=== PATIENT | male | born 1940 | race Caucasian/White ===

== ENCOUNTER 2017-01-06 13:27 | Emergency (ER) | payer MEDICARE ==
--- NOTE | 2017-01-06 14:35 | XR ---
EXAMINATION TYPE: XR Hip RT and AP Pelvis DATE OF EXAM: 01/06/2017 2:17 PM COMPARISON: NONE HISTORY: Right hip pain and sacrum pain TECHNIQUE: A single AP view of the pelvis is obtained. Two views of the right hip are obtained. FINDINGS: There is no acute fracture/dislocation evident in the pelvis. The hip and sacroiliac join ts appear symmetric and unremarkable. The overlying soft tissue appears unremarkable. Two views of right hip show no acute fracture or dislocation. No focal lytic or sclerotic lesion see n in the proximal right femur. The overlying soft tissue is unremarkable. Bone mineralization is re duced. There are vascular calcifications. There may be a lumbar scoliosis. IMPRESSION: There is no acute fracture or dislocation in the pelvis or right hip. Low bone mineraliz ation could limit sensitivity. Follow-up as indicated. Possible spinal curvature.
[2017-01-06] MEDS ORDERED: HYDROcodone/APAP 5-325MG 1 EACH TAB PO STA (14:38)
--- NOTE | 2017-01-06 14:39 | ED ---
General Adult HPI - General Chief complaint: Fall Stated complaint: RT HIP INJURY Time Seen by Provider: 01/06/17 13:49 Source: patient, EMS, RN notes reviewed, old records reviewed Mode of arrival: EMS Limitations: no limitations - History of Present Illness Initial comments: This is a 76-year-old male the ER status post slip and fall. Patient fell backwards landing has both getting off the toilet. Patient did not hit his head as well as conscious blood thinners. Patient did not attempt to get up after falling. Was not on the ground for longer than a minute. EMS was called and EMS brought patient in transport. Patient is able to move leg with mild pain, patient states pain is lower mid back. - Related Data Home Medications Medication Instructions Recorded Confirmed Simvastatin [Zocor] 40 mg PO HS 02/22/14 01/06/17 Abatacept/Maltose [Orencia] 750 mg IVPB Q28D 08/17/15 01/06/17 Leflunomide [Arava] 10 mg PO DAILY 12/11/15 01/06/17 Icon Eye Vitamin 1 tab PO DAILY 06/05/16 01/06/17 Lisinopril [Prinivil] 2.5 mg PO BID 06/20/16 01/06/17 Acetaminophen Tab [Tylenol] 650 mg PO TID PRN 01/06/17 01/06/17 Previous Rx's Medication Instructions Recorded Nitroglycerin Sl Tabs [Nitrostat] 0.4 mg SUBLINGUAL Q5M PRN #30 tab 08/26/14 Aspirin 81 mg PO DAILY chew 06/11/16 Metoprolol Tartrate [Lopressor] 12.5 mg PO BID #60 tab 06/11/16 HYDROcodone/APAP 5-325MG [Pavillion 1 tab PO Q6HR PRN #30 tab 01/06/17 5-325] Allergies Allergy/AdvReac Type Severity Reaction Status Date / Time etodolac [From Lodine] Allergy Rash/Hives Verified 01/06/17 14:05 grape Allergy Rash/Hives Verified 01/06/17 14:05 Penicillins Allergy Rash/Hives Verified 01/06/17 14:05 grape flavor Allergy Rash/Hives Uncoded 01/06/17 13:30 Review of Systems ROS Statement: Those systems with pertinent positive or pertinent negative responses have been documented in the HPI. ROS Other: All systems not noted in ROS Statement are negative. Past Medical History Past Medical History: COPD, CVA/TIA, Hypertension, Myocardial Infarction (MO), Renal Disease, Rheumatoid Arthritis (RA) Additional Past Medical History / Comment(s): Other Hx: rheumatoid lung disease, restrictive ventilatory impairment per last PFT, lung nodules, 2012 ECHO with normal EF and moderate pulmonary HTN, bilateral nephrolithiasis, renal insufficiency, hiatal hernia, duodenal ulcers, macular degeneration bilaterally, tinnitis bilaterally, was told after [facility] that he had a MO at some time-undetermined date, balance affected after CVA Last Myocardial Infarction Date:: unkn History of Any Multi-Drug Resistant Organisms: None Reported Past Surgical History: Heart Catheterization With Stent, Joint Replacement Additional Past Surgical History / Comment(s): 07/2014 Cardiac cath with stents x 3, R caratid endartectomy, total R knee, lithotripsy 2011, cataract removal with lens implants bilaterally, colonoscopy/EGD. Past Anesthesia/Blood Transfusion Reactions: No Reported Reaction Date of Last Stent Placement:: jul 2014 Past Psychological History: No Psychological Hx Reported Additional Psychological History / Comment(s): Pt resides with his spouse. He is independent. He uses no assistive device. He drives. 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 No experience. No international travel. Years since been exposures. Lives with his no other partners. Remote history of tobacco use no history of significant recreational drug use or alcohol use Smoking Status: Never smoker Past Alcohol Use History: None Reported Additional Past Alcohol Use History / Comment(s): Pt started smoking in 1952 and quit in 1988. Past Drug Use History: None Reported - Past Family History Father Family Medical History: Pulmonary Embolus Additional Family Medical History / Comment(s): Father of a PE at age 51 yrs. Mother Family Medical History: Cancer Additional Family Medical History / Comment(s): Hx. mother of esophagus cancer at age 86yrs. Son(s) Family Medical History: Cancer General Exam Limitations: no limitations General appearance: alert, in no apparent distress Head exam: Present: atraumatic, normocephalic, normal inspection Eye exam: Present: normal appearance, PERRL, EOMI. Absent: scleral icterus, conjunctival injection, periorbital swelling ENT exam: Present: normal exam, mucous membranes moist Neck exam: Present: normal inspection. Absent: tenderness, meningismus, lymphadenopathy Respiratory exam: Present: normal lung sounds bilaterally. Absent: respiratory distress, wheezes, rales, rhonchi, stridor Cardiovascular Exam: Present: regular rate, normal rhythm, normal heart sounds. Absent: systolic murmur, diastolic murmur, rubs, gallop, clicks GI/Abdominal exam: Present: soft, normal bowel sounds. Absent: distended, tenderness, guarding, rebound, rigid Extremities exam: Present: normal inspection, full ROM, normal capillary refill. Absent: tenderness, pedal edema, joint swelling, calf tenderness Back exam: Present: normal inspection Neurological exam: Present: alert, oriented X3, CN II-XII intact Psychiatric exam: Present: normal affect, normal mood Skin exam: Present: warm, dry, intact, normal color. Absent: rash Course Vital Signs 01/06/17 01/06/17 13:30 14:48 Temperature 97.5 F L 97.3 F L Pulse Rate 70 68 Respiratory 16 18 Rate Blood Pressure 147/86 157/87 O2 Sat by Pulse 90 L 94 L Oximetry - Reevaluation(s) Reevaluation #1: 01/06/17 15:04 Patient's pain is improved, able to ambulate Medical Decision Making - Medical Decision Making 76 also been followed back contusion, x-ray negative for fracture patient can be discharged home - Radiology Data Radiology results: report reviewed (X-ray right hip and AP pelvis is negative for fracture), image reviewed Disposition Clinical Impression: Fall, Back contusion Disposition: HOME SELF-CARE Condition: Good Instructions: Fall Prevention for Older Adults (ED) Prescriptions: HYDROcodone/APAP 5-325MG [Pavillion 5-325] 1 tab PO Q6HR PRN #30 tab PRN Reason: Pain Referrals: Jose David Cox MD [Primary Care Provider] - 1-2 days
[2017-01-06 14:48] VITALS: TEMP 97.3
[2017-01-06 15:16] VITALS: BP 146/76; PULSE 79; RESP 15
== END 2017-01-06 15:17 | disposition home or self-care (01) ==
LOC: EC 13:27
DX: S30.0XXA Contusion of lower back and pelvis, initial encounter (principal); I10 Essential (primary) hypertension; M06.9 Rheumatoid arthritis, unspecified; I25.2 Old myocardial infarction; Z95.818 Presence of other cardiac implants and grafts; Z79.899 Other long term (current) drug therapy; Z88.6 Allergy status to analgesic agent; Z91.018 Allergy to other foods; Z88.0 Allergy status to penicillin; W01.0XXA Fall on same level from slipping, tripping and stumbling without subsequent striking against object, initial encounter; Y93.01 Activity, walking, marching and hiking; Y92.002 Bathroom of unspecified non-institutional (private) residence as the place of occurrence of the external cause
CPT/HCPCS: 73502; 99284

== ENCOUNTER 2017-02-02 11:44 | Emergency (ER) | payer MEDICARE ==
[2017-02-02 11:53] VITALS: TEMP 97.5
[2017-02-02] MEDS ORDERED: SODIUM CHLORIDE 0.9% 1,000 ML IV STA (13:30)
--- NOTE | 2017-02-02 13:51 | ED ---
General Adult HPI - General Chief complaint: Back Pain/Injury Stated complaint: sick,back pain Time Seen by Provider: 02/02/17 13:11 Source: patient, family, RN notes reviewed Mode of arrival: wheelchair Limitations: physical limitation - History of Present Illness Initial comments: 76-year-old male presents to the emergency department with a chief complaint of not feeling well. The patient has not been eating for the past few months. He states just doesn't have an appetite. He states that his stomach is upset. He did undergo an endoscopy from Dr. Wilson and they stated there is nothing wrong with the abdomen. The patient states he had 2 pieces of toast this morning wheeze on pain medication for his back pain after a fall that had some compression fractures in his spine. Patient was fitted with a back brace on and he is worried twice. Patient states he was up about an hour and a half. Patient states that he just does not get out of bed more than 12 to the bathroom and back. He does not feel like eating. Patient states he's had a few episodes of vertigo with this. Patient states it's a history of vertigo. Patient states that he just feels off and it comes and goes at random. The pain medication that these her vertigo seems to make him feel better at that slowly goes away after taking that. Family states they're concerned due to the patient's continued behaviors and not acting right. They should be evaluated. Patient denies any recent fever, chills, shortness of breath, chest pain, abdominal pain, nausea vomiting, numbness or tingling, dysuria or hematuria, constipation or diarrhea, headaches or visual changes, or any other current symptoms. - Related Data Home Medications Medication Instructions Recorded Confirmed Simvastatin [Zocor] 40 mg PO HS 02/22/14 02/02/17 Abatacept/Maltose [Orencia] 750 mg IVPB Q28D 08/17/15 02/02/17 Leflunomide [Arava] 10 mg PO DAILY 12/11/15 02/02/17 Icon Eye Vitamin 2 tab PO DAILY 06/05/16 02/02/17 Lisinopril [Prinivil] 2.5 mg PO BID 06/20/16 02/02/17 HYDROmorphone HCL [Dilaudid] 2 mg PO Q4H 02/02/17 02/02/17 Meclizine [Antivert] 25 mg PO DAILY 02/02/17 02/02/17 Previous Rx's Medication Instructions Recorded Nitroglycerin Sl Tabs [Nitrostat] 0.4 mg SUBLINGUAL Q5M PRN #30 tab 08/26/14 Aspirin 81 mg PO DAILY chew 06/11/16 Metoprolol Tartrate [Lopressor] 12.5 mg PO BID #60 tab 06/11/16 Allergies Allergy/AdvReac Type Severity Reaction Status Date / Time etodolac [From Lodine] Allergy Rash/Hives Verified 02/02/17 14:27 grape Allergy Rash/Hives Verified 02/02/17 14:27 Penicillins Allergy Rash/Hives Verified 02/02/17 14:27 grape flavor Allergy Rash/Hives Uncoded 02/02/17 11:53 Review of Systems ROS Statement: Those systems with pertinent positive or pertinent negative responses have been documented in the HPI. ROS Other: All systems not noted in ROS Statement are negative. Past Medical History Past Medical History: COPD, CVA/TIA, Hypertension, Myocardial Infarction (MD), Renal Disease, Rheumatoid Arthritis (RA) Additional Past Medical History / Comment(s): Other Hx: rheumatoid lung disease, restrictive ventilatory impairment per last PFT, lung nodules, 2012 ECHO with normal EF and moderate pulmonary HTN, bilateral nephrolithiasis, renal insufficiency, hiatal hernia, duodenal ulcers, macular degeneration bilaterally, tinnitis bilaterally, [facility] had [facility] MD at some time-undetermined date, balance affected after CVA Last Myocardial Infarction Date:: unkn History of Any Multi-Drug Resistant Organisms: None Reported Past Surgical History: Heart Catheterization With Stent, Joint Replacement Additional Past Surgical History / Comment(s): 07/2014 Cardiac cath with stents x 3, R caratid endartectomy, total R knee, lithotripsy 2011, cataract removal with lens implants bilaterally, colonoscopy/EGD. Past Anesthesia/Blood Transfusion Reactions: No Reported Reaction Date of Last Stent Placement:: jul 2014 Past Psychological History: No Psychological Hx Reported Additional Psychological History / Comment(s): Pt resides with his spouse. He is independent. He uses no assistive device. He drives. 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 No experience. No international travel. Years since been exposures. Lives with his no other partners. Remote history of tobacco use no history of significant recreational drug use or alcohol use Smoking Status: Former smoker Past Alcohol Use History: None Reported Additional Past Alcohol Use History / Comment(s): Pt started smoking in 1952 and quit in 1988. Past Drug Use History: None Reported - Past Family History Father Family Medical History: Pulmonary Embolus Additional Family Medical History / Comment(s): Father of a PE at age 51 yrs. Mother Family Medical History: Cancer Additional Family Medical History / Comment(s): Hx. mother of esophagus cancer at age 86yrs. Son(s) Family Medical History: Cancer General Exam Limitations: physical limitation General appearance: alert, in no apparent distress Head exam: Present: atraumatic, normocephalic, normal inspection Eye exam: Present: normal appearance ENT exam: Present: normal exam, mucous membranes moist Neck exam: Present: normal inspection. Absent: tenderness, meningismus, lymphadenopathy Respiratory exam: Present: normal lung sounds bilaterally. Absent: respiratory distress, wheezes, rales, rhonchi, stridor Cardiovascular Exam: Present: regular rate, normal rhythm, normal heart sounds. Absent: systolic murmur, diastolic murmur, rubs, gallop, clicks GI/Abdominal exam: Present: soft, normal bowel sounds. Absent: distended, tenderness, guarding, rebound, rigid Neurological exam: Present: alert, oriented X3, CN II-XII intact, motor sensory deficit Psychiatric exam: Present: normal affect, normal mood Skin exam: Present: warm, dry, intact, normal color. Absent: rash Course Vital Signs 02/02/17 11:49 Temperature 97.5 F L Pulse Rate 92 Respiratory 20 Rate Blood Pressure 108/62 O2 Sat by Pulse 98 Oximetry Medical Decision Making - Medical Decision Making 76-year-old male presents to the emergency department with a chief complaint of not feeling well. At this time patient's lab work and EKG imaging was reviewed. Patient was found to have any abdominal aortic aneurysm which she was informed of. We did discuss the results. We did discuss close follow-up with his doctor. We did discuss possibly starting ensure we discussed. First. We discussed all of their questions. This time we discussed continued outpatient follow-up to find out why the patient is not wanting to eat. We discussed using the brace as prescribed. Patient's family are in agreement with this plan we do feel comfortable being discharged. All her questions have been answered. They will be discharged. - Lab Data Result diagrams: 02/02/17 13:36 02/02/17 13:36 Lab Results 02/02/17 02/02/17 02/02/17 Range/Units 13:36 13:36 13:36 WBC 10.3 (3.8-10.6) k/uL RBC 4.79 (4.30-5.90) m/uL Hgb 15.0 (13.0-17.5) gm/dL Hct 47.8 (39.0-53.0) % MCV 99.9 (80.0-100.0) fL MCH 31.2 (25.0-35.0) pg MCHC 31.3 (31.0-37.0) g/dL RDW 13.2 (11.5-15.5) % Plt Count 184 (150-450) k/uL Neutrophils % 74 % Lymphocytes % 10 % Monocytes % 10 % Eosinophils % 4 % Basophils % 1 % Neutrophils # 7.6 (1.3-7.7) k/uL Lymphocytes # 1.1 (1.0-4.8) k/uL Monocytes # 1.0 (0-1.0) k/uL Eosinophils # 0.4 (0-0.7) k/uL Basophils # 0.1 (0-0.2) k/uL PT (9.0-12.0) sec INR (<1.1) APTT (22.0-30.0) sec D-Dimer (<0.60) mg/L FEU Sodium 137 (137-145) mmol/L Potassium 4.9 (3.5-5.1) mmol/L Chloride 103 (98-107) mmol/L Carbon Dioxide 24 (22-30) mmol/L Anion Gap 10 mmol/L BUN 29 H (9-20) mg/dL Creatinine 1.05 (0.66-1.25) mg/dL Est GFR (MDRD) Af Amer >60 (>60 ml/min/1.73 sqM) Est GFR (MDRD) Non-Af >60 (>60 ml/min/1.73 sqM) Glucose 88 (74-99) mg/dL Calcium 9.0 (8.4-10.2) mg/dL Magnesium 2.0 (1.6-2.3) mg/dL Total Bilirubin 0.9 (0.2-1.3) mg/dL AST 32 (17-59) U/L ALT 51 (21-72) U/L Alkaline Phosphatase 169 H (38-126) U/L Total Creatine Kinase 22 L (55-170) U/L CK-MB (CK-2) 0.9 (0.0-2.4) ng/mL CK-MB (CK-2) Rel Index 4.1 Troponin I <0.012 (0.000-0.034) ng/mL Total Protein 5.9 L (6.3-8.2) g/dL Albumin 2.9 L (3.5-5.0) g/dL 02/02/17 Range/Units 13:36 WBC (3.8-10.6) k/uL RBC (4.30-5.90) m/uL Hgb (13.0-17.5) gm/dL Hct (39.0-53.0) % MCV (80.0-100.0) fL MCH (25.0-35.0) pg MCHC (31.0-37.0) g/dL RDW (11.5-15.5) % Plt Count (150-450) k/uL Neutrophils % % Lymphocytes % % Monocytes % % Eosinophils % % Basophils % % Neutrophils # (1.3-7.7) k/uL Lymphocytes # (1.0-4.8) k/uL Monocytes # (0-1.0) k/uL Eosinophils # (0-0.7) k/uL Basophils # (0-0.2) k/uL PT 11.2 (9.0-12.0) sec INR 1.1 (<1.1) APTT 24.5 (22.0-30.0) sec D-Dimer 0.55 (<0.60) mg/L FEU Sodium (137-145) mmol/L Potassium (3.5-5.1) mmol/L Chloride (98-107) mmol/L Carbon Dioxide (22-30) mmol/L Anion Gap mmol/L BUN (9-20) mg/dL Creatinine (0.66-1.25) mg/dL Est GFR (MDRD) Af Amer (>60 ml/min/1.73 sqM) Est GFR (MDRD) Non-Af (>60 ml/min/1.73 sqM) Glucose (74-99) mg/dL Calcium (8.4-10.2) mg/dL Magnesium (1.6-2.3) mg/dL Total Bilirubin (0.2-1.3) mg/dL AST (17-59) U/L ALT (21-72) U/L Alkaline Phosphatase (38-126) U/L Total Creatine Kinase (55-170) U/L CK-MB (CK-2) (0.0-2.4) ng/mL CK-MB (CK-2) Rel Index Troponin I (0.000-0.034) ng/mL Total Protein (6.3-8.2) g/dL Albumin (3.5-5.0) g/dL - EKG Data -: EKG Interpreted by Me 02/02/17 14:07 normal sinus rhythm 78 bpm, normal axis, no atopy, no S-T depressions or elevations, Disposition Clinical Impression: Loss of appetite, Dehydration, Back pain Disposition: HOME SELF-CARE Condition: Stable Instructions: Acute Low Back Pain (ED) Additional Instructions: Please use medication as discussed. Please follow up with family doctor if symptoms have not improved over the next two days. Please return to the emergency room if your symptoms increase or worsen or for any other concerns. Referrals: Jose David Cox MD [Primary Care Provider] - 1-2 days Time of Disposition: 15:53
[2017-02-02 14:04] LABS: Basophils # (A) 0.1 k/uL (0-0.2); Basophils % (A) 1 %; CH 31.2; CHCM 31.3; Eosinophils # (A) 0.4 k/uL (0-0.7); Eosinophils % (A) 4 %; HCT 47.8 % (39.0-53.0); HDW 2.12; Luc # (Auto) 0.16; Luc % (Auto) 2; Lymphocytes # (A) 1.1 k/uL (1.0-4.8); Lymphocytes % (A) 10 %; MCH 31.2 pg (25.0-35.0); MCHC 31.3 g/dL (31.0-37.0); MCV 99.9 fL (80.0-100.0); Mean Platelet Volume 10.8; Monocytes % (A) 10 %; Neutrophils # (A) 7.6 k/uL (1.3-7.7); Neutrophils % (A) 74 %; RBC 4.79 m/uL (4.30-5.90); RDW 13.2 % (11.5-15.5); WBC 10.3 k/uL (3.8-10.6); WBC (Perox) 9.97
--- NOTE | 2017-02-02 14:14 | XR ---
EXAMINATION TYPE: XR chest 2V DATE OF EXAM: 02/02/2017 2:00 PM COMPARISON: 06/05/2016 INDICATION: Chest pain TECHNIQUE: Single frontal view of the chest is obtained. FINDINGS: The heart size is normal. The pulmonary vasculature is normal. The lungs are clear. There appears to be a pneumoperitoneum present. Correlate with the patient's surgical history. Report was immediately called to the emergency room PA by Dr. Alexander by telephone at 1400 hours 02/02/2017 IMPRESSION: 1. Suspected pneumoperitoneum. Recommend confirmation.
[2017-02-02 14:22] LABS: ALT 51 U/L (21-72); AST 32 U/L (17-59); Alkaline Phosphatase 169 U/L (38-126); Anion Gap 10 mmol/L; Blood Urea Nitrogen 29 mg/dL (9-20); Carbon Dioxide 24 mmol/L (22-30); Chloride 103 mmol/L (98-107); Glucose 88 mg/dL (74-99); Non-African American GFR(MDRD) >60 (>60 ml/min/1.73 sqM); Sodium 137 mmol/L (137-145); Total Bilirubin 0.9 mg/dL (0.2-1.3); Total Protein 5.9 g/dL (6.3-8.2)
[2017-02-02 14:23] LABS: Creatine Kinase 22 U/L (55-170)
[2017-02-02 14:27] LABS: Potassium 4.9 mmol/L (3.5-5.1)
[2017-02-02 14:36] LABS: Creatine Kinase MB 0.9 ng/mL (0.0-2.4); INR 1.1 (<1.1); Partial Thromboplastin Time 24.5 sec (22.0-30.0); Prothrombin Time 11.2 sec (9.0-12.0); Troponin I <0.012 ng/mL (0.000-0.034)
--- NOTE | 2017-02-02 15:17 | CT ---
EXAMINATION TYPE: CT brain wo con DATE OF EXAM: 02/02/2017 3:10 PM COMPARISON: 03/09/2016 INDICATION: Back pain. Sick. DLP: 1047.10 mGycm, Automated exposure control for dose reduction was used. CONTRAST: None CT of the brain is performed utilizing 3 mm thick sections through the posterior fossa and 3 mm thick sections through the remaining calvarium. Study is performed within 24 hours of arrival to the hosp ital. No abnormal hyperdensity is present to suggest an acute intracranial hemorrhage. No mass lesion is evident. No acute infarcts are evident. Mild periventricular white matter hypodensity is present, likely on th e basis of chronic white matter ischemic changes. Ventricles and sulci are prominent for the patient age. Paranasal sinuses and mastoid air cells within the [id number] are clear. IMPRESSIONS: 1. Atrophy with mild periventricular white matter ischemic changes
--- NOTE | 2017-02-02 15:25 | CT ---
EXAMINATION TYPE: CT ChestAbdPelvis wo con DATE OF EXAM: 02/02/2017 3:11 PM INDICATION: Sick and back pain COMPARISON: NONE CT DLP: 453.30 mGycm CONTRAST: Performed without Oral Contrast TECHNIQUE: Axial images at 5 mm thick sections. Reconstructed images in the coronal plane. Delayed images through the kidneys. FINDINGS: CT CHEST: Portion of the thyroid visualized is normal. No suspicious lung nodules or focal infiltrates are present. Emphysematous changes are present to a m ild degree. 0.3 punctate nodular densities in the lingula series 4 image 27. Peribronchial thickening is extending into the lateral right middle lobe. Pneumonitis changes or distal. There is a 0.6 cm no dule within the inferior lingular base. No enlarged mediastinal or hilar adenopathy is evident. Shotty lymphadenopathy is present. The ascending aorta diameter at the level of the main pulmonary artery is 4.0 cm. The main pulmonary artery diameter at the bifurcation is 3.3 cm. Coronary artery calcification is present. CT ABDOMEN: Liver: Normal Spleen: Normal Pancreas: Normal Adrenal glands: The adrenal glands are normal. Gallbladder: Surgically absent Kidneys: Extensive renal stones are present bilaterally. No hydronephrosis is evident. No hydroureter is evident. There is a 2.8 cm cyst on the mid posterior lateral left kidney measuring 10 Hounsfield units. Aorta: Vascular calcification is within the aorta. There is fusiform prominence of the descending ab dominal aorta. There is an AP diameter aneurysm measuring 4.1 cm in the infrarenal abdominal aorta ab ove the bifurcation. The bifurcation is prominent measuring 2.4 cm on the right and 2.2 cm on the lef t. Inferior vena cava: Normal. CT PELVIS: Large fecal bolus at the level the rectum. The bowel without contrast otherwise appear unremarkable. Appendix: Limited visualization of what appears to be the appendix is normal Urinary bladder: Normal. Genitourinary structures: Prostate is unremarkable Osseous structures: No suspicious lytic or sclerotic lesions. IMPRESSIONS: 1. Infrarenal abdominal aortic aneurysm measuring 4.1 cm AP extending into the proximal common iliac arteries. 2. Extensive bilateral nonobstructing renal stones.
[2017-02-02 15:56] VITALS: BP 135/87; PULSE 74; RESP 18
== END 2017-02-02 16:13 | disposition home or self-care (01) ==
LOC: EC 11:44
DX: E86.0 Dehydration (principal); M54.9 Dorsalgia, unspecified; R63.0 Anorexia; R42 Dizziness and giddiness; I25.2 Old myocardial infarction; I10 Essential (primary) hypertension; M06.9 Rheumatoid arthritis, unspecified; Z79.891 Long term (current) use of opiate analgesic; Z79.899 Other long term (current) drug therapy; Z88.0 Allergy status to penicillin; Z88.8 Allergy status to other drugs, medicaments and biological substances; Z91.02 Food additives allergy status; Z95.5 Presence of coronary angioplasty implant and graft
CPT/HCPCS: 36415; 70450; 71020; 71250; 74176; 80053; 82550; 82553; 83735; 84484; 85025; 85379; 85610; 85730; 93005; 96360; 96361; 99284

== ENCOUNTER → 2017-05-02 | Outpatient (CLI) | payer MEDICARE ==
--- NOTE | 2017-05-02 16:40 | CT ---
EXAMINATION TYPE: CT chest wo con DATE OF EXAM: 05/02/2017 COMPARISON: 02/02/2017 HISTORY: Follow up for lung nodules. CT DLP: 765 mGycm. Automated Exposure Control for Dose Reduction was Utilized. TECHNIQUE: CT scan of the thorax is performed without IV contrast. FINDINGS: There are moderate bilateral pleural effusions. There is patchy consolidation and atelectasis at the posterior lung bases. Heart is enlarged. There is small pericardial effusion. Thoracic aorta is ather omatous. There is mild aneurysm of the ascending aorta that measures 4 cm. There are bilateral renal calculi. There is a 6 mm nodular density in the lingula left upper lobe. I see no pulmonary mass. The re is 75% anterior wedging of L1 vertebral body. There is interposition of the hepatic flexure of the colon. IMPRESSION: Compared to last exam there is significant increased pleural fluid and atelectasis and in filtrate at the lung bases. Cardiomegaly. Small pericardial effusion. This probably relates to chroni c congestive heart failure. No evidence of a pulmonary mass. Old L1 compression fracture. Stable mild aneurysm of the ascending aorta. Stable pretracheal lymph nodes measure up to 1 cm. Bilateral renal calculi.
== END | disposition home or self-care (01) ==
LOC: RADCTMAIN 16:15
PROVIDERS: ATTEND Internal Medicine Pulmonary Disease
DX: I31.3 Pericardial effusion (noninflammatory) (principal); J94.8 Other specified pleural conditions; J98.11 Atelectasis; R91.8 Other nonspecific abnormal finding of lung field; I71.4 Abdominal aortic aneurysm, without rupture
CPT/HCPCS: 71250

== ENCOUNTER 2017-05-03 19:53 | Inpatient (IN) | payer MEDICARE ==
[2017-05-03] MEDS ORDERED: FUROSEMIDE 10 MG/ML 4 ML VIAL IV STA (20:22)
[2017-05-03] MEDS ORDERED: NITROGLYCERIN OINT 1 INCH/GM PACKET TOPICAL STA (20:22)
[2017-05-03] MEDS ORDERED: IPRATROPIUM-ALBUTEROL 3 ML NEB INHALATION STA (20:24)
--- NOTE | 2017-05-03 20:25 | ED ---
SOB HPI - General Chief Complaint: Shortness of Breath Stated Complaint: ABEL Time Seen by Provider: 05/03/17 20:01 Source: patient, family, RN notes reviewed Mode of arrival: wheelchair Limitations: no limitations - History of Present Illness Initial Comments: This is a 77-year-old male with history of COPD who states he's had a cough with history of exertional dyspnea. He states he had coughed up some bright red blood yesterday. Released states he coughs up brown phlegm he denies any overt fevers chills or sweats. He denies any chest pain. Complaint: shortness of breath, cough - Related Data Home Medications Medication Instructions Recorded Confirmed Simvastatin [Zocor] 40 mg PO HS 02/22/14 05/03/17 Abatacept/Maltose [Orencia] 750 mg IVPB Q28D 08/17/15 05/03/17 Leflunomide [Arava] 10 mg PO DAILY 12/11/15 05/03/17 Icon Eye Vitamin 2 tab PO DAILY 06/05/16 05/03/17 HYDROmorphone HCL [Dilaudid] 2 mg PO Q4H 02/02/17 05/03/17 Fludrocortisone [Florinef] 0.1 mg PO BID 04/10/17 05/03/17 Midodrine HCl [ProAmatine] 2.5 mg PO BID 04/10/17 05/03/17 Previous Rx's Medication Instructions Recorded Nitroglycerin Sl Tabs [Nitrostat] 0.4 mg SUBLINGUAL Q5M PRN #30 tab 08/26/14 Aspirin 81 mg PO DAILY chew 06/11/16 Allergies Allergy/AdvReac Type Severity Reaction Status Date / Time etodolac [From Lodine] Allergy Rash/Hives Verified 05/03/17 20:10 grape Allergy Rash/Hives Verified 05/03/17 20:10 Penicillins Allergy Rash/Hives Verified 05/03/17 20:10 grape flavor Allergy Rash/Hives Uncoded 05/03/17 19:57 Review of Systems ROS Statement: Those systems with pertinent positive or pertinent negative responses have been documented in the HPI. ROS Other: All systems not noted in ROS Statement are negative. Past Medical History Past Medical History: COPD, CVA/TIA, Hypertension, Myocardial Infarction ([place]), Renal Disease, Rheumatoid Arthritis (RA) Additional Past Medical History / Comment(s): Other Hx: rheumatoid lung disease, restrictive ventilatory impairment per last PFT, lung nodules, 2012 ECHO with normal EF and moderate pulmonary HTN, bilateral nephrolithiasis, renal insufficiency, hiatal hernia, duodenal ulcers, macular degeneration bilaterally, tinnitis bilaterally, was told after [facility] that he had a [place] at some time-undetermined date, balance affected after CVA Last Myocardial Infarction Date:: unkn History of Any Multi-Drug Resistant Organisms: None Reported Past Surgical History: Heart Catheterization With Stent, Joint Replacement Additional Past Surgical History / Comment(s): 07/2014 Cardiac cath with stents x 3, R caratid endartectomy, total R knee, lithotripsy 2011, cataract removal with lens implants bilaterally, colonoscopy/EGD. Past Anesthesia/Blood Transfusion Reactions: No Reported Reaction Date of Last Stent Placement:: jul 2014 Past Psychological History: No Psychological Hx Reported Smoking Status: Former smoker - Past Family History Father Family Medical History: Pulmonary Embolus Additional Family Medical History / Comment(s): Father of a PE at age 51 yrs. Mother Family Medical History: Cancer Additional Family Medical History / Comment(s): Hx. mother of esophagus cancer at age 86yrs. Son(s) Family Medical History: Cancer General Exam - General Exam Comments Initial Comments: This is a well-developed well-nourished awake alert oriented 3 male Limitations: no limitations General appearance: alert, anxious, in distress Head exam: Present: atraumatic, normocephalic, normal inspection Eye exam: Present: normal appearance, PERRL, EOMI. Absent: scleral icterus, conjunctival injection, periorbital swelling ENT exam: Present: normal exam, mucous membranes moist Neck exam: Present: normal inspection. Absent: tenderness, meningismus, lymphadenopathy Respiratory exam: Present: rales, decreased breath sounds. Absent: respiratory distress, wheezes, rhonchi, stridor Cardiovascular Exam: Present: regular rate, normal rhythm, normal heart sounds. Absent: systolic murmur, diastolic murmur, rubs, gallop, clicks GI/Abdominal exam: Present: soft, normal bowel sounds. Absent: distended, tenderness, guarding, rebound, rigid Extremities exam: Present: normal inspection, full ROM, normal capillary refill. Absent: tenderness, pedal edema, joint swelling, calf tenderness Back exam: Present: normal inspection Neurological exam: Present: alert, oriented X3, CN II-XII intact Psychiatric exam: Present: normal affect, normal mood Skin exam: Present: warm, dry, intact, normal color. Absent: rash Course Vital Signs 05/03/17 05/03/17 05/03/17 19:55 20:25 20:40 Temperature 97.8 F Pulse Rate 83 84 78 Respiratory 18 18 Rate Blood Pressure 157/79 146/108 O2 Sat by Pulse 94 L 96 Oximetry 05/03/17 21:49 Temperature 97.5 F L Pulse Rate 82 Respiratory 18 Rate Blood Pressure 124/73 O2 Sat by Pulse 95 Oximetry - Reevaluation(s) Reevaluation #1: 05/03/17 21:55 Reevaluation patient reveals he is breathing better after the updraft and the IV Lasix. He is diuresing. Medical Decision Making - Medical Decision Making I did discuss findings with patient family and with the hospitalist, Dr. Jacobs. Patient will be admitted for diuresis and continued treatment. - Lab Data Result diagrams: 05/03/17 20:15 05/03/17 20:15 Lab Results 05/03/17 05/03/17 05/03/17 Range/Units 20:15 20:15 20:15 WBC 9.1 (3.8-10.6) k/uL RBC 4.25 L (4.30-5.90) m/uL Hgb 14.1 (13.0-17.5) gm/dL Hct 41.9 (39.0-53.0) % MCV 98.6 (80.0-100.0) fL MCH 33.2 (25.0-35.0) pg MCHC 33.7 (31.0-37.0) g/dL RDW 13.8 (11.5-15.5) % Plt Count 209 (150-450) k/uL Neutrophils % 67 % Lymphocytes % 15 % Monocytes % 9 % Eosinophils % 6 % Basophils % 1 % Neutrophils # 6.1 (1.3-7.7) k/uL Lymphocytes # 1.4 (1.0-4.8) k/uL Monocytes # 0.8 (0-1.0) k/uL Eosinophils # 0.5 (0-0.7) k/uL Basophils # 0.1 (0-0.2) k/uL PT (9.0-12.0) sec INR (<1.1) APTT (22.0-30.0) sec D-Dimer (<0.60) mg/L FEU Sodium 141 (137-145) mmol/L Potassium 4.2 (3.5-5.1) mmol/L Chloride 104 (98-107) mmol/L Carbon Dioxide 27 (22-30) mmol/L Anion Gap 10 mmol/L BUN 25 H (9-20) mg/dL Creatinine 1.00 (0.66-1.25) mg/dL Est GFR (MDRD) Af Amer >60 (>60 ml/min/1.73 sqM) Est GFR (MDRD) Non-Af >60 (>60 ml/min/1.73 sqM) Glucose 87 (74-99) mg/dL Calcium 9.5 (8.4-10.2) mg/dL Magnesium 2.1 (1.6-2.3) mg/dL Total Bilirubin 0.3 (0.2-1.3) mg/dL AST 32 (17-59) U/L ALT 39 (21-72) U/L Alkaline Phosphatase 113 (38-126) U/L Total Creatine Kinase 74 (55-170) U/L CK-MB (CK-2) 1.9 (0.0-2.4) ng/mL CK-MB (CK-2) Rel Index 2.6 Troponin I 0.022 (0.000-0.034) ng/mL NT-Pro-B Natriuret Pep pg/mL Total Protein 6.4 (6.3-8.2) g/dL Albumin 3.6 (3.5-5.0) g/dL 05/03/17 05/03/17 Range/Units 20:15 20:15 WBC (3.8-10.6) k/uL RBC (4.30-5.90) m/uL Hgb (13.0-17.5) gm/dL Hct (39.0-53.0) % MCV (80.0-100.0) fL MCH (25.0-35.0) pg MCHC (31.0-37.0) g/dL RDW (11.5-15.5) % Plt Count (150-450) k/uL Neutrophils % % Lymphocytes % % Monocytes % % Eosinophils % % Basophils % % Neutrophils # (1.3-7.7) k/uL Lymphocytes # (1.0-4.8) k/uL Monocytes # (0-1.0) k/uL Eosinophils # (0-0.7) k/uL Basophils # (0-0.2) k/uL PT 10.5 (9.0-12.0) sec INR 1.0 (<1.1) APTT 20.5 L (22.0-30.0) sec D-Dimer 0.77 H (<0.60) mg/L FEU Sodium (137-145) mmol/L Potassium (3.5-5.1) mmol/L Chloride (98-107) mmol/L Carbon Dioxide (22-30) mmol/L Anion Gap mmol/L BUN (9-20) mg/dL Creatinine (0.66-1.25) mg/dL Est GFR (MDRD) Af Amer (>60 ml/min/1.73 sqM) Est GFR (MDRD) Non-Af (>60 ml/min/1.73 sqM) Glucose (74-99) mg/dL Calcium (8.4-10.2) mg/dL Magnesium (1.6-2.3) mg/dL Total Bilirubin (0.2-1.3) mg/dL AST (17-59) U/L ALT (21-72) U/L Alkaline Phosphatase (38-126) U/L Total Creatine Kinase (55-170) U/L CK-MB (CK-2) (0.0-2.4) ng/mL CK-MB (CK-2) Rel Index Troponin I (0.000-0.034) ng/mL NT-Pro-B Natriuret Pep 43782 pg/mL Total Protein (6.3-8.2) g/dL Albumin (3.5-5.0) g/dL - EKG Data -: EKG Interpreted by Me EKG shows normal: sinus rhythm (Sinus rhythm with first-degree AV block rate was 83 appear to 42 QRS 102 QT since QTC of 380/446 nonspecific T-wave configuration.) - Radiology Data Radiology results: report reviewed (I did review the imaging and report or is evidence of pulmonary vascular congestion small left increased right pleural effusion.), image reviewed Critical Care Time Critical Care Time: Yes Critical Care Time: 31 minutes of critical care time which includes initial history physical labs x- rays. Reevaluation patient response to therapy. Scheduled the patient family regarding findings review of old charting. Discussion with the hospitalist. Visual documentation of the above. Disposition Clinical Impression: Congestive heart failure, Acute exacerbation of chronic obstructive airways disease, Adult respiratory distress syndrome Disposition: ADMITTED IP TO THIS HOSP Condition: Stable Referrals: Jose David Cox MD [Primary Care Provider] - 1-2 days
[2017-05-03 20:36] LABS: Basophils # (A) 0.1 k/uL (0-0.2); Basophils % (A) 1 %; CH 31.9; CHCM 32.5; Eosinophils # (A) 0.5 k/uL (0-0.7); Eosinophils % (A) 6 %; HCT 41.9 % (39.0-53.0); HGB 14.1 gm/dL (13.0-17.5); Luc # (Auto) 0.24; Luc % (Auto) 3; Lymphocytes # (A) 1.4 k/uL (1.0-4.8); Lymphocytes % (A) 15 %; MCH 33.2 pg (25.0-35.0); MCHC 33.7 g/dL (31.0-37.0); MCV 98.6 fL (80.0-100.0); Mean Platelet Volume 10.1; Monocytes # (A) 0.8 k/uL (0-1.0); Monocytes % (A) 9 %; Neutrophils # (A) 6.1 k/uL (1.3-7.7); Neutrophils % (A) 67 %; RBC 4.25 m/uL (4.30-5.90); RDW 13.8 % (11.5-15.5); WBC 9.1 k/uL (3.8-10.6); WBC (Perox) 8.57
[2017-05-03 20:48] LABS: ALT 39 U/L (21-72); AST 32 U/L (17-59); Alkaline Phosphatase 113 U/L (38-126); Anion Gap 10 mmol/L; Blood Urea Nitrogen 25 mg/dL (9-20); Calcium 9.5 mg/dL (8.4-10.2); Carbon Dioxide 27 mmol/L (22-30); Chloride 104 mmol/L (98-107); Glucose 87 mg/dL (74-99); Magnesium 2.1 mg/dL (1.6-2.3); Non-African American GFR(MDRD) >60 (>60 ml/min/1.73 sqM); Potassium 4.2 mmol/L (3.5-5.1); Sodium 141 mmol/L (137-145); Total Bilirubin 0.3 mg/dL (0.2-1.3); Total Protein 6.4 g/dL (6.3-8.2)
[2017-05-03 20:50] LABS: Prothrombin Time 10.5 sec (9.0-12.0)
[2017-05-03 21:01] LABS: Partial Thromboplastin Time 20.5 sec (22.0-30.0)
[2017-05-03 21:08] LABS: Creatine Kinase MB 1.9 ng/mL (0.0-2.4); Troponin I 0.022 ng/mL (0.000-0.034)
--- NOTE | 2017-05-03 21:17 | XR ---
EXAMINATION TYPE: XR chest 2V DATE OF EXAM: 05/03/2017 COMPARISON: 02/02/2017 HISTORY: 77-year-old male difficulty breathing TECHNIQUE: AP and lateral views FINDINGS: Heart upper limits of normal in size. Elongation/ectasia of thoracic aorta. Diffuse interstitial prom inence, increased from prior. There is also new small left and trace right pleural effusion with patc hy bibasilar opacities. IMPRESSION: 1. Correlate for CHF with pulmonary vascular congestion. 2. Small left and trace right pleural effusions with adjacent atelectasis and/or consolidation.
[2017-05-03] MEDS ORDERED: NITROGLYCERIN SL TABS 0.4 MG TAB SUBLINGUAL PRN (22:00)
[2017-05-03] MEDS ORDERED: HYDROmorphone 2 MG TAB PO PRN (22:00)
[2017-05-03] MEDS ORDERED: MALTOSE IVPB SCH (22:00)
[2017-05-03] MEDS ORDERED: FUROSEMIDE 10 MG/ML 4 ML VIAL IV SCH (22:00)
[2017-05-03] MEDS ORDERED: ABATACEPT IVPB SCH (22:00)
[2017-05-03] MEDS ORDERED: IPRATROPIUM-ALBUTEROL 3 ML NEB INHALATION PRN (22:21)
[2017-05-03] MEDS: NITROGLYCERIN OINT 1 INCH/GM PACKET TOPICAL SCH (23:09)
[2017-05-04] MEDS ORDERED: IPRATROPIUM-ALBUTEROL 3 ML NEB INHALATION SCH
[2017-05-04] MEDS: IPRATROPIUM-ALBUTEROL 3 ML NEB INHALATION SCH ×4 (08:18→20:39)
[2017-05-04] MEDS ORDERED: FUROSEMIDE 10 MG/ML 4 ML VIAL IV SCH (08:30)
[2017-05-04] MEDS: VIT A,C & E-LUTEIN-MINERALS 1 EACH TAB PO SCH (08:46)
[2017-05-04] MEDS: MIDODRINE 5 MG TAB PO SCH ×2 (08:46→16:27)
[2017-05-04] MEDS: LEFLUNOMIDE 20 MG TAB PO SCH (08:47)
[2017-05-04] MEDS: ASPIRIN 81 MG CHEW PO SCH (08:47)
[2017-05-04] MEDS: FLUDROCORTISONE 0.1 MG TAB PO SCH ×2 (08:47→20:15)
[2017-05-04] MEDS: NITROGLYCERIN OINT 1 INCH/GM PACKET TOPICAL SCH ×4 (08:48→21:19)
--- NOTE | 2017-05-04 13:46 | P.HPIM ---
History of Present Illness H&P Date: 05/04/17 His is a 77-year-old gentleman with history of hypertension CAD and congestive heart failure with the previous EF of 40-45% comes in to the hospital with complains of recent weight gain of close to 10 pounds and difficulty breathing. Patient was noted to have crackles on initial examination her chest x-ray showed pulmonary vessel congestion and increased right-sided effusion EKG did not reveal ST-T wave changes Patient was given a dose of Lasix and was admitted to the hospital for acute congestive heart failure Today patient states that his breathing is significantly better Denies having any headaches blurry vision chest pain nausea vomiting diarrhea Does state to have orthopnea and PND over the last 2 days Review of Systems All systems: negative (In HPI) Past Medical History Past Medical History: COPD, CVA/TIA, Hypertension, Myocardial Infarction ([place]), Renal Disease, Rheumatoid Arthritis (RA) Additional Past Medical History / Comment(s): Other Hx: rheumatoid lung disease, restrictive ventilatory impairment per last PFT, lung nodules, 2012 ECHO with normal EF and moderate pulmonary HTN, bilateral nephrolithiasis, renal insufficiency, hiatal hernia, duodenal ulcers, macular degeneration bilaterally, tinnitis bilaterally, was told after [facility] that he had a [place] at some time-undetermined date, balance affected after CVA , 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 Last Myocardial Infarction Date:: unkn History of Any Multi-Drug Resistant Organisms: None Reported Past Surgical History: Heart Catheterization With Stent, Joint Replacement Additional Past Surgical History / Comment(s): 07/2014 Cardiac cath with stents x 3, R caratid endartectomy, total R knee, lithotripsy 2011, cataract removal with lens implants bilaterally, colonoscopy/EGD, carotid surgery to clear blockage, Past Anesthesia/Blood Transfusion Reactions: No Reported Reaction Date of Last Stent Placement:: jul 2014 Past Psychological History: No Psychological Hx Reported Additional Psychological History / Comment(s): Pt resides with his spouse. He is independent. He uses a walker at home. He drives. 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 No experience. No international travel. Years since been exposures. Lives with his no other partners. Remote history of tobacco use no history of significant recreational drug use or alcohol use Smoking Status: Former smoker Past Alcohol Use History: None Reported - Past Family History Father Family Medical History: Pulmonary Embolus Additional Family Medical History / Comment(s): Father of a PE at age 51 yrs. Mother Family Medical History: Cancer Additional Family Medical History / Comment(s): Hx. mother of esophagus cancer at age 86yrs. Son(s) Family Medical History: Cancer Medications and Allergies Home Medications Medication Instructions Recorded Confirmed Type Simvastatin [Zocor] 40 mg PO HS 02/22/14 05/03/17 History Abatacept/Maltose [Orencia] 750 mg IVPB Q28D 08/17/15 05/03/17 History Leflunomide [Arava] 10 mg PO DAILY 12/11/15 05/03/17 History Icon Eye Vitamin 2 tab PO DAILY 06/05/16 05/03/17 History HYDROmorphone HCL [Dilaudid] 2 mg PO Q4H 02/02/17 05/03/17 History Fludrocortisone [Florinef] 0.1 mg PO BID 04/10/17 05/03/17 History Midodrine HCl [ProAmatine] 2.5 mg PO BID 04/10/17 05/03/17 History Allergies Allergy/AdvReac Type Severity Reaction Status Date / Time etodolac [From Lodine] Allergy Rash/Hives Verified 05/03/17 20:10 grape Allergy Rash/Hives Verified 05/03/17 20:10 Penicillins Allergy Rash/Hives Verified 05/03/17 20:10 grape flavor Allergy Rash/Hives Uncoded 05/03/17 19:57 Physical Exam Vitals: Vital Signs Temp Pulse Pulse Resp BP BP Pulse Ox 05/04/17 12:13 76 05/04/17 12:05 72 05/04/17 08:30 76 05/04/17 08:21 72 94 L 05/04/17 08:00 97 F L 85 18 148/92 96 05/04/17 04:00 97.4 F L 72 18 140/85 95 05/03/17 23:38 97 F L 79 18 132/83 96 05/03/17 22:20 97.0 F L 79 16 132/83 96 05/03/17 21:49 97.5 F L 82 18 124/73 95 05/03/17 20:40 78 05/03/17 20:25 84 18 146/108 96 05/03/17 19:55 97.8 F 83 18 157/79 94 L Intake and Output 05/03/17 05/04/17 05/04/17 22:59 06:59 14:59 Intake Total 10 Output Total 650 350 Balance -650 -350 10 Intake: IV 10 .9 10 Output: Urine 650 350 Other: # Voids 2 # Bowel Movements 0 Weight 74.389 kg 72.5 kg Physical exam Gen. appearance oriented 3 in no distress Neck is supple no JVD Lungs his crackles at the bases no lower extremity edema noted Heart S1-S2 heard regular rate and rhythm no murmurs appreciated Abdomen is soft nontender no organomegaly bowel sounds are intact Neurologically cranial nerves II-12 grossly intact no focal motor or sensory deficits noted Skin no abnormalities appreciated Results CBC & Chem 7: 05/03/17 20:15 05/03/17 20:15 Labs: Abnormal Lab Results - Last 24 Hours (Table) 05/03/17 05/03/17 05/03/17 Range/Units 20:15 20:15 20:15 RBC 4.25 L (4.30-5.90) m/uL APTT 20.5 L (22.0-30.0) sec D-Dimer 0.77 H (<0.60) mg/L FEU BUN 25 H (9-20) mg/dL Thrombosis Risk Factor Assmnt - Choose All That Apply Each Factor Represents 1 point: Abnormal pulmonary function (COPD), Heart failure (<1month) Each Risk Factor Represents 2 Points: Arthroscopic surgery Each Risk Factor Represents 3 Points: Age 75 years or older Other congenital or acquired thrombophilia - If yes, enter type in comment: No Thrombosis Risk Factor Assessment Total Risk Factor Score: 7 Thrombosis Risk Factor Assessment Level: High Risk Assessment and Plan Plan: 1 acute exacerbation of systolic heart failure #2 rheumatoid arthritis. #3 history of CVA #4 hypertension #5 mild to moderate pulmonary hypertension #6 previous history of tobacco use #7 dyslipidemia #8. 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
[2017-05-04] MEDS: FUROSEMIDE 40 MG TAB PO SCH (16:27)
[2017-05-04] MEDS: ATORVASTATIN 20 MG TAB PO SCH (20:15)
[2017-05-05 06:44] LABS: Anion Gap 9 mmol/L; Blood Urea Nitrogen 26 mg/dL (9-20); Calcium 9.1 mg/dL (8.4-10.2); Carbon Dioxide 32 mmol/L (22-30); Chloride 100 mmol/L (98-107); Glucose 83 mg/dL (74-99); Non-African American GFR(MDRD) 59 (>60 ml/min/1.73 sqM); Potassium 3.8 mmol/L (3.5-5.1); Sodium 141 mmol/L (137-145)
[2017-05-05] MEDS: IPRATROPIUM-ALBUTEROL 3 ML NEB INHALATION SCH ×4 (08:08→20:30)
[2017-05-05] MEDS: VIT A,C & E-LUTEIN-MINERALS 1 EACH TAB PO SCH (08:38)
[2017-05-05] MEDS: MIDODRINE 5 MG TAB PO SCH (08:38)
[2017-05-05] MEDS: ASPIRIN 81 MG CHEW PO SCH (08:38)
[2017-05-05] MEDS: FLUDROCORTISONE 0.1 MG TAB PO SCH ×2 (08:38→21:26)
[2017-05-05] MEDS: LEFLUNOMIDE 20 MG TAB PO SCH (08:38)
[2017-05-05] MEDS: FUROSEMIDE 40 MG TAB PO SCH ×2 (08:39→15:07)
[2017-05-05] MEDS: NITROGLYCERIN OINT 1 INCH/GM PACKET TOPICAL SCH ×4 (11:14→21:25)
--- NOTE | 2017-05-05 12:18 | P.CRDCN ---
History of Present Illness Consult date: 05/05/17 Requesting physician: Bakari Jacobs Consult reason: congestive heart failure Chief complaint: Shortness of breath History of present illness: This is a pleasant 77-year-old gentleman who follows with Dr. Wilson in the office. He has a known history of orthostatic hypotension, on midodrine and Florinef. History also of hypertension, hyperlipidemia, coronary artery disease with multivessel PCI. History also of renal dysfunction, rheumatoid arthritis, and emphysema for which he follows with Dr. Chase Velazquez. Presents to the hospital with symptoms of progressively worsening shortness of breath. He states that since Friday he had a positive PND and orthopnea associated with significant worsening in his breathing. Blood pressure on arrival 157/78, heart rate in the 80s, 95% on room air. WBC 9.1, hemoglobin 14, platelet count 209. D-dimer 0.7, potassium 3.8, BUN 26, creatinine 1.2. Troponin 0.0-4, 0.021. BNP level 23,000. TSH 0.94. Chest x-ray shows heart failure with pulmonary vascular congestion, small left and trace right pleural effusion. Patient was initiated on IV Lasix and has diuresed very well overall. States that his breathing is significantly improved, still complaining of mild shortness of breath. Dr. Carlyn Velazquez did see the patient in consultation and felt as though the midodrine and Florinef are contributing to his symptoms. Currently the will be placed on hold, on discharge patient will be discharged home on the midodrine and a decreased dose of Florinef at 0.5 mg daily. We will start the patient on Cozaar 25 mg daily along with Coreg 3.125 mg twice a day. Patient's IV Lasix was discontinued and he was switched over to oral Lasix. Per Dr. JUVENTINO Velazquez, We will give him 3 more doses of IV 60 mg and from tomorrow change him over to oral Past Medical History Past Medical History: COPD, CVA/TIA, Hypertension, Myocardial Infarction (AK), Renal Disease, Rheumatoid Arthritis (RA) Additional Past Medical History / Comment(s): Other Hx: rheumatoid lung disease, restrictive ventilatory impairment per last PFT, lung nodules, 2013 ECHO with normal EF and moderate pulmonary HTN, bilateral nephrolithiasis, renal insufficiency, hiatal hernia, duodenal ulcers, macular degeneration bilaterally, tinnitis bilaterally, was told after that he had a AK at some time-undetermined date, balance affected after CVA , 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 Last Myocardial Infarction Date:: unkn History of Any Multi-Drug Resistant Organisms: None Reported Past Surgical History: Heart Catheterization With Stent, Joint Replacement Additional Past Surgical History / Comment(s): 07/2014 Cardiac cath with stents x 3, R caratid endartectomy, total R knee, lithotripsy 2011, cataract removal with lens implants bilaterally, colonoscopy/EGD, carotid surgery to clear blockage, Past Anesthesia/Blood Transfusion Reactions: No Reported Reaction Date of Last Stent Placement:: jul 2014 Past Psychological History: No Psychological Hx Reported Additional Psychological History / Comment(s): Pt resides with his spouse. He is independent. He uses a walker at home. He drives. 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 No experience. No international travel. Years since been exposures. Lives with his no other partners. Remote history of tobacco use no history of significant recreational drug use or alcohol use Smoking Status: Former smoker Past Alcohol Use History: None Reported - Past Family History Father Family Medical History: Pulmonary Embolus Additional Family Medical History / Comment(s): Father of a PE at age 51 yrs. Mother Family Medical History: Cancer Additional Family Medical History / Comment(s): Hx. mother of esophagus cancer at age 86yrs. Son(s) Family Medical History: Cancer Medications and Allergies Home Medications Medication Instructions Recorded Confirmed Type Simvastatin [Zocor] 40 mg PO HS 02/22/14 05/03/17 History Abatacept/Maltose [Orencia] 750 mg IVPB Q28D 08/17/15 05/03/17 History Leflunomide [Arava] 10 mg PO DAILY 12/11/15 05/03/17 History Icon Eye Vitamin 2 tab PO DAILY 06/05/16 05/03/17 History HYDROmorphone HCL [Dilaudid] 2 mg PO Q4H 02/02/17 05/03/17 History Fludrocortisone [Florinef] 0.1 mg PO BID 04/10/17 05/03/17 History Midodrine HCl [ProAmatine] 2.5 mg PO BID 04/10/17 05/03/17 History Allergies Allergy/AdvReac Type Severity Reaction Status Date / Time etodolac [From [facility]] Allergy Rash/Hives Verified 05/03/17 20:10 grape Allergy Rash/Hives Verified 05/03/17 20:10 Penicillins Allergy Rash/Hives Verified 05/03/17 20:10 grape flavor Allergy Rash/Hives Uncoded 05/03/17 19:57 Physical Exam Vitals: Vital Signs Temp Pulse Pulse Resp BP Pulse Ox 05/05/17 08:44 97.6 F 810 H 16 118/68 93 L 05/05/17 03:28 97.2 F L 75 16 127/74 91 L 05/04/17 23:01 97.9 F 91 18 115/68 91 L 05/04/17 20:56 76 05/04/17 20:41 76 05/04/17 19:33 97.6 F 79 18 118/71 95 05/04/17 16:00 97.7 F 81 18 112/69 94 L 05/04/17 12:13 76 05/04/17 12:05 72 Intake and Output 05/04/17 05/05/17 05/05/17 22:59 06:59 14:59 Intake Total 10 10 118 Output Total 850 Balance -840 10 118 Intake: IV 10 10 .9 10 10 Oral 118 Output: Urine 850 Other: Voiding Method Urinal Urinal # Voids 2 1 Weight 70.8 kg PHYSICAL EXAMINATION: HEENT: Head is atraumatic, normocephalic. Pupils equal, round. Neck is supple. There is no elevated jugular venous pressure. HEART EXAMINATION: Heart S1, S2 normal. No murmur or gallop heard. CHEST EXAMINATION: Lungs reveal rales to bilateral bases. ABDOMEN: Soft, nontender. Bowel sounds are heard. No organomegaly noted]. EXTREMITIES:[ 2+ peripheral pulses with no evidence of peripheral edema and no calf tenderness noted]. NEUROLOGIC [patient is awake, alert and oriented -3.] . Results 05/03/17 20:15 05/05/17 06:00 Comprehensive Metabolic Panel 05/05/17 Range/Units 06:00 Sodium 141 (137-145) mmol/L Potassium 3.8 (3.5-5.1) mmol/L Chloride 100 (98-107) mmol/L Carbon Dioxide 32 H (22-30) mmol/L BUN 26 H (9-20) mg/dL Creatinine 1.20 (0.66-1.25) mg/dL Glucose 83 (74-99) mg/dL Calcium 9.1 (8.4-10.2) mg/dL Current Medications Generic Name Dose Route Start Last Admin Trade Name Freq PRN Reason Stop Dose Admin Albuterol/Ipratropium 3 ml 05/04/17 08:00 05/05/17 11:13 Duoneb 0.5 Mg-3 Mg/3 Ml Soln INHALATION Not Given RT-QID ESTEBAN Albuterol/Ipratropium 3 ml 05/03/17 22:21 Duoneb 0.5 Mg-3 Mg/3 Ml Soln INHALATION RT-Q2H PRN Shortness Of Breath Or Wheezing Aspirin 81 mg 05/04/17 09:00 05/05/17 08:38 Aspirin PO 81 mg DAILY ESTEBAN Administration Atorvastatin Calcium 20 mg 05/04/17 21:00 05/04/17 20:15 Lipitor PO 20 mg HS ESTEBAN Administration Fludrocortisone Acetate 0.1 mg 05/04/17 09:00 05/05/17 08:38 Florinef PO 0.1 mg BID ESTEBAN Administration Furosemide 40 mg 05/04/17 16:00 05/05/17 08:39 Lasix PO 40 mg BID@0900,1600 ESTEBAN Administration Hydromorphone HCl 2 mg 05/03/17 22:00 Dilaudid PO Q4H PRN Severe Pain Leflunomide 10 mg 05/04/17 09:00 05/05/17 08:38 Arava PO 10 mg DAILY ESTEBAN Administration Midodrine 2.5 mg 05/04/17 09:00 05/05/17 08:38 Proamatine PO 2.5 mg BID@0900,1600 [facility] Administration Multivitamins/Minerals 2 each 05/04/17 09:00 05/05/17 08:38 Ivite PO 2 each DAILY ESTEBAN Administration Nitroglycerin 1 inch 05/03/17 22:00 05/05/17 11:14 Nitro-Bid Oint TOPICAL Not Given QID [facility] Nitroglycerin 0.4 mg 05/03/17 22:00 Nitrostat SUBLINGUAL Q5M PRN Chest Pain Intake and Output 05/04/17 05/05/17 05/05/17 22:59 06:59 14:59 Intake Total 10 10 118 Output Total 850 Balance -840 10 118 Intake: IV 10 10 .9 10 10 Oral 118 Output: Urine 850 Other: Voiding Method Urinal Urinal # Voids 2 1 Weight 70.8 kg 05/03/17 20:15 05/05/17 06:00 EKG Interpretations (text) EKG shows normal sinus rhythm with lateral T-wave inversion. Assessment and Plan Plan: Assessment and plan #1 systolic congestive heart failure acute on chronic, most recent echocardiogram with Doppler study was performed in May 2016 which revealed an ejection fraction of 40-45%. BNP 23,000 chest x-ray revealed congestive heart failure #2 known history of coronary artery disease with multivessel stenting #3 orthostatic hypotension for which the patient was on midodrine and Florinef at home. Both of those have been currently placed on hold, Dr. Carlyn Velazquez feels that being on them may have contributed to his symptoms. #4 hypertension #5 hyperlipidemia #6 rheumatoid arthritis #[address] Per [address] JUVENTINO Velazquez's orders, We will give the patient 3 more doses of IV Lasix at 60 mg. 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 Placed a midodrine and Florinef on hold. Check lytes BUN and creatinine and chest x-ray in the morning. Start the patient on Coreg and Cozaar, monitoring blood pressure closely. Repeat echocardiogram with Doppler study. Further recommendations to follow. DNP note has been reviewed, I agree with a documented findings and plan of care. Patient was seen and examined.
--- NOTE | 2017-05-05 13:22 | XR ---
EXAMINATION TYPE: XR chest 1V DATE OF EXAM: 05/05/2017 COMPARISON: 05/03/2017 HISTORY: 77-year-old male follow-up CHF TECHNIQUE: Single frontal view of the chest is obtained. FINDINGS: Leftward patient rotation ultrasound and normal cardiac and mediastinal contours. The heart remains b orderline enlarged. Mild prominence to the pulmonary vasculature though improved from prior. There is continued small left pleural effusion with left basilar opacity. IMPRESSION: Improved appearance to the pulmonary vasculature. A small left pleural effusion with adjacent atelect asis and/or consolidation remains.
[2017-05-05 14:54] VITALS: BMI 21.2
[2017-05-05] MEDS ORDERED: FUROSEMIDE 10 MG/ML 10 ML VIAL IV SCH (16:00)
--- NOTE | 2017-05-05 17:53 | P.PN ---
Subjective His is a 77-year-old gentleman with history of hypertension CAD and congestive heart failure with the previous EF of 40-45% comes in to the hospital with complains of recent weight gain of close to 10 pounds and difficulty breathing. Patient was noted to have crackles on initial examination her chest x-ray showed pulmonary vessel congestion and increased right-sided effusion EKG did not reveal ST-T wave changes Patient was given a dose of Lasix and was admitted to the hospital for acute congestive heart failure Today patient states that his breathing is significantly better Denies having any headaches blurry vision chest pain nausea vomiting diarrhea Does state to have orthopnea and PND over the last 2 days 05/05/2017 Patient states to be feeling back to his baseline Is able time without much difficulties currently on room air Has lost over 5 pounds since admission No headaches blurry vision nausea vomiting diarrhea is reported Patient has attempted using RENE hoses states that no return of symptoms Objective - Vital Signs Vital signs: Vital Signs Temp 97.5 F L 05/05/17 16:00 Pulse 77 05/05/17 17:03 Resp 16 05/05/17 16:00 BP 123/84 05/05/17 16:00 Pulse Ox 92 L 05/05/17 16:00 Intake & Output 05/04/17 05/05/17 05/05/17 18:59 06:59 18:59 Intake Total 10 20 358 Output Total 200 650 Balance -190 -630 358 Weight 70.8 kg 70.8 kg Intake: IV 10 20 .9 10 20 Oral 358 Output: Urine 200 650 Other: Voiding Method Urinal Urinal # Voids 2 1 # Bowel Movements 0 - Exam Physical exam Gen. appearance oriented 3 in no distress Neck is supple no JVD Lungs good air entry clear to auscultation trace crackles at bases however improved from previous evaluations Heart S1-S2 heard regular rate and rhythm no murmurs appreciated Abdomen is soft nontender no organomegaly bowel sounds are intact Neurologically cranial nerves II-12 grossly intact no focal motor or sensory deficits noted Skin no abnormalities appreciated - Labs CBC & Chem 7: 05/03/17 20:15 05/05/17 06:00 Labs: Abnormal Lab Results - Last 24 Hours (Table) 05/05/17 Range/Units 06:00 Carbon Dioxide 32 H (22-30) mmol/L BUN 26 H (9-20) mg/dL Assessment and Plan Plan: 1 acute exacerbation of systolic heart failure #2 rheumatoid arthritis. #3 history of CVA #4 hypertension #5 mild to moderate pulmonary hypertension #6 previous history of tobacco use #7 dyslipidemia #8. 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 Cardiology is recommended discontinuation of fludrocortisone and Midrin which we have attributed to the exacerbation of heart failure However fludrocortisone should be titrated up slowly we'll hold off on Midrin Repeated an x-ray patient appears to have improved fluid status is on no oxygen hence will hold off on the IV Lasix recommended by cardiology We'll hold off on Midrin continue with fludrocortisone Into noted Lasix 40 mg by mouth twice a day Repeat labs in the a.m. Continue with compression socks
[2017-05-05] MEDS: CARVEDILOL 3.125 MG TAB PO SCH (17:54)
[2017-05-05] MEDS: ATORVASTATIN 20 MG TAB PO SCH (21:25)
[2017-05-05 22:14] VITALS: RESP 18
[2017-05-06 06:40] LABS: Basophils % (A) 1 %; CH 31.5; CHCM 31.8; Eosinophils # (A) 0.5 k/uL (0-0.7); Eosinophils % (A) 6 %; HCT 38.7 % (39.0-53.0); HDW 2.24; HGB 12.4 gm/dL (13.0-17.5); Luc % (Auto) 4; Lymphocytes % (A) 14 %; MCH 31.8 pg (25.0-35.0); MCHC 31.9 g/dL (31.0-37.0); MCV 99.6 fL (80.0-100.0); Mean Platelet Volume 9.3; Monocytes # (A) 0.6 k/uL (0-1.0); Monocytes % (A) 8 %; Neutrophils # (A) 5.1 k/uL (1.3-7.7); Neutrophils % (A) 68 %; RBC 3.89 m/uL (4.30-5.90); RDW 13.3 % (11.5-15.5); WBC 7.5 k/uL (3.8-10.6); WBC (Perox) 7.95
[2017-05-06] MEDS: CARVEDILOL 3.125 MG TAB PO SCH ×2 (06:44→17:01)
[2017-05-06 06:54] LABS: ALT 37 U/L (21-72); AST 29 U/L (17-59); Alkaline Phosphatase 112 U/L (38-126); Anion Gap 9 mmol/L; Blood Urea Nitrogen 24 mg/dL (9-20); Calcium 8.9 mg/dL (8.4-10.2); Carbon Dioxide 30 mmol/L (22-30); Chloride 99 mmol/L (98-107); Glucose 84 mg/dL (74-99); Non-African American GFR(MDRD) 59 (>60 ml/min/1.73 sqM); Potassium 3.7 mmol/L (3.5-5.1); Sodium 138 mmol/L (137-145); Total Bilirubin 0.5 mg/dL (0.2-1.3); Total Protein 5.6 g/dL (6.3-8.2)
[2017-05-06] MEDS: IPRATROPIUM-ALBUTEROL 3 ML NEB INHALATION SCH ×4 (07:43→21:03)
--- NOTE | 2017-05-06 08:07 | XR ---
EXAMINATION TYPE: XR chest 1V portable DATE OF EXAM: 05/06/2017 CLINICAL HISTORY: Difficulty breathing progress study. History of coronary stents, CHF, and COPD. TECHNIQUE: Single AP portable upright view of the chest is obtained. COMPARISON: Chest x-ray from one day earlier FINDINGS: Cardiac silhouette size is stable and mildly enlarged with atherosclerotic and ectatic tho racic aorta, mass effect on trachea is redemonstrated. There is chronic emphysematous change with bib asilar opacity felt to reflect infiltrate and/or atelectasis, right-sided findings are new from prior . Upper lungs are clear without pneumothorax bilaterally. Osseous structures are intact. Right neck s urgical clips are noted. IMPRESSION: Chronic emphysematous change and mild cardiomegaly with persistent left basilar atelectas is and/or infiltrate all felt stable, new right basilar atelectasis and/or infiltrate is noted.
[2017-05-06] MEDS: VIT A,C & E-LUTEIN-MINERALS 1 EACH TAB PO SCH (08:21)
[2017-05-06] MEDS: LEFLUNOMIDE 20 MG TAB PO SCH (08:21)
[2017-05-06] MEDS: FUROSEMIDE 40 MG TAB PO SCH (08:21)
[2017-05-06] MEDS: ASPIRIN 81 MG CHEW PO SCH (08:21)
[2017-05-06] MEDS: FLUDROCORTISONE 0.1 MG TAB PO SCH ×2 (08:21→22:37)
[2017-05-06] MEDS: NITROGLYCERIN OINT 1 INCH/GM PACKET TOPICAL SCH (08:22)
[2017-05-06] MEDS: LOSARTAN 25 MG TAB PO SCH (08:22)
--- NOTE | 2017-05-06 11:02 | ECHOF ---
Referral Reason: MEASUREMENTS -------- HEIGHT: 182.9 cm WEIGHT: 70.8 kg BP: 118/68 RVIDd: 2.9 cm (< 3.3) IVSd: 1.3 cm (0.6 - 1.1) LVIDd: 4.4 cm (3.9 - 5.3) LVPWd: 1.3 cm (0.6 - 1.1) IVSs: 1.6 cm LVIDs: 4.3 cm LVPWs: 1.5 cm LAESV Index (A-L): 34.95 ml/m Ao Diam: 3.7 cm (2.0 - 3.7) AV Cusp: 1.4 cm (1.5 - 2.6) LA Diam: 3.4 cm (2.7 - 3.8) MV EXCURSION: 8.200 mm (> 18.000) MV EF SLOPE: 45 mm/s (70 - 150) EPSS: 1.6 cm MV E Lenny: 0.59 m/s MV DecT: 389 ms MV A Lenny: 0.99 m/s MV E/A Ratio: 0.60 AR PHT: 1171 ms RAP: 5.00 mmHg RVSP: 20.86 mmHg FINDINGS -------- Sinus rhythm. This was a technically adequate study. There is mild concentric left ventricular hypertrophy. Overall left ventricular systolic function is severely impaired with, an EF between 20 - 25 %. Basal lateral LV wall motion is akinetic. Basal inferior LV wall motion is akinetic. Basal inferoseptal LV wall motion is akinetic. Mid lateral LV wall motion is akinetic. Mid inferior LV wall motion is akinetic. Mid inferoseptal LV wall motion is normal. Apical lateral LV wall motion is akinetic. Apical inferior LV wall motion is akinetic. The right ventricle is normal in size and function. LA is moderately dilated 34-39 ml/m2 The right atrium is normal in size. Aortic valve is trileaflet and is mildly thickened. There is mild aortic regurgitation. The aortic pressure half-time by doppler is 1171ms. There is no evidence of aortic stenosis. Mild mitral annular calcification present. Mild mitral regurgitation is present. Mild tricuspid regurgitation present. There is no evidence of pulmonary hypertension. The right ventricular systolic pressure, as measured by Doppler, is 20.86mmHg. The pulmonic valve was not well visualized. There is no pulmonic regurgitation present. The aortic root size is normal. IVC Not well visulized. There is no pericardial effusion. CONCLUSIONS -------- 1. Sinus rhythm. 2. Mid inferoseptal LV wall motion is normal. 3. Apical lateral LV wall motion is akinetic. 4. Apical inferior LV wall motion is akinetic. 5. LA is moderately dilated 34-39 ml/m2 6. Aortic valve is trileaflet and is mildly thickened. 7. There is mild aortic regurgitation. 8. The aortic pressure half-time by doppler is 1171ms. 9. Mild mitral annular calcification present. 10. There is no evidence of pulmonary hypertension. 11. The pulmonic valve was not well visualized. 12. This was a technically adequate study. 13. There is no pulmonic regurgitation present. 14. The aortic root size is normal. 15. IVC Not well visulized. 16. There is no pericardial effusion. 17. There is mild concentric left ventricular hypertrophy. 18. Overall left ventricular systolic function is severely impaired with, an EF between 20 - 25 %. 19. Basal lateral LV wall motion is akinetic. 20. Basal inferior LV wall motion is akinetic. 21. Basal inferoseptal LV wall motion is akinetic. 22. Mid lateral LV wall motion is akinetic. 23. Mid inferior LV wall motion is akinetic. BROADCAST JOURNALIST: Raad Sommer RDCS
--- NOTE | 2017-05-06 11:59 | P.PN ---
Subjective This is a pleasant 77-year-old gentleman who follows with Dr. Wilson in the office. He has a known history of orthostatic hypotension, on midodrine and Florinef. History also of hypertension, hyperlipidemia, coronary artery disease with multivessel PCI. History also of renal dysfunction, rheumatoid arthritis, and emphysema for which he follows with Dr. Chase Velazquez. Presents to the hospital with symptoms of progressively worsening shortness of breath. He states that since Friday he had a positive PND and orthopnea associated with significant worsening in his breathing. Blood pressure on arrival 157/78, heart rate in the 80s, 95% on room air. WBC 9.1, hemoglobin 14, platelet count 209. D-dimer 0.7, potassium 3.8, BUN 26, creatinine 1.2. Troponin 0.0-4, 0.021. BNP level 23,000. TSH 0.94. Chest x-ray shows heart failure with pulmonary vascular congestion, small left and trace right pleural effusion. Patient was initiated on IV Lasix and has diuresed very well overall. States that his breathing is significantly improved, still complaining of mild shortness of breath. Dr. Carlyn Velazquez did see the patient in consultation and felt as though the midodrine and Florinef are contributing to his symptoms. Currently the will be placed on hold, on discharge patient will be discharged home on the midodrine and a decreased dose of Florinef at 0.5 mg daily. We will start the patient on Cozaar 25 mg daily along with Coreg 3.125 mg twice a day. 05/06/2017. Patient seen and examined this morning, continues to have mild short of breath. Was changed over to oral diuretics today. Echocardiogram with Doppler study was performed which revealed an ejection fraction of 20%. We will change the patient back over to IV Lasix today for one more day check lytes BUN and creatinine in the morning. Objective - Vital Signs Vital signs: Vital Signs Temp 97.6 F 05/06/17 08:24 Pulse 76 05/06/17 11:51 Resp 18 05/06/17 08:24 BP 96/51 05/06/17 08:24 Pulse Ox 93 L 05/06/17 08:24 Intake & Output 05/05/17 05/06/17 05/06/17 18:59 06:59 18:59 Intake Total 483 250 Balance 483 250 Weight 70.8 kg 70.5 kg Intake: Oral 483 250 Other: Voiding Method Urinal Urinal Urinal # Voids 1 2 - Exam PHYSICAL EXAMINATION: HEENT: Head is atraumatic, normocephalic. Pupils equal, round. Neck is supple. There is no elevated jugular venous pressure. HEART EXAMINATION: Heart S1, S2 normal. No murmur or gallop heard. CHEST EXAMINATION: Lungs reveal rales to bilateral bases. ABDOMEN: Soft, nontender. Bowel sounds are heard. No organomegaly noted]. EXTREMITIES:[ 2+ peripheral pulses with no evidence of peripheral edema and no calf tenderness noted]. NEUROLOGIC [patient is awake, alert and oriented -3.] - Labs CBC & Chem 7: 05/06/17 06:16 05/06/17 06:16 Labs: Abnormal Lab Results - Last 24 Hours (Table) 05/06/17 05/06/17 Range/Units 06:16 06:16 RBC 3.89 L (4.30-5.90) m/uL Hgb 12.4 L (13.0-17.5) gm/dL Hct 38.7 L (39.0-53.0) % BUN 24 H (9-20) mg/dL Total Protein 5.6 L (6.3-8.2) g/dL Albumin 3.0 L (3.5-5.0) g/dL Assessment and Plan Plan: Assessment and plan #1 systolic congestive heart failure acute on chronic, echocardiogram with Doppler study revealed an ejection fraction of 20%.. BNP 23,000 chest x-ray revealed congestive heart failure #2 known history of coronary artery disease with multivessel stenting #3 orthostatic hypotension for which the patient was on midodrine and Florinef at home. Both of those have been currently placed on hold, Dr. Carlyn Velazquez feels that being on them may have contributed to his symptoms. #4 hypertension #5 hyperlipidemia #6 rheumatoid arthritis #7 emphyse[address] Plan Per Dr. JUVENTINO Velazquez's orders, give the patient Lasix 40 mg IV twice a day again today. Check lytes BUN and creatinine in the morning. DNP note has been reviewed, I agree with a documented findings and plan of care. Patient was seen and examined.
[2017-05-06] MEDS: FUROSEMIDE 10 MG/ML 4 ML VIAL IV SCH ×2 (14:27→22:37)
--- NOTE | 2017-05-06 16:10 | P.PN ---
Subjective His is a 77-year-old gentleman with history of hypertension CAD and congestive heart failure with the previous EF of 40-45% comes in to the hospital with complains of recent weight gain of close to 10 pounds and difficulty breathing. Patient was noted to have crackles on initial examination her chest x-ray showed pulmonary vessel congestion and increased right-sided effusion EKG did not reveal ST-T wave changes Patient was given a dose of Lasix and was admitted to the hospital for acute congestive heart failure Today patient states that his breathing is significantly better Denies having any headaches blurry vision chest pain nausea vomiting diarrhea Does state to have orthopnea and PND over the last 2 days 05/05/2017 Patient states to be feeling back to his baseline Is able time without much difficulties currently on room air Has lost over 5 pounds since admission No headaches blurry vision nausea vomiting diarrhea is reported Patient has attempted using RENE hoses states that no return of symptoms 05/06/2017 States to be doing well Denies having headaches blurry vision nausea vomiting diarrhea states to have intermittent episodes of difficulty breathing However is improved with a breathing treatment Objective - Vital Signs Vital signs: Vital Signs Temp 97.7 F 05/06/17 16:00 Pulse 76 05/06/17 16:00 Resp 18 05/06/17 16:00 BP 105/67 05/06/17 16:00 Pulse Ox 92 L 05/06/17 16:00 Intake & Output 05/05/17 05/06/17 05/06/17 18:59 06:59 18:59 Intake Total 483 250 180 Output Total 450 Balance 483 250 -270 Weight 70.8 kg 70.5 kg Intake: Oral 483 250 180 Output: Urine 450 Other: Voiding Method Urinal Urinal Urinal # Voids 1 2 - Exam Physical exam Gen. appearance oriented 3 in no distress Neck is supple no JVD Lungs good air entry clear to auscultation trace crackles at bases however improved from previous evaluations Heart S1-S2 heard regular rate and rhythm no murmurs appreciated Abdomen is soft nontender no organomegaly bowel sounds are intact Neurologically cranial nerves II-12 grossly intact no focal motor or sensory deficits noted Skin no abnormalities appreciated - Labs CBC & Chem 7: 05/06/17 06:16 05/06/17 06:16 Labs: Abnormal Lab Results - Last 24 Hours (Table) 07/11/17 07/11/17 Range/Units 06:16 06:16 RBC 3.89 L (4.30-5.90) m/uL Hgb 12.4 L (13.0-17.5) gm/dL Hct 38.7 L (39.0-53.0) % BUN 24 H (9-20) mg/dL Total Protein 5.6 L (6.3-8.2) g/dL Albumin 3.0 L (3.5-5.0) g/dL Assessment and Plan Plan: 1 acute exacerbation of systolic heart failure #2 rheumatoid arthritis. #3 history of CVA #4 hypertension #5 mild to moderate pulmonary hypertension #6 previous history of tobacco use #7 dyslipidemia #8. 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
[2017-05-06] MEDS: ATORVASTATIN 20 MG TAB PO SCH (22:37)
[2017-05-07] MEDS: CARVEDILOL 3.125 MG TAB PO SCH (06:28)
[2017-05-07 06:33] LABS: Basophils % (A) 0 %; CH 31.4; CHCM 32.2; Eosinophils # (A) 0.5 k/uL (0-0.7); Eosinophils % (A) 6 %; HCT 39.9 % (39.0-53.0); HDW 2.27; HGB 13.2 gm/dL (13.0-17.5); Luc # (Auto) 0.33; Luc % (Auto) 4; Lymphocytes # (A) 1.2 k/uL (1.0-4.8); Lymphocytes % (A) 12 %; MCH 32.3 pg (25.0-35.0); MCV 98.1 fL (80.0-100.0); Mean Platelet Volume 9.6; Monocytes # (A) 0.7 k/uL (0-1.0); Monocytes % (A) 8 %; Neutrophils # (A) 6.7 k/uL (1.3-7.7); Neutrophils % (A) 71 %; RBC 4.07 m/uL (4.30-5.90); RDW 13.3 % (11.5-15.5); WBC 9.5 k/uL (3.8-10.6); WBC (Perox) 9.88
[2017-05-07 06:39] LABS: ALT 37 U/L (21-72); AST 31 U/L (17-59); Alkaline Phosphatase 128 U/L (38-126); Anion Gap 10 mmol/L; Blood Urea Nitrogen 31 mg/dL (9-20); Carbon Dioxide 32 mmol/L (22-30); Chloride 94 mmol/L (98-107); Glucose 91 mg/dL (74-99); Non-African American GFR(MDRD) 59 (>60 ml/min/1.73 sqM); Potassium 3.4 mmol/L (3.5-5.1); Sodium 136 mmol/L (137-145); Total Bilirubin 0.4 mg/dL (0.2-1.3)
[2017-05-07] MEDS ORDERED: PANTOPRAZOLE 40 MG TABLET PO SCH (07:30)
[2017-05-07] MEDS: VIT A,C & E-LUTEIN-MINERALS 1 EACH TAB PO SCH (08:56)
[2017-05-07] MEDS: FLUDROCORTISONE 0.1 MG TAB PO SCH (08:56)
[2017-05-07] MEDS: FUROSEMIDE 10 MG/ML 4 ML VIAL IV SCH (08:56)
[2017-05-07] MEDS: LEFLUNOMIDE 20 MG TAB PO SCH (08:56)
[2017-05-07] MEDS: ASPIRIN 81 MG CHEW PO SCH (08:56)
[2017-05-07] MEDS: LOSARTAN 25 MG TAB PO SCH (08:56)
[2017-05-07] MEDS: IPRATROPIUM-ALBUTEROL 3 ML NEB INHALATION SCH ×3 (09:02→16:30)
[2017-05-07 09:04] VITALS: TEMP 97.6
[2017-05-07] MEDS ORDERED: ABATACEPT/MALTOSE 750 MG in SODIUM CHLORIDE 0.9% 70 ML IVPB ONE ×2 (12:22→14:41)
[2017-05-07 12:27] VITALS: BP 127/75; PULSE 75
--- NOTE | 2017-05-07 14:16 | CONS ---
DATE OF SERVICE: 05/06/17. HISTORY OF PRESENT ILLNESS: The patient is a 77 year old male who follows with Dr. Velazquez in the Pulmonary [facility]. 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 The patient states that he came in a few days ago with acute shortness of breath and approximate 10 pound weight gain. Was coughing up some blood tinged mucus, however, that quickly resolved. The patient stated when he laid down his breathing worsened significantly. he has been drinking Ensure 3 times a day, according to recommendations by his primary care physician because he has not been eating well as of late. The patient also tells me that he does have this acute difficulty breathing where it feels like his throat tightens up. He states that after carotid surgery back in 2006, he gets these sensations possibly from nerve damage which makes him feel like he can't get any air in, and once it resolves, he can breathe again. He feels that with oxygen and/or respiratory treatments, those tight feelings in the back of the throat resolved. The patient denies any fever or chills, did have a headache prior to admission, however, that has resolved as well. PAST MEDICAL HISTORY: Positive for COPD, CVA, TIA, hypertension, myocardial infarction, renal disease, rheumatoid arthritis with rheumatoid lung disease, restrictive ventilatory impairment per last PFT. Moderate pulmonary hypertension, bilateral nephrolithiasis, renal insufficiency, hiatal hernia, duodenal ulcers, macular degeneration bilaterally, tinnitus bilaterally. PAST SURGICAL HISTORY: Is significant for heart catheterization of a stent and joint replacement. Right sided carotid endarterectomy, the joint was a total right knee. Lithotripsy in 2011, cataract removal with lens implants bilaterally, colonoscopy and an EGD. ALLERGIES: Include LODIENE, PENICILLINS AND GRAPE FLAVOR. MEDICATIONS: The patient takes at [facility] include Zocor 40 mg po q HS, Orencia 750 mg IV q 28 days, Yuliya 10 mg po daily, I vitamins 2 tabs po daily, Dilaudid 2 mg po q 4 hours, Florinef 0.1 mg po b.i.d., and ( ) 2.5 mg po b.i.d., FAMILY HISTORY: Father had a history of pulmonary embolis and of a PE at the age of 51. Mother with a history of cancer and of esophageal cancer at the age of 86. SOCIAL HISTORY: The patient is a former smoker, no documentation of alcohol intake or illicit drugs. REVIEW OF SYSTEMS: General; is negative for any fever or chills. HEENT: Is positive for a headache, which again has resolved, no acute visual changes. The patent does have difficulty hearing, no hearing aids, does have seasonal allergies. Denies any sore throat or difficulty swallowing. RESPIRATORY: Is positive for a cough with shortness of breath. CARDIOVASCULAR: Is negative for any chest pain or palpitations. GI: Negative for abdominal pain, vomiting , diarrhea, or constipation. : Negative for dysuria or hematuria, positive for frequency. ENDOCRINE : Negative for any diabetes mellitus, or thyroid disease. MUSCULOSKELETAL: The patient does have the rheumatoid arthritis. NEUROLOGICAL: Negative for any history of seizures. PSYCHIATRIC: Negative for anxiety or depression. PHYSICAL EXAM: Vital signs; temperature is 97.7, pulse 76, respiratory rate 16 , blood pressure is 105/67, O2 saturation is 92% on room air. HEENT; Head is normocapnic, atraumatic. Pupils equal, round, react to light. Ears, Nose, no discharge is noted. Mouth: Moist mucous membranes. Neck: Supple, trachea is midline. Lung sounds are decreased with a few scattered crackles, no wheezes are noted. Heart: S1, S2 are heard, not tachycardic. Abdomen: Soft, bowel sounds are heard. Extremities: With no edema. Neurologic: The patient is alert, oriented. LABS: White count 7.5, hemoglobin is 12.4, hematocrit is 38.7 with a 174,000 platelets. Sodium is 138, potassium is 3.7, chloride is 99, CO2 is 30, Anion gap is 9, BUN is 24, creatinine 1.20, glucose is 84, calcium 8.9, total bilirubin is 0.5, AST is 29, ALT is 37, alk. phos is 112, total protein 5.6, albumin is 3.0. On admission, he patients BNP was 23,000. IMAGING: Chest x-ray done this AM shows chronic emphysematous change and mild cardiomegaly with persistent left basilar atelectasis and/or infiltrate, all felt stable. New right basilar atelectasis and/or infiltrate is noted. IMPRESSION: 1. Acute exacerbation of systolic congestive heart failure. 2. History of rheumatoid arthritis and rheumatoid lung disease. 3. History of COPD. PLAN: Continue current medications which have been reviewed with bronchodilators and IV Lasix. Will add incentive spirometry, peak flows to be checked when the patient is having the acute shortness of breath with the tightness on the right side of his neck. Will also add GI prophylaxis, increase activity as tolerated. The patient should follow up in the pulmonary office on discharge and will follow the patient closely with you, making further changes as necessary. DARINEL
--- NOTE | 2017-05-07 15:01 | P.PN ---
Subjective Principal diagnosis: Pulmonary congestion and weight gain Patient seen today plan for him to be discharged home. He would benefit from nebulizer treatments. His peak flow meter and incentive spirometry were explained in detail for him. He needs to follow-up with Dr. Velazquez in 1 week. He states that he's feeling better. He denies any problems with nausea/vomiting or diarrhea at this time. He denies productive cough. He denies any chest pain. He was admitted with acute exacerbation of systolic heart failure. With a history of moderate pulmonary hypertension and rheumatoid arthritis. Objective - Vital Signs Vital signs: Vital Signs Temp 97.6 F 05/07/17 12:23 Pulse 75 05/07/17 12:23 Resp 18 05/07/17 12:23 BP 127/75 05/07/17 12:23 Pulse Ox 93 L 05/07/17 12:23 Intake & Output 05/06/17 05/07/17 05/07/17 18:59 06:59 18:59 Intake Total 410 240 Output Total 850 1530 Balance -440 -1530 240 Weight 69.5 kg Intake: Oral 410 240 Output: Urine 850 1530 Other: Voiding Method Urinal Urinal Urinal # Voids 0 1 # Bowel Movements 0 - Constitutional General appearance: Present: cooperative, no acute distress - EENT Eyes: Present: anicteric sclerae, PERRLA Ears: bilateral: normal - Neck Neck: Present: normal ROM - Respiratory Respiratory: bilateral: diminished, rales (Few rales posteriorly) - Cardiovascular Rhythm: regular Heart sounds: normal: S1, S2 - Gastrointestinal General gastrointestinal: Present: normal bowel sounds, soft - Neurologic Neurologic: Present: CNII-XII intact (1. First) - Psychiatric Psychiatric: Present: A&O x's 3, appropriate affect, intact judgment & insight - Labs CBC & Chem 7: 05/07/17 06:15 05/07/17 06:13 Labs: Abnormal Lab Results - Last 24 Hours (Table) 05/07/17 05/07/17 Range/Units 06:13 06:15 RBC 4.07 L (4.30-5.90) m/uL Sodium 136 L (137-145) mmol/L Potassium 3.4 L (3.5-5.1) mmol/L Chloride 94 L (98-107) mmol/L Carbon Dioxide 32 H (22-30) mmol/L BUN 31 H (9-20) mg/dL Alkaline Phosphatase 128 H (38-126) U/L Total Protein 6.0 L (6.3-8.2) g/dL Albumin 3.4 L (3.5-5.0) g/dL Assessment and Plan Plan: Assessment and plan: Acute exacerbation COPD where patient will continue with nebulizer treatments at home and was instructed on how to use his peak flow and incentive spirometer and will need to follow Dr. Velazquez in 1 week Acute exacerbation of systolic CHF where he'll continue with medications as ordered and Lasix Rheumatoid arthritis with rheumatoid lung disease where he'll continue with tapering steroids and orencia Orthostatic hypotension can continue with medications as ordered of Lorie Mild to moderate pulmonary hypertension where he needs to follow with pulmonary
--- NOTE | 2017-05-07 16:20 | P.DS ---
Providers Date of admission: 05/03/17 21:57 Attending physician: Bakari Jacobs MD Consults: 05/04/17 13:46 Consult Physician Urgent Consulting Provider: Yomaira Portillo Consult Reason/Comments: chf Do you want consulting provider notified?: Yes 05/06/17 11:17 Consult Physician Routine Consulting Provider: Dave Velazquez Consult Reason/Comments: sob Do you want consulting provider notified?: Yes Primary care physician: [facility] Course: His is a 77-year-old gentleman with history of hypertension CAD and congestive heart failure with the previous EF of 40-45% comes in to the hospital with complains of recent weight gain of close to 10 pounds and difficulty breathing. Patient was noted to have crackles on initial examination her chest x-ray showed pulmonary vessel congestion and increased right-sided effusion EKG did not reveal ST-T wave changes Patient was given a dose of Lasix and was admitted to the hospital for acute congestive heart failure Today patient states that his breathing is significantly better Denies having any headaches blurry vision chest pain nausea vomiting diarrhea Does state to have orthopnea and PND over the last 2 days 05/05/2017 Patient states to be feeling back to his baseline Is able time without much difficulties currently on room air Has lost over 5 pounds since admission No headaches blurry vision nausea vomiting diarrhea is reported Patient has attempted using RENE hoses states that no return of symptoms 05/06/2017 States to be doing well Denies having headaches blurry vision nausea vomiting diarrhea states to have intermittent episodes of difficulty breathing However is improved with a breathing treatment - Exam Physical exam Gen. appearance oriented 3 in no distress Neck is supple no JVD Lungs good air entry clear to auscultation trace crackles at bases however improved from previous evaluations Heart S1-S2 heard regular rate and rhythm no murmurs appreciated Abdomen is soft nontender no organomegaly bowel sounds are intact Neurologically cranial nerves II-12 grossly intact no focal motor or sensory deficits noted Skin no abnormalities appreciated Assessment and Plan Plan: 1 acute exacerbation of systolic heart failure #2 rheumatoid arthritis. #3 history of CVA #4 hypertension #5 mild to moderate pulmonary hypertension #6 previous history of tobacco use #7 dyslipidemia #8. 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 Wilson in one week Patient Condition at Discharge: Stable Plan - Discharge Summary New Discharge Prescriptions: New Carvedilol [Coreg] 3.125 mg PO BID-W/MEALS #60 tab Furosemide [Lasix] 40 mg PO BID #60 tablet Losartan [Cozaar] 12.5 mg PO DAILY #30 tab Albuterol Nebulized [Ventolin Nebulized] 2.5 mg INHALATION Q6H PRN #1 nebu PRN Reason: Bronchospasm Continue Simvastatin [Zocor] 40 mg PO HS Nitroglycerin Sl Tabs [Nitrostat] 0.4 mg SUBLINGUAL Q5M PRN #30 tab PRN Reason: Chest Pain Abatacept/Maltose [Orencia] 750 mg IVPB Q28D Leflunomide [Arava] 10 mg PO DAILY Icon Eye Vitamin 2 tab PO DAILY Aspirin 81 mg PO DAILY chew HYDROmorphone HCL [Dilaudid] 2 mg PO Q4H Fludrocortisone [Florinef] 0.1 mg PO BID Discontinued Midodrine HCl [ProAmatine] 2.5 mg PO BID Discharge Medication List Simvastatin [Zocor] 40 mg PO HS 02/22/14 [History] Nitroglycerin Sl Tabs [Nitrostat] 0.4 mg SUBLINGUAL Q5M PRN #30 tab 08/26/14 [Rx ] Abatacept/Maltose [Orencia] 750 mg IVPB Q28D 08/17/15 [History] Leflunomide [Arava] 10 mg PO DAILY 12/11/15 [History] Icon Eye Vitamin 2 tab PO DAILY 06/05/16 [History] Aspirin 81 mg PO DAILY chew 06/11/16 [Rx] HYDROmorphone HCL [Dilaudid] 2 mg PO Q4H 02/02/17 [History] Fludrocortisone [Florinef] 0.1 mg PO BID 04/10/17 [History] Albuterol Nebulized [Ventolin Nebulized] 2.5 mg INHALATION Q6H PRN #1 nebu 05/07 [Rx] Carvedilol [Coreg] 3.125 mg PO BID-W/MEALS #60 tab 05/07/17 [Rx] Furosemide [Lasix] 40 mg PO BID #60 tablet 05/07/17 [Rx] Losartan [Cozaar] 12.5 mg PO DAILY #30 tab 05/07/17 [Rx] Follow up Appointment(s)/Referral(s): Jose David Cox MD [Primary Care Provider] - (call office for appt) Dave Velazquez MD [STAFF PHYSICIAN] - 05/15/17 2:15 pm Noah Hobson MD [STAFF PHYSICIAN] - 05/14/17 12:45 pm Patient Instructions/Handouts: Heart Failure (DC) Activity/Diet/Wound Care/Special Instructions: Nebulizer ordered through [facility]: #[phone] Discharge Disposition: HOME SELF-CARE
== END 2017-05-07 16:31 | disposition home or self-care (01) | DRG 292 ==
LOC: EC 19:53 → 6SEL 21:57
PROVIDERS: ADMIT Internal Medicine; ATTEND Internal Medicine
DX: I11.0 Hypertensive heart disease with heart failure (principal); E27.49 Other adrenocortical insufficiency; I27.2 Other secondary pulmonary hypertension; J44.1 Chronic obstructive pulmonary disease with (acute) exacerbation; M05.10 Rheumatoid lung disease with rheumatoid arthritis of unspecified site; I34.0 Nonrheumatic mitral (valve) insufficiency; E78.5 Hyperlipidemia, unspecified; I25.10 Atherosclerotic heart disease of native coronary artery without angina pectoris; I50.23 Acute on chronic systolic (congestive) heart failure; I95.1 Orthostatic hypotension; H35.30 Unspecified macular degeneration; H93.13 Tinnitus, bilateral; K44.9 Diaphragmatic hernia without obstruction or gangrene; I25.2 Old myocardial infarction; Z85.820 Personal history of malignant melanoma of skin; Z95.5 Presence of coronary angioplasty implant and graft; Z98.42 Cataract extraction status, left eye; Z98.41 Cataract extraction status, right eye; Z96.1 Presence of intraocular lens; Z87.891 Personal history of nicotine dependence; Z87.442 Personal history of urinary calculi; Z87.311 Personal history of (healed) other pathological fracture; Z87.11 Personal history of peptic ulcer disease; Z86.73 Personal history of transient ischemic attack (TIA), and cerebral infarction without residual deficits; Z79.82 Long term (current) use of aspirin; Z79.899 Other long term (current) drug therapy
CPT/HCPCS: 36415; 71010; 71020; 80048; 80053; 82550; 82553; 83735; 83880; 84443; 84484; 85025; 85379; 85610; 85730; 93306; 94640; 94760; 96374; 99291

== ENCOUNTER 2017-05-22 02:27 | Observation (INO) | payer MEDICARE ==
[2017-05-22] MEDS ORDERED: NITROGLYCERIN OINT 1 INCH/GM PACKET TOPICAL STA (03:12)
[2017-05-22] MEDS ORDERED: ASPIRIN 81 MG CHEW PO STA (03:12)
--- NOTE | 2017-05-22 03:14 | ED ---
General Adult HPI - General Chief complaint: Chest Pain Stated complaint: Chest Pain Time Seen by Provider: 05/22/17 02:50 Source: patient, family, RN notes reviewed, old records reviewed Mode of arrival: wheelchair Limitations: no limitations - History of Present Illness Initial comments: Patient is a pleasant 77-year-old male presenting to the emergency department complaining of chest discomfort. Onset of symptoms was around 8:30 or 9 last night. Symptoms resolved just prior to arrival. Discomfort felt dull. Discomfort was certainly severe at some point. Discomfort was left lateral chest. No history of similar symptoms previously. Patient was just discharged yesterday with congestive heart failure admission. Patient denies any dyspnea or nausea. - Related Data Home Medications Medication Instructions Recorded Confirmed Simvastatin [Zocor] 40 mg PO HS 02/22/14 05/22/17 Abatacept/Maltose [Orencia] 750 mg IVPB Q28D 08/17/15 05/22/17 Leflunomide [Arava] 10 mg PO DAILY 12/11/15 05/22/17 Icon Eye Vitamin 2 tab PO DAILY 06/05/16 05/22/17 Fludrocortisone [Florinef] 0.1 mg PO BID 04/10/17 05/22/17 Previous Rx's Medication Instructions Recorded Nitroglycerin Sl Tabs [Nitrostat] 0.4 mg SUBLINGUAL Q5M PRN #30 tab 08/26/14 Aspirin 81 mg PO DAILY chew 06/11/16 Albuterol Nebulized [Ventolin 2.5 mg INHALATION Q6H PRN #1 nebu 05/07/17 Nebulized] Carvedilol [Coreg] 3.125 mg PO BID-W/MEALS #60 tab 05/07/17 Furosemide [Lasix] 40 mg PO BID #60 tablet 05/07/17 Losartan [Cozaar] 12.5 mg PO DAILY #30 tab 05/07/17 Allergies Allergy/AdvReac Type Severity Reaction Status Date / Time etodolac [From Lodine] Allergy Rash/Hives Verified 05/22/17 02:45 grape Allergy Rash/Hives Verified 05/22/17 02:45 Penicillins Allergy Rash/Hives Verified 05/22/17 02:45 grape flavor Allergy Rash/Hives Uncoded 05/22/17 02:45 Review of Systems ROS Statement: Those systems with pertinent positive or pertinent negative responses have been documented in the HPI. ROS Other: All systems not noted in ROS Statement are negative. Constitutional: Denies: fever Eyes: Denies: eye pain ENT: Denies: ear pain Respiratory: Denies: cough, dyspnea Cardiovascular: Reports: chest pain Endocrine: Denies: fatigue Gastrointestinal: Denies: abdominal pain Genitourinary: Denies: urgency Musculoskeletal: Denies: back pain Skin: Denies: rash Neurological: Denies: weakness Past Medical History Past Medical History: COPD, CVA/TIA, Hypertension, Myocardial Infarction ([place]), Renal Disease, Rheumatoid Arthritis (RA) Additional Past Medical History / Comment(s): Other Hx: rheumatoid lung disease, restrictive ventilatory impairment per last PFT, lung nodules, 2012 ECHO with normal EF and moderate pulmonary HTN, bilateral nephrolithiasis, renal insufficiency, hiatal hernia, duodenal ulcers, macular degeneration bilaterally, tinnitis bilaterally, was told after [facility] that he had a OH at some time-undetermined date, balance affected after CVA , 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 Last Myocardial Infarction Date:: unkn History of Any Multi-Drug Resistant Organisms: None Reported Past Surgical History: Heart Catheterization With Stent, Joint Replacement Additional Past Surgical History / Comment(s): 07/2014 Cardiac cath with stents x 3, R caratid endartectomy, total R knee, lithotripsy 2011, cataract removal with lens implants bilaterally, colonoscopy/EGD, carotid surgery to clear blockage, Past Anesthesia/Blood Transfusion Reactions: No Reported Reaction Date of Last Stent Placement:: jul 2014 Past Psychological History: No Psychological Hx Reported Smoking Status: Former smoker Past Alcohol Use History: None Reported Past Drug Use History: None Reported - Past Family History Father Family Medical History: Pulmonary Embolus Additional Family Medical History / Comment(s): Father of a PE at age 51 yrs. Mother Family Medical History: Cancer Additional Family Medical History / Comment(s): Hx. mother of esophagus cancer at age 86yrs. Son(s) Family Medical History: Cancer General Exam Limitations: no limitations General appearance: alert, in no apparent distress Head exam: Present: atraumatic Eye exam: Present: normal appearance, PERRL ENT exam: Present: normal oropharynx Neck exam: Present: normal inspection Respiratory exam: Present: normal lung sounds bilaterally. Absent: chest wall tenderness Cardiovascular Exam: Present: regular rate, normal rhythm Expanded Peripheral pulses: 2+: Radial (R), Radial (L), Posterior Tibialis (R), Posterior Tibialis (L) GI/Abdominal exam: Present: soft. Absent: tenderness Extremities exam: Present: normal inspection. Absent: pedal edema, calf tenderness Neurological exam: Present: alert Psychiatric exam: Present: normal affect, normal mood Skin exam: Present: normal color Course Vital Signs 05/22/17 05/22/17 02:30 03:16 Temperature 96.7 F L Pulse Rate 83 78 Respiratory 18 17 Rate Blood Pressure 151/84 149/91 O2 Sat by Pulse 94 L Oximetry EKG Findings - EKG Comments: EKG Findings:: Sinus rhythm at 80. First-degree AV block with NH of 212. QRS 104. QT 398. QTC 459. Left axis. Normal QRS. No acute ST change. Medical Decision Making - Medical Decision Making Patient reevaluated and resting comfortably in bed. Patient and family updated on results and plan. Case discussed with Dr. Boateng, who will admit for Dr. Cox - Lab Data Result diagrams: 05/22/17 02:50 05/22/17 02:50 Lab Results 05/22/17 05/22/17 05/22/17 Range/Units 02:50 02:50 02:50 WBC 11.8 H (3.8-10.6) k/uL RBC 4.22 L (4.30-5.90) m/uL Hgb 13.5 (13.0-17.5) gm/dL Hct 41.1 (39.0-53.0) % MCV 97.3 (80.0-100.0) fL MCH 31.9 (25.0-35.0) pg MCHC 32.8 (31.0-37.0) g/dL RDW 13.5 (11.5-15.5) % Plt Count 284 (150-450) k/uL Neutrophils % 75 % Lymphocytes % 10 % Monocytes % 7 % Eosinophils % 7 % Basophils % 1 % Neutrophils # 8.9 H (1.3-7.7) k/uL Lymphocytes # 1.2 (1.0-4.8) k/uL Monocytes # 0.8 (0-1.0) k/uL Eosinophils # 0.8 H (0-0.7) k/uL Basophils # 0.1 (0-0.2) k/uL PT (9.0-12.0) sec INR (<1.2) APTT (22.0-30.0) sec Sodium 141 (137-145) mmol/L Potassium 3.5 (3.5-5.1) mmol/L Chloride 101 (98-107) mmol/L Carbon Dioxide 30 (22-30) mmol/L Anion Gap 10 mmol/L BUN 30 H (9-20) mg/dL Creatinine 1.00 (0.66-1.25) mg/dL Est GFR (MDRD) Af Amer >60 (>60 ml/min/1.73 sqM) Est GFR (MDRD) Non-Af >60 (>60 ml/min/1.73 sqM) Glucose 100 H (74-99) mg/dL Calcium 9.2 (8.4-10.2) mg/dL Magnesium 1.9 (1.6-2.3) mg/dL Total Bilirubin 0.3 (0.2-1.3) mg/dL AST 55 (17-59) U/L ALT 63 (21-72) U/L Alkaline Phosphatase 142 H (38-126) U/L Total Creatine Kinase 59 (55-170) U/L CK-MB (CK-2) 1.2 (0.0-2.4) ng/mL CK-MB (CK-2) Rel Index 2.0 Troponin I 0.019 (0.000-0.034) ng/mL Total Protein 5.7 L (6.3-8.2) g/dL Albumin 3.1 L (3.5-5.0) g/dL 05/22/17 Range/Units 02:50 WBC (3.8-10.6) k/uL RBC (4.30-5.90) m/uL Hgb (13.0-17.5) gm/dL Hct (39.0-53.0) % MCV (80.0-100.0) fL MCH (25.0-35.0) pg MCHC (31.0-37.0) g/dL RDW (11.5-15.5) % Plt Count (150-450) k/uL Neutrophils % % Lymphocytes % % Monocytes % % Eosinophils % % Basophils % % Neutrophils # (1.3-7.7) k/uL Lymphocytes # (1.0-4.8) k/uL Monocytes # (0-1.0) k/uL Eosinophils # (0-0.7) k/uL Basophils # (0-0.2) k/uL PT 10.9 (9.0-12.0) sec INR 1.1 (<1.2) APTT 22.9 (22.0-30.0) sec Sodium (137-145) mmol/L Potassium (3.5-5.1) mmol/L Chloride (98-107) mmol/L Carbon Dioxide (22-30) mmol/L Anion Gap mmol/L BUN (9-20) mg/dL Creatinine (0.66-1.25) mg/dL Est GFR (MDRD) Af Amer (>60 ml/min/1.73 sqM) Est GFR (MDRD) Non-Af (>60 ml/min/1.73 sqM) Glucose (74-99) mg/dL Calcium (8.4-10.2) mg/dL Magnesium (1.6-2.3) mg/dL Total Bilirubin (0.2-1.3) mg/dL AST (17-59) U/L ALT (21-72) U/L Alkaline Phosphatase (38-126) U/L Total Creatine Kinase (55-170) U/L CK-MB (CK-2) (0.0-2.4) ng/mL CK-MB (CK-2) Rel Index Troponin I (0.000-0.034) ng/mL Total Protein (6.3-8.2) g/dL Albumin (3.5-5.0) g/dL - Radiology Data Radiology results: image reviewed (Chest x-ray shows slightly improved aeration lung base.No significant interval change.) Disposition Clinical Impression: Chest pain Disposition: ADMITTED IP TO THIS [facility] Referrals: Jose David Cox MD [Primary Care Provider] - 1-2 days Decision Time: 04:48
[2017-05-22 03:41] LABS: Basophils # (A) 0.1 k/uL (0-0.2); Basophils % (A) 1 %; CH 31.7; CHCM 32.7; Eosinophils # (A) 0.8 k/uL (0-0.7); Eosinophils % (A) 7 %; HCT 41.1 % (39.0-53.0); HDW 2.29; HGB 13.5 gm/dL (13.0-17.5); Luc # (Auto) 0.17; Luc % (Auto) 1; Lymphocytes # (A) 1.2 k/uL (1.0-4.8); Lymphocytes % (A) 10 %; MCH 31.9 pg (25.0-35.0); MCHC 32.8 g/dL (31.0-37.0); MCV 97.3 fL (80.0-100.0); Mean Platelet Volume 9.7; Monocytes # (A) 0.8 k/uL (0-1.0); Monocytes % (A) 7 %; Neutrophils # (A) 8.9 k/uL (1.3-7.7); Neutrophils % (A) 75 %; RBC 4.22 m/uL (4.30-5.90); RDW 13.5 % (11.5-15.5); WBC 11.8 k/uL (3.8-10.6); WBC (Perox) 11.48
[2017-05-22 03:45] LABS: INR 1.1 (<1.2); Partial Thromboplastin Time 22.9 sec (22.0-30.0); Prothrombin Time 10.9 sec (9.0-12.0)
[2017-05-22 03:48] LABS: ALT 63 U/L (21-72); AST 55 U/L (17-59); Alkaline Phosphatase 142 U/L (38-126); Anion Gap 10 mmol/L; Blood Urea Nitrogen 30 mg/dL (9-20); Calcium 9.2 mg/dL (8.4-10.2); Carbon Dioxide 30 mmol/L (22-30); Chloride 101 mmol/L (98-107); Glucose 100 mg/dL (74-99); Magnesium 1.9 mg/dL (1.6-2.3); Non-African American GFR(MDRD) >60 (>60 ml/min/1.73 sqM); Potassium 3.5 mmol/L (3.5-5.1); Sodium 141 mmol/L (137-145); Total Bilirubin 0.3 mg/dL (0.2-1.3); Total Protein 5.7 g/dL (6.3-8.2)
--- NOTE | 2017-05-22 04:17 | XR ---
EXAM: XR Chest, 2 Views CLINICAL HISTORY: Chest pain, COPD. TECHNIQUE: Frontal and lateral views of the chest. COMPARISON: Chest radiograph dated 05/06/17. FINDINGS: Lungs: There is slightly improved aeration at the left lung base. There are persistent right basilar opacities which may represent atelectasis or infiltrate. Pleural space: No significant pleural effusion. No pneumothorax. Heart: Normal cardiac silhouette. Mediastinum: Unremarkable. Bones/joints: Unremarkable as visualized. IMPRESSION: Slightly improved aeration at the left lung base. Otherwise, no significant interval change. There are persistent right basilar opacities which may represent atelectasis or infiltrate.
[2017-05-22 04:26] LABS: Creatine Kinase MB 1.2 ng/mL (0.0-2.4); Troponin I 0.019 ng/mL (0.000-0.034)
[2017-05-22] MEDS ORDERED: NITROGLYCERIN SL TABS 0.4 MG TAB SUBLINGUAL PRN ×2 (04:49→13:41)
[2017-05-22] MEDS ORDERED: ALBUTEROL NEBULIZED 2.5 MG/3 ML INHALATION PRN (04:50)
[2017-05-22 10:09] LABS: Troponin I 0.03 ng/mL (0.000-0.034)
[2017-05-22] MEDS: NITROGLYCERIN OINT 1 INCH/GM PACKET TOPICAL SCH ×2 (10:36→18:10)
[2017-05-22] MEDS: FLUDROCORTISONE 0.1 MG TAB PO SCH ×2 (10:38→21:24)
[2017-05-22] MEDS: CARVEDILOL 3.125 MG TAB PO SCH ×2 (10:38→18:13)
[2017-05-22] MEDS: FUROSEMIDE 40 MG TAB PO SCH ×2 (10:38→21:24)
[2017-05-22] MEDS: LEFLUNOMIDE 20 MG TAB PO SCH (10:39)
[2017-05-22] MEDS: VIT A,C & E-LUTEIN-MINERALS 1 EACH TAB PO SCH (10:39)
[2017-05-22] MEDS: LOSARTAN 25 MG TAB PO SCH (10:40)
--- NOTE | 2017-05-22 14:22 | P.HPIM ---
History of Present Illness Patient is a pleasant 77-year-old man came in with compensative chest discomfort pressure like sensation nonradiating on the left side of the chest started just before going to bed, moderate intensity came to Hospital around 2 AM, nonpleuritic in nature not associated with food, denied any diaphoresis, dull chest pain denied any nausea, denied any lightheadedness, denied any fever , chills, chest pain is nonpruritic in nature, not associated with cough, patient may have little bit of shortness of breath. Patient had history of congestive heart failure, does have history of ischemic cardiomyopathy cardiac catheterization and stents in the past. Patient does not have any chest wall tenderness on exam. Patient may and up needing stress test patient 2 sets of troponins are negative. Patient EKG did show some nonspecific T-wave abnormalities in the lateral leads. Review of Systems REVIEW OF SYSTEMS: CONSTITUTIONAL: No fever, no malaise, no fatigue. HEENT: No recent visual problems or hearing problems. Denied any sore throat. CARDIOVASCULAR: No orthopnea, PND, no palpitations, no syncope. PULMONARY: No shortness of breath, no cough, no hemoptysis. GASTROINTESTINAL: No diarrhea, no nausea, no vomiting, no abdominal pain. Normoactive bowel sounds. NEUROLOGICAL: No headaches, no weakness, no numbness. HEMATOLOGICAL: Denies any bleeding or petechiae. GENITOURINARY: Denies any burning micturition, frequency, or urgency. MUSCULOSKELETAL/RHEUMATOLOGICAL: Denies any joint pain, swelling, or any muscle pain. ENDOCRINE: Denies any polyuria or polydipsia. The rest of the 14-point review of systems is negative. Past Medical History Past Medical History: COPD, CVA/TIA, Hypertension, Myocardial Infarction (PA), Renal Disease, Rheumatoid Arthritis (RA) Additional Past Medical History / Comment(s): Other Hx: rheumatoid lung disease, restrictive ventilatory impairment per last PFT, lung nodules, 2012 ECHO with normal EF and moderate pulmonary HTN, bilateral nephrolithiasis, renal insufficiency, hiatal hernia, duodenal ulcers, macular degeneration bilaterally, tinnitis bilaterally, was told after [facility] that he had a PA at some time-undetermined date, balance affected after CVA , 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 Last Myocardial Infarction Date:: unkn History of Any Multi-Drug Resistant Organisms: None Reported Past Surgical History: Heart Catheterization With Stent, Joint Replacement Additional Past Surgical History / Comment(s): 07/2014 Cardiac cath with stents x 3, R caratid endartectomy, total R knee, lithotripsy 2011, cataract removal with lens implants bilaterally, colonoscopy/EGD, carotid surgery to clear blockage, Past Anesthesia/Blood Transfusion Reactions: No Reported Reaction Date of Last Stent Placement:: jul 2014 Past Psychological History: No Psychological Hx Reported Additional Psychological History / Comment(s): Pt resides with his spouse. He is independent. He uses a walker at home. He drives. 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 No experience. No international travel. Years since been exposures. Lives with his no other partners. Remote history of tobacco use no history of significant recreational drug use or alcohol use Smoking Status: Former smoker Past Alcohol Use History: None Reported Additional Past Alcohol Use History / Comment(s): Pt started smoking in 1952 and quit in 1988. Past Drug Use History: None Reported - Past Family History Father Family Medical History: Pulmonary Embolus Additional Family Medical History / Comment(s): Father of a PE at age 51 yrs. Mother Family Medical History: Cancer Additional Family Medical History / Comment(s): Hx. mother of esophagus cancer at age 86yrs. Son(s) Family Medical History: Cancer Medications and Allergies Home Medications Medication Instructions Recorded Confirmed Type Simvastatin [Zocor] 40 mg PO HS 02/22/14 05/22/17 History Abatacept/Maltose [Orencia] 750 mg IVPB Q28D 08/17/15 05/22/17 History Leflunomide [Arava] 10 mg PO DAILY 12/11/15 05/22/17 History Icon Eye Vitamin 1 tab PO BID 06/05/16 05/22/17 History Fludrocortisone [Florinef] 0.1 mg PO BID 04/10/17 05/22/17 History Allergies Allergy/AdvReac Type Severity Reaction Status Date / Time etodolac [From Lodine] Allergy Rash/Hives Verified 05/22/17 07:43 grape Allergy Rash/Hives Verified 05/22/17 07:43 Penicillins Allergy Rash/Hives Verified 05/22/17 07:43 grape flavor Allergy Rash/Hives Uncoded 05/22/17 02:45 Physical Exam Vitals: Vital Signs Temp Pulse Pulse Resp BP BP Pulse Ox 05/22/17 11:51 97.7 F 58 L 18 151/95 96 05/22/17 11:08 65 18 127/80 96 05/22/17 08:50 66 18 148/80 94 L 05/22/17 06:21 68 14 112/71 05/22/17 05:21 70 14 146/84 95 05/22/17 03:16 78 17 149/91 05/22/17 02:30 96.7 F L 83 18 151/84 94 L Intake and Output 05/21/17 05/22/17 05/22/17 22:59 06:59 14:59 Intake Total 440 Balance 440 Intake: Oral 440 Other: Weight 71.214 kg 73.1 kg Patient Weight 05/23/17 06:59 Weight 73.1 kg PHYSICAL EXAMINATION: GENERAL: The patient is alert and oriented x3, not in any acute distress. Well developed, well nourished. HEENT: Pupils are round and equally reacting to light. EOMI. No scleral icterus. No conjunctival pallor. Normocephalic, atraumatic. No pharyngeal erythema. No thyromegaly. CARDIOVASCULAR: S1 and S2 present. No murmurs, rubs, or gallops. PULMONARY: Chest is clear to auscultation, no wheezing or crackles. ABDOMEN: Soft, nontender, nondistended, normoactive bowel sounds. No palpable organomegaly. MUSCULOSKELETAL: No joint swelling or deformity. EXTREMITIES: No cyanosis, clubbing, or pedal edema. NEUROLOGICAL: Gross neurological examination did not reveal any focal deficits. SKIN: No rashes. Results CBC & Chem 7: 05/22/17 02:50 05/22/17 02:50 Labs: Abnormal Lab Results - Last 24 Hours (Table) 05/22/17 05/22/17 05/22/17 Range/Units 02:50 02:50 08:51 WBC 11.8 H (3.8-10.6) k/uL RBC 4.22 L (4.30-5.90) m/uL Neutrophils # 8.9 H (1.3-7.7) k/uL Eosinophils # 0.8 H (0-0.7) k/uL BUN 30 H (9-20) mg/dL Glucose 100 H (74-99) mg/dL Alkaline Phosphatase 142 H (38-126) U/L Total Creatine Kinase 49 L (55-170) U/L Total Protein 5.7 L (6.3-8.2) g/dL Albumin 3.1 L (3.5-5.0) g/dL Thrombosis Risk Factor Assmnt - Choose All That Apply Each Risk Factor Represents 3 Points: Age 75 years or older Thrombosis Risk Factor Assessment Total Risk Factor Score: 3 Thrombosis Risk Factor Assessment Level: Moderate Risk Assessment and Plan Plan: #1 chest pain, rule out acute coronary syndromes and unstable angina, patient may need stress test patient is definitely high risk for acute myocardial infarction or unstable angina. 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
[2017-05-22 16:26] LABS: Creatine Kinase MB 0.9 ng/mL (0.0-2.4); Troponin I 0.021 ng/mL (0.000-0.034)
[2017-05-22 20:01] VITALS: RESP 16
[2017-05-22] MEDS ORDERED: ATORVASTATIN 20 MG TAB PO SCH (21:00)
[2017-05-22 23:29] LABS: Cholesterol 95 mg/dL (<200); HDL Cholesterol 20 mg/dL (40-60)
[2017-05-23] MEDS: NITROGLYCERIN OINT 1 INCH/GM PACKET TOPICAL SCH ×3 (04:38→14:36)
--- NOTE | 2017-05-23 07:46 | P.CRDCN ---
History of Present Illness Consult date: 05/22/17 History of present illness: This is a 77-year-old gentleman with history of multivessel stent placement, severe rheumatoid arthritis and also pulmonary disease, came to the emergency room with complaints of left-sided chest pain. The pain started several hours prior to the arrival to the emergency room. The pain is felt in the left axillary area. It is constant in nature. Not respirophasic. No definite relieving or aggravating factors. By the time patient came to the emergency room, the pain is almost resolved. At the time of my examination patient is comfortable. His troponin values time 2 are within normal limits. His proBNP is elevated but is better than it was last admission. He was admitted early this month with increasing shortness of breath and CHF. At the time, Patient' s medications were adjusted and was sent home in a stable condition. A chest x- ray showed chronic stable findings without any acute CHF. We'll plan to follow further cardiac enzymes studies. If patient remains asymptomatic, patient could be discharged home and have follow-up as an outpatient with Dr. Hobson. However, if the enzymes are positive or if patient continues to have chest pain , patient may need further evaluation either with a stress test or cardiac catheterization. Patient had stent placement of the LAD and the circumflex. Patient does have a lesion in the diagonal branch which was not addressed. Echocardiogram done during last admission showed an ejection fraction about 20- 25% Review of Systems As per HPI, and chart Past Medical History Past Medical History: COPD, CVA/TIA, Hypertension, Myocardial Infarction (RI), Renal Disease, Rheumatoid Arthritis (RA) Additional Past Medical History / Comment(s): Other Hx: rheumatoid lung disease, restrictive ventilatory impairment per last PFT, lung nodules, 2012 ECHO with normal EF and moderate pulmonary HTN, bilateral nephrolithiasis, renal insufficiency, hiatal hernia, duodenal ulcers, macular degeneration bilaterally, tinnitis bilaterally, was told after [facility] that he had a RI at some time-undetermined date, balance affected after CVA , 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 Last Myocardial Infarction Date:: unkn History of Any Multi-Drug Resistant Organisms: None Reported Past Surgical History: Heart Catheterization With Stent, Joint Replacement Additional Past Surgical History / Comment(s): 07/2014 Cardiac cath with stents x 3, R caratid endartectomy, total R knee, lithotripsy 2011, cataract removal with lens implants bilaterally, colonoscopy/EGD, carotid surgery to clear blockage, Past Anesthesia/Blood Transfusion Reactions: No Reported Reaction Date of Last Stent Placement:: jul 2014 Past Psychological History: No Psychological Hx Reported Additional Psychological History / Comment(s): Pt resides with his spouse. He is independent. He uses a walker at home. He drives. 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 No experience. No international travel. Years since been exposures. Lives with his no other partners. Remote history of tobacco use no history of significant recreational drug use or alcohol use Smoking Status: Former smoker Past Alcohol Use History: None Reported Additional Past Alcohol Use History / Comment(s): Pt started smoking in 1952 and quit in 1988. Past Drug Use History: None Reported - Past Family History Father Family Medical History: Pulmonary Embolus Additional Family Medical History / Comment(s): Father of a PE at age 51 yrs. Mother Family Medical History: Cancer Additional Family Medical History / Comment(s): Hx. mother of esophagus cancer at age 86yrs. Son(s) Family Medical History: Cancer Medications and Allergies Home Medications Medication Instructions Recorded Confirmed Type Simvastatin [Zocor] 40 mg PO HS 02/22/14 05/22/17 History Abatacept/Maltose [Orencia] 750 mg IVPB Q28D 08/17/15 05/22/17 History Leflunomide [Arava] 10 mg PO DAILY 12/11/15 05/22/17 History Icon Eye Vitamin 1 tab PO BID 06/05/16 05/22/17 History Fludrocortisone [Florinef] 0.1 mg PO BID 04/10/17 05/22/17 History Allergies Allergy/AdvReac Type Severity Reaction Status Date / Time etodolac [From Lodine] Allergy Rash/Hives Verified 05/22/17 07:43 grape Allergy Rash/Hives Verified 05/22/17 07:43 Penicillins Allergy Rash/Hives Verified 05/22/17 07:43 grape flavor Allergy Rash/Hives Uncoded 05/22/17 02:45 Physical Exam Vitals: Vital Signs Temp Pulse Pulse Resp BP BP BP 05/23/17 04:00 16 05/23/17 03:27 97.9 F 69 16 140/87 05/23/17 00:00 16 05/22/17 23:49 97.7 F 77 16 139/79 05/22/17 20:00 98.0 F 69 16 138/83 05/22/17 16:00 97.5 F L 65 18 149/84 05/22/17 15:25 05/22/17 11:51 97.7 F 58 L 18 151/95 05/22/17 11:08 65 18 127/80 05/22/17 08:50 66 18 148/80 Pulse Ox 05/23/17 04:00 05/23/17 03:27 96 05/23/17 00:00 05/22/17 23:49 96 05/22/17 20:00 98 05/22/17 16:00 96 05/22/17 15:25 96 05/22/17 11:51 96 05/22/17 11:08 96 05/22/17 08:50 94 L Intake and Output 05/22/17 05/23/17 05/23/17 22:59 06:59 14:59 Other: # Voids 1 1 GENERAL EXAM: Patient is alert and oriented and doesn't appear to be in any acute distress HEENT: Normocephalic. Normal reaction of pupils, equal size, normal range of extraocular motion. No erythema or exudates in the throat. NECK: No masses, no nuchal rigidity. CHEST: No chest wall deformity. No local tenderness LUNGS: Equal air entry with no crackles or wheeze. HEART: S1 and S2 normal with no audible mumurs or gallops. Regular rhythm, femorals equal on both sides.. ABDOMEN: No hepatosplenomegaly, normal bowel sounds, no guarding or rigidity. SKIN: No rashes CENTRAL NERVOUS SYSTEM: No focal deficits. EXTREMITIES: No cyanosis, clubbing or edema. Results 05/22/17 02:50 05/22/17 02:50 Cardiac Enzymes 05/22/17 05/22/17 Range/Units 08:51 15:37 CK-MB (CK-2) 1.0 0.9 (0.0-2.4) ng/mL Troponin I 0.030 0.021 (0.000-0.034) ng/mL Lipids 05/22/17 Range/Units 02:50 Triglycerides 152 H (<150) mg/dL Cholesterol 95 (<200) mg/dL HDL Cholesterol 20 L (40-60) mg/dL Current Medications Generic Name Dose Route Start Last Admin Trade Name Freq PRN Reason Stop Dose Admin Albuterol Sulfate 2.5 mg 05/22/17 04:50 Ventolin Nebulized INHALATION RT-Q6H PRN Bronchospasm Aspirin 325 mg 05/23/17 09:00 05/22/17 10:45 Aspirin PO 325 mg DAILY ESTEBAN Administration Atorvastatin Calcium 20 mg 05/22/17 21:00 05/22/17 21:24 Lipitor PO 20 mg HS ESTEBAN Administration Carvedilol 3.125 mg 05/22/17 07:30 05/22/17 18:13 Coreg PO 3.125 mg BID-W/MEALS ESTEBAN Administration Fludrocortisone Acetate 0.1 mg 05/22/17 09:00 05/22/17 21:24 Florinef PO 0.1 mg BID ESTEBAN Administration Furosemide 40 mg 05/22/17 09:00 05/22/17 21:24 Lasix PO 40 mg BID ESTEBAN Administration Leflunomide 10 mg 05/22/17 09:00 05/22/17 10:39 Arava PO 10 mg DAILY ESTEBAN Administration Losartan Potassium 12.5 mg 05/22/17 09:00 05/22/17 10:40 Cozaar PO 12.5 mg DAILY ESTEBAN Administration Multivitamins/Minerals 2 each 05/22/17 09:00 05/22/17 10:39 Ivite PO 2 each DAILY ESTEBAN Administration Nitroglycerin 1 inch 05/22/17 07:00 05/23/17 04:39 Nitro-Bid Oint TOPICAL Not Given Q6HR [facility] Nitroglycerin 0.4 mg 05/22/17 13:41 Nitrostat SUBLINGUAL Q5M PRN Chest Pain Intake and Output 05/22/17 05/23/17 05/23/17 22:59 06:59 14:59 Other: # Voids 1 1 05/22/17 02:50 05/22/17 02:50 EKG Interpretations (text) Sinus rhythm with occasional PVCs mild nonspecific T-wave changes in the lateral leads and evidence of old inferior wall RI with Q waves in 2, 3 and aVF. Assessment and Plan (1) Chronic lung disease Status: Acute (2) Chest pain Status: Acute (3) CAD (coronary artery disease) Status: Acute (4) Congestive heart failure Status: Acute (5) HTN (hypertension) Status: Acute (6) Cardiomyopathy Status: Acute (7) CAD (coronary artery disease) Status: Acute Plan: Patient chest pains appear to be atypical. We'll follow cardiac enzymes studies. If the enzymes are negative and if patient remains stable, patient could be discharged home to have further evaluation as an outpatient. However, patient continues to have chest pain, patient may need further evaluation either with a stress test or cardiac catheterization.
--- NOTE | 2017-05-23 08:55 | P.PN ---
Subjective Principal diagnosis: Chest pain This 77-year-old gentleman with a history of ischemic cardiomyopathy, multi- vascular stent placement and also congestive heart failure, is now readmitted to the hospital with complaints of left-sided chest pain lasting for several hours. His pains appear to be atypical. His cardiac enzymes are so far negative. EKGs did not reveal any acute changes. His last echo [place] showed an ejection fraction of 20-25%. Since admission, the patient has been stable without any recurrence of chest pain. I discussed with the patient about the options of doing a stress test versus cardiac cath versus maximum medical therapy and observation. Patient preferred to go on medical therapy. He could be discharged home on her small dose of nitrates and nitroglycerin when necessary. If he has any further chest pains, a cardiac catheterization can be considered as an outpatient. Patient is eager to go home. Patient could be discharged home from cardiac standpoint Objective - Vital Signs Vital signs: Vital Signs Temp 98 F 05/23/17 07:57 Pulse 67 05/23/17 07:57 Resp 16 05/23/17 07:57 BP 170/72 05/23/17 07:57 Pulse Ox 95 05/23/17 07:57 Intake & Output 05/22/17 05/23/17 05/23/17 18:59 06:59 18:59 Intake Total 440 Balance 440 Weight 73.1 kg Intake: Oral 440 Other: # Voids 1 - Exam GENERAL EXAM: Patient is alert and oriented and doesn't appear to be in any acute distress HEENT: Normocephalic. Normal reaction of pupils, equal size, normal range of extraocular motion. No erythema or exudates in the throat. NECK: No masses, no nuchal rigidity. CHEST: No chest wall deformity. LUNGS: Equal air entry with no crackles or wheeze. HEART: S1 and S2 normal with no audible mumurs or gallops. Regular rhythm, femorals equal on both sides.. ABDOMEN: No hepatosplenomegaly, normal bowel sounds, no guarding or rigidity. SKIN: No rashes CENTRAL NERVOUS SYSTEM: No focal deficits. EXTREMITIES: No cyanosis, clubbing or edema. - Labs CBC & Chem 7: 05/22/17 02:50 05/22/17 02:50 Labs: Abnormal Lab Results - Last 24 Hours (Table) 07/27/17 07/27/17 Range/Units 02:50 08:51 Total Creatine Kinase 49 L (55-170) U/L Triglycerides 152 H (<150) mg/dL HDL Cholesterol 20 L (40-60) mg/dL Assessment and Plan (1) Chronic lung disease Status: Acute (2) Chest pain Status: Acute (3) CAD (coronary artery disease) Status: Acute (4) Congestive heart failure Status: Acute (5) HTN (hypertension) Status: Acute (6) Cardiomyopathy Status: Acute (7) CAD (coronary artery disease) Status: Acute Plan: A chest pains appear to be atypical with negative enzymes and EKGs. Patient has severe cardiomyopathy and chronic CHF. Patient also has rheumatoid arthritis and lung problems. Patient could be discharged home. Patient preferred maximum medical therapy at this time. Follow-up with Dr. Hobson as an outpatient
[2017-05-23] MEDS ORDERED: ASPIRIN 325 MG TAB PO SCH (09:00)
[2017-05-23] MEDS: FLUDROCORTISONE 0.1 MG TAB PO SCH (09:15)
[2017-05-23] MEDS: LOSARTAN 25 MG TAB PO SCH (09:15)
[2017-05-23] MEDS: VIT A,C & E-LUTEIN-MINERALS 1 EACH TAB PO SCH (09:15)
[2017-05-23] MEDS: FUROSEMIDE 40 MG TAB PO SCH (09:15)
[2017-05-23] MEDS: CARVEDILOL 3.125 MG TAB PO SCH (09:15)
[2017-05-23] MEDS: LEFLUNOMIDE 20 MG TAB PO SCH (09:16)
[2017-05-23 12:40] VITALS: BP 133/78; PULSE 66; TEMP 97.7
--- NOTE | 2017-05-26 12:19 | DS ---
FINAL DIAGNOSES: 1. Chest pain, possible musculoskeletal. 2. Severe cardiomyopathy. 3. Chronic congestive heart failure. 4. History of cerebrovascular accident, transient ischemic attack. 5. History of rheumatoid arthritis. 6. History of coronary artery disease, stent. DISCHARGE DISPOSITION: The patient is being discharged in stable condition with guarded prognosis. HISTORY OF PRESENT ILLNESS: This 77-year-old gentleman with past medical history of multiple medical problems being followed by Dr. Cox in the outpatient setting admitted with chest pain. Myocardial infarction ruled out and cardiology saw the patient. On exam, vital signs are stable. Cardiovascular: S1, S2. Abdomen soft. Nontender. Nervous system: No focal deficits. Hemoglobin found to be 13.5, white count is 11.8. The patient is being discharged in stable condition with guarded prognosis. DISCHARGE ADVICE AND MEDICATIONS: 1. Diet is cardiac. 2. Activity limited until follow up. 3. Follow-up with Dr. Cox in two to three days. 4. Follow-up with cardiology as advised. Medications are: 1. orencia 750 mg IV q28 d. 2. Ventolin 2.5 q.i.d. and prn. 3. Aspirin 81 mg po daily. 4. Coreg 3.125 mg po b.i.d. 5. Florinef 0.1 po b.i.d. 6. Lasix 40 mg b.i.d. 7. Vitamin one po b.i.d. 8. Arava 10 mg po daily. 9. Cozaar 12.5 mg daily. 10. Nitro 0.4 sublingual prn. 11. Zocor 40 mg q.h.s. Once again, the patient is being discharged in stable condition with guarded prognosis. MTDD
== END 2017-05-23 16:30 | disposition home or self-care (01) ==
LOC: EC 02:27 → 3OBS 04:49
PROVIDERS: ADMIT Internal Medicine; ATTEND Internal Medicine
DX: R07.89 Other chest pain (principal); I25.5 Ischemic cardiomyopathy; I11.0 Hypertensive heart disease with heart failure; I50.22 Chronic systolic (congestive) heart failure; Z86.73 Personal history of transient ischemic attack (TIA), and cerebral infarction without residual deficits; M06.9 Rheumatoid arthritis, unspecified; Z95.5 Presence of coronary angioplasty implant and graft; I25.10 Atherosclerotic heart disease of native coronary artery without angina pectoris; J44.9 Chronic obstructive pulmonary disease, unspecified; I25.2 Old myocardial infarction; N28.9 Disorder of kidney and ureter, unspecified; I27.2 Other secondary pulmonary hypertension; E78.5 Hyperlipidemia, unspecified; I95.1 Orthostatic hypotension; E27.49 Other adrenocortical insufficiency; M48.56XA Collapsed vertebra, not elsewhere classified, lumbar region, initial encounter for fracture; M51.36 Other intervertebral disc degeneration, lumbar region; I34.0 Nonrheumatic mitral (valve) insufficiency; Z79.899 Other long term (current) drug therapy; Z79.52 Long term (current) use of systemic steroids; Z88.0 Allergy status to penicillin; Z88.8 Allergy status to other drugs, medicaments and biological substances; Z91.018 Allergy to other foods; Z87.891 Personal history of nicotine dependence; Z80.0 Family history of malignant neoplasm of digestive organs; H35.30 Unspecified macular degeneration
CPT/HCPCS: 99285; 36415; 94760; 93005; 83880; 80061; 80053; 82550; 82553; 83735; 84484; 85025; 85610; 85730; 71020; G0378 ×2

== ENCOUNTER → 2018-04-02 | Outpatient (CLI) | payer MEDICARE ==
[~2018-04-02] MED LIST: ABATACEPT/MALTOSE 750 MG in SODIUM CHLORIDE 0.9% 70 ML IVPB ONE; SODIUM CHLORIDE 0.9% 500 ML in EMPTY BAG 1 BAG IV PRN
[2018-04-02 12:26] VITALS: BP 120/67; PULSE 76; RESP 18; TEMP 97.6
[2018-04-02 13:00] LABS: Basophils % (A) 1 %; Eosinophils # (A) 0.3 k/uL (0-0.7); Eosinophils % (A) 3 %; HCT 46.5 % (39.0-53.0); Lymphocytes # (A) 1.3 k/uL (1.0-4.8); Lymphocytes % (A) 15 %; MCH 31.9 pg (25.0-35.0); MCHC 32.4 g/dL (31.0-37.0); MCV 98.6 fL (80.0-100.0); Mean Platelet Volume 9.9; Monocytes # (A) 0.8 k/uL (0-1.0); Monocytes % (A) 8 %; Neutrophils # (A) 6.5 k/uL (1.3-7.7); Neutrophils % (A) 72 %; Platelet Count 238 k/uL (150-450); RBC 4.71 m/uL (4.30-5.90); RDW 13.1 % (11.5-15.5); WBC 9.1 k/uL (3.8-10.6)
[2018-04-02 13:21] LABS: Albumin 3.7 g/dL (3.5-5.0); Bilirubin, Delta 0.2 mg/dL (0.0-0.2); Bilirubin,Unconjugated 0.3 mg/dL (0.0-1.1); Calcium 9.6 mg/dL (8.4-10.2); Potassium 4.3 mmol/L (3.5-5.1); Total Bilirubin 0.5 mg/dL (0.2-1.3); Total Protein 6.2 g/dL (6.3-8.2)
[2018-04-02 14:10] LABS: Appearance,Urine Clear (Clear); Bilirubin,Urine Negative (Negative); Blood,Urine Negative (Negative); Color,Urine Yellow; Glucose,Urine (UA) Negative (Negative); Ketones,Urine Negative (Negative); Leukocyte Esterase,Urine Small (Negative); Mucus,Urine Rare /hpf; Nitrite,Urine Negative (Negative); Protein,Urine 1+ (Negative); RBC,Urine 1 /hpf (0-5); Squamous Epithelial Cell,Urine <1 /hpf (0-4); Urobilinogen,Urine <2.0 mg/dL (<2.0); WBC,Urine 4 /hpf (0-5)
[2018-04-02 14:20] LABS: Erythrocyte Sedimentation Rate 30 mm/hr (0-15)
== END | disposition home or self-care (01) ==
LOC: PROCWHC3 12:15 → EDSTATUS 12:30
PROVIDERS: ATTEND Internal Medicine Rheumatology
DX: M06.89 Other specified rheumatoid arthritis, multiple sites (principal); E78.2 Mixed hyperlipidemia
CPT/HCPCS: 80053; 80076; 85652; 85025; 81001; 96365; 36415; J0129

== ENCOUNTER → 2018-05-14 | Outpatient (CLI) | payer MEDICARE ==
[2018-05-14 13:12] VITALS: BP 117/75; PULSE 73; RESP 17; TEMP 97.7
== END | disposition home or self-care (01) ==
LOC: PROCWHC3 12:17
PROVIDERS: ATTEND Internal Medicine Rheumatology
DX: M06.89 Other specified rheumatoid arthritis, multiple sites (principal)
CPT/HCPCS: 96365; J0129

== ENCOUNTER → 2018-06-04 | Outpatient (CLI) | payer MEDICARE ==
--- NOTE | 2018-06-04 13:41 | CT ---
EXAMINATION TYPE: CT chest wo con DATE OF EXAM: 06/04/2018 COMPARISON: 05/02/2017 and 02/27/2016 HISTORY: Follow up for nodules. CT DLP: 635 mGycm. Automated Exposure Control for Dose Reduction was Utilized. TECHNIQUE: CT scan of the thorax is performed without IV contrast. FINDINGS: LUNGS: There are multiple stable bilateral pulmonary nodules in comparison to the exam of 05/02/2017. T hese are also stable in comparison to the exam of 02/27/2016. The largest measures 7 mm within the righ t lower lobe on series 4 image 35. These are marked on images 14, 16, 18, 29, 30, 35 and 40. There is also stable bibasilar bronchiectasis that is most commonly postinfectious. There is also bib asilar pleural parenchymal scarring and minimal dependent atelectasis. No new pulmonary nodules are s een or pulmonary masses. There is no pleural effusion or pneumothorax seen. The tracheobronchial tr ee is patent. MEDIASTINUM: Lack of IV contrast is noted to limit evaluation for mediastinal and especially hilar ad enopathy. There are no definitive greater than 1 cm hilar or mediastinal lymph nodes. No cardiomega ly. Extensive three-vessel coronary calcifications are noted. Trace pericardial fluid is present. OTHER: Probable left renal sinus cyst is noted. There is a nonobstructing 1 cm left upper pole calcul us, similar to the prior 2015. Colonic interposition with mass effect on the liver is incidentally no feliciano. Multilevel mild degenerative change of the thoracic spine is present in addition to Schmorl's no de of L1 and compression deformity of L2 that is stable from the prior and retropulsed creating spina l canal stenosis. IMPRESSION: 1. Multiple bilateral pulmonary nodules stable dating back to 02/27/2016. Therefore these are favored t o be benign given two-year stability. Additional follow-up in 12 months is recommended. If stable at that time, these can be considered benign. 2. No new adenopathy.
== END | disposition home or self-care (01) ==
LOC: RADCTMAIN 12:25
PROVIDERS: ATTEND Internal Medicine Pulmonary Disease
DX: R91.8 Other nonspecific abnormal finding of lung field (principal)
CPT/HCPCS: 71250

== ENCOUNTER → 2018-06-25 | Outpatient (CLI) | payer MEDICARE ==
[~2018-06-25] MED LIST changes: +ABATACEPT/MALTOSE 750 MG in SODIUM CHLORIDE 0.9% 70 ML IVPB NR; -ABATACEPT/MALTOSE 750 MG in SODIUM CHLORIDE 0.9% 70 ML IVPB ONE
[2018-06-25 13:18] VITALS: BP 121/75; PULSE 65; RESP 18; TEMP 97.5
[2018-06-25 13:36] LABS: Basophils # (A) 0.1 k/uL (0-0.2); Basophils % (A) 1 %; Eosinophils # (A) 0.6 k/uL (0-0.7); Eosinophils % (A) 6 %; HCT 44.3 % (39.0-53.0); HGB 13.6 gm/dL (13.0-17.5); Hypochromasia Slight; Lymphocytes # (A) 1.5 k/uL (1.0-4.8); Lymphocytes % (A) 14 %; MCH 31.4 pg (25.0-35.0); MCHC 30.7 g/dL (31.0-37.0); MCV 102.4 fL (80.0-100.0); Macrocytosis Slight; Mean Platelet Volume 8.4; Monocytes # (A) 0.7 k/uL (0-1.0); Monocytes % (A) 6 %; Neutrophils # (A) 7.5 k/uL (1.3-7.7); Neutrophils % (A) 71 %; Platelet Count 248 k/uL (150-450); RBC 4.32 m/uL (4.30-5.90); WBC 10.5 k/uL (3.8-10.6)
[2018-06-25 13:43] LABS: Albumin 3.3 g/dL (3.5-5.0); Calcium 9.2 mg/dL (8.4-10.2); Potassium 4.8 mmol/L (3.5-5.1); Total Bilirubin 0.4 mg/dL (0.2-1.3)
[2018-06-25 14:16] LABS: Appearance,Urine Clear (Clear); Bilirubin,Urine Negative (Negative); Blood,Urine Negative (Negative); Color,Urine Yellow; Glucose,Urine (UA) Negative (Negative); Hyaline Casts,Urine 17 /lpf (0-2); Ketones,Urine Negative (Negative); Leukocyte Esterase,Urine Negative (Negative); Mucus,Urine Rare /hpf; Nitrite,Urine Negative (Negative); PH, Urine 5.5 (5.0-8.0); Protein,Urine 1+ (Negative); RBC,Urine 10 /hpf (0-5); Specific Gravity,Urine 1.021 (1.001-1.035); WBC,Urine 3 /hpf (0-5)
[2018-06-25 16:12] LABS: Erythrocyte Sedimentation Rate 33 mm/hr (0-15)
== END | disposition home or self-care (01) ==
LOC: PROCWHC3 12:15
PROVIDERS: ATTEND Internal Medicine Rheumatology
DX: M06.89 Other specified rheumatoid arthritis, multiple sites (principal); Z88.0 Allergy status to penicillin; Z91.041 Radiographic dye allergy status; Z91.018 Allergy to other foods
CPT/HCPCS: 80053; 85652; 85025; 81001; 96365; 36415; J0129

== ENCOUNTER → 2018-08-06 | Outpatient (CLI) | payer MEDICARE ==
[2018-08-06 12:53] VITALS: BP 121/73; PULSE 69; RESP 16; TEMP 98.8
== END | disposition home or self-care (01) ==
LOC: PROCWHC3 12:12
PROVIDERS: ATTEND Internal Medicine Rheumatology
DX: M06.89 Other specified rheumatoid arthritis, multiple sites (principal)
CPT/HCPCS: 96365; J0129

== ENCOUNTER 2018-08-09 11:07 | Emergency (ER) | payer MEDICARE ==
--- NOTE | 2018-08-09 12:14 | ED ---
General Adult HPI - General Chief complaint: Syncope Stated complaint: syncope Time Seen by Provider: 08/09/18 11:20 Source: patient, family, RN notes reviewed Mode of arrival: wheelchair Limitations: no limitations - History of Present Illness Initial comments: This a 78-year-old male who presents emergency Department complaining that he felt lightheaded and thought he might pass out this morning but did not. Patient states every time he stands up he is lightheaded but today's episode was a little worse than normal. Patient states he just got out of the shower he was bending down her drops feet knees became very lightheaded and thought he might pass out so he sat down the ground and leaned up against a cabinet until the symptoms resolve. Patient states he had no chest pain he had no difficulty breathing shortness of breath. Patient denies any recent fever chills. Patient denies any headache patient denies any numbness weakness. Patient denies any spinning of the room. Patient states once symptoms resolve he was able to ambulate without problem. states initially he needs some help up but after that he was acting at his baseline. - Related Data Home Medications Medication Instructions Recorded Confirmed Simvastatin [Zocor] 40 mg PO HS 02/22/14 08/09/18 Abatacept/Maltose [Orencia] 750 mg IVPB Q28D 08/17/15 08/09/18 Leflunomide [Arava] 10 mg PO DAILY 12/11/15 08/09/18 Icon Eye Vitamin 1 tab PO BID 06/05/16 08/09/18 Latanoprost Ophth [Xalatan 0.005%] 1 drop BOTH EYES HS 02/16/18 08/09/18 Albuterol Nebulized [Ventolin 2.5 mg INHALATION RT-QID PRN 08/09/18 08/09/18 Nebulized] Furosemide [Lasix] 40 mg PO DAILY 08/09/18 08/09/18 Losartan Potassium [Cozaar] 25 mg PO DAILY 08/09/18 08/09/18 Previous Rx's Medication Instructions Recorded Nitroglycerin Sl Tabs [Nitrostat] 0.4 mg SUBLINGUAL Q5M PRN #30 tab 08/26/14 Aspirin 81 mg PO DAILY chew 06/11/16 Allergies Allergy/AdvReac Type Severity Reaction Status Date / Time etodolac [From Lodine] Allergy Rash/Hives Verified 08/09/18 12:35 grape Allergy Rash/Hives Verified 08/09/18 12:35 Penicillins Allergy Rash/Hives Verified 08/09/18 12:35 grape flavor Allergy Rash/Hives Uncoded 08/09/18 11:22 Review of Systems ROS Statement: Those systems with pertinent positive or pertinent negative responses have been documented in the HPI. ROS Other: All systems not noted in ROS Statement are negative. Past Medical History Past Medical History: COPD, CVA/TIA, Hypertension, Myocardial Infarction (ME), Renal Disease, Rheumatoid Arthritis (RA) Additional Past Medical History / Comment(s): Other Hx: rheumatoid lung disease, restrictive ventilatory impairment per last PFT, lung nodules, 2012 ECHO with normal EF and moderate pulmonary HTN, bilateral nephrolithiasis, renal insufficiency, hiatal hernia, duodenal ulcers, macular degeneration bilaterally, tinnitis bilaterally, was told after [facility] that he had a ME at some time-undetermined date, balance affected after CVA , 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 Last Myocardial Infarction Date:: unkn History of Any Multi-Drug Resistant Organisms: None Reported Past Surgical History: Heart Catheterization With Stent, Joint Replacement Additional Past Surgical History / Comment(s): 07/2014 Cardiac cath with stents x 3, R caratid endartectomy, total R knee, lithotripsy 2011, cataract removal with lens implants bilaterally, colonoscopy/EGD, carotid surgery to clear blockage, Past Anesthesia/Blood Transfusion Reactions: No Reported Reaction Date of Last Stent Placement:: jul 2014 Past Psychological History: No Psychological Hx Reported Smoking Status: Former smoker Past Alcohol Use History: Occasional Past Drug Use History: None Reported - Past Family History Father Family Medical History: Pulmonary Embolus Additional Family Medical History / Comment(s): Father of a PE at age 51 yrs. Mother Family Medical History: Cancer Additional Family Medical History / Comment(s): Hx. mother of esophagus cancer at age 86yrs. Son(s) Family Medical History: Cancer General Exam - General Exam Comments Initial Comments: GENERAL: Patient is well-developed and well-nourished. Patient is nontoxic and well- hydrated and is in with no acute distress. ENT: Neck is soft and supple. No significant lymphadenopathy is noted. Oropharynx is clear. Moist mucous membranes. Neck has full range of motion without eliciting any pain. EYES: The sclera were anicteric and conjunctiva were pink and moist. Extraocular movements were intact and pupils were equal round and reactive to light. Eyelids were unremarkable. PULMONARY: Unlabored respirations. Good breath sounds bilaterally. No audible rales rhonchi or wheezing was noted. CARDIOVASCULAR: There is a regular rate and rhythm without any murmurs gallops or rubs. ABDOMEN: Soft and nontender with normal bowel sounds. SKIN: Skin is clear with no lesions or rashes and otherwise unremarkable. NEUROLOGIC: Patient is alert and oriented x3. Cranial nerves II through XII are grossly intact. Motor and sensory are also intact. Normal speech, volume and content. Symmetrical smile. MUSCULOSKELETAL: Normal extremities with adequate strength and full range of motion. LYMPHATICS: No significant lymphadenopathy is noted PSYCHIATRIC: Normal psychiatric evaluation. Normal interpersonal interactions appears functionally intact in deals appropriately with others. No signs of depression. No signs of anxiety. Limitations: no limitations Course Vital Signs 08/09/18 08/09/18 08/09/18 11:22 12:40 12:41 Temperature 97.6 F Pulse Rate 74 73 Pulse Rate [ 74 Left Sitting] Pulse Rate [ 80 Left Standing] Pulse Rate [ 64 Left Supine] Respiratory 18 18 Rate Blood Pressure 103/74 115/47 Blood Pressure 135/91 [Left Arm Sitting] Blood Pressure 115/47 [Left Arm Standing] Blood Pressure 153/93 [Left Arm Supine] O2 Sat by Pulse 96 96 Oximetry 08/09/18 12:50 Temperature Pulse Rate 70 Pulse Rate [ Left Sitting] Pulse Rate [ Left Standing] Pulse Rate [ Left Supine] Respiratory 18 Rate Blood Pressure 150/94 Blood Pressure [Left Arm Sitting] Blood Pressure [Left Arm Standing] Blood Pressure [Left Arm Supine] O2 Sat by Pulse Oximetry Medical Decision Making - Medical Decision Making EKG shows sinus rhythm at 60 bpm. Patient also has frequent PVCs and the pattern of bigeminy. Patient's CA interval is 218 QRS is 12 QT interval 442 QTC is 467. Patient's EKG does not show any ST segment elevation. Chest x-ray showed no acute abnormality. I went back into the room to talk to the patient he was feeling at his baseline and he stated this lightheadedness was probably is been having for about 14 years. I indicated the patient he should stay patient refused to stay and stated he would follow-up with his primary medical care doctor. was in the room with him and she was in agreement with this. - Lab Data Result diagrams: 08/09/18 13:10 08/09/18 13:10 Lab Results 08/09/18 08/09/18 08/09/18 Range/Units 13:10 13:10 13:10 WBC 13.0 H (3.8-10.6) k/uL RBC 4.67 (4.30-5.90) m/uL Hgb 14.8 (13.0-17.5) gm/dL Hct 46.3 (39.0-53.0) % MCV 99.2 (80.0-100.0) fL MCH 31.7 (25.0-35.0) pg MCHC 31.9 (31.0-37.0) g/dL RDW 13.0 (11.5-15.5) % Plt Count 287 (150-450) k/uL Neutrophils % 72 % Lymphocytes % 15 % Monocytes % 6 % Eosinophils % 4 % Basophils % 1 % Neutrophils # 9.4 H (1.3-7.7) k/uL Lymphocytes # 2.0 (1.0-4.8) k/uL Monocytes # 0.8 (0-1.0) k/uL Eosinophils # 0.5 (0-0.7) k/uL Basophils # 0.1 (0-0.2) k/uL Hypochromasia Slight PT (9.0-12.0) sec INR (<1.2) APTT (22.0-30.0) sec Sodium 141 (137-145) mmol/L Potassium 4.9 (3.5-5.1) mmol/L Chloride 104 (98-107) mmol/L Carbon Dioxide 27 (22-30) mmol/L Anion Gap 10 mmol/L BUN 26 H (9-20) mg/dL Creatinine 1.13 (0.66-1.25) mg/dL Est GFR (CKD-EPI)AfAm 72 (>60 ml/min/1.73 sqM) Est GFR (CKD-EPI)NonAf 62 (>60 ml/min/1.73 sqM) Glucose 89 (74-99) mg/dL Calcium 9.6 (8.4-10.2) mg/dL Magnesium 2.0 (1.6-2.3) mg/dL Total Bilirubin 0.5 (0.2-1.3) mg/dL AST 28 (17-59) U/L ALT 22 (21-72) U/L Alkaline Phosphatase 134 H (38-126) U/L Total Creatine Kinase 69 (55-170) U/L CK-MB (CK-2) 1.5 (0.0-2.4) ng/mL CK-MB (CK-2) Rel Index 2.2 Troponin I <0.012 (0.000-0.034) ng/mL NT-Pro-B Natriuret Pep pg/mL Total Protein 6.4 (6.3-8.2) g/dL Albumin 3.4 L (3.5-5.0) g/dL 08/09/18 08/09/18 Range/Units 13:10 13:10 WBC (3.8-10.6) k/uL RBC (4.30-5.90) m/uL Hgb (13.0-17.5) gm/dL Hct (39.0-53.0) % MCV (80.0-100.0) fL MCH (25.0-35.0) pg MCHC (31.0-37.0) g/dL RDW (11.5-15.5) % Plt Count (150-450) k/uL Neutrophils % % Lymphocytes % % Monocytes % % Eosinophils % % Basophils % % Neutrophils # (1.3-7.7) k/uL Lymphocytes # (1.0-4.8) k/uL Monocytes # (0-1.0) k/uL Eosinophils # (0-0.7) k/uL Basophils # (0-0.2) k/uL Hypochromasia PT 10.1 (9.0-12.0) sec INR 1.0 (<1.2) APTT 23.3 (22.0-30.0) sec Sodium (137-145) mmol/L Potassium (3.5-5.1) mmol/L Chloride (98-107) mmol/L Carbon Dioxide (22-30) mmol/L Anion Gap mmol/L BUN (9-20) mg/dL Creatinine (0.66-1.25) mg/dL Est GFR (CKD-EPI)AfAm (>60 ml/min/1.73 sqM) Est GFR (CKD-EPI)NonAf (>60 ml/min/1.73 sqM) Glucose (74-99) mg/dL Calcium (8.4-10.2) mg/dL Magnesium (1.6-2.3) mg/dL Total Bilirubin (0.2-1.3) mg/dL AST (17-59) U/L ALT (21-72) U/L Alkaline Phosphatase (38-126) U/L Total Creatine Kinase (55-170) U/L CK-MB (CK-2) (0.0-2.4) ng/mL CK-MB (CK-2) Rel Index Troponin I (0.000-0.034) ng/mL NT-Pro-B Natriuret Pep 9590 pg/mL Total Protein (6.3-8.2) g/dL Albumin (3.5-5.0) g/dL Disposition Clinical Impression: Orthostatic hypotension Disposition: ADMITTED IP TO THIS HOSP Instructions: Hypotension (ED) Additional Instructions: Patient should hold his Lasix unless he is gaining weight or having significant peripheral edema Is patient prescribed a controlled substance at d/c from ED?: No Referrals: Jose David Cox MD [Primary Care Provider] - 1-2 days Time of Disposition: 15:02
[2018-08-09 13:33] LABS: Basophils # (A) 0.1 k/uL (0-0.2); Basophils % (A) 1 %; Eosinophils # (A) 0.5 k/uL (0-0.7); Eosinophils % (A) 4 %; HCT 46.3 % (39.0-53.0); HGB 14.8 gm/dL (13.0-17.5); Hypochromasia Slight; Lymphocytes % (A) 15 %; MCH 31.7 pg (25.0-35.0); MCHC 31.9 g/dL (31.0-37.0); MCV 99.2 fL (80.0-100.0); Mean Platelet Volume 8.8; Monocytes # (A) 0.8 k/uL (0-1.0); Monocytes % (A) 6 %; Neutrophils # (A) 9.4 k/uL (1.3-7.7); Neutrophils % (A) 72 %; Platelet Count 287 k/uL (150-450); RBC 4.67 m/uL (4.30-5.90)
[2018-08-09 13:42] LABS: Albumin 3.4 g/dL (3.5-5.0); Calcium 9.6 mg/dL (8.4-10.2); Partial Thromboplastin Time 23.3 sec (22.0-30.0); Potassium 4.9 mmol/L (3.5-5.1); Prothrombin Time 10.1 sec (9.0-12.0); Total Bilirubin 0.5 mg/dL (0.2-1.3); Total Protein 6.4 g/dL (6.3-8.2)
[2018-08-09 14:11] LABS: Creatine Kinase 69 U/L (55-170)
--- NOTE | 2018-08-09 14:14 | XR ---
EXAMINATION TYPE: XR chest 2V DATE OF EXAM: 08/09/2018 HISTORY: Chest Pain. REFERENCE: Previous study dated 05/22/2017. FINDINGS: The heart is enlarged. There is colonic interposition on the right. There is atelectatic ch eyal at the left lung base. The lungs are otherwise clear. There is blunting of the left CP angle. I could not exclude a small effusion. IMPRESSION: 1. CARDIOMEGALY. 2. LEFT BASILAR AIRSPACE DISEASE EITHER REPRESENTING ATELECTASIS OR PNEUMONIA. 3. SMALL LEFT EFFUSION.
[2018-08-09 14:24] LABS: Creatine Kinase MB 1.5 ng/mL (0.0-2.4); Troponin I <0.012 ng/mL (0.000-0.034)
[2018-08-09 15:41] VITALS: BP 151/90; PULSE 70; RESP 18; TEMP 97.7
== END 2018-08-09 15:35 | disposition other institution (70) ==
LOC: EC 11:07
DX: I95.1 Orthostatic hypotension (principal); I49.3 Ventricular premature depolarization; I10 Essential (primary) hypertension; J44.9 Chronic obstructive pulmonary disease, unspecified; M06.9 Rheumatoid arthritis, unspecified; I25.2 Old myocardial infarction; Z87.891 Personal history of nicotine dependence; Z88.0 Allergy status to penicillin; Z88.6 Allergy status to analgesic agent; Z91.02 Food additives allergy status; Z91.018 Allergy to other foods; Z79.899 Other long term (current) drug therapy; Z86.69 Personal history of other diseases of the nervous system and sense organs; Z95.5 Presence of coronary angioplasty implant and graft
CPT/HCPCS: 36415; 71046; 80053; 82550; 82553; 83735; 83880; 84484; 85025; 85610; 85730; 93005; 99285

== ENCOUNTER → 2018-09-23 | Outpatient (CLI) | payer MEDICARE ==
[~2018-09-23] MED LIST changes: -ABATACEPT/MALTOSE 750 MG in SODIUM CHLORIDE 0.9% 70 ML IVPB NR; +ABATACEPT/MALTOSE 750 MG in SODIUM CHLORIDE 0.9% 70 ML IVPB ONE; +SODIUM CHLORIDE 0.9% 500 ML 500 ML in EMPTY BAG 1 BAG IV PRN; -SODIUM CHLORIDE 0.9% 500 ML in EMPTY BAG 1 BAG IV PRN
[2018-09-23 09:38] VITALS: BP 118/74; PULSE 69; RESP 16; TEMP 97.6
[2018-09-23 10:37] LABS: Basophils % (A) 0 %; Eosinophils # (A) 0.4 k/uL (0-0.7); Eosinophils % (A) 3 %; HCT 42.3 % (39.0-53.0); HGB 13.7 gm/dL (13.0-17.5); Lymphocytes # (A) 1.2 k/uL (1.0-4.8); Lymphocytes % (A) 10 %; MCHC 32.3 g/dL (31.0-37.0); MCV 99.1 fL (80.0-100.0); Mean Platelet Volume 9.3; Monocytes # (A) 0.8 k/uL (0-1.0); Monocytes % (A) 7 %; Neutrophils # (A) 9.4 k/uL (1.3-7.7); Neutrophils % (A) 78 %; Platelet Count 203 k/uL (150-450); RBC 4.27 m/uL (4.30-5.90); RDW 13.5 % (11.5-15.5)
[2018-09-23 10:41] LABS: Albumin 2.9 g/dL (3.5-5.0); Calcium 9.1 mg/dL (8.4-10.2); Potassium 4.5 mmol/L (3.5-5.1); Total Bilirubin 0.3 mg/dL (0.2-1.3); Total Protein 5.8 g/dL (6.3-8.2)
[2018-09-23 11:42] LABS: Appearance,Urine Clear (Clear); Bilirubin,Urine Negative (Negative); Blood,Urine Negative (Negative); Color,Urine Yellow; Glucose,Urine (UA) Negative (Negative); Hyaline Casts,Urine 3 /lpf (0-2); Ketones,Urine Negative (Negative); Leukocyte Esterase,Urine Negative (Negative); Mucus,Urine Rare /hpf; Nitrite,Urine Negative (Negative); PH, Urine 5.5 (5.0-8.0); Protein,Urine 1+ (Negative); RBC,Urine 2 /hpf (0-5); Specific Gravity,Urine 1.021 (1.001-1.035); Squamous Epithelial Cell,Urine <1 /hpf (0-4); Urobilinogen,Urine <2.0 mg/dL (<2.0); WBC,Urine 3 /hpf (0-5)
[2018-09-23 11:48] LABS: Erythrocyte Sedimentation Rate 28 mm/hr (0-15)
== END ==
LOC: PROCWHC3 09:11
PROVIDERS: ATTEND Internal Medicine Rheumatology
DX: M06.89 Other specified rheumatoid arthritis, multiple sites (principal)
CPT/HCPCS: 80053; 85652; 85025; 81001; 96365; 36415; J0129

== ENCOUNTER → 2018-10-02 | Outpatient (CLI) | payer MEDICARE ==
[2018-10-02 15:28] LABS: HCT 45.2 % (39.0-53.0); HGB 14.3 gm/dL (13.0-17.5); Hypochromasia Slight; MCH 31.5 pg (25.0-35.0); MCHC 31.5 g/dL (31.0-37.0); MCV 99.8 fL (80.0-100.0); Mean Platelet Volume 8.3; Platelet Count 264 k/uL (150-450); RBC 4.54 m/uL (4.30-5.90); RDW 13.5 % (11.5-15.5); WBC 10.5 k/uL (3.8-10.6)
[2018-10-02 15:35] LABS: Potassium 4.4 mmol/L (3.5-5.1)
== END | disposition home or self-care (01) ==
LOC: LABPAT 14:53
PROVIDERS: ATTEND Internal Medicine Cardiovascular Disease
DX: Z01.812 Encounter for preprocedural laboratory examination (principal); I25.10 Atherosclerotic heart disease of native coronary artery without angina pectoris; I25.5 Ischemic cardiomyopathy
CPT/HCPCS: 80051; 82565; 82947; 84520; 85027

== ENCOUNTER → 2018-10-05 | Outpatient (CLI) | payer MEDICARE ==
--- NOTE | 2018-10-05 13:18 | XR ---
EXAMINATION TYPE: XR chest 2V DATE OF EXAM: 10/05/2018 COMPARISON: 08/09/2018 INDICATION: Chest pain right-sided rib pain following fall TECHNIQUE: Frontal and lateral views of the chest are obtained. FINDINGS: The heart size is normal. The pulmonary vasculature is normal. There is a minimal left pleural effusion. Air within loops of bowel is under the right diaphragm. No pneumothorax is evident. No displaced rib fractures are identified.. IMPRESSION: 1. Minimal left pleural effusion.
--- NOTE | 2018-10-05 13:20 | XR ---
EXAMINATION TYPE: XR ribs RT DATE OF EXAM: 10/05/2018 COMPARISON: Chest x-ray same date HISTORY: Fall on right ribs, pain TECHNIQUE: 2 view right ribs FINDINGS: No displaced fractures are evident. On a couple of oblique views there is a subtle cortical lucency along the lateral portion of the cortex of the right eighth rib region. This area is not wilbert jeff identified on additional views. Nondisplaced fracture could be considered. No pneumothorax is ev ident. IMPRESSION: 1. No definite displaced fractures identified. Subtle nondisplaced or occult fracture of the right l ateral eighth rib could be considered.
== END | disposition home or self-care (01) ==
LOC: RADXRMAIN 12:22
PROVIDERS: ATTEND Internal Medicine
DX: J90 Pleural effusion, not elsewhere classified (principal); R07.89 Other chest pain
CPT/HCPCS: 71046

== ENCOUNTER 2018-10-07 11:02 | Day surgery (SDC) | payer MEDICARE ==
[2018-10-05 10:49] VITALS: BMI 22.8
[~2018-10-07 11:02] MED LIST changes: -ABATACEPT/MALTOSE 750 MG in SODIUM CHLORIDE 0.9% 70 ML IVPB ONE; +CLINDAMYCIN 600 MG in SODIUM CHLORIDE 0.9% IRRIGATIO 250 ML IRRIGATION ONE; +CLINDAMYCIN 900 MG in DEXTROSE 5% IN WATER 50 ML IVPB ONE; +LACTATED RINGERS 1,000 ML IV SCH; +SODIUM CHLORIDE 0.9% 1,000 ML IV SCH; -SODIUM CHLORIDE 0.9% 500 ML 500 ML in EMPTY BAG 1 BAG IV PRN
[2018-10-07 11:35] VITALS: TEMP 97
[2018-10-07] MEDS: IOPAMIDOL-250 50ML BTL IV ONE ×3 (12:20→13:24)
[2018-10-07] MEDS ORDERED: PROPOFOL 10 MG/ML 20 ML VIAL IV ONE (12:34)
[2018-10-07] MEDS ORDERED: PHENYLEPHRINE-0.9% NACL SYG 1 MG/10 ML SYRINGE ONE (12:34)
[2018-10-07] MEDS ORDERED: fentaNYL (PF) 50 MCG/ML 2 ML AMP ONE (12:34)
[2018-10-07] MEDS ORDERED: MIDAZOLAM 2 MG/2 ML VIAL ONE (12:34)
[2018-10-07] MEDS ORDERED: LIDOCAINE 1% INJ 10MG/ML (20 ML MDV) ONE (12:38)
[2018-10-07] MEDS ORDERED: LIDOCAINE 1% INJ 10MG/ML (20 ML MDV) SQ ONE (12:51)
[2018-10-07] MEDS ORDERED: NITROGLYCERIN OINT 1 INCH/GM PACKET TOPICAL ONE (13:19)
[2018-10-07] MEDS ORDERED: IOPAMIDOL-250 50ML BTL IV ONE (13:19)
--- NOTE | 2018-10-07 13:47 | P.PCN ---
Date of Procedure: 10/07/18 Preoperative Diagnosis: Ischemic cardiomyopathy Postoperative Diagnosis: The same Procedure(s) Performed: Attempted AICD implantation. Aborted because of inability to access the vein related to spasm. Description of Procedure: This patient is brought in for AICD implantation. Patient to was the prepped and draped in the usual fashion. He was given sedation by department of anesthesia. The skin in the left clavicle was infiltrated with lidocaine. An incision was made and deepened until the pectoral muscle was exposed. The neck and also made to enter the axillary vein. Axillary vein was entered but the wire could not be advanced. Subsequently the vein could not be entered. Subsequent venogram showed that there was no flow into the axillary and subclavian veins. His felt that patient has significant spasm. Patient was given Nitropaste, but still there was no flow. The procedure was abandoned. Patient will be sent home and will bring back in 2 weeks. If the vein is open by venogram, hypertension be made to do AICD implantation from the same side. If not, we'll may do AICD from the right side Part . patient's family was explained. Patient will be discharged home later today. Follow-up in the office in one week
--- NOTE | 2018-10-07 14:34 | XR ---
EXAMINATION TYPE: XR chest 1V portable DATE OF EXAM: 10/07/2018 COMPARISON: Prior chest x-ray 10/05/[address] 06/04/2018 HISTORY: Status post attempted ICD insertion TECHNIQUE: Single frontal view of the chest is obtained. FINDINGS: No interval change. There is no evident pneumothorax. Heart is enlarged, patient is rotate d. Aorta is dense and aneurysmal. Left hemidiaphragm remains obscured. Colonic interposition noted at the level of the liver. IMPRESSION: No evident complication status post intracardiac defibrillator placement.
[2018-10-07] MEDS ORDERED: ACETAMINOPHEN TAB 500 MG TAB PO PRN (14:41)
[2018-10-07 17:24] VITALS: RESP 18
[2018-10-07 17:25] VITALS: BP 127/77; PULSE 80
== END 2018-10-07 17:00 | disposition home or self-care (01) ==
LOC: CATHEP 11:02
PROVIDERS: ATTEND Internal Medicine Cardiovascular Disease
DX: I25.5 Ischemic cardiomyopathy (principal); I87.8 Other specified disorders of veins; Z53.09 Procedure and treatment not carried out because of other contraindication; I25.10 Atherosclerotic heart disease of native coronary artery without angina pectoris; E78.2 Mixed hyperlipidemia; I95.1 Orthostatic hypotension; J44.9 Chronic obstructive pulmonary disease, unspecified; R91.1 Solitary pulmonary nodule; M05.10 Rheumatoid lung disease with rheumatoid arthritis of unspecified site; H35.30 Unspecified macular degeneration; I12.9 Hypertensive chronic kidney disease with stage 1 through stage 4 chronic kidney disease, or unspecified chronic kidney disease; N18.9 Chronic kidney disease, unspecified; Z95.5 Presence of coronary angioplasty implant and graft; Z79.82 Long term (current) use of aspirin; Z79.899 Other long term (current) drug therapy; Z88.6 Allergy status to analgesic agent; Z88.0 Allergy status to penicillin; Z72.0 Tobacco use; Z86.73 Personal history of transient ischemic attack (TIA), and cerebral infarction without residual deficits
CPT/HCPCS: 71045; J2250; J2001; J3010; J2370; J2704; Q9966

== ENCOUNTER → 2018-10-28 | Outpatient (CLI) | payer MEDICARE ==
[2018-10-28 14:18] LABS: HCT 45.6 % (39.0-53.0); HGB 14.4 gm/dL (13.0-17.5); Hypochromasia Slight; MCH 31.5 pg (25.0-35.0); MCHC 31.5 g/dL (31.0-37.0); MCV 100.2 fL (80.0-100.0); Macrocytosis Slight; Mean Platelet Volume 8.7; Platelet Count 298 k/uL (150-450); RBC 4.56 m/uL (4.30-5.90); WBC 11.4 k/uL (3.8-10.6)
--- NOTE | 2018-10-28 16:04 | XR ---
EXAMINATION TYPE: XR chest 2V DATE OF EXAM: 10/28/2018 COMPARISON: 10/07/2018 HISTORY: 78-year-old male CHF TECHNIQUE: Frontal and lateral views FINDINGS: Heart mildly enlarged. The elongated/ectatic thoracic aorta redemonstrated. Upper and mid lungs are c lear. Strandy atelectasis in the left greater than right lung bases. No sizable effusion. Overall lef t basilar density is improved. Prominent colonic interposition below the right hemidiaphragm. IMPRESSION: 1. Mild cardiomegaly without lacey CHF. 2. Patchy bibasilar densities, particularly on the left show improvement, suspect some residual atele ctasis.
[2018-10-28 19:08] LABS: Albumin 3.3 g/dL (3.80-4.90); Albumin/Globulin Ratio 1.65 (1.20-2.10); Anion Gap 9.4 mmol/L (4.00-12.00); Calcium 8.9 mg/dL (8.7-10.3); Carbon Dioxide 25.6 mmol/L (21.6-31.8); Potassium 4.6 mmol/L (3.5-5.5); Total Bilirubin 0.4 mg/dL (0.2-1.2); Total Protein 5.3 g/dL (6.2-8.2)
== END | disposition home or self-care (01) ==
LOC: LABWHC1 13:19
PROVIDERS: ATTEND Internal Medicine Cardiovascular Disease
DX: I51.7 Cardiomegaly (principal); J98.4 Other disorders of lung
CPT/HCPCS: 36415; 71046; 80053; 85027

== ENCOUNTER 2018-11-05 07:51 | Day surgery (SDC) | payer MEDICARE ==
[2018-11-03 09:09] VITALS: BMI 22.1
[~2018-11-05 07:51] MED LIST changes: -CLINDAMYCIN 600 MG in SODIUM CHLORIDE 0.9% IRRIGATIO 250 ML IRRIGATION ONE; -CLINDAMYCIN 900 MG in DEXTROSE 5% IN WATER 50 ML IVPB ONE; -LACTATED RINGERS 1,000 ML IV SCH
[2018-11-05] MEDS ORDERED: CLINDAMYCIN 600 MG in SODIUM CHLORIDE 0.9% IRRIGATIO 250 ML IRRIGATION ONE (08:00)
[2018-11-05] MEDS ORDERED: CLINDAMYCIN 900 MG in DEXTROSE 5% IN WATER 50 ML IVPB ONE ×2 (08:00)
[2018-11-05] MEDS: SODIUM CHLORIDE 0.9% 1,000 ML IV SCH ×3 (08:16→22:01)
[2018-11-05] MEDS ORDERED: LIDOCAINE 1% INJ 10MG/ML (20 ML MDV) ONE (08:55)
[2018-11-05] MEDS ORDERED: fentaNYL (PF) 50 MCG/ML 2 ML AMP ONE (08:58)
[2018-11-05] MEDS ORDERED: PROPOFOL 10 MG/ML 20 ML VIAL IV ONE (08:58)
[2018-11-05] MEDS ORDERED: MIDAZOLAM 2 MG/2 ML VIAL ONE (08:58)
[2018-11-05] MEDS ORDERED: IOPAMIDOL-300 50ML BTL IV ONE (09:12)
[2018-11-05] MEDS ORDERED: LIDOCAINE 1% INJ 10MG/ML (20 ML MDV) SQ ONE ×2 (09:38)
[2018-11-05] MEDS ORDERED: NITROGLYCERIN OINT 1 INCH/GM PACKET TOPICAL ONE ×2 (09:39→09:40)
[2018-11-05] MEDS ORDERED: NITROGLYCERIN SL TABS 0.4 MG TAB SUBLINGUAL PRN (10:19)
[2018-11-05] MEDS ORDERED: ALBUTEROL NEBULIZED 2.5 MG/3 ML INHALATION PRN (10:19)
--- NOTE | 2018-11-05 10:33 | P.PCN ---
Date of Procedure: 11/05/18 Preoperative Diagnosis: Ischemic cardiomyopathy and congestive heart failure, class II. Ejection fraction 30% Postoperative Diagnosis: The same Procedure(s) Performed: Single-chamber prophylactic AICD implantation for primary prevention Description of Procedure: HISTORY: This is a 78-year-old gentleman with history of ischemic cardiac myopathy and chronic congestive heart failure was advised to have prophylactic AICD implantation. This is done for primary prevention. Patient family were explained the risks and benefits of the procedure. CONSENT:I have discussed the risks, benefits and alternative therapies for the above-mentioned procedure and for both sedation/analgesia as well as necessary blood product administration, if indicated, as they pertain to this patient. The patient has indicated understanding and acceptance of the risks and procedures discussed. PROCEDURE: Patient was brought to the lab in a fasting state. Patient was prepped and draped in the usual fashion. Department of anesthesia provided conscious sedation and anesthesia. The skin below the left clavicle was infiltrated with lidocaine. An incision was made parallel to deltopectoral groove was deepened until the pectoral fascia was exposed. A pocket was created by blunt dissection and cautery. Axillary venography was performed to delineate the course of the axillary vein. 1 stick were performed into subclavian vein and a single sheath was advanced over the guidewires and left in subclavian vein. Conscious Sedation: Provided by department of anesthesia Duration 48 minutes LEADS: VENTRICULAR: This is manufactured by [employer]. Model number is [id number] and the serial number is [id number]. THE DEVICE: This is manufactured by [employer]. Model number is [id number] and the serial number is [id number]. The ventricular lead is maneuvered l with help of a straight and curved stylets into the left ventricle apical region. Satisfactory position was obtained and threshold measurements were made. THRESHOLDS: VENTRICLE: The minimum pacing threshold was 0.7 V at pulse width of 0.5 ms. The impedance was 6 and 78 ohms R-wave: 10.5. DFT TESTING: Patient was given deep anesthesia by department of anesthesia. Ventricle fibrillation was induced with T shock. This was appropriately detected and a single shock of 15 converted patient back to sinus rhythm. There is one dropout at least sensitivity The leads and pulse generator remained in the pocket after it was washed with antibiotics. Pocket was closed in the usual fashion. The fascia was closed with 2-0 Prolene ,the subcutaneous tissue was closed with 3-0 Prolene and the skin was closed with 4-0 Prolene. PROGRAMMING: Morgan programming: MODE : VVI RATE: 40 OUTPUT: Ventricle: 3.5 Tachycardia Programming: VF zone: This is programmed to a rate of 1 88 bpm. The initial detection is 30/40 and redetect was 10/11. The therapies are programmed to 25 J shock followed by 35 5. Renal VT zone: This is programmed to a rate of 1 67 bpm. Therapies are programmed to burst pacing followed by ramp pacing followed by cardioversion with 24 J followed by 353. Monitor zone is programmed to 1 50 bpm FINAL IMPRESSION: #1 axillary venography #2 successful single-chamber single coil AICD implantation #. DFT testing COMPLICATIONS: None PLAN:. Patient will be monitored on the telemetry unit. Prophylactic antibacterial be continued. He patient appears to be discharged home in a.m. Chest x-ray in the morning
[2018-11-05] MEDS: ACETAMINOPHEN TAB 325 MG TAB PO PRN ×2 (14:15→21:59)
[2018-11-05] MEDS: CLINDAMYCIN 900 MG in DEXTROSE 5% IN WATER 50 ML IVPB SCH ×4 (16:33→21:59)
[2018-11-05] MEDS ORDERED: LATANOPROST 0.005% OPHTH DROPS 2.5 ML BTL BOTH EYES SCH (21:00)
[2018-11-05] MEDS ORDERED: ATORVASTATIN 10 MG TAB PO SCH (21:00)
[2018-11-05] MEDS ORDERED: LOSARTAN 25 MG TAB PO SCH (21:00)
[2018-11-05 21:08] VITALS: RESP 18
[2018-11-05] MEDS: VIT A,C & E-LUTEIN-MINERALS 1 EACH TAB PO SCH (21:53)
[2018-11-05] MEDS: LACTATED RINGERS 1,000 ML IV SCH ×2 (22:00→22:01)
[2018-11-06] MEDS: CLINDAMYCIN 900 MG in DEXTROSE 5% IN WATER 50 ML IVPB SCH ×4 (03:22→10:14)
--- NOTE | 2018-11-06 07:37 | XR ---
EXAMINATION TYPE: XR chest 2V DATE OF EXAM: 11/06/2018 COMPARISON: 10/28/2018 and 08/09/2018 HISTORY: Lead placement tract TECHNIQUE: Frontal and lateral views of the chest are obtained. FINDINGS: Colonic interposition is seen with the prominent hepatic flexure deep to the right hemidia phragm, unchanged from the exam of 07/30/2018. Minimal left basilar subsegmental atelectasis is noted. Remainder the lungs are clear. Heart is upper limits of normal size. Single lead left-sided cardiac device is now seen with a single ventricular lead. No postprocedural pneumothorax. Surgical clip is p artially seen over the right neck soft tissues. There is mild generalized osseous demineralization. IMPRESSION: New single lead left-sided cardiac device. No postprocedural pneumothorax. Minimal subse gmental left basilar atelectasis, otherwise no acute cardiopulmonary process.
[2018-11-06 08:20] VITALS: BP 148/92; PULSE 51; TEMP 97.4
--- NOTE | 2018-11-06 08:57 | P.DS ---
Providers Date of admission: 11/05/2018 Attending physician: Antoinette Dang Primary care physician: [facility] Course: This is a 78-year-old gentleman with history of ischemic cardiomyopathy and chronic congestive heart failure was referred for prophylactic AICD implantation. Patient had procedure yesterday and tolerated very well. Patient remained stable overnight. Complaints of mild discomfort at the procedure site. The incision is dry without any significant hematoma and pocket looks soft. Patient hasn't had any arrhythmias. No complaints of chest pain or shortness of breath. Patient is being discharged home. His chest x- ray showed proper lead position. [employer] is going to interrogate the device. If the findings are stable, patient be discharged home later today. Follow- up in the office in one week. Patient is given usual instructions and advised to keep his left arm below the shoulder level and avoid any heavy pulling, pushing her exertional activities. Avoid driving. Keep the dressing dry until seen in the office. Report to us if patient gallops any swelling in view pain, fever or chills. Patient is also given prophylactic antibiotics. He'll continue home medications. Plan - Discharge Summary Discharge Rx Participant: No New Discharge Prescriptions: New Clindamycin HCl [Cleocin] 300 mg PO Q8H #10 cap Continue Nitroglycerin Sl Tabs [Nitrostat] 0.4 mg SUBLINGUAL Q5M PRN #30 tab PRN Reason: Chest Pain Abatacept/Maltose [Orencia] 750 mg IVPB Q28D Icon Eye Vitamin 1 tab PO BID Latanoprost Ophth [Xalatan 0.005%] 1 drop BOTH EYES HS Losartan Potassium [Cozaar] 25 mg PO HS Albuterol Nebulized [Ventolin Nebulized] 2.5 mg INHALATION RT-QID PRN PRN Reason: Shortness Of Breath Metoprolol Tartrate [Lopressor] 12.5 mg PO DAILY Simvastatin [Zocor] 10 mg PO HS Acetaminophen [Tylenol Extra Strength] 500 mg PO BID PRN PRN Reason: Pain Aspirin [Adult Low Dose Aspirin EC] 81 mg PO DAILY Discharge Medication List Nitroglycerin Sl Tabs [Nitrostat] 0.4 mg SUBLINGUAL Q5M PRN #30 tab 08/26/14 [Rx ] Abatacept/Maltose [Orencia] 750 mg IVPB Q28D 08/17/15 [History] Icon Eye Vitamin 1 tab PO BID 06/05/16 [History] Latanoprost Ophth [Xalatan 0.005%] 1 drop BOTH EYES HS 02/16/18 [History] Albuterol Nebulized [Ventolin Nebulized] 2.5 mg INHALATION RT-QID PRN 08/09/18 [ History] Losartan Potassium [Cozaar] 25 mg PO HS 08/09/18 [History] Acetaminophen [Tylenol Extra Strength] 500 mg PO BID PRN 10/05/18 [History] Metoprolol Tartrate [Lopressor] 12.5 mg PO DAILY 10/05/18 [History] Simvastatin [Zocor] 10 mg PO HS 10/05/18 [History] Aspirin [Adult Low Dose Aspirin EC] 81 mg PO DAILY 11/03/18 [History] Clindamycin HCl [Cleocin] 300 mg PO Q8H #10 cap 11/06/18 [Rx] Discharge Disposition: HOME SELF-CARE
[2018-11-06] MEDS ORDERED: METOPROLOL TARTRATE 12.5 MG TAB PO SCH (09:00)
[2018-11-06] MEDS: VIT A,C & E-LUTEIN-MINERALS 1 EACH TAB PO SCH (10:14)
[2018-11-19] MEDS ORDERED: MALTOSE IVPB SCH (12:00)
[2018-11-19] MEDS ORDERED: ABATACEPT IVPB SCH (12:00)
== END 2018-11-06 11:57 | disposition home or self-care (01) ==
LOC: CATHEP 07:51 → 1SOBS 10:12 → CATHEP 11-06 11:57
PROVIDERS: ATTEND Internal Medicine Cardiovascular Disease
DX: I25.5 Ischemic cardiomyopathy (principal); I11.0 Hypertensive heart disease with heart failure; I50.9 Heart failure, unspecified; I25.10 Atherosclerotic heart disease of native coronary artery without angina pectoris; Z00.6 Encounter for examination for normal comparison and control in clinical research program; M05.10 Rheumatoid lung disease with rheumatoid arthritis of unspecified site; E78.2 Mixed hyperlipidemia; Z87.891 Personal history of nicotine dependence; Z79.82 Long term (current) use of aspirin; Z79.899 Other long term (current) drug therapy; Z88.6 Allergy status to analgesic agent; Z88.0 Allergy status to penicillin
CPT/HCPCS: 33249; 71046; C1892; C1895; C1769; C1722; J2250; J2001; J3010; J2704; Q9967

== ENCOUNTER 2018-12-05 09:27 | Emergency (ER) | payer MEDICARE ==
[2018-12-05 09:41] VITALS: TEMP 97.4
[2018-12-05] MEDS ORDERED: SODIUM CHLORIDE 0.9% 500 ML 500 ML IV ONE (10:27)
--- NOTE | 2018-12-05 10:49 | CT ---
EXAMINATION TYPE: CT brain wo con DATE OF EXAM: 12/05/2018 HISTORY: ALtered mental status CT DLP: 1101.4 mGycm. Automated Exposure Control for Dose Reduction was Utilized. TECHNIQUE: CT scan of the head is performed without contrast. COMPARISON: None. FINDINGS: There is no acute intracranial hemorrhage or midline shift identified. There is diffuse v entricular and sulcal prominence consistent with diffuse age-related cerebral atrophy. There is low- attenuation in the periventricular white matter consistent with chronic small vessel ischemic change. The globes are intact and the visualized sinuses are clear. IMPRESSION: No acute intracranial hemorrhage or midline shift. There is diffuse age-related cerebra l atrophy and chronic small vessel ischemic change.
--- NOTE | 2018-12-05 10:56 | ED ---
General Adult HPI - General Chief complaint: Altered Mental Status Stated complaint: Confusion/has pacemaker Time Seen by Provider: 12/05/18 09:35 Source: patient, RN notes reviewed Mode of arrival: wheelchair Limitations: no limitations - History of Present Illness Initial comments: This is a 78-year-old male who presents emergency Department because he was altered this morning from 4:00 to 7:00 according to his . Patient states he is aware he was altered he could not figure out where he was for 3 hours. states this is been ongoing every morning for 5 days. states he usually resolve after a couple hours but did is taking longer to resolve lately. Patient states he thinks his started after he got his pacemaker on November 05 and it is been getting progressively worse. According to the and the patient currently has no symptoms he is alert and oriented 4. Patient has no pain and never has had any pain today. Patient denies any difficulty breathing or shortness of breath per patient denies any abdominal pain patient denies nausea vomiting diarrhea. Patient denies any lightheadedness or dizziness. - Related Data Home Medications Medication Instructions Recorded Confirmed Abatacept/Maltose [Orencia] 750 mg IVPB Q28D 08/17/15 12/05/18 Icon [employer] Vitamin 1 tab PO BID 06/05/16 12/05/18 Latanoprost Ophth [Xalatan 0.005%] 1 drop BOTH EYES HS 02/16/18 12/05/18 Albuterol Nebulized [Ventolin 2.5 mg INHALATION RT-QID PRN 08/09/18 12/05/18 Nebulized] Losartan Potassium [Cozaar] 25 mg PO HS 08/09/18 12/05/18 Metoprolol Tartrate [Lopressor] 12.5 mg PO DAILY 10/05/18 12/05/18 Simvastatin [Zocor] 10 mg PO HS 10/05/18 12/05/18 Aspirin [Adult Low Dose Aspirin EC] 81 mg PO DAILY 11/03/18 12/05/18 Furosemide [Lasix] 40 mg PO DAILY PRN 12/05/18 12/05/18 Previous Rx's Medication Instructions Recorded Nitroglycerin Sl Tabs [Nitrostat] 0.4 mg SUBLINGUAL Q5M PRN #30 tab 08/26/14 Allergies Allergy/AdvReac Type Severity Reaction Status Date / Time etodolac [From Lodine] Allergy Rash/Hives Verified 12/05/18 10:37 grape Allergy Rash/Hives Verified 12/05/18 10:37 Penicillins Allergy Rash/Hives Verified 12/05/18 10:37 grape flavor Allergy Rash/Hives Uncoded 11/19/18 12:43 Review of Systems ROS Statement: Those systems with pertinent positive or pertinent negative responses have been documented in the HPI. ROS Other: All systems not noted in ROS Statement are negative. Past Medical History Past Medical History: COPD, CVA/TIA, Hypertension, Myocardial Infarction ([place]), Renal Disease, Rheumatoid Arthritis ([place]) Additional Past Medical History / Comment(s): Other Hx: rheumatoid lung disease, restrictive ventilatory impairment per last PFT, lung nodules, 2012 ECHO with normal EF and moderate pulmonary HTN, bilateral nephrolithiasis, renal insufficiency, hiatal hernia, duodenal ulcers, macular degeneration bilaterally, tinnitis bilaterally, was told after [facility] that he had a [place] at some time-undetermined date, balance affected after CVA , 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 Last Myocardial Infarction Date:: unkn History of Any Multi-Drug Resistant Organisms: None Reported Past Surgical History: Heart Catheterization With Stent, Joint Replacement Additional Past Surgical History / Comment(s): 07/2014 Cardiac cath with stents x 3, R caratid endartectomy, total R knee, lithotripsy 2011, cataract removal with lens implants bilaterally, colonoscopy/EGD, carotid surgery to clear blockage, Pacemaker oct 2018 Past Anesthesia/Blood Transfusion Reactions: No Reported Reaction Date of Last Stent Placement:: jul 2014 Past Psychological History: No Psychological Hx Reported Smoking Status: Former smoker Past Alcohol Use History: Occasional Past Drug Use History: None Reported - Past Family History Father Family Medical History: Pulmonary Embolus Additional Family Medical History / Comment(s): Father of a PE at age 51 yrs. Mother Family Medical History: Cancer Additional Family Medical History / Comment(s): Hx. mother of esophagus cancer at age 86yrs. Son(s) Family Medical History: Cancer General Exam - General Exam Comments Initial Comments: GENERAL: Patient is well-developed and well-nourished. Patient is nontoxic and well- hydrated and is in no acute distress. ENT: Neck is soft and supple. No significant lymphadenopathy is noted. Oropharynx is clear. Moist mucous membranes. Neck has full range of motion without eliciting any pain. EYES: The sclera were anicteric and conjunctiva were pink and moist. Extraocular movements were intact and pupils were equal round and reactive to light. Eyelids were unremarkable. PULMONARY: Unlabored respirations. Good breath sounds bilaterally. No audible rales rhonchi or wheezing was noted. CARDIOVASCULAR: There is a regular rate and rhythm without any murmurs gallops or rubs. ABDOMEN: Soft and nontender with normal bowel sounds. No palpable organomegaly was noted. There is no palpable pulsatile mass. SKIN: Skin is clear with no lesions or rashes and otherwise unremarkable. NEUROLOGIC: Patient is alert and oriented x3. Cranial nerves II through XII are grossly intact. Motor and sensory are also intact. Normal speech, volume and content. Symmetrical smile. MUSCULOSKELETAL: Normal extremities with adequate strength and full range of motion. No lower extremity swelling or edema. No calf tenderness. LYMPHATICS: No significant lymphadenopathy is noted PSYCHIATRIC: Normal psychiatric evaluation. Limitations: no limitations Course Vital Signs 12/05/18 12/05/18 12/05/18 09:36 10:30 11:00 Temperature 97.4 F L Pulse Rate 54 L 73 69 Respiratory 18 Rate Blood Pressure 94/61 127/67 127/67 O2 Sat by Pulse 94 L 96 98 Oximetry 12/05/18 12/05/18 12/05/18 11:01 11:30 12:00 Temperature Pulse Rate 68 59 L 64 Respiratory 16 Rate Blood Pressure 138/90 138/90 134/99 O2 Sat by Pulse 97 97 99 Oximetry 12/05/18 13:00 Temperature Pulse Rate 61 Respiratory 18 Rate Blood Pressure 165/96 O2 Sat by Pulse 95 Oximetry Medical Decision Making - Medical Decision Making EKG shows a sinus rhythm at 73 bpm DE interval 226 QRS is 16 QT intervals 406 QTC is 447 per patient's EKG shows an occasional PVC as well. Patient's EKG shows Q waves in the inferior leads 3 and aVF. Normal Chest x-ray showed no acute abnormality. Computed tomography scan of the brain showed no acute abnormality. I went back into reevaluate the patient patient was at his baseline according to his and was no longer showing any signs of altered mental status. Patient and did not want to stay in the hospital he wanted to follow-up with primary medical care doctor so I discharge the patient home. - Lab Data Result diagrams: 12/05/18 10:58 12/05/18 10:58 Lab Results 12/05/18 12/05/18 12/05/18 Range/Units 10:58 10:58 10:58 WBC 12.6 H (3.8-10.6) k/uL RBC 4.50 (4.30-5.90) m/uL Hgb 13.6 (13.0-17.5) gm/dL Hct 45.1 (39.0-53.0) % MCV 100.2 H (80.0-100.0) fL MCH 30.3 (25.0-35.0) pg MCHC 30.3 L (31.0-37.0) g/dL RDW 14.3 (11.5-15.5) % Plt Count 227 (150-450) k/uL Neutrophils % 77 % Lymphocytes % 11 % Monocytes % 6 % Eosinophils % 5 % Basophils % 0 % Neutrophils # 9.7 H (1.3-7.7) k/uL Lymphocytes # 1.4 (1.0-4.8) k/uL Monocytes # 0.8 (0-1.0) k/uL Eosinophils # 0.6 (0-0.7) k/uL Basophils # 0.1 (0-0.2) k/uL Hypochromasia Slight Macrocytosis Slight PT (9.0-12.0) sec INR (<1.2) APTT (22.0-30.0) sec Sodium 140 (137-145) mmol/L Potassium 4.8 (3.5-5.1) mmol/L Chloride 107 (98-107) mmol/L Carbon Dioxide 25 (22-30) mmol/L Anion Gap 8 mmol/L BUN 29 H (9-20) mg/dL Creatinine 1.17 (0.66-1.25) mg/dL Est GFR (CKD-EPI)AfAm 69 (>60 ml/min/1.73 sqM) Est GFR (CKD-EPI)NonAf 59 (>60 ml/min/1.73 sqM) Glucose 94 (74-99) mg/dL Calcium 9.3 (8.4-10.2) mg/dL Total Bilirubin 0.7 (0.2-1.3) mg/dL AST 31 (17-59) U/L ALT 29 (21-72) U/L Alkaline Phosphatase 84 (38-126) U/L Total Creatine Kinase 111 (55-170) U/L CK-MB (CK-2) 2.2 (0.0-2.4) ng/mL CK-MB (CK-2) Rel Index 2.0 Troponin I 0.015 (0.000-0.034) ng/mL Total Protein 6.3 (6.3-8.2) g/dL Albumin 3.3 L (3.5-5.0) g/dL Urine Color Urine Appearance (Clear) Urine pH (5.0-8.0) Ur Specific [place] (1.001-1.035) Urine Protein (Negative) Urine Glucose (UA) (Negative) Urine Ketones (Negative) Urine Blood (Negative) Urine Nitrite (Negative) Urine Bilirubin (Negative) Urine Urobilinogen (<2.0) mg/dL Ur Leukocyte Esterase (Negative) Urine Opiates Screen (NotDetected) Ur Oxycodone Screen (NotDetected) Urine Methadone Screen (NotDetected) Ur Propoxyphene Screen (NotDetected) Ur Barbiturates Screen (NotDetected) U Tricyclic Antidepress (NotDetected) Ur Phencyclidine Scrn (NotDetected) Ur Amphetamines Screen (NotDetected) U Methamphetamines Scrn (NotDetected) U Benzodiazepines Scrn (NotDetected) Urine Cocaine Screen (NotDetected) U Marijuana (THC) Screen (NotDetected) 12/05/18 12/05/18 Range/Units 10:58 11:55 WBC (3.8-10.6) k/uL RBC (4.30-5.90) m/uL Hgb (13.0-17.5) gm/dL Hct (39.0-53.0) % MCV (80.0-100.0) fL MCH (25.0-35.0) pg MCHC (31.0-37.0) g/dL RDW (11.5-15.5) % Plt Count (150-450) k/uL Neutrophils % % Lymphocytes % % Monocytes % % Eosinophils % % Basophils % % Neutrophils # (1.3-7.7) k/uL Lymphocytes # (1.0-4.8) k/uL Monocytes # (0-1.0) k/uL Eosinophils # (0-0.7) k/uL Basophils # (0-0.2) k/uL Hypochromasia Macrocytosis PT 10.1 (9.0-12.0) sec INR 0.9 (<1.2) APTT 24.5 (22.0-30.0) sec Sodium (137-145) mmol/L Potassium (3.5-5.1) mmol/L Chloride (98-107) mmol/L Carbon Dioxide (22-30) mmol/L Anion Gap mmol/L BUN (9-20) mg/dL Creatinine (0.66-1.25) mg/dL Est GFR (CKD-EPI)AfAm (>60 ml/min/1.73 sqM) Est GFR (CKD-EPI)NonAf (>60 ml/min/1.73 sqM) Glucose (74-99) mg/dL Calcium (8.4-10.2) mg/dL Total Bilirubin (0.2-1.3) mg/dL AST (17-59) U/L ALT (21-72) U/L Alkaline Phosphatase (38-126) U/L Total Creatine Kinase (55-170) U/L CK-MB (CK-2) (0.0-2.4) ng/mL CK-MB (CK-2) Rel Index Troponin I (0.000-0.034) ng/mL Total Protein (6.3-8.2) g/dL Albumin (3.5-5.0) g/dL Urine Color Yellow Urine Appearance Clear (Clear) Urine pH 5.5 (5.0-8.0) Ur Specific [place] 1.018 (1.001-1.035) Urine Protein Trace H (Negative) Urine Glucose (UA) Negative (Negative) Urine Ketones Negative (Negative) Urine Blood Negative (Negative) Urine Nitrite Negative (Negative) Urine Bilirubin Negative (Negative) Urine Urobilinogen 2.0 (<2.0) mg/dL Ur Leukocyte Esterase Negative (Negative) Urine Opiates Screen Not Detected (NotDetected) Ur Oxycodone Screen Not Detected (NotDetected) Urine Methadone Screen Not Detected (NotDetected) Ur Propoxyphene Screen Not Detected (NotDetected) Ur Barbiturates Screen Not Detected (NotDetected) U Tricyclic Antidepress Not Detected (NotDetected) Ur Phencyclidine Scrn Not Detected (NotDetected) Ur Amphetamines Screen Not Detected (NotDetected) U Methamphetamines Scrn Not Detected (NotDetected) U Benzodiazepines Scrn Not Detected (NotDetected) Urine Cocaine Screen Not Detected (NotDetected) U Marijuana (THC) Screen Not Detected (NotDetected) Disposition Clinical Impression: Altered awareness, transient Disposition: HOME SELF-CARE Condition: Good Instructions (If sedation given, give patient instructions): Altered Mental Status (ED) Is patient prescribed a controlled substance at d/c from ED?: No Referrals: Jose David Cox MD [Primary Care Provider] - 1-2 days Time of Disposition: 13:29
--- NOTE | 2018-12-05 10:57 | XR ---
EXAMINATION TYPE: XR chest 2V DATE OF EXAM: 12/05/2018 COMPARISON: NONE HISTORY: Altered mental status TECHNIQUE: Frontal and lateral views of the chest are obtained. FINDINGS: The heart is enlarged. A single lead cardiac conduction device is present. Low lung volumes limits ideal evaluation. Bibasilar atelectasis versus scarring. No pneumothorax. Sma ll left-sided pleural effusion is suspected. Osseous structures are overall demineralized but intact. IMPRESSION: 1. Cardiomegaly. 2. Small left pleural effusion. 3. Bibasilar scarring versus atelectasis.
[2018-12-05 11:53] LABS: Basophils # (A) 0.1 k/uL (0-0.2); Basophils % (A) 0 %; Eosinophils # (A) 0.6 k/uL (0-0.7); Eosinophils % (A) 5 %; HCT 45.1 % (39.0-53.0); HGB 13.6 gm/dL (13.0-17.5); Hypochromasia Slight; Lymphocytes # (A) 1.4 k/uL (1.0-4.8); Lymphocytes % (A) 11 %; MCH 30.3 pg (25.0-35.0); MCHC 30.3 g/dL (31.0-37.0); MCV 100.2 fL (80.0-100.0); Macrocytosis Slight; Mean Platelet Volume 9.1; Monocytes # (A) 0.8 k/uL (0-1.0); Monocytes % (A) 6 %; Neutrophils # (A) 9.7 k/uL (1.3-7.7); Neutrophils % (A) 77 %; Platelet Count 227 k/uL (150-450); RDW 14.3 % (11.5-15.5); WBC 12.6 k/uL (3.8-10.6)
[2018-12-05 12:00] LABS: Albumin 3.3 g/dL (3.5-5.0); Calcium 9.3 mg/dL (8.4-10.2); Potassium 4.8 mmol/L (3.5-5.1); Total Bilirubin 0.7 mg/dL (0.2-1.3); Total Protein 6.3 g/dL (6.3-8.2)
[2018-12-05 12:08] LABS: INR 0.9 (<1.2); Partial Thromboplastin Time 24.5 sec (22.0-30.0); Prothrombin Time 10.1 sec (9.0-12.0)
[2018-12-05 12:23] LABS: Creatine Kinase MB 2.2 ng/mL (0.0-2.4); Troponin I 0.015 ng/mL (0.000-0.034)
[2018-12-05 12:47] LABS: Appearance,Urine Clear (Clear); Bilirubin,Urine Negative (Negative); Blood,Urine Negative (Negative); Color,Urine Yellow; Glucose,Urine (UA) Negative (Negative); Ketones,Urine Negative (Negative); Leukocyte Esterase,Urine Negative (Negative); Nitrite,Urine Negative (Negative); PH, Urine 5.5 (5.0-8.0); Protein,Urine Trace (Negative); Specific Gravity,Urine 1.018 (1.001-1.035)
[2018-12-05 13:02] LABS: Amphetamine Screen,Urine Not Detected (NotDetected); Barbiturate Screen,Urine Not Detected (NotDetected); Benzodiazepines Screen,Urine Not Detected (NotDetected); Cocaine Screen,Urine Not Detected (NotDetected); Methadone Screen, Urine Not Detected (NotDetected); Opiate Screen,Urine Not Detected (NotDetected); Oxycodone Screen, Urine Not Detected (NotDetected); Phencyclidine Screen,Urine Not Detected (NotDetected); Tricyclic Antidepressant,Urine Not Detected (NotDetected); Urn Cannabinoid Scrn Not Detected (NotDetected)
[2018-12-05 13:38] VITALS: BP 165/96; PULSE 61; RESP 18
== END 2018-12-05 13:41 | disposition home or self-care (01) ==
LOC: EC 09:27
DX: R40.4 Transient alteration of awareness (principal); R41.0 Disorientation, unspecified; J44.9 Chronic obstructive pulmonary disease, unspecified; I10 Essential (primary) hypertension; I25.2 Old myocardial infarction; M06.9 Rheumatoid arthritis, unspecified; Z86.73 Personal history of transient ischemic attack (TIA), and cerebral infarction without residual deficits; Z85.820 Personal history of malignant melanoma of skin; Z87.891 Personal history of nicotine dependence; Z79.82 Long term (current) use of aspirin; Z79.899 Other long term (current) drug therapy; Z88.0 Allergy status to penicillin; Z88.4 Allergy status to anesthetic agent; Z91.018 Allergy to other foods; Z95.5 Presence of coronary angioplasty implant and graft; Z95.0 Presence of cardiac pacemaker; Z96.651 Presence of right artificial knee joint
CPT/HCPCS: 36415; 70450; 71046; 80053; 80306; 81003; 82550; 82553; 84484; 85025; 85610; 85730; 93005; 96360; 99285

== ENCOUNTER 2019-01-19 08:14 | Observation (INO) | payer MEDICARE ==
[2019-01-19] MEDS ORDERED: SODIUM CHLORIDE 0.9% 500 ML 500 ML IV STA (08:33)
--- NOTE | 2019-01-19 08:36 | ED ---
General Adult HPI - General Chief complaint: Weakness Stated complaint: WEAKNESS Time Seen by Provider: 01/19/19 08:14 Source: patient, EMS, RN notes reviewed, old records reviewed Mode of arrival: EMS Limitations: no limitations - History of Present Illness Initial comments: 78-year-old male presents emergency Department with increased generalized weak ness and frequent falls. Patient denies any specific injury from the falls, most recent fall was one week ago. Patient denies headache or vision changes. Denies chest pain or dyspnea. Denies abdominal pain. Denies nausea vomiting or diarrhea. Denies fever or chills. Denies any focal numbness or weakness. Symptoms have progressed over the past several weeks. - Related Data Home Medications Medication Instructions Recorded Confirmed Abatacept/Maltose [Orencia] 750 mg IVPB Q28D 08/17/15 01/19/19 Latanoprost Ophth [Xalatan 0.005%] 1 drop BOTH EYES HS 02/16/18 01/19/19 Albuterol Nebulized [Ventolin 2.5 mg INHALATION RT-QID PRN 08/09/18 01/19/19 Nebulized] Losartan Potassium [Cozaar] 25 mg PO HS 08/09/18 01/19/19 Metoprolol Tartrate [Lopressor] 12.5 mg PO DAILY 10/05/18 01/19/19 Simvastatin [Zocor] 10 mg PO HS 10/05/18 01/19/19 Aspirin [Adult Low Dose Aspirin EC] 81 mg PO DAILY 11/03/18 01/19/19 Furosemide [Lasix] 40 mg PO DAILY PRN 12/05/18 01/19/19 Tamsulosin HCl [Flomax] 0.4 mg PO DAILY 12/17/18 01/19/19 Carbidopa-Levodopa 25-100 mg 1 tab PO BID 01/14/19 01/19/19 [Sinemet 25-100 mg] Vortioxetine Hydrobromide 1 tab PO DAILY 01/14/19 01/19/19 [Trintellix] Vit C/E/Zn/Coppr/Lutein/Zeaxan 1 tab PO BID 01/19/19 01/19/19 [Preservision Areds 2 Softgel] Previous Rx's Medication Instructions Recorded Nitroglycerin Sl Tabs [Nitrostat] 0.4 mg SUBLINGUAL Q5M PRN #30 tab 08/26/14 Allergies Allergy/AdvReac Type Severity Reaction Status Date / Time etodolac [From Lodine] Allergy Rash/Hives Verified 01/19/19 08:59 grape Allergy Rash/Hives Verified 01/19/19 08:59 Penicillins Allergy Rash/Hives Verified 01/19/19 08:59 grape flavor Allergy Rash/Hives Uncoded 01/14/19 14:26 Review of Systems ROS Statement: Those systems with pertinent positive or pertinent negative responses have been documented in the HPI. ROS Other: All systems not noted in ROS Statement are negative. 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 Last Myocardial Infarction Date:: unkn History of Any Multi-Drug Resistant Organisms: None Reported Past Surgical History: Heart Catheterization With Stent, Joint Replacement Additional Past Surgical History / Comment(s): 07/2014 Cardiac cath with stents x 3, R caratid endartectomy, total R knee, lithotripsy 2011, cataract removal with lens implants bilaterally, colonoscopy/EGD, carotid surgery to clear blockage, Past Anesthesia/Blood Transfusion Reactions: No Reported Reaction Date of Last Stent Placement:: jul 2014 Past Psychological History: No Psychological Hx Reported Smoking Status: Former smoker - Past Family History Father Family Medical History: Pulmonary Embolus Additional Family Medical History / Comment(s): Father of a PE at age 51 yrs. Mother Family Medical History: Cancer Additional Family Medical History / Comment(s): Hx. mother of esophagus cancer at age 86yrs. Son(s) Family Medical History: Cancer General Exam Limitations: no limitations General appearance: alert, in no apparent distress Head exam: Present: atraumatic, normocephalic Eye exam: Present: normal appearance, PERRL ENT exam: Present: normal exam Neck exam: Present: normal inspection. Absent: tenderness, meningismus Respiratory exam: Present: rales, decreased breath sounds (Bilateral lung bases). Absent: respiratory distress, wheezes Cardiovascular Exam: Present: regular rate, normal rhythm. Absent: normal heart sounds (Distant heart sounds) GI/Abdominal exam: Present: soft. Absent: distended, tenderness, guarding Extremities exam: Present: normal inspection, normal capillary refill. Absent: pedal edema, calf tenderness Back exam: Present: normal inspection Neurological exam: Present: alert, oriented X3, CN II-XII intact. Absent: motor sensory deficit Psychiatric exam: Present: normal affect, normal mood Skin exam: Present: warm, dry, intact. Absent: cyanosis, diaphoretic Course Vital Signs 01/19/19 01/19/19 08:15 08:19 Temperature 98.2 F Pulse Rate 78 Respiratory 16 16 Rate Blood Pressure 124/84 O2 Sat by Pulse 94 L Oximetry EKG Findings - EKG Comments: EKG Findings:: EKG: Sinus rhythm first-degree AV block with PVC, LVH no ST segment elevation. Rate of 74, CT interval 220, QRS duration 106, QTC 457 Medical Decision Making - Medical Decision Making 78 with progressive generalized weakness. Multiple chronic medical problems. Patient has been diagnosed with Parkinson's has had progressive gait instability and generalized weakness. He has been seen by neurology. Patient's did call the primary care physician today who sent the patient for further eval uation treatment. I discussed case with Dr. Cox, regarding his progressive weakness and inability to ambulate. Chest x-ray shows CHF with left sided effusion. Patient has normal CBC, normal CMP, troponin negative, BNP is elevated at 14,600. Urinalysis negative for infection. Head CT negative for intracranial hemorrhage or mass effect. I discussed case with Dr. Conde, we will admit for treatment of both CHF and generalized weakness. - Lab Data Result diagrams: 01/19/19 08:39 01/19/19 08:39 Lab Results 01/19/19 01/19/19 01/19/19 Range/Units 08:39 08:39 08:39 WBC 10.3 (3.8-10.6) k/uL RBC 4.52 (4.30-5.90) m/uL Hgb 14.1 (13.0-17.5) gm/dL Hct 45.0 (39.0-53.0) % MCV 99.6 (80.0-100.0) fL MCH 31.2 (25.0-35.0) pg MCHC 31.4 (31.0-37.0) g/dL RDW 13.6 (11.5-15.5) % Plt Count 252 (150-450) k/uL Neutrophils % 73 % Lymphocytes % 12 % Monocytes % 5 % Eosinophils % 7 % Basophils % 0 % Neutrophils # 7.6 (1.3-7.7) k/uL Lymphocytes # 1.3 (1.0-4.8) k/uL Monocytes # 0.6 (0-1.0) k/uL Eosinophils # 0.7 (0-0.7) k/uL Basophils # 0.1 (0-0.2) k/uL Hypochromasia Slight PT (9.0-12.0) sec INR (<1.2) APTT (22.0-30.0) sec Sodium 140 (137-145) mmol/L Potassium 4.6 (3.5-5.1) mmol/L Chloride 106 (98-107) mmol/L Carbon Dioxide 28 (22-30) mmol/L Anion Gap 6 mmol/L BUN 27 H (9-20) mg/dL Creatinine 1.22 (0.66-1.25) mg/dL Est GFR (CKD-EPI)AfAm 66 (>60 ml/min/1.73 sqM) Est GFR (CKD-EPI)NonAf 57 (>60 ml/min/1.73 sqM) Glucose 93 (74-99) mg/dL Plasma Lactic Acid F[place] 1.0 (0.7-2.0) mmol/L Calcium 9.1 (8.4-10.2) mg/dL Magnesium 1.9 (1.6-2.3) mg/dL Total Bilirubin 0.4 (0.2-1.3) mg/dL AST 21 (17-59) U/L ALT 28 (21-72) U/L Alkaline Phosphatase 101 (38-126) U/L Troponin I (0.000-0.034) ng/mL NT-Pro-B Natriuret Pep pg/mL Total Protein 5.8 L (6.3-8.2) g/dL Albumin 3.0 L (3.5-5.0) g/dL Urine Color Urine Appearance (Clear) Urine pH (5.0-8.0) Ur Specific [place] (1.001-1.035) Urine Protein (Negative) Urine Glucose (UA) (Negative) Urine Ketones (Negative) Urine Blood (Negative) Urine Nitrite (Negative) Urine Bilirubin (Negative) Urine Urobilinogen (<2.0) mg/dL Ur Leukocyte Esterase (Negative) 01/19/19 01/19/19 01/19/19 Range/Units 08:39 08:39 08:39 WBC (3.8-10.6) k/uL RBC (4.30-5.90) m/uL Hgb (13.0-17.5) gm/dL Hct (39.0-53.0) % MCV (80.0-100.0) fL MCH (25.0-35.0) pg MCHC (31.0-37.0) g/dL RDW (11.5-15.5) % Plt Count (150-450) k/uL Neutrophils % % Lymphocytes % % Monocytes % % Eosinophils % % Basophils % % Neutrophils # (1.3-7.7) k/uL Lymphocytes # (1.0-4.8) k/uL Monocytes # (0-1.0) k/uL Eosinophils # (0-0.7) k/uL Basophils # (0-0.2) k/uL Hypochromasia PT 10.6 (9.0-12.0) sec INR 1.0 (<1.2) APTT 23.7 (22.0-30.0) sec Sodium (137-145) mmol/L Potassium (3.5-5.1) mmol/L Chloride (98-107) mmol/L Carbon Dioxide (22-30) mmol/L Anion Gap mmol/L BUN (9-20) mg/dL Creatinine (0.66-1.25) mg/dL Est GFR (CKD-EPI)AfAm (>60 ml/min/1.73 sqM) Est GFR (CKD-EPI)NonAf (>60 ml/min/1.73 sqM) Glucose (74-99) mg/dL Plasma Lactic Acid [place] (0.7-2.0) mmol/L Calcium (8.4-10.2) mg/dL Magnesium (1.6-2.3) mg/dL Total Bilirubin (0.2-1.3) mg/dL AST (17-59) U/L ALT (21-72) U/L Alkaline Phosphatase (38-126) U/L Troponin I <0.012 (0.000-0.034) ng/mL NT-Pro-B Natriuret Pep 14832 pg/mL Total Protein (6.3-8.2) g/dL Albumin (3.5-5.0) g/dL Urine Color Urine Appearance (Clear) Urine pH (5.0-8.0) Ur Specific [place] (1.001-1.035) Urine Protein (Negative) Urine Glucose (UA) (Negative) Urine Ketones (Negative) Urine Blood (Negative) Urine Nitrite (Negative) Urine Bilirubin (Negative) Urine Urobilinogen (<2.0) mg/dL Ur Leukocyte Esterase (Negative) 01/19/19 Range/Units 08:50 WBC (3.8-10.6) k/uL RBC (4.30-5.90) m/uL Hgb (13.0-17.5) gm/dL Hct (39.0-53.0) % MCV (80.0-100.0) fL MCH (25.0-35.0) pg MCHC (31.0-37.0) g/dL RDW (11.5-15.5) % Plt Count (150-450) k/uL Neutrophils % % Lymphocytes % % Monocytes % % Eosinophils % % Basophils % % Neutrophils # (1.3-7.7) k/uL Lymphocytes # (1.0-4.8) k/uL Monocytes # (0-1.0) k/uL Eosinophils # (0-0.7) k/uL Basophils # (0-0.2) k/uL Hypochromasia PT (9.0-12.0) sec INR (<1.2) APTT (22.0-30.0) sec Sodium (137-145) mmol/L Potassium (3.5-5.1) mmol/L Chloride (98-107) mmol/L Carbon Dioxide (22-30) mmol/L Anion Gap mmol/L BUN (9-20) mg/dL Creatinine (0.66-1.25) mg/dL Est GFR (CKD-EPI)AfAm (>60 ml/min/1.73 sqM) Est GFR (CKD-EPI)NonAf (>60 ml/min/1.73 sqM) Glucose (74-99) mg/dL Plasma Lactic Acid [place] (0.7-2.0) mmol/L Calcium (8.4-10.2) mg/dL Magnesium (1.6-2.3) mg/dL Total Bilirubin (0.2-1.3) mg/dL AST (17-59) U/L ALT (21-72) U/L Alkaline Phosphatase (38-126) U/L Troponin I (0.000-0.034) ng/mL NT-Pro-B Natriuret Pep pg/mL Total Protein (6.3-8.2) g/dL Albumin (3.5-5.0) g/dL Urine Color Yellow Urine Appearance Clear (Clear) Urine pH 5.5 (5.0-8.0) Ur Specific [place] 1.026 (1.001-1.035) Urine Protein Trace H (Negative) Urine Glucose (UA) Negative (Negative) Urine Ketones Negative (Negative) Urine Blood Negative (Negative) Urine Nitrite Negative (Negative) Urine Bilirubin Negative (Negative) Urine Urobilinogen 2.0 (<2.0) mg/dL Ur Leukocyte Esterase Negative (Negative) Disposition Clinical Impression: Congestive heart failure Disposition: ADMITTED IP TO THIS HOSP Condition: Stable Is patient prescribed a controlled substance at d/c from ED?: No Referrals: Jose David Cox MD [Primary Care Provider] - 1-2 days Decision to Admit Reason: Admit from EC Decision Date: 01/19/19 Decision Time: 10:37
[2019-01-19 08:52] LABS: Basophils # (A) 0.1 k/uL (0-0.2); Basophils % (A) 0 %; Eosinophils # (A) 0.7 k/uL (0-0.7); Eosinophils % (A) 7 %; HGB 14.1 gm/dL (13.0-17.5); Hypochromasia Slight; Lymphocytes # (A) 1.3 k/uL (1.0-4.8); Lymphocytes % (A) 12 %; MCH 31.2 pg (25.0-35.0); MCHC 31.4 g/dL (31.0-37.0); MCV 99.6 fL (80.0-100.0); Mean Platelet Volume 8.8; Monocytes # (A) 0.6 k/uL (0-1.0); Monocytes % (A) 5 %; Neutrophils # (A) 7.6 k/uL (1.3-7.7); Neutrophils % (A) 73 %; Platelet Count 252 k/uL (150-450); RBC 4.52 m/uL (4.30-5.90); RDW 13.6 % (11.5-15.5); WBC 10.3 k/uL (3.8-10.6)
[2019-01-19 08:59] LABS: Appearance,Urine Clear (Clear); Bilirubin,Urine Negative (Negative); Blood,Urine Negative (Negative); Color,Urine Yellow; Glucose,Urine (UA) Negative (Negative); Ketones,Urine Negative (Negative); Leukocyte Esterase,Urine Negative (Negative); Nitrite,Urine Negative (Negative); PH, Urine 5.5 (5.0-8.0); Protein,Urine Trace (Negative); Specific Gravity,Urine 1.026 (1.001-1.035)
[2019-01-19 09:05] LABS: Partial Thromboplastin Time 23.7 sec (22.0-30.0); Prothrombin Time 10.6 sec (9.0-12.0)
--- NOTE | 2019-01-19 09:08 | XR ---
EXAMINATION TYPE: XR chest 2V DATE OF EXAM: 01/19/2019 COMPARISON: 12/05/2018 HISTORY: Weakness TECHNIQUE: Frontal and lateral views of the chest are obtained. FINDINGS: There is a trace left pleural effusion with improved aeration of the lung bases in compari son the prior. Positioning is suboptimal on the patient's chin obscures the lung apices. Cardiomedias tinal is stable and not enlarged. Single lead cardiac device is noted. No sizable pneumothorax or rig ht pleural effusion. Mild generalized osseous demineralization is seen. Colonic interposition over th e liver is redemonstrated. IMPRESSION: Chronic trace left pleural effusion otherwise no acute cardiopulmonary process with impr jose angel aeration of the lung bases in comparison to the prior.
[2019-01-19 09:16] LABS: Calcium 9.1 mg/dL (8.4-10.2); Magnesium 1.9 mg/dL (1.6-2.3); Potassium 4.6 mmol/L (3.5-5.1); Total Bilirubin 0.4 mg/dL (0.2-1.3); Total Protein 5.8 g/dL (6.3-8.2)
--- NOTE | 2019-01-19 09:26 | CT ---
EXAMINATION TYPE: CT brain wo con DATE OF EXAM: 01/19/2019 COMPARISON: 12/05/2018 HISTORY: Weakness CT DLP: 1108.[address] of the brain was performed. The ventricles, basal cisterns and sulci overlying the cerebral convexities demonstrate mild to moder ate enlargement. There is no evidence for intracranial hemorrhage or sulcal effacement. There is decreased attenuation about the periventricular white matter and deep white matter of both c erebral hemispheres, compatible with chronic small vessel ischemia. Differential diagnosis does inclu de demyelination. No mass effects are seen.No midline shift. Osseous calvarium is intact. If symptoms persist consider MRI. IMPRESSION: 1. Age related atrophic and chronic small vessel ischemic change without acute intracranial process s een at this time.
[2019-01-19] MEDS ORDERED: FUROSEMIDE 10 MG/ML 2 ML VIAL IV STA (10:31)
[2019-01-19] MEDS ORDERED: NALOXONE 0.4 MG/ML 1 ML VIAL IV PRN (10:33)
[2019-01-19] MEDS ORDERED: NITROGLYCERIN SL TABS 0.4 MG TAB SUBLINGUAL PRN (14:45)
[2019-01-19] MEDS ORDERED: ALBUTEROL NEBULIZED 2.5 MG/3 ML INHALATION PRN (14:45)
[2019-01-19] MEDS ORDERED: FUROSEMIDE 40 MG TAB PO PRN (14:45)
--- NOTE | 2019-01-19 14:45 | P.HPIM ---
History of Present Illness H&P Date: 01/19/19 The patient is a 70-year-old male with a PMH of recently diagnosed Parkinson's disease (started on Sinemet 12/29/2018, w/ dose of Sinemet doubled 10 days ago), COPD, with rheumatoid arthritis, CAD status post multiple stents with ischemic systolic cardiomyopathy (LVEF 20-25% on Echo 05/05/17), and CVA presented to the ED with complaint of progressive weakness as well as dizziness with multiple falls. Patient notes that over the past few weeks, he has noted gradually worsening dizziness, which he described as vertigo, brought on by standing up too quickly. He reports that his symptoms have gotten so severe that he is now afraid to walk and feels that he will fall as soon as he gets out of his chair or bed. The patient reports falling 3-4 times in the past 2 years with most recent fall 1 week ago where he didn't suffer any trauma as per the at bedside. He also reports chronic exertional dyspnea without chest pain, cough, fever or chills. He also denied headaches, loss of consciousness, tinnitus, blurred vision, nausea, vomiting, palpitations or diaphoresis. The patient ambulates with a walker at home. In the emergency room, the patient underwent a comprehensive evaluation, with WBC count 10.3, proBNP 14,600, troponins less than 0.012, and chest x-ray showing chronic trace left-sided pleural effusion. Head CT revealed no acute intracranial abnormalities. Review of Systems Pertinent positives and negatives as discussed in HPI, a complete review of systems was performed and all other systems are negative. 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 Last Myocardial Infarction Date:: unkn History of Any Multi-Drug Resistant Organisms: None Reported Past Surgical History: AICD, Heart Catheterization With Stent, Joint Replacement Additional Past Surgical History / Comment(s): 11/05/18 AICD, 07/2014 Cardiac cath with stents x 3, R caratid endartectomy, total R knee, lithotripsy 2011, cataract removal with lens implants bilaterally, colonoscopy/EGD, melanoma removed neck. Past Anesthesia/Blood Transfusion Reactions: No Reported Reaction Date of Last Stent Placement:: jul 2014 Type of Cardiac Device: AICD Device Placement Date:: 11/05/18 Past Psychological History: No Psychological Hx Reported, Depression Additional Psychological History / Comment(s): Pt resides with his spouse. He is independent. He uses a walker at home. He no longer drives, his spouse drives. 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 No experience. No international travel. Years since been exposures. Lives with his no other partners. Remote history of tobacco use no history of significant recreational drug use or alcohol use Smoking Status: Former smoker Past Alcohol Use History: Occasional Additional Past Alcohol Use History / Comment(s): Pt started smoking in 1952 and quit in 1988. Past Drug Use History: None Reported - Past Family History Father Family Medical History: Pulmonary Embolus Additional Family Medical History / Comment(s): Father of a PE at age 51 yrs. Mother Family Medical History: Cancer Additional Family Medical History / Comment(s): Hx. mother of esophagus cancer at age 86yrs. Son(s) Family Medical History: Cancer Medications and Allergies Home Medications Medication Instructions Recorded Confirmed Type RX: Nitroglycerin Sl Tabs 0.4 mg SUBLINGUAL Q5M PRN #30 tab 08/26/14 01/19/19 Rx [Nitrostat] RX: Abatacept/Maltose [Orencia] 750 mg IVPB Q28D 08/17/15 01/19/19 History RX: Latanoprost Ophth [Xalatan 1 drop BOTH EYES HS 02/16/18 01/19/19 History 0.005%] RX: Albuterol Nebulized [Ventolin 2.5 mg INHALATION RT-QID PRN 08/09/18 01/19/19 History Nebulized] RX: Losartan Potassium [Cozaar] 25 mg PO HS 08/09/18 01/19/19 History RX: Metoprolol Tartrate [Lopressor] 12.5 mg PO DAILY 10/05/18 01/19/19 History RX: Simvastatin [Zocor] 10 mg PO HS 10/05/18 01/19/19 History RX: Aspirin [Adult Low Dose 81 mg PO DAILY 11/03/18 01/19/19 History Aspirin EC] Furosemide [Lasix] 40 mg PO DAILY PRN 12/05/18 01/19/19 History Tamsulosin HCl [Flomax] 0.4 mg PO DAILY 12/17/18 01/19/19 History Carbidopa-Levodopa 25-100 mg 1 tab PO BID 01/14/19 01/19/19 History [Sinemet 25-100 mg] Vortioxetine Hydrobromide 1 tab PO DAILY 01/14/19 01/19/19 History [Trintellix] Vit C/E/Zn/Coppr/Lutein/Zeaxan 1 tab PO BID 01/19/19 01/19/19 History [Preservision Areds 2 Softgel] Allergies Allergy/AdvReac Type Severity Reaction Status Date / Time etodolac [From [facility]] Allergy Rash/Hives Verified 01/19/19 08:59 grape Allergy Rash/Hives Verified 01/19/19 08:59 Penicillins Allergy Rash/Hives Verified 01/19/19 08:59 grape flavor Allergy Rash/Hives Uncoded 01/14/19 14:26 Physical Exam Vitals: Vital Signs Temp Pulse Pulse Resp BP BP Pulse Ox 01/19/19 12:30 97.3 F L 68 16 115/66 93 L 01/19/19 11:00 72 19 105/63 97 01/19/19 10:30 68 17 131/87 01/19/19 10:00 68 17 118/83 01/19/19 09:00 18 110/77 01/19/19 08:19 16 01/19/19 08:15 98.2 F 78 16 124/84 94 L Intake and Output 01/18/19 01/19/19 01/19/19 22:59 06:59 14:59 Intake Total 500 Balance 500 Intake: Intake, IV Titration 500 Amount Sodium Chloride 0.9% 500 500 ml 500 ml @ 999 mls/hr IV .Q31M STA Rx#:[id number] Other: Weight 74.389 kg General: non toxic, no distress, appears at stated age, normal weight Derm: no unusual rashes/lesions no unusual ecchymoses, warm, dry Head: atraumatic, normocephalic, symmetric Eyes: EOMI, no lid lag, anicteric sclera, pupils equal round reactive to light ENT: Nose and ears atraumatic, no thrush, no pharyngeal erythema Neck: No thyromegaly, no cervical lymphadenopathy, trachea midline, supple Mouth: no lip lesion, mucus membranes moist Cardiovascular: S1S2 reg, no murmur, positive posterior tibial pulse bilateral, no edema, capillary refill less than 2 seconds Lungs: Bibasilar rales, no rhonchi, no accessory muscle use Abdominal: soft, nontender to palpation, no guarding, no appreciable organomegaly, normal bowel sounds Ext: no gross muscle atrophy, muscle strength 4 out of 5 in bilateral lower extremities, strength 5 out of 5 in bilateral upper extremities, no contractures Neuro: CN II-XI grossly intact, light touch intact all 4 extremities, finger to nose within normal limits, cogwheel rigidity, some bradykinesia Psych: Alert, oriented, appropriate affect Results CBC & Chem 7: 01/19/19 08:39 01/19/19 08:39 Labs: Abnormal Lab Results - Last 24 Hours (Table) 01/19/19 01/19/19 Range/Units 08:39 08:50 BUN 27 H (9-20) mg/dL Total Protein 5.8 L (6.3-8.2) g/dL Albumin 3.0 L (3.5-5.0) g/dL Urine Protein Trace H (Negative) Thrombosis Risk Factor Assmnt - Choose All That Apply Any of the Below Risk Factors Present?: Yes Each Factor Represents 1 point: Abnormal pulmonary function (COPD), Heart failure (<1month), Serious lung disease incl. pneumonia (< 1month) Other Risk Factors: Yes Each Risk Factor Represents 3 Points: Age 75 years or older Other congenital or acquired thrombophilia - If yes, enter type in comment: No Thrombosis Risk Factor Assessment Total Risk Factor Score: 6 Thrombosis Risk Factor Assessment Level: High Risk Assessment and Plan Plan: Unsteadiness, falls, orthostatics significantly positive -Likely secondary to increased dose of Sinemet -Will discontinue Sinemet for now -PT consult -Fall precautions Systolic CHF, not in fluid overload -Fluid restriction -Resume home meds Lasix Chronic conditions: Hypertension, hyperlipidemia, rheumatoid arthritis, CKD, COPD -Resume home medications DVT//GI prophylaxis -Heparin -No indication for GI prophylaxis The patient is admitted with an anticipated less than 2 midnight stay for evaluation of unsteadiness CODE STATUS: Full code Discussed with: Patient Anticipated discharge date: 01/20/[address]: Home A total of 35 minutes was spent on the care of this complex patient more than 50% of the time was spent in counseling and care coordination.
[2019-01-19] MEDS ORDERED: CARBIDOPA-LEVODOPA 25-100 MG 1 EACH TAB PO SCH (21:00)
[2019-01-19] MEDS: VIT A,C & E-LUTEIN-MINERALS 1 EACH TAB PO SCH (22:10)
[2019-01-19] MEDS: LATANOPROST 0.005% OPHTH DROPS 2.5 ML BTL BOTH EYES SCH (22:10)
[2019-01-19] MEDS: LOSARTAN 25 MG TAB PO SCH (22:10)
[2019-01-19] MEDS: ATORVASTATIN 10 MG TAB PO SCH (22:10)
[2019-01-19] MEDS: HEPARIN SODIUM,PORCINE 5,000 UNIT/ML 1 ML VIAL SQ SCH (22:10)
[2019-01-20] MEDS: ASPIRIN 81 MG PO SCH (07:41)
[2019-01-20] MEDS: TAMSULOSIN 0.4 MG CAP.ER.24H PO SCH (07:41)
[2019-01-20] MEDS: FUROSEMIDE 40 MG TAB PO SCH (07:41)
[2019-01-20] MEDS: METOPROLOL TARTRATE 12.5 MG TAB PO SCH (07:41)
[2019-01-20] MEDS: VORTIOXETINE HYDROBROMIDE 10 MG TABLET PO SCH (07:42)
[2019-01-20] MEDS: VIT A,C & E-LUTEIN-MINERALS 1 EACH TAB PO SCH ×2 (07:42→22:31)
[2019-01-20] MEDS: HEPARIN SODIUM,PORCINE 5,000 UNIT/ML 1 ML VIAL SQ SCH ×2 (07:42→22:31)
--- NOTE | 2019-01-20 09:35 | P.CONS ---
History of Present Illness - Chief Complaint Medical debility - History of Present Illness I had the opportunity to see patient for inpatient rehab consultation with regard to medical debility. He was admitted to [facility] yesterday with weakness, dizziness, frequent falls. History of Parkinson's as well as LS disc disease. Head CT demonstrated age related change, ischemic change. Chest x-ray with chronic left pleural effusion. PT prescribed and I have added OT. Patient also has chronic pain program which is seen Drs. Campbell and Wan. No treats for chronic pain with procedures by Dr. Hood. In fact, lumbar MRI report on chart which indicates disc disease as well as bulging/protrusions and facet change with stenosis Center L1, 3, 4, left L3, 4 and bilateral L5. Previous functional history as elicited patient and corroborated by : 78-year-old right-handed white male who is lives in one floor home with . Both retired. does cooking, laundry, driving. Patient describes independent with sitdown or standup shower, gait with 4 wheeled walker. History smoking in the past. Occasional drink. describes that he shares with drink with her occasionally. Regular doctors Dr. Cox. Family history of mother with cancer and father with PE. Review of Systems Review of systems: ENT: Denies sneezes or discharge. Eyes: Denies discharge or photophobia. Cardiac: Denies chest pain or palpitation. Pulmonary: Denies cough or shortness of breath. Gastrointestinal: Denies nausea, emesis, constipation, diarrhea. Genitourinary: Denies discharge or frequency. Musculoskeletal: Chronic back pain. Neurologic: Generalized weakness and dizziness. Endocrine: Denies shakes or sweats. Oncology: Denies cancers. Dermatologic: Denies rash, itching, pruritus. ALLERGY/immunology: Denies sneezes, rashes. Past Medical History Past Medical History: COPD, CVA/TIA, Eye Disorder, GERD/Reflux, Hyperlipidemia, Hypertension, Myocardial Infarction (LA), Renal Disease, Respiratory Disorder, Rheumatoid Arthritis (RA) Additional Past Medical History / Comment(s): Rheumatoid lung disease, restrictive ventilatory impairment, lung nodules, moderate pulmonary HTN, bilateral nephrolithiasis, renal insufficiency, hiatal hernia, duodenal ulcers, macular degeneration bilaterally, tinnitis bilaterally, was told with [facility] that he had a LA at some time-undetermined date, balance affected after CVA , 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 Last Myocardial Infarction Date:: unkn History of Any Multi-Drug Resistant Organisms: None Reported Past Surgical History: AICD, Heart Catheterization With Stent, Joint Replacement Additional Past Surgical History / Comment(s): 11/05/18 AICD, 07/2014 Cardiac cath with stents x 3, R caratid endartectomy, total R knee, lithotripsy 2011, cataract removal with lens implants bilaterally, colonoscopy/EGD, melanoma removed neck. Past Anesthesia/Blood Transfusion Reactions: No Reported Reaction Date of Last Stent Placement:: jul 2014 Type of Cardiac Device: AICD Device Placement Date:: 11/05/18 Past Psychological History: No Psychological Hx Reported, Depression Additional Psychological History / Comment(s): Pt resides with his spouse. He is independent. He uses a walker at home. He no longer drives, his spouse drives. 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 No experience. No international travel. Years since been exposures. Lives with his no other partners. Remote history of tobacco use no history of significant recreational drug use or alcohol use Smoking Status: Former smoker Past Alcohol Use History: Occasional Additional Past Alcohol Use History / Comment(s): Pt started smoking in 1952 and quit in 1988. Past Drug Use History: None Reported - Past Family History Father Family Medical History: Pulmonary Embolus Additional Family Medical History / Comment(s): Father of a PE at age 51 yrs. Mother Family Medical History: Cancer Additional Family Medical History / Comment(s): Hx. mother of esophagus cancer at age 86yrs. Son(s) Family Medical History: Cancer Medications and Allergies Home Medications Medication Instructions Recorded Confirmed Type Nitroglycerin Sl Tabs [Nitrostat] 0.4 mg SUBLINGUAL Q5M PRN #30 tab 08/26/14 01/19/19 Rx Abatacept/Maltose [Orencia] 750 mg IVPB Q28D 08/17/15 01/19/19 History Latanoprost Ophth [Xalatan 0.005%] 1 drop BOTH EYES HS 02/16/18 01/19/19 History Albuterol Nebulized [Ventolin 2.5 mg INHALATION RT-QID PRN 08/09/18 01/19/19 History Nebulized] Losartan Potassium [Cozaar] 25 mg PO HS 08/09/18 01/19/19 History Metoprolol Tartrate [Lopressor] 12.5 mg PO DAILY 10/05/18 01/19/19 History Simvastatin [Zocor] 10 mg PO HS 10/05/18 01/19/19 History Aspirin [Adult Low Dose Aspirin EC] 81 mg PO DAILY 11/03/18 01/19/19 History Furosemide [Lasix] 40 mg PO DAILY PRN 12/05/18 01/19/19 History Tamsulosin HCl [Flomax] 0.4 mg PO DAILY 12/17/18 01/19/19 History Carbidopa-Levodopa 25-100 mg 1 tab PO BID 01/14/19 01/19/19 History [Sinemet 25-100 mg] Vortioxetine Hydrobromide 1 tab PO DAILY 01/14/19 01/19/19 History [Trintellix] Vit C/E/Zn/Coppr/Lutein/Zeaxan 1 tab PO BID 01/19/19 01/19/19 History [Preservision Areds 2 Softgel] Allergies Allergy/AdvReac Type Severity Reaction Status Date / Time etodolac [From [facility]] Allergy Rash/Hives Verified 01/19/19 08:59 grape Allergy Rash/Hives Verified 01/19/19 08:59 Penicillins Allergy Rash/Hives Verified 01/19/19 08:59 grape flavor Allergy Rash/Hives Uncoded 01/14/19 14:26 Physical Exam Vitals: Vital Signs Temp Pulse Pulse Resp BP BP Pulse Ox 01/20/19 05:00 98 F 81 17 158/94 94 L 01/19/19 21:00 97.8 F 71 16 145/95 92 L 01/19/19 15:41 102 H 87/60 01/19/19 15:38 88 105/71 01/19/19 15:37 77 168/81 01/19/19 12:30 97.3 F L 68 16 115/66 93 L 01/19/19 11:00 72 19 105/63 97 01/19/19 10:30 68 17 131/87 01/19/19 10:00 68 17 118/83 Intake and Output 01/19/19 01/20/19 01/20/19 22:59 06:59 14:59 Intake Total 240 350 Output Total 400 Balance 240 -50 Intake: Oral 240 350 Output: Urine 400 Other: Voiding Method Urinal # Voids 3 # Bowel Movements 1 Skin: Atrophic, intact. General: Medium build and comfortable appearance. Head: Normocephalic, atraumatic. Eyes: Symmetric. Pupils equal round. Ears: Symmetric. Hearing within normal limits. Mouth: Clear. Neck: Supple. Carotid without bruit. Cardiac: Regular rate and rhythm. Lungs: Clear anteriorly and posteriorly. Abdomen: Soft active nontender. Extremities: Normal tone. Neurological: Mental status: Alert, cooperative, pleasant. Cranial nerves: Symmetric facial tone and trapezius. Motor: Can actively elevates all 4 limbs. Sensation: Intact throughout. DTRs: Symmetric and equal throughout. Mobility: Sits with physical assistance. Results CBC & Chem 7: 01/19/19 08:39 01/19/19 08:39 Assessment and Plan (1) Adult respiratory distress syndrome Current Visit: No Status: Acute Code(s): J80 - ACUTE RESPIRATORY DISTRESS SYNDROME SNOMED Code(s): 72037444 Plan: Impression: 1. Medical debility due to adult respiratory distress syndrome. 2. Acute on chronic COPD. 3. Lumbar disc disease with stenosis and bilateral lumbosacral radiculopathies. 4. Parkinson. 5. Frequent falls with generalized weakness. 6. Rheumatoid arthritis. 7. Hypertension. 8. History of stroke. 9. Coronary disease with history of LA. 10. Chronic kidney disease. Comments and plan: PT prescribed and will and OT. Discussed possible inpatient rehab with patient. All insurances will require PT and OT notes prior to approval for inpatient rehab. So we will follow closely for therapy progress.
[2019-01-20] MEDS: ACETAMINOPHEN TAB 325 MG TAB PO PRN ×2 (11:41→22:36)
--- NOTE | 2019-01-20 12:01 | P.PN ---
Subjective Progress Note Date: 01/20/19 Patient is a 70-year-old male with a PMH of recently diagnosed Parkinson's disease (started on Sinemet 12/29/2018, w/ dose of Sinemet doubled 10 days prior to presentation), COPD, rheumatoid arthritis, CAD status post multiple stents with ischemic systolic cardiomyopathy (LVEF 20-25% on Echo 05/05/17), and CVA presented to the ED with complaint of progressive weakness as well as dizziness with multiple falls. The patient had reported that over the past few weeks to months, he had noted gradually worsening dizziness, which he described as vertigo, brought on by standing up too quickly. The patient reports falling 3-4 times in the past 2 years with most recent fall 1 week ago where he didn't suffer any trauma as per the at bedside. He denied ever having loss of consciousness. He further denied chest pain, cough, fever or chills, headaches, tinnitus, blurred vision, palpitations, or diaphoresis. CT Head in the ED revealed no acute abnormalities and the patient was subsequently admitted to the medicine service for further evaluation. Orthostatics were measured and were significantly positive, possibly secondary to Sinemet, which was subsequently held. 24 hours later, the patient's orthostatic vital signs were again assessed and were significantly positive. Discussed the case with the patient's neurologist Dr. Lemus at [facility] in detail. Dr. Lemus relayed that the patient had initially presented to him in July 2018 with bradykinesia and other symptoms consistent with Parkinson's. The patient at that time had reported dizziness to him and had positive orthostatics in the office. The patient's antihypertensives were then decreased by his primary care provider Dr. Cox. The patient was subsequently seen in Dr. Lemus's office on 12/29/2018 and was then started on the Sinemet 25-100 half tablet twice a day, to be increased to a full tablet after 10 days. The patient reports that after starting the full tablet, his symptoms worsened. The patient was seen and examined at the bedside and 01/20/2019. He reports continued dizziness upon standing. He denied any dizziness at rest or with head movements. He further denied additional complaints including headaches, fever, chills, shortness of breath, or chest pain. Objective - Vital Signs Vital signs: Vital Signs Temp 98 F 01/20/19 05:00 Pulse 81 01/20/19 05:00 Resp 17 01/20/19 05:00 BP 158/94 01/20/19 05:00 Pulse Ox 94 L 01/20/19 05:00 Intake & Output 01/19/19 01/20/19 01/20/19 18:59 06:59 18:59 Intake Total 500 590 Output Total 400 Balance 500 190 Weight 74.389 kg Intake: Intake, IV Titration 500 Amount Sodium Chloride 0.9% 500 500 ml 500 ml @ 999 mls/hr IV .Q31M STA Rx#:[id number] Oral 590 Output: Urine 400 Other: Voiding Method Urinal Urinal # Voids 3 # Bowel Movements 1 - Exam General: non toxic, no distress, appears at stated age, normal weight Derm: no unusual rashes/lesions no unusual ecchymoses, warm, dry Head: atraumatic, normocephalic, symmetric Eyes: EOMI, no lid lag, anicteric sclera, pupils equal round reactive to light ENT: Nose and ears atraumatic, no thrush, no pharyngeal erythema Neck: No thyromegaly, no cervical lymphadenopathy, trachea midline, supple Mouth: no lip lesion, mucus membranes moist Cardiovascular: S1S2 reg, no murmur, positive posterior tibial pulse bilateral, no edema, capillary refill less than 2 seconds Lungs: Bibasilar rales, no rhonchi, no accessory muscle use Abdominal: soft, nontender to palpation, no guarding, no appreciable organomegaly, normal bowel sounds Ext: no gross muscle atrophy, muscle strength 4 out of 5 in bilateral lower extremities, strength 5 out of 5 in bilateral upper extremities, no contractures Neuro: CN II-XI grossly intact, light touch intact all 4 extremities, finger to nose within normal limits, cogwheel rigidity, mildly increased bradykinesia and rigidity Psych: Alert, oriented, appropriate affect - Labs CBC & Chem 7: 01/19/19 08:39 01/19/19 08:39 Assessment and Plan Plan: Unsteadiness and falls secondary to orthostatic hypotension and pre-syncope: Discussed case in detail w/ patient's Neurologist: Dr Lemus. Orthostatic hypotension is often one of the complications of Parkinson's. Since the patient had orthostatics positive prior to the initiation of Sinemet, his hypotension is likely combination of the disease process of Parkinson's along with side effects from Sinemet. The side effects from Sinemet may take another 24 hours to improve. -Will continue to hold Sinemet for now -Awaiting Rehab recommendations -Fall precautions -Since the patient is hypertensive when supine, will continue with losartan and Lopressor for now Systolic CHF, not in fluid overload -Fluid restriction -Resume home meds Lasix Chronic conditions: Hypertension, hyperlipidemia, rheumatoid arthritis, CKD, COPD -Resume home medications DVT//GI prophylaxis -Heparin -No indication for GI prophylaxis CODE STATUS: Full code Discussed with: Patient, Anticipated discharge date: 01/21/[address]: Home
[2019-01-20 12:03] VITALS: RESP 16
[2019-01-20] MEDS: ATORVASTATIN 10 MG TAB PO SCH (22:30)
[2019-01-20] MEDS: LOSARTAN 25 MG TAB PO SCH (22:31)
[2019-01-20] MEDS: LATANOPROST 0.005% OPHTH DROPS 2.5 ML BTL BOTH EYES SCH (22:31)
[2019-01-21] MEDS: ACETAMINOPHEN TAB 325 MG TAB PO PRN (07:41)
[2019-01-21] MEDS: ASPIRIN 81 MG PO SCH (08:28)
[2019-01-21] MEDS: VORTIOXETINE HYDROBROMIDE 10 MG TABLET PO SCH (08:28)
[2019-01-21] MEDS: TAMSULOSIN 0.4 MG CAP.ER.24H PO SCH (08:30)
[2019-01-21] MEDS: VIT A,C & E-LUTEIN-MINERALS 1 EACH TAB PO SCH (08:30)
[2019-01-21] MEDS: METOPROLOL TARTRATE 12.5 MG TAB PO SCH (08:30)
[2019-01-21] MEDS: FUROSEMIDE 40 MG TAB PO SCH (08:30)
[2019-01-21] MEDS: HEPARIN SODIUM,PORCINE 5,000 UNIT/ML 1 ML VIAL SQ SCH (08:31)
[2019-01-21 10:12] VITALS: BP 137/81; PULSE 78; TEMP 97.3
--- NOTE | 2019-01-21 10:13 | XR ---
EXAMINATION TYPE: XR chest 1V portable DATE OF EXAM: 01/21/2019 HISTORY: Shortness of breath. COMPARISON: 01/19/2019 TECHNIQUE: Single view of the chest is submitted. FINDINGS: Demonstrated are scattered senescent parenchymal change. Stable patchy density right infrahilar region and left lower lobe. Small left effusion. Overall stabl e chest. The heart is stable. Hilar and mediastinal structures are within normal limits. Degenerative changes are seen of the dorsal spine. IMPRESSION: 1. Stable patchy density right infrahilar region and left lower lobe. Small left effusion. Overall s table chest.
--- NOTE | 2019-01-21 10:27 | P.DS ---
Providers Date of admission: 01/19/19 10:33 Expected date of discharge: 01/21/19 Attending physician: Alecia Conde DO Consults: 01/20/19 08:48 Consult Physician Urgent Consulting Provider: Juan Carlos Hernandez Consult Reason/Comments: inpatient rehab placement Do you want consulting provider notified?: Yes Primary care physician: [facility] Course: Patient is a 70-year-old male with a PMH of recently diagnosed Parkinson's disease (started on Sinemet 12/29/2018, w/ dose of Sinemet doubled 10 days prior to presentation), COPD, rheumatoid arthritis, CAD status post multiple stents with ischemic systolic cardiomyopathy (LVEF 20-25% on Echo 05/05/17), and CVA presented to the ED with complaint of progressive weakness as well as dizziness with multiple falls. The patient had reported that over the past few weeks to months, he had noted gradually worsening dizziness, which he described as vertigo, brought on by standing up too quickly. The patient reports falling 3-4 times in the past 2 years with most recent fall 1 week ago where he didn't suffer any trauma as per the at bedside. He denied ever having loss of consciousness. He further denied chest pain, cough, fever or chills, headaches, tinnitus, blurred vision, palpitations, or diaphoresis. CT Head in the ED revealed no acute abnormalities and the patient was subsequently admitted to the medicine service for further evaluation. Orthostatics were measured and were significantly positive, possibly secondary to Sinemet, which was subsequently held. 24 hours later, the patient's orthostatic vital signs were again assessed and were significantly positive. Discussed the case with the patient's neurologist Dr. Lemus at [facility] in detail. Dr. Lemus relayed that the patient had initially presented to him in July 2018 with bradykinesia and other symptoms consistent with Parkinson's. The patient at that time had reported dizziness to him and had positive orthostatics in the office. The patient's antihypertensives were then decreased by his primary care provider Dr. Cox. The patient was subsequently seen in Dr. Lemus's office on 12/29/2018 and was then started on the Sinemet 25-100 half tablet twice a day, to be increased to a full tablet after 10 days. The patient reports that after starting the full tablet, his symptoms worsened. The patient was assessed by Physical therapy who recommended sub-acute rehab. The patient was subsequently accepted to a facility. The patient was advised that though the patient already had orthostatic hypotension prior to the initiation of Sinemet, it appeared that it was significantly worsened by the medication. Upon discussion with patient's neurologist, it appears that the effects of Sinemet could last upwards of 72 hours to possibly even 7 days. Will recommend continued fall precautions. Patient will follow-up with Dr Coto and Dr Cox in the outpatient setting who will then reassess for Sinemet vs other parkinson's medications. Patient was seen and examined at the bedside on the day of discharge. The patient was in good spirits and had no active complaints. He continues to feel dizzy and lightheaded upon standing and has not been ambulating. He is otherwise stable and ready for discharge to rehab facility. Physical Examination General: non toxic, no distress, appears at stated age, normal weight Head: atraumatic, normocephalic, symmetric Eyes: EOMI, no lid lag, anicteric sclera, pupils equal round reactive to light ENT: Nose and ears atraumatic, no thrush, no pharyngeal erythema Mouth: no lip lesion, mucus membranes moist Cardiovascular: S1S2 reg, no murmur, positive posterior tibial pulse bilateral, no edema, capillary refill less than 2 seconds Lungs: Bibasilar rales, no rhonchi, no accessory muscle use Abdominal: soft, nontender to palpation, no guarding, no appreciable organomegaly, normal bowel sounds Ext: no gross muscle atrophy, muscle strength 4 out of 5 in bilateral lower extremities, strength 5 out of 5 in bilateral upper extremities, no contractures Neuro: CN II-XI grossly intact, light touch intact all 4 extremities, finger to nose within normal limits, cogwheel rigidity, mildly increased bradykinesia and rigidity Discharge diagnosis: Orthostatic hypotension and presyncope with unsteadiness and falls; systolic CHF, not in acute exacerbation; hypertension; hyperlipidemia; rheumatoid arthritis; CKD at baseline; COPD not in acute exacerbation A total of 35 minutes of time were spent preparing this complex discharge summary. Patient Condition at Discharge: Stable Plan - Discharge Summary Discharge Rx Participant: No New Discharge Prescriptions: Continue Nitroglycerin Sl Tabs [Nitrostat] 0.4 mg SUBLINGUAL Q5M PRN #30 tab PRN Reason: Chest Pain Abatacept/Maltose [Orencia] 750 mg IVPB Q28D Latanoprost Ophth [Xalatan 0.005%] 1 drop BOTH EYES HS Losartan Potassium [Cozaar] 25 mg PO HS Albuterol Nebulized [Ventolin Nebulized] 2.5 mg INHALATION RT-QID PRN PRN Reason: Shortness Of Breath Metoprolol Tartrate [Lopressor] 12.5 mg PO DAILY Simvastatin [Zocor] 10 mg PO HS Aspirin [Adult Low Dose Aspirin EC] 81 mg PO DAILY Furosemide [Lasix] 40 mg PO DAILY PRN PRN Reason: Edema Vortioxetine Hydrobromide [Trintellix] 1 tab PO DAILY Vit C/E/Zn/Coppr/Lutein/Zeaxan [Preservision Areds 2 Softgel] 1 tab PO BID Discontinued Tamsulosin HCl [Flomax] 0.4 mg PO DAILY Carbidopa-Levodopa 25-100 mg [Sinemet 25-100 mg] 1 tab PO BID Discharge Medication List Nitroglycerin Sl Tabs [Nitrostat] 0.4 mg SUBLINGUAL Q5M PRN #30 tab 08/26/14 [Rx] Abatacept/Maltose [Orencia] 750 mg IVPB Q28D 08/17/15 [History] Latanoprost Ophth [Xalatan 0.005%] 1 drop BOTH EYES HS 02/16/18 [History] Albuterol Nebulized [Ventolin Nebulized] 2.5 mg INHALATION RT-QID PRN 08/09/18 [History] Losartan Potassium [Cozaar] 25 mg PO HS 08/09/18 [History] Metoprolol Tartrate [Lopressor] 12.5 mg PO DAILY 10/05/18 [History] Simvastatin [Zocor] 10 mg PO HS 10/05/18 [History] Aspirin [Adult Low Dose Aspirin EC] 81 mg PO DAILY 11/03/18 [History] Furosemide [Lasix] 40 mg PO DAILY PRN 12/05/18 [History] Vortioxetine Hydrobromide [Trintellix] 1 tab PO DAILY 01/14/19 [History] Vit C/E/Zn/Coppr/Lutein/Zeaxan [Preservision Areds 2 Softgel] 1 tab PO BID 01/19/19 [History] Follow up Appointment(s)/Referral(s): Jose David Cox MD [Primary Care Provider] - 1-2 days Eduard Lemus DO [STAFF PHYSICIAN] - 1 Week Discharge Disposition: TRANSFER TO SNF/ECF
[2019-02-15] MEDS ORDERED: ABATACEPT IV SCH (09:00)
[2019-02-15] MEDS ORDERED: MALTOSE IV SCH (09:00)
== END 2019-01-21 12:55 ==
LOC: EC 08:14 → 3NMEDONC 10:33
PROVIDERS: ADMIT Internal Medicine; ATTEND Internal Medicine
DX: I95.1 Orthostatic hypotension (principal); G20 Parkinson's disease; I13.0 Hypertensive heart and chronic kidney disease with heart failure and stage 1 through stage 4 chronic kidney disease, or unspecified chronic kidney disease; I50.20 Unspecified systolic (congestive) heart failure; N18.9 Chronic kidney disease, unspecified; R53.1 Weakness; I25.10 Atherosclerotic heart disease of native coronary artery without angina pectoris; J44.9 Chronic obstructive pulmonary disease, unspecified; M06.9 Rheumatoid arthritis, unspecified; R29.6 Repeated falls; I25.5 Ischemic cardiomyopathy; J80 Acute respiratory distress syndrome; M05.10 Rheumatoid lung disease with rheumatoid arthritis of unspecified site; I27.20 Pulmonary hypertension, unspecified; H93.13 Tinnitus, bilateral; H35.30 Unspecified macular degeneration; K44.9 Diaphragmatic hernia without obstruction or gangrene; E78.5 Hyperlipidemia, unspecified; G89.29 Other chronic pain; M48.061 Spinal stenosis, lumbar region without neurogenic claudication; M51.16 Intervertebral disc disorders with radiculopathy, lumbar region; Z79.82 Long term (current) use of aspirin; Z79.899 Other long term (current) drug therapy; Z88.0 Allergy status to penicillin; Z88.8 Allergy status to other drugs, medicaments and biological substances; Z91.018 Allergy to other foods; Z86.73 Personal history of transient ischemic attack (TIA), and cerebral infarction without residual deficits; I25.2 Old myocardial infarction; Z87.891 Personal history of nicotine dependence; Z95.5 Presence of coronary angioplasty implant and graft; Z87.442 Personal history of urinary calculi; Z87.11 Personal history of peptic ulcer disease; Z95.810 Presence of automatic (implantable) cardiac defibrillator; Z87.01 Personal history of pneumonia (recurrent); Z85.820 Personal history of malignant melanoma of skin; Z96.651 Presence of right artificial knee joint; Z98.42 Cataract extraction status, left eye; Z98.41 Cataract extraction status, right eye; Z96.1 Presence of intraocular lens; Z82.49 Family history of ischemic heart disease and other diseases of the circulatory system; Z80.0 Family history of malignant neoplasm of digestive organs
CPT/HCPCS: 96372 ×3; 96361; 96374; 99285; 36415; 93005; 97530; 97162; 97166; 97167; 83880; 80053; 82607; 83605; 83735; 84484; 85025; 85610; 85730; 81003; 71045; 71046; 70450; G0378 ×3; J1644 ×3; J1940

== ENCOUNTER 2019-03-15 19:28 | Inpatient (IN) | payer MEDICARE ==
[2019-03-15 19:50] LABS: Glucose,Whole Blood 113 mg/dL (75-99)
--- NOTE | 2019-03-15 20:18 | CT ---
EXAMINATION TYPE: CT brain wo con DATE OF EXAM: 03/15/2019 COMPARISON: 01/19/2019 HISTORY: Altered mental status. CT DLP: 1218.1 mGycm Automated exposure control for dose reduction was used. FINDINGS: There is cerebral cortical atrophy. There is no mass effect nor midline shift. There is no sign of in tracranial hemorrhage. There is some hypodensity in the periventricular white matter. Calvarium is in tact. IMPRESSION: CEREBRAL ATROPHY AND CHRONIC SMALL VESSEL ISCHEMIA. NO ACUTE INTRACRANIAL ABNORMALITY. NO CHANGE COMP ARED TO LAST EXAM.
[2019-03-15] MEDS ORDERED: SODIUM CHLORIDE 0.9% 500 ML 500 ML IV STA (20:22)
--- NOTE | 2019-03-15 20:30 | ED ---
General Adult HPI - General Chief complaint: Syncope Stated complaint: Syncope Time Seen by Provider: 03/15/19 19:45 Source: EMS Mode of arrival: EMS Limitations: altered mental status - History of Present Illness Initial comments: Dictation was produced using [employer] dictation software. please excuse any grammatical, word or spelling errors. Chief Complaint: 70-year-old male with past medical history of Parkinson's, COPD, CVA, defibrillator presents with syncope. History of Present Illness: Sigmoid episode at home. He was getting out of bed and placed on a commode by his . Patient then went unresponsive. He was unresponsive for several seconds. He then came to. EMS was called. Patient has had syncope in the past. wanted patient to the emergency department to be evaluated again. Patient has history of defibrillator. His wheel and axle inspector is Dr. Coombs. Patient is alert and oriented 2 however he has history of Parkinson's. reports that he is at baseline and however has been having a steady decline over the last several weeks. The ROS documented in this emergency department record has been reviewed and confirmed by me. Those systems with pertinent positive or negative responses avendaño ve been documented in the HPI. All other systems are other negative and/or noncontributory. PHYSICAL EXAM: General Impression: Alert and oriented x2/4, not in acute distress HEENT: Normocephalic atraumatic, extra-ocular movements intact, pupils equal and reactive to light bilaterally, dry mucous members. Cardiovascular: Heart regular rate and rhythm, S1&S2 audible, no murmurs, rubs or gallops Chest: Lungs clear to auscultation bilaterally, no rhonchi, no wheeze, no rales Abdomen: Bowel sounds present, abdomen soft, non-tender, non-distended, no organomegaly Musculoskeletal: Pulses present and equal in all extremities, no peripheral edema Motor: no focal deficits noted Neurological: CN II-XII grossly intact, no focal motor or sensory deficits noted Skin: Intact with no visualized rashes ED course: 78-year-old male presents after syncopal episodes. Vital signs upon arrival are within acceptable limits. EKG is concerning showing precordial T- wave inversions and ST depressions that are new since 01/19/2019 EKG. Patient has been trying to defibrillator. We will attempt to interrogate the device.Device was interrogated however [employer] has malfunctioning in their devices and we'll unable to interpret the deterioration. Laboratory evaluation obtained. CBC unremarkable. Coag panel unremarkable. Patient does have elevated troponin of 0.041. Urinalysis is consistent with hemorrhagic cystitis. Patient treated with antibiotics for concerns of urinary tract infection. He is given aspirin and heparin for elevated troponin and EKG changes. Clinical presentation consistent with urinary tract infection and non-ST segment elevation ME. Patient hemodynamically stable. Patient be admitted to Dr. Ybarra with consultation to cardiology. Pending urine cultures. EKG interpretation: Ventricular rate 76, sinus rhythm,. Interval T12, QS 112, QTC 477. T-wave inversions and slight ST depressions in the precordial leads. - Related Data Home Medications Medication Instructions Recorded Confirmed Abatacept/Maltose [Orencia] 750 mg IVPB Q28D 08/17/15 03/15/19 Latanoprost Ophth [Xalatan 0.005%] 1 drop BOTH EYES HS 02/16/18 03/15/19 Albuterol Nebulized [Ventolin 2.5 mg INHALATION RT-BID PRN 08/09/18 03/15/19 Nebulized] Metoprolol Tartrate [Lopressor] 12.5 mg PO HS 10/05/18 03/15/19 Aspirin [Adult Low Dose Aspirin EC] 81 mg PO DAILY 11/03/18 03/15/19 Furosemide [Lasix] 20 mg PO DAILY PRN 12/05/18 03/15/19 Vit C/E/Zn/Coppr/Lutein/Zeaxan 1 tab PO BID 01/19/19 03/15/19 [Preservision Areds 2 Softgel] Fludrocortisone [Florinef] 0.2 mg PO DAILY 03/15/19 03/15/19 Midodrine [ProAmatine] 10 mg PO TID 03/15/19 03/15/19 Simvastatin [Zocor] 20 mg PO HS 03/15/19 03/15/19 buPROPion [Wellbutrin] 75 mg PO BID 03/15/19 03/15/19 Previous Rx's Medication Instructions Recorded Nitroglycerin Sl Tabs [Nitrostat] 0.4 mg SUBLINGUAL Q5M PRN #30 tab 08/26/14 Allergies Allergy/AdvReac Type Severity Reaction Status Date / Time etodolac [From [facility]] Allergy Rash/Hives Verified 03/15/19 19:51 grape Allergy Rash/Hives Verified 03/15/19 19:51 Penicillins Allergy Rash/Hives Verified 03/15/19 19:51 grape flavor Allergy Rash/Hives Uncoded 03/15/19 19:44 Review of Systems ROS Statement: Those systems with pertinent positive or pertinent negative responses have been documented in the HPI. ROS Other: All systems not noted in ROS Statement are negative. Past Medical History Past Medical History: COPD, CVA/TIA, Eye Disorder, GERD/Reflux, Hyperlipidemia, Hypertension, Myocardial Infarction (ME), Renal Disease, Respiratory Disorder, Rheumatoid Arthritis (RA) Additional Past Medical History / Comment(s): Rheumatoid lung disease, restrictive ventilatory impairment, lung nodules, moderate pulmonary HTN, bilateral nephrolithiasis, renal insufficiency, hiatal hernia, duodenal ulcers, macular degeneration bilaterally, tinnitis bilaterally, was told with [facility] that he had a ME at some time-undetermined date, balance affected after CVA , 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 Last Myocardial Infarction Date:: unkn History of Any Multi-Drug Resistant Organisms: None Reported Past Surgical History: AICD, Heart Catheterization With Stent, Joint Replacement Additional Past Surgical History / Comment(s): 11/05/18 AICD, 07/2014 Cardiac cath with stents x 3, R caratid endartectomy, total R knee, lithotripsy 2011, cataract removal with lens implants bilaterally, colonoscopy/EGD, melanoma removed neck. Past Anesthesia/Blood Transfusion Reactions: No Reported Reaction Date of Last Stent Placement:: jul 2014 Type of Cardiac Device: AICD Device Placement Date:: 11/05/18 Past Psychological History: No Psychological Hx Reported, Depression Smoking Status: Former smoker Past Alcohol Use History: None Reported Past Drug Use History: None Reported - Past Family History Father Family Medical History: Pulmonary Embolus Additional Family Medical History / Comment(s): Father of a PE at age 51 yrs. Mother Family Medical History: Cancer Additional Family Medical History / Comment(s): Hx. mother of esophagus cancer at age 86yrs. Son(s) Family Medical History: Cancer General Exam Limitations: altered mental status Course Vital Signs 03/15/19 03/15/19 03/15/19 19:34 19:40 19:42 Temperature 97.8 F Pulse Rate 78 Respiratory 18 Rate Blood Pressure 125/92 125/92 125/92 O2 Sat by Pulse 93 L 93 L Oximetry 03/15/19 03/15/19 03/15/19 19:50 20:00 20:10 Temperature Pulse Rate 78 70 Respiratory 16 18 Rate Blood Pressure 125/92 125/92 125/92 O2 Sat by Pulse 96 99 Oximetry 03/15/19 03/15/19 03/15/19 20:20 20:30 20:40 Temperature Pulse Rate 63 64 Respiratory 6 L 18 Rate Blood Pressure 125/92 125/92 171/111 O2 Sat by Pulse 98 97 Oximetry 03/15/19 03/15/19 03/15/19 20:50 21:00 21:10 Temperature Pulse Rate 58 L 63 64 Respiratory 17 16 15 Rate Blood Pressure 171/111 171/111 178/101 O2 Sat by Pulse 98 99 Oximetry 03/15/19 03/15/19 03/15/19 21:20 21:30 21:32 Temperature Pulse Rate 75 72 69 Respiratory 18 12 18 Rate Blood Pressure 178/101 178/101 149/100 O2 Sat by Pulse 97 97 98 Oximetry 03/15/19 03/15/19 03/15/19 21:40 21:50 22:00 Temperature Pulse Rate 72 70 72 Respiratory 18 16 16 Rate Blood Pressure 143/110 143/110 143/110 O2 Sat by Pulse 97 98 98 Oximetry 03/15/19 03/15/19 22:10 22:20 Temperature Pulse Rate 73 71 Respiratory 17 18 Rate Blood Pressure 155/107 155/107 O2 Sat by Pulse 98 99 Oximetry Medical Decision Making - Lab Data Result diagrams: 03/15/19 20:23 03/15/19 20:23 Lab Results 03/15/19 03/15/19 03/15/19 Range/Units 19:36 20:23 20:23 WBC 10.6 (3.8-10.6) k/uL RBC 4.63 (4.30-5.90) m/uL Hgb 14.4 (13.0-17.5) gm/dL Hct 45.1 (39.0-53.0) % MCV 97.4 (80.0-100.0) fL MCH 31.0 (25.0-35.0) pg MCHC 31.9 (31.0-37.0) g/dL RDW 13.5 (11.5-15.5) % Plt Count 264 (150-450) k/uL Neutrophils % 69 % Lymphocytes % 17 % Monocytes % 6 % Eosinophils % 5 % Basophils % 1 % Neutrophils # 7.3 (1.3-7.7) k/uL Lymphocytes # 1.8 (1.0-4.8) k/uL Monocytes # 0.7 (0-1.0) k/uL Eosinophils # 0.5 (0-0.7) k/uL Basophils # 0.1 (0-0.2) k/uL PT (9.0-12.0) sec INR (<1.2) APTT (22.0-30.0) sec Sodium 140 (137-145) mmol/L Potassium 5.1 (3.5-5.1) mmol/L Chloride 106 (98-107) mmol/L Carbon Dioxide 25 (22-30) mmol/L Anion Gap 9 mmol/L BUN 26 H (9-20) mg/dL Creatinine 1.11 (0.66-1.25) mg/dL Est GFR (CKD-EPI)AfAm 73 (>60 ml/min/1.73 sqM) Est GFR (CKD-EPI)NonAf 63 (>60 ml/min/1.73 sqM) Glucose 108 H (74-99) mg/dL POC Glucose (mg/dL) 113 H (75-99) mg/dL POC Glu [employer] Billing Analyst ID Seth Greene Calcium 9.4 (8.4-10.2) mg/dL Magnesium 2.0 (1.6-2.3) mg/dL Total Bilirubin 1.7 H (0.2-1.3) mg/dL AST 60 H (17-59) U/L ALT 12 L (21-72) U/L Alkaline Phosphatase 98 (38-126) U/L Troponin I (0.000-0.034) ng/mL Total Protein 6.8 (6.3-8.2) g/dL Albumin 3.5 (3.5-5.0) g/dL Urine Color Urine Appearance (Clear) Urine pH (5.0-8.0) Ur Specific [place] (1.001-1.035) Urine Protein (Negative) Urine Glucose (UA) (Negative) Urine Ketones (Negative) Urine Blood (Negative) Urine Nitrite (Negative) Urine Bilirubin (Negative) Urine Urobilinogen (<2.0) mg/dL Ur Leukocyte Esterase (Negative) Urine RBC (0-5) /hpf Urine WBC (0-5) /hpf Urine WBC Clumps (None) /hpf Calcium Oxalate Crystal (None) /hpf Amorphous Sediment (None) /hpf Hyaline Casts (0-2) /lpf Urine Mucus (None) /hpf 03/15/19 03/15/19 03/15/19 Range/Units 20:23 20:23 22:44 WBC (3.8-10.6) k/uL RBC (4.30-5.90) m/uL Hgb (13.0-17.5) gm/dL Hct (39.0-53.0) % MCV (80.0-100.0) fL MCH (25.0-35.0) pg MCHC (31.0-37.0) g/dL RDW (11.5-15.5) % Plt Count (150-450) k/uL Neutrophils % % Lymphocytes % % Monocytes % % Eosinophils % % Basophils % % Neutrophils # (1.3-7.7) k/uL Lymphocytes # (1.0-4.8) k/uL Monocytes # (0-1.0) k/uL Eosinophils # (0-0.7) k/uL Basophils # (0-0.2) k/uL PT 10.9 (9.0-12.0) sec INR 1.0 (<1.2) APTT 22.3 (22.0-30.0) sec Sodium (137-145) mmol/L Potassium (3.5-5.1) mmol/L Chloride (98-107) mmol/L Carbon Dioxide (22-30) mmol/L Anion Gap mmol/L BUN (9-20) mg/dL Creatinine (0.66-1.25) mg/dL Est GFR (CKD-EPI)AfAm (>60 ml/min/1.73 sqM) Est GFR (CKD-EPI)NonAf (>60 ml/min/1.73 sqM) Glucose (74-99) mg/dL POC Glucose (mg/dL) (75-99) mg/dL POC Glu [employer] Billing Analyst ID Calcium (8.4-10.2) mg/dL Magnesium (1.6-2.3) mg/dL Total Bilirubin (0.2-1.3) mg/dL AST (17-59) U/L ALT (21-72) U/L Alkaline Phosphatase (38-126) U/L Troponin I 0.041 H* (0.000-0.034) ng/mL Total Protein (6.3-8.2) g/dL Albumin (3.5-5.0) g/dL Urine Color Red Urine Appearance Turbid (Clear) Urine pH 5.5 (5.0-8.0) Ur Specific [place]on 1.031 (1.001-1.035) Urine Protein 1+ H (Negative) Urine Glucose (UA) Negative (Negative) Urine Ketones Negative (Negative) Urine Blood Moderate H (Negative) Urine Nitrite Negative (Negative) Urine Bilirubin Negative (Negative) Urine Urobilinogen 2.0 (<2.0) mg/dL Ur Leukocyte Esterase Small H (Negative) Urine RBC >182 H (0-5) /hpf Urine WBC 83 H (0-5) /hpf Urine WBC Clumps Few H (None) /hpf Calcium Oxalate Crystal Few H (None) /hpf Amorphous Sediment Moderate H (None) /hpf Hyaline Casts 20 H (0-2) /lpf Urine Mucus Many H (None) /hpf Disposition Clinical Impression: NSTEMI (non-ST elevated myocardial infarction), Syncope, UTI (urinary tract infection) Disposition: ADMITTED IP TO THIS [facility] Condition: Fair Referrals: Epifanio Carrizales MD [Primary Care Provider] - 1-2 days Decision Time: 23:08
[2019-03-15 20:38] LABS: Basophils # (A) 0.1 k/uL (0-0.2); Basophils % (A) 1 %; Eosinophils # (A) 0.5 k/uL (0-0.7); Eosinophils % (A) 5 %; HCT 45.1 % (39.0-53.0); HGB 14.4 gm/dL (13.0-17.5); Lymphocytes # (A) 1.8 k/uL (1.0-4.8); Lymphocytes % (A) 17 %; MCHC 31.9 g/dL (31.0-37.0); MCV 97.4 fL (80.0-100.0); Mean Platelet Volume 9.8; Monocytes # (A) 0.7 k/uL (0-1.0); Monocytes % (A) 6 %; Neutrophils # (A) 7.3 k/uL (1.3-7.7); Neutrophils % (A) 69 %; Platelet Count 264 k/uL (150-450); RBC 4.63 m/uL (4.30-5.90); RDW 13.5 % (11.5-15.5); WBC 10.6 k/uL (3.8-10.6)
[2019-03-15 20:45] LABS: Albumin 3.5 g/dL (3.5-5.0); Calcium 9.4 mg/dL (8.4-10.2); Potassium 5.1 mmol/L (3.5-5.1); Total Bilirubin 1.7 mg/dL (0.2-1.3); Total Protein 6.8 g/dL (6.3-8.2)
--- NOTE | 2019-03-15 20:49 | XR ---
EXAMINATION TYPE: XR chest 2V DATE OF EXAM: 03/15/2019 COMPARISON: 01/21/2019 HISTORY: Syncope TECHNIQUE: Frontal and lateral views of the chest are obtained. FINDINGS: There is some mild linear density at the right lung base. There is no heart failure. There is left axillary pacemaker. Heart size is normal. There is no pleural effusion. IMPRESSION: No heart failure. Minimal atelectasis right lung base is new compared to old exam. There is clearing of the pleural reaction left lung base compared to old exam.
[2019-03-15 21:12] LABS: Partial Thromboplastin Time 22.3 sec (22.0-30.0); Prothrombin Time 10.9 sec (9.0-12.0)
[2019-03-15] MEDS ORDERED: HEPARIN SODIUM,PORCINE 5,000 UNIT/ML 1 ML VIAL IV ONE (22:27)
[2019-03-15] MEDS ORDERED: HEPARIN SODIUM,PORCINE 5,000 UNIT/ML 1 ML VIAL IV PRN (22:27)
[2019-03-15] MEDS ORDERED: ASPIRIN 81 MG PO STA (22:28)
[2019-03-15 22:53] LABS: Amorphous Sediment,Urine Moderate /hpf; Appearance,Urine Turbid (Clear); Bilirubin,Urine Negative (Negative); Blood,Urine Moderate (Negative); Calcium Oxalate Crystals,Urine Few /hpf; Color,Urine Red; Glucose,Urine (UA) Negative (Negative); Hyaline Casts,Urine 20 /lpf (0-2); Ketones,Urine Negative (Negative); Leukocyte Esterase,Urine Small (Negative); Mucus,Urine Many /hpf; Nitrite,Urine Negative (Negative); PH, Urine 5.5 (5.0-8.0); Protein,Urine 1+ (Negative); RBC,Urine >182 /hpf (0-5); Specific Gravity,Urine 1.031 (1.001-1.035); WBC,Urine 83 /hpf (0-5)
[2019-03-15] MEDS ORDERED: NITROGLYCERIN SL TABS 0.4 MG TAB SUBLINGUAL PRN ×2 (23:08→23:12)
[2019-03-15] MEDS ORDERED: ALBUTEROL NEBULIZED 2.5 MG/3 ML INHALATION PRN (23:12)
[2019-03-15] MEDS: SODIUM CHLORIDE 0.9% 1,000 ML IV SCH (23:55)
[2019-03-15] MEDS: HEPARIN SOD,PORK IN 0.45% NACL 25,000 UNIT in 0.45% NACL 1 250ML.BAG IV SCH (23:56)
[2019-03-16 00:20] LABS: Glucose,Whole Blood 89 mg/dL (75-99)
[2019-03-16 01:28] LABS: Cholesterol 119 mg/dL (<200); HDL Cholesterol 20 mg/dL (40-60); LDL Cholesterol,Calculated 63 mg/dL (0-99); Triglycerides 180 mg/dL (<150)
[2019-03-16] MEDS: METOPROLOL TARTRATE 50 MG TAB PO SCH ×3 (01:39→21:16)
[2019-03-16] MEDS ORDERED: amLODIPine 5 MG TAB PO STA (04:28)
--- NOTE | 2019-03-16 07:54 | CONS ---
CONSULTATION Mr. Rosas is a 78-year-old male who is followed by Dr. Carlota Velazquez on a regular basis. He has a history of coronary artery disease, status post stenting and history of severe ischemic cardiomyopathy, status post ICD implantation, history of progressive Parkinson disease and change in mental status, who has autonomic dysfunction and orthostatic hypotension who yesterday got up to go to the bathroom dropped his blood pressure and had a syncopal episode. He was brought into the emergency room and subsequently admitted. He had no arrhythmia subsequent to his admission. The history is obtained from the predominantly. The patient apparently had episode of confusion and his level of activity is very limited. He is bedridden most of the time. He had not had any complaint of chest discomfort. He has dyspnea on exertion, which he had progressively. He has no peripheral edema. He had a prior syncopal episode and has history of significant orthostatic hypotension. He has no discharge from the device that was implanted in October. He has no history of PND or orthopnea. His ejection fraction in the past has been in the 20% to 25%. His coronary risk factors are positive for history of hypertension, hyperlipidemia. He is nondiabetic, nonsmoker. His medications at home include Wellbutrin, simvastatin, midodrine 10 mg 3 times a day, metoprolol tartrate 12.5 mg daily, Lasix on a p.r.n. basis, Florinef 0.2 mg daily, aspirin once a day, and Orencia, in addition to Ventolin. REVIEW OF SYSTEMS: RESPIRATORY SYSTEM: He had dyspnea on exertion. No recent wheezing. He has mild cough. GI SYSTEM: No recent GI bleeding. No peptic ulcer disease. SYSTEM: No dysuria or hematuria. NERVOUS SYSTEM: He had a history of stroke and history of advanced Parkinson's. PHYSICAL EXAMINATION: He is a 78-year-old male, somnolent, answering to verbal stimuli, answering some questions. Blood pressure running in the 170s over 80 with the heart rate in the 60s. HEAD: Normocephalic. EYES: Sclerae anicteric. NECK: Good carotid upstroke. No bruit. LUNGS: Clear to auscultation anteriorly. HEART: Regular rate and rhythm. S1, S2. No S3 with a systolic ejection murmur heard at the base. No diastolic murmur. No rub. ABDOMEN: Soft, nontender. Positive bowel sounds. No organomegaly. EXTREMITIES: No edema. Intact distal pulses. LAB DATA: Lab data revealed troponin 0.041 and 0.056. AST of 860, ALT of 12. BUN and creatinine 26 and 1.1. Potassium 5.1. Hemoglobin of 14.4. EKG revealed a sinus mechanism with a T-wave inversion in leads V2 through V6 consistent with ischemia in the anterolateral leads. Chest x-ray revealed no acute infiltrate. Brain CT shows no evidence of acute event. IMPRESSION: 1. Syncopal episode, most likely related to orthostatic hypotension worsened by autonomic dysfunction related to his Parkinson disease. 2. EKG changes with mild troponin elevation consistent with non ST-segment elevation myocardial infarction. 3. History of coronary artery disease, status post multivessel stenting. 4. History of severe ischemic cardiomyopathy, status post ICD implantation. 5. History of supine hypertension. 6. History of stroke. 7. History of debilitation. RECOMMENDATION: From the cardiac standpoint, I will obtain echocardiogram with Doppler. I will add to his regimen a low-dose of MARK inhibitor to see if we can optimize his blood pressure. We will interrogate the device. I have discussed with the in detail the situation and the finding on the EKG and the blood tests. I have discussed with her post approach of aggressive versus conservative treatment. She has expressed that the patient did not want have an intubation done, but in regard to the cardiac catheterization she is not sure. In view of his overall status at this time I will maximize medical therapy and I have discussed his case with Dr. Carlota Velazquez who knows the patient quite well and will talk to the family further to further plan his treatment. Thank you for this consult. We will follow with you. [id number] / IJN: [id number] /
[2019-03-16] MEDS: MIDODRINE 5 MG TAB PO SCH ×2 (08:05→17:04)
[2019-03-16] MEDS: ASPIRIN 325 MG TAB PO SCH (08:14)
[2019-03-16] MEDS: LISINOPRIL 5 MG TAB PO SCH (08:14)
[2019-03-16] MEDS ORDERED: FLUDROCORTISONE 0.1 MG TAB PO SCH (09:00)
--- NOTE | 2019-03-16 12:20 | ECHOF ---
Referral Reason:cm MEASUREMENTS -------- HEIGHT: 180.3 cm WEIGHT: 64.0 kg BP: 171/89 IVSd: 1.4 cm (0.6 - 1.1) LVIDd: 5.5 cm (3.9 - 5.3) LVPWd: 1.3 cm (0.6 - 1.1) IVSs: 1.9 cm LVIDs: 4.5 cm LVPWs: 1.5 cm LAESV Index (A-L): 25.43 ml/m Ao Diam: 3.3 cm (2.0 - 3.7) AV Cusp: 1.3 cm (1.5 - 2.6) LA Diam: 4.3 cm (2.7 - 3.8) MV EXCURSION: 13.601 mm (> 18.000) MV EF SLOPE: 65 mm/s (70 - 150) EPSS: 0.9 cm MV E Lenny: 0.27 m/s MV DecT: 363 ms MV A Lenny: 1.06 m/s MV E/A Ratio: 0.26 AR PHT: 792 ms RAP: 5.00 mmHg RVSP: 8.99 mmHg FINDINGS -------- Pacerwire seen in RV and RA. AICD This was a technically difficult study with suboptimal views. The left ventricular size is normal. There is moderate concentric left ventricular hypertrophy. T here is severe global hypokinesis of LV . Overall left ventricular systolic function is severely im paired with, an EF between 20 - 25 %. The right ventricle is normal in size. The left atrium is mildly dilated. Normal LA size by volume 22+/-6 ml/m2. The right atrial size is normal. Lumason used Interatrial and interventricular septum intact. Aortic valve is trileaflet and is mildly thickened. There is mild aortic regurgitation. The mitral valve leaflets are mildly thickened. Mild mitral annular calcification present. Mild m itral regurgitation is present. Mild tricuspid regurgitation present. There is no evidence of pulmonary hypertension. The right v entricular systolic pressure, as measured by Doppler, is 8.99mmHg. There is no pulmonic regurgitation present. The aortic root size is normal. IVC Not well visulized. There is no pericardial effusion. CONCLUSIONS -------- 1. Pacerwire seen in RV and RA. 2. AICD 3. This was a technically difficult study with suboptimal views. 4. The left ventricular size is normal. 5. There is moderate concentric left ventricular hypertrophy. 6. There is severe global hypokinesis of LV . 7. Overall left ventricular systolic function is severely impaired with, an EF between 20 - 25 %. 8. The right ventricle is normal in size. 9. The left atrium is mildly dilated. 10. Normal LA size by volume 22+/-6 ml/m2. 11. The right atrial size is normal. 12. Lumason used 13. Interatrial and interventricular septum intact. 14. Aortic valve is trileaflet and is mildly thickened. 15. There is mild aortic regurgitation. 16. The mitral valve leaflets are mildly thickened. 17. Mild mitral annular calcification present. 18. Mild mitral regurgitation is present. 19. Mild tricuspid regurgitation present. 20. There is no evidence of pulmonary hypertension. 21. The right ventricular systolic pressure, as measured by Doppler, is 8.99mmHg. 22. There is no pulmonic regurgitation present. 23. The aortic root size is normal. 24. IVC Not well visulized. 25. There is no pericardial effusion. MOLD CLAMPER: Latrice Arriola RDCS
[2019-03-16] MEDS: SODIUM CHLORIDE 0.9% 1,000 ML IV SCH (17:04)
[2019-03-16] MEDS ORDERED: METOPROLOL TARTRATE 25 MG TAB PO SCH (21:00)
[2019-03-16] MEDS: ATORVASTATIN 10 MG TAB PO SCH (21:16)
[2019-03-16] MEDS: HEPARIN SOD,PORK IN 0.45% NACL 25,000 UNIT in 0.45% NACL 1 250ML.BAG IV SCH (21:17)
--- NOTE | 2019-03-16 22:48 | HP ---
HISTORY AND PHYSICAL DATE OF ADMISSION: 03/15/2019 DATE OF SERVICE: 03/16/2019 PRESENTING COMPLAINT: Passed out. HISTORY OF PRESENTING COMPLAINT: This is a pleasant 78-year-old patient of Visiting Physician Dr. Carrizales. Chronic stable medical conditions include Parkinson's disease, COPD, rheumatoid arthritis, medical debility, hypertension, hyperlipidemia, chronic kidney disease. The patient is a poor historian because of Parkinson's disease. History obtained through the ER and the nurse is that patient tried to get up and get to the bedside commode and patient passed out for a few seconds. The patient normally does use a walker if he needs to get about. He has been rather weak and tired, often gets a bit dizzy. The patient himself really is not able to give much of any history. Patient had a slight blip of his troponins. He was seen by Cardiology, Dr. Portillo, who after discussion with the patient's , decided to proceed with medical management. REVIEW OF SYSTEMS: CONSTITUTIONAL: Tired. HEENT: Decreased hearing. RESPIRATORY: None. CARDIOVASCULAR: No chest pain. GASTROINTESTINAL: None. GENITOURINARY: None. MUSCULOSKELETAL: Arthritic pain in the joints. DERMATOLOGICAL: Some bruising. HEMATOLOGICAL: None. LYMPHATICS: None. PSYCHIATRY: Forgetful. NEUROLOGICAL: Generalized weakness. PAST MEDICAL HISTORY: 1. Parkinson's disease. 2. COPD. 3. Rheumatoid arthritis. 4. Coronary artery disease with stent. 5. Medical debility. 6. Rheumatoid lung disease. 7. Restrictive lung disease. 8. Secondary moderate pulmonary hypertension. 9. Bilateral kidney stones. 10.Chronic kidney disease. 11.Hiatal hernia. 12.Duodenal ulcer. 13.Macular degeneration, bilateral. 14.Chronic tinnitus. 15.Melanoma. PAST SURGICAL HISTORY: 1. AICD in 2018. 2. Cardiac cath with stent. Three stents in 2013. 3. Right carotid endarterectomy. 4. Right total knee. 5. Lithotripsy in 2011. 6. Cataract removal with lens implant. 7. Melanoma removed from the neck. PSYCH HISTORY: Depression. SOCIAL HISTORY: Lives with his . Has a walker. 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 The patient did smoke for 35 years, stopped in 1988. No alcohol. FAMILY HISTORY: Mother of esophageal cancer. HOME MEDICATIONS: 1. Wellbutrin 75 mg p.o. b.i.d. 2. PreserVision Areds-2 soft gel 1 tablet p.o. b.i.d. 3. Zocor 20 mg at bedtime. 4. Nitrostat 0.4 sublingually q.5 p.r.n. 5. Midodrine 10 mg p.o. t.i.d. 6. Lopressor 12.5 p.o. at bedtime. 7. Xalatan 0.005% one drop to both eyes at bedtime. 8. Lasix 20 mg p.o. daily p.r.n. 9. Florinef 0.2 mg p.o. daily. 10.Aspirin 81 mg p.o. daily. 11.Ventolin 2.5 mg b.i.d. p.r.n. 12.Orencia 750 mg IV piggyback every 28 days. ALLERGIES: 1. LODINE. 2. GRAPE. 3. PENICILLIN. 4. GRAPE FLAVOR. PHYSICAL EXAMINATION: VITAL SIGNS ON PRESENTATION: Temperature 97.8, pulse 78, respiration 18, blood pressure 125/92, pulse ox 93% on room air. GENERAL APPEARANCE: Thin build. Sitting up. A bit anxious-appearing. EYES: Pupils equal. Conjunctivae normal. HEENT: External appearance of nose and ears normal. Oral cavity normal. NECK: JVD not raised. Mass not palpable. RESPIRATORY: Effort normal. LUNGS: Slightly decreased breath sounds. CARDIOVASCULAR: First and second sounds normal. No edema. ABDOMEN: Soft, non-tender. Liver and spleen not palpable. LYMPHATIC: No lymph node palpable in neck or axillae. PSYCHIATRY: Knows his name. Does not know why he is here or what place this is or who brought him in. NEUROLOGICAL: Pupils equal. No facial asymmetry. Slight cogwheel rigidity, though able to move all his limbs. INVESTIGATIONS: White count 10.6, hemoglobin 14.4, platelets 264. Potassium 5.1, BUN 26, creatinine 1.11. Troponin I 0.04, 0.056. Two-D echocardiogram shows severe global hypokinesis with EF of 20% to 25%. EKG tracing, personally reviewed by me, shows diffuse ST-segment depression from V1 through V6. CT scan of the brain shows cerebral atrophy. Chest x-ray film, personally reviewed by me, shows some cardiomegaly. ASSESSMENT: 1. Possible acute rsk-NR-cxucsdakm myocardial infarction. 2. Chronic congestive heart failure from systolic dysfunction, ejection fraction 30% to 35%, with underlying coronary artery disease. 3. Syncope, likely from orthostatic hypotension from autonomic dysfunction and underlying Parkinson's disease. 4. Idiopathic Parkinson's disease. 5. Chronic obstructive pulmonary disease in an ex-smoker. 6. Coronary artery disease with prior history of stent. 7. Chronic medical debility. 8. Essential hypertension. 9. Hyperlipidemia. PLAN: The patient was put on IV heparin, aspirin, beta leny. Home medications are reviewed and renewed. Will space out the patient's Florinef to 0.1 mg twice a day. Patient will be managed medically. Will have Physical Therapy and Occupational Therapy see the patient. Currently no family is present here. Overall prognosis is guarded. MMODL / IJN: [id number] /
[2019-03-17] MEDS: FLUDROCORTISONE 0.1 MG TAB PO SCH ×3 (00:11→21:09)
[2019-03-17] MEDS: MIDODRINE 5 MG TAB PO SCH ×3 (06:38→17:19)
[2019-03-17 06:42] LABS: Calcium 9.4 mg/dL (8.4-10.2); Potassium 3.8 mmol/L (3.5-5.1)
[2019-03-17] MEDS: ASPIRIN 325 MG TAB PO SCH (09:18)
[2019-03-17] MEDS: METOPROLOL TARTRATE 50 MG TAB PO SCH ×2 (09:19→21:09)
[2019-03-17] MEDS: LISINOPRIL 5 MG TAB PO SCH (09:19)
--- NOTE | 2019-03-17 16:43 | P.PN ---
Subjective Progress Note Date: 03/17/19 This is a 78-year-old gentleman followed by Dr. 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 Patient is bedridden most of the time. His ejection fraction on past echo has been 20-25%, coronary stent is as a friend hypertension, hyperlipidemia, he is a nonsmoker and nondiabetic. She was noted to have abnormality in troponin with EKG changes suggesting a non-ST elevation myocardial infarction. Dr. Portillo did have a discussion with JUVENTINO Velazquez in the decision was made to maximize his medications at this time. He was seen and examined this morning, at pressure 150/70 with a heart rate in the 60s, 95% on room air. Objective - Vital Signs Vital signs: Vital Signs Temp 98.4 F 03/17/19 04:00 Pulse 55 L 03/17/19 12:00 Resp 20 03/17/19 12:00 BP 160/73 03/17/19 12:00 Pulse Ox 94 L 03/17/19 12:00 Intake & Output 03/16/19 03/17/19 03/17/19 18:59 06:59 18:59 Intake Total 1500 200.263 720 Output Total 450 300 Balance 1500 -249.737 420 Weight 64.3 kg 68 kg Intake: IV 640 Sodium Chloride 0.9% 1, 640 000 ml @ 80 mls/hr IV . [id number] ESTEBAN Rx#:[id number] Intake, IV Titration 200.263 Amount Heparin Sod,Pork in 0.45% 200.263 NaCl 25,000 unit In 0.45 % NaCl 1 250ml.bag @ 11 UNITS/KG/HR 9.38 mls/hr IV .Q24H ESTEBAN Rx#: [id number] Oral 860 720 Output: Urine 450 300 Other: Voiding Method Urinal Urinal Urinal Diaper Diaper Diaper # Voids 2 1 # Bowel Movements 1 1 - Exam PHYSICAL EXAMINATION: GENERAL: 88-year-old gentleman in no acute distress at the time of my examination HEENT: Head is atraumatic, normocephalic. Pupils equal, round. Sclera anicteric. Conjunctiva are clear. Mucous membranes of the mouth are moist. Neck is supple. There is no elevated jugular venous pressure. No carotid bruit is heard. HEART EXAMINATION: S1 and S2 1 systolic ejection murmur is heard CHEST EXAMINATION: Lungs are clear to auscultation and precussion. No chest wall tenderness is noted on palpation or with deep breathing. ABDOMEN: Soft, nontender. Bowel sounds are heard. No organomegaly noted. EXTREMITIES: 2+ peripheral pulses with no evidence of peripheral edema and no calf tenderness noted. NEUROLOGIC patient is awake, alert and oriented 2 . - Labs CBC & Chem 7: 03/15/19 20:23 03/17/19 06:15 Labs: Abnormal Lab Results - Last 24 Hours (Table) 03/17/19 03/17/19 Range/Units 06:15 06:15 APTT 56.0 H (22.0-30.0) sec Chloride 111 H (98-107) mmol/L BUN 25 H (9-20) mg/dL Assessment and Plan Plan: Assessment and plan #1 syncope most likely related to orthostatic hypotension, worsened by autonomic dysfunction related to Parkinson's #2 EKG changes with mild abnormality in troponin consistent with non-ST elevation [place], maximum medical therapy advised #3 known history of coronary artery disease with multivessel stenting #4 severe ischemic cardio myopathy with prior AICD #5 history of supine hypertension #6 history of stroke Plan From cardiology's perspective, we will interrogate the patient's AICD continue with his current medications. DNP note has been reviewed, I agree with a documented findings and plan of care. Patient was seen and examined.
[2019-03-17] MEDS: HEPARIN SOD,PORK IN 0.45% NACL 25,000 UNIT in 0.45% NACL 1 250ML.BAG IV SCH (21:08)
[2019-03-17] MEDS: ATORVASTATIN 10 MG TAB PO SCH (21:09)
[2019-03-18 02:15] VITALS: RESP 18
[2019-03-18] MEDS: MIDODRINE 5 MG TAB PO SCH ×3 (05:23→19:02)
--- NOTE | 2019-03-18 07:57 | PN ---
PROGRESS NOTE DATE OF SERVICE: 03/17/2019 PRESENTING COMPLAINT: Passed out. INTERVAL HISTORY: The patient presented with acute sfl-OQ-ndprpaknj myocardial infarction. Also, syncope, felt to be from orthostatic hypotension from autonomic dysfunction. The patient has been managed medically. Did tolerate some diet. is present. REVIEW OF SYSTEMS: Done for constitutional, cardiovascular, GI, pulmonary; relevant findings as above. CURRENT MEDICATIONS: Current medications are reviewed that include IV heparin. PHYSICAL EXAMINATION: On examination, temperature 98.4, pulse 56, respiration 18, blood pressure 149/72, pulse ox 93% on room air GENERAL APPEARANCE: Sitting up, tired appearing. EYES: Pupils equal. Conjunctivae normal. NECK: JVD not raised. Mass not palpable. RESPIRATORY: Effort normal. LUNGS: Diminished breath sounds. CARDIOVASCULAR: First and second sounds normal. No edema. ABDOMEN: Soft, nontender. Liver and spleen not palpable. PSYCHIATRY: Able to answer simple questions. INVESTIGATIONS: Potassium 3.8. ASSESSMENT: 1. Acute iuz-DR-eiyzhcfrs myocardial infarction. 2. Chronic congestive heart failure from systolic dysfunction, ejection fraction 30% to 35% from underlying coronary artery disease. 3. Syncope likely from autonomic dysfunction from underlying Parkinson disease. 4. Idiopathic Parkinson disease. 5. Chronic obstructive pulmonary disease in an ex-smoker. 6. Coronary artery disease with prior history of stent. 7. Chronic medical debility. 8. Essential hypertension. 9. Hyperlipidemia. PLAN: To continue current medication and treatment plan. There is no chest pain. We will stop patient's IV heparin. I had a very lengthy discussion with the patient and . Did talk to the and the patient that the patient will eventually need long-term placement and they should start working on that now because of patient's Parkinson disease and does find it difficult to manage. They both agreeable to the same. In the meantime, we will see if patient will be candidate for inpatient rehab, PT, OT. turntable worker has been contacted. Hopefully patient can be discharged tomorrow to rehab. MMODL / IJN: [id number] /
[2019-03-18] MEDS: ASPIRIN 325 MG TAB PO SCH (09:04)
[2019-03-18] MEDS: METOPROLOL TARTRATE 50 MG TAB PO SCH ×2 (09:04→20:18)
[2019-03-18] MEDS: FLUDROCORTISONE 0.1 MG TAB PO SCH ×2 (09:04→20:18)
[2019-03-18] MEDS: LISINOPRIL 5 MG TAB PO SCH (09:04)
[2019-03-18 15:04] VITALS: BMI 19.2
--- NOTE | 2019-03-18 15:56 | P.PN ---
Subjective Progress Note Date: 03/18/19 This is a 78-year-old gentleman followed by Dr. 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 Patient is bedridden most of the time. His ejection fraction on past echo has been 20-25%, coronary stent is as a friend hypertension, hyperlipidemia, he is a nonsmoker and nondiabetic. She was noted to have abnormality in troponin with EKG changes suggesting a non-ST elevation myocardial infarction. Dr. Portillo did have a discussion with JUVENTINO Velazquez in the decision was made to maximize his medications at this time. He was seen and examined this morning, at pressure 150/70 with a heart rate in the 60s, 95% on room air. 03/18/2019 Patient seen and examined this morning, doing well overall. He has been up standing at the bedside with physical therapy but not up in the chair yet today. We will encourage physical therapy to assist in getting in the chair today, his AICD was interrogated and did not appear to be any significant arrhythmias. Objective - Vital Signs Vital signs: Vital Signs Temp 98 F 03/18/19 08:00 Pulse 70 03/18/19 08:00 Resp 18 03/18/19 08:00 BP 177/86 03/18/19 08:00 Pulse Ox 94 L 03/18/19 08:00 Intake & Output 03/17/19 03/18/19 03/18/19 18:59 06:59 18:59 Intake Total 720 463.713 80 Output Total 300 120 330 Balance 420 343.713 -250 Weight 66 kg 66 kg Intake: Intake, IV Titration 223.713 Amount Heparin Sod,Pork in 0.45% 223.713 NaCl 25,000 unit In 0.45 % NaCl 1 250ml.bag @ 11 UNITS/KG/HR 9.38 mls/hr IV .Q24H ESTEBAN Rx#: [id number] Oral 720 240 80 Output: Urine 300 120 330 Other: Voiding Method Urinal Urinal Urinal Diaper Diaper Diaper # Voids 2 # Bowel Movements 1 0 - Exam PHYSICAL EXAMINATION: GENERAL: 88-year-old gentleman in no acute distress at the time of my examination HEENT: Head is atraumatic, normocephalic. Pupils equal, round. Sclera anicteric. Conjunctiva are clear. Mucous membranes of the mouth are moist. Neck is supple. There is no elevated jugular venous pressure. No carotid bruit is heard. HEART EXAMINATION: S1 and S2 1 systolic ejection murmur is heard CHEST EXAMINATION: Lungs are clear to auscultation and precussion. No chest wall tenderness is noted on palpation or with deep breathing. ABDOMEN: Soft, nontender. Bowel sounds are heard. No organomegaly noted. EXTREMITIES: 2+ peripheral pulses with no evidence of peripheral edema and no calf tenderness noted. NEUROLOGIC patient is awake, alert and oriented 2 . - Labs CBC & Chem 7: 03/15/19 20:23 03/17/19 06:15 Assessment and Plan Plan: Assessment and plan #1 syncope most likely related to orthostatic hypotension, worsened by autonomic dysfunction related to Parkinson's #2 EKG changes with mild abnormality in troponin consistent with non-ST elevation [place], maximum medical therapy advised #3 known history of coronary artery disease with multivessel stenting #4 severe ischemic cardio myopathy with prior AICD #5 history of supine hypertension #6 history of stroke Plan From cardiology's perspective, we'll continue current medications, plan for possible discharge home in the morning. DNP note has been reviewed, I agree with a documented findings and plan of care. Patient was seen and examined.
--- NOTE | 2019-03-18 16:02 | DS ---
DISCHARGE SUMMARY DATE OF ADMISSION: 03/15/2019 DATE OF DISCHARGE: 03/18/2019 FINAL DIAGNOSES: 1. Acute hin-DE-kyxqsxcyp myocardial infarction, POA. 2. Chronic congestive heart failure from systolic dysfunction, ejection fraction 20% to 25%, with underlying ischemic heart disease. 3. Syncope from autonomic dysfunction from underlying Parkinson's disease. 4. Idiopathic Parkinson's disease. 5. Chronic obstructive pulmonary disease in an ex-smoker. 6. Coronary artery disease with prior history of stent. 7. Chronic medical debility. 8. Essential hypertension. 9. Hyperlipidemia. 10.Hypertensive heart disease. CONSULTATION: Dr. Portillo from Cardiology. HOSPITAL COURSE: This is a 78-year-old patient with multiple medical problems who presented after having passed out. The patient is somewhat weak and dizzy at baseline. Passing out was felt to be from patient's autonomic dysfunction from Parkinson's disease. The patient was also felt to have an acute non-Q-wave myocardial infarction. He was managed medically. No chest pain. Two-D echo showing EF of 20% to 25% and severe global hypokinesis. PHYSICAL EXAMINATION: Temperature 98, pulse 70, respiration 18, blood pressure 158/76. Patient has been orthostatic. LUNGS: Fair air entry. CARDIOVASCULAR: First and second sounds normal. BUN 25, creatinine 1.09. DISCHARGE MEDICATIONS: 1. Nitrostat 0.4 sublingually q.5 p.r.n. 2. Orencia 750 mg IV piggyback every 28 days. 3. Xalatan 0.005% one drop to both eyes at bedtime. 4. Ventolin 2.5 b.i.d. p.r.n. 5. Lopressor 12.5 p.o. at bedtime. 6. Aspirin 81 mg p.o. daily. 7. Lasix 20 mg p.o. daily p.r.n. 8. PreserVision Areds-2 one tablet p.o. b.i.d. 9. Florinef 0.1 mg p.o. b.i.d. 10.Midodrine 10 mg t.i.d. 11.Zocor 20 mg at bedtime. 12.Wellbutrin 75 mg p.o. b.i.d. DISPOSITION: [facility]. Follow up with Dr. Caba. Follow up with Dr. Carrizales after discharge from the [facility]. Follow up with Cardiology in 2 to 3 weeks. MMGRANTL / IJN: [id number] /
--- NOTE | 2019-03-18 16:05 | DS ---
DISCHARGE SUMMARY ADDENDUM TO DISCHARGE SUMMARY: DATE OF ADMISSION: 03/18/2019 DATE OF DISCHARGE: 03/18/2019 ADDENDUM: These are patient's corrected discharge medications: 1. Nitrostat 0.4 sublingually q.5 p.r.n. 2. Orencia 750 mg IV piggyback q.28 days. 3. Xalatan 0.005% one drop to both eyes at bedtime. 4. Ventolin 2.5 mg b.i.d. p.r.n. 5. Aspirin 81 mg p.o. daily. 6. Lasix 20 mg daily p.r.n. 7. PreserVision Areds 2 Soft Gel one tablet p.o. b.i.d. 8. Midodrine 10 mg p.o. t.i.d. 9. Simvastatin 20 mg at bedtime. 10.Wellbutrin 75 mg p.o. b.i.d. 11.Florinef 0.1 mg b.i.d. 12.Zestril 5 mg p.o. daily. 13.Lopressor 25 mg b.i.d. MMGRANTL / BANDARN: [id number] /
[2019-03-18] MEDS: ATORVASTATIN 10 MG TAB PO SCH (20:18)
[2019-03-19] MEDS: MIDODRINE 5 MG TAB PO SCH ×2 (06:47→13:07)
[2019-03-19] MEDS: ASPIRIN 325 MG TAB PO SCH (08:57)
[2019-03-19] MEDS: METOPROLOL TARTRATE 50 MG TAB PO SCH (08:57)
[2019-03-19] MEDS: FLUDROCORTISONE 0.1 MG TAB PO SCH (08:57)
[2019-03-19] MEDS: LISINOPRIL 5 MG TAB PO SCH (08:57)
--- NOTE | 2019-03-19 12:49 | P.PN ---
Subjective Progress Note Date: 03/19/19 This is a 78-year-old gentleman followed by Dr. 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 Patient is bedridden most of the time. His ejection fraction on past echo has been 20-25%, coronary stent is as a friend hypertension, hyperlipidemia, he is a nonsmoker and nondiabetic. She was noted to have abnormality in troponin with EKG changes suggesting a non-ST elevation myocardial infarction. Dr. Portillo did have a discussion with JUVENTINO Velazquez in the decision was made to maximize his medications at this time. He was seen and examined this morning, at pressure 150/70 with a heart rate in the 60s, 95% on room air. 03/18/2019 Patient seen and examined this morning, doing well overall. He has been up standing at the bedside with physical therapy but not up in the chair yet today. We will encourage physical therapy to assist in getting in the chair today, his AICD was interrogated and did not appear to be any significant arrhythmias. 03/19/2019 Patient was seen and examined this morning, overall doing well. He has sat up in the chair, breathing is stable, anticipating transferred to [facility] today. Objective - Vital Signs Vital signs: Vital Signs Temp 97.9 F 03/19/19 08:00 Pulse 57 L 03/19/19 08:00 Resp 18 03/19/19 08:00 BP 185/81 03/19/19 08:00 Pulse Ox 92 L 03/19/19 08:00 Intake & Output 03/18/19 03/19/19 03/19/19 18:59 06:59 18:59 Intake Total 340 80 Output Total 330 100 Balance 10 -100 80 Weight 66 kg 66.5 kg Intake: Oral 340 80 Output: Urine 330 100 Other: Voiding Method Urinal Urinal Urinal Diaper Diaper Diaper # Voids 2 1 # Bowel Movements 0 - Exam PHYSICAL EXAMINATION: GENERAL: 88-year-old gentleman in no acute distress at the time of my examination HEENT: Head is atraumatic, normocephalic. Pupils equal, round. Sclera anicteri c. Conjunctiva are clear. Mucous membranes of the mouth are moist. Neck is supple. There is no elevated jugular venous pressure. No carotid bruit is heard. HEART EXAMINATION: S1 and S2 1 systolic ejection murmur is heard CHEST EXAMINATION: Lungs are clear to auscultation and precussion. No chest wall tenderness is noted on palpation or with deep breathing. ABDOMEN: Soft, nontender. Bowel sounds are heard. No organomegaly noted. EXTREMITIES: 2+ peripheral pulses with no evidence of peripheral edema and no calf tenderness noted. NEUROLOGIC patient is awake, alert and oriented 2 . - Labs CBC & Chem 7: 03/15/19 20:23 03/17/19 06:15 Assessment and Plan Plan: Assessment and plan #1 syncope most likely related to orthostatic hypotension, worsened by autonomic dysfunction related to Parkinson's #2 EKG changes with mild abnormality in troponin consistent with non-ST elevation [place], maximum medical therapy advised #3 known history of coronary artery disease with multivessel stenting #4 severe ischemic cardio myopathy with prior AICD #5 history of supine hypertension #6 history of stroke Plan From cardiology's perspective, we'll continue current medications, plan for transfer to [facility] today. DNP note has been reviewed, I agree with a documented findings and plan of care. Patient was seen and examined.
--- NOTE | 2019-03-19 12:51 | DS ---
DISCHARGE SUMMARY ADDENDUM TO DISCHARGE SUMMARY: DATE OF ADMISSION: 03/15/2019 DATE OF DISCHARGE: 03/19/2019 DATE OF SERVICE: 03/18/2019 MMODL / IJN: [id number] /
[2019-03-19 13:06] VITALS: BP 183/89; PULSE 54; TEMP 98
[2019-03-20] MEDS ORDERED: LISINOPRIL 10 MG TAB PO SCH (09:00)
== END 2019-03-19 17:14 | DRG 281 ==
LOC: EC 19:28 → 2SICU 23:08 → 3SCARD 03-16 17:15
PROVIDERS: ADMIT Hospitalist; ATTEND Hospitalist
DX: I21.4 Non-ST elevation (NSTEMI) myocardial infarction (principal); I50.22 Chronic systolic (congestive) heart failure; I25.5 Ischemic cardiomyopathy; G20 Parkinson's disease; I27.20 Pulmonary hypertension, unspecified; J44.9 Chronic obstructive pulmonary disease, unspecified; I11.0 Hypertensive heart disease with heart failure; G90.9 Disorder of the autonomic nervous system, unspecified; M05.10 Rheumatoid lung disease with rheumatoid arthritis of unspecified site; E78.5 Hyperlipidemia, unspecified; H35.30 Unspecified macular degeneration; I25.10 Atherosclerotic heart disease of native coronary artery without angina pectoris; I25.2 Old myocardial infarction; I95.1 Orthostatic hypotension; R91.1 Solitary pulmonary nodule; K21.9 Gastro-esophageal reflux disease without esophagitis; F32.9 Major depressive disorder, single episode, unspecified; K44.9 Diaphragmatic hernia without obstruction or gangrene; H93.13 Tinnitus, bilateral; Z74.01 Bed confinement status; Z79.82 Long term (current) use of aspirin; Z79.899 Other long term (current) drug therapy; Z95.810 Presence of automatic (implantable) cardiac defibrillator; Z86.73 Personal history of transient ischemic attack (TIA), and cerebral infarction without residual deficits; Z85.820 Personal history of malignant melanoma of skin; Z87.11 Personal history of peptic ulcer disease; Z87.442 Personal history of urinary calculi; Z87.891 Personal history of nicotine dependence; Z95.5 Presence of coronary angioplasty implant and graft; Z96.651 Presence of right artificial knee joint; Z88.0 Allergy status to penicillin; Z88.8 Allergy status to other drugs, medicaments and biological substances; Z91.018 Allergy to other foods; Z98.42 Cataract extraction status, left eye; Z98.41 Cataract extraction status, right eye; Z96.1 Presence of intraocular lens; Z80.0 Family history of malignant neoplasm of digestive organs; Z82.49 Family history of ischemic heart disease and other diseases of the circulatory system
CPT/HCPCS: 36415; 70450; 71046; 80048; 80053; 80061; 81001; 83735; 84484; 85025; 85610; 85730; 93005; 93306; 96361; 96374; 96375; 99285

== ENCOUNTER 2019-04-23 11:45 | Inpatient (IN) | payer MEDICARE ==
--- NOTE | 2019-04-23 12:11 | ED ---
General Adult HPI - General Source: patient, RN notes reviewed Mode of arrival: EMS Limitations: no limitations <Dylan Mcclelland - Last Filed: 04/23/19 18:01> <Anderson Garcias - Last Filed: 04/23/19 18:10> - General Chief complaint: Fall Stated complaint: Fall, L shoulder pain Time Seen by Provider: 04/23/19 11:50 - History of Present Illness Initial comments: 79-year-old male with a complicated past medical history presents to the emergency department for a chief complaint of fall. Patient states this occurred just prior to arrival. Patient states he has a history of Parkinson's and has balance problems. States his leg gave out which happens to him from time to time. Denies any weakness. Patient did hit his head on the left side. No loss of consciousness. Patient also complaining of left shoulder and hip pain. Patient currently in c-collar.Patient has no other complaints at this time including shortness of breath, chest pain, abdominal pain, nausea or vomiting, headache, or visual changes. (Dylan Mcclelland) - Related Data Home Medications Medication Instructions Recorded Confirmed Albuterol Nebulized [Ventolin 2.5 mg INHALATION RT-BID PRN 08/09/18 04/23/19 Nebulized] Aspirin [Adult Low Dose Aspirin EC] 81 mg PO DAILY 11/03/18 04/23/19 Vit C/E/Zn/Coppr/Lutein/Zeaxan 1 tab PO BID 01/19/19 04/23/19 [Preservision Areds 2 Softgel] buPROPion [Wellbutrin] 75 mg PO BID 03/15/19 04/23/19 Atorvastatin [Lipitor] 10 mg PO HS 04/23/19 04/23/19 Furosemide [Lasix] 20 mg PO DAILY@0600 04/23/19 04/23/19 Lactose-Reduced Food [Boost] 237 ml PO DAILY 04/23/19 04/23/19 Latanoprost/Pf [Latanoprost 0.005% 1 drop BOTH EYES HS 04/23/19 04/23/19 Eye Drop] Lisinopril [Zestril] 10 mg PO DAILY 04/23/19 04/23/19 Midodrine HCl [ProAmatine] 10 mg PO TID 04/23/19 04/23/19 Oxybutynin Xl [Ditropan Xl] 5 mg PO DAILY 04/23/19 04/23/19 Potassium Chloride [Klor-Con 10] 10 meq PO DAILY@0600 04/23/19 04/23/19 Z-Guard 1 applic TOPICAL BID 04/23/19 04/23/19 Previous Rx's Medication Instructions Recorded Nitroglycerin Sl Tabs [Nitrostat] 0.4 mg SUBLINGUAL Q5M PRN #30 tab 08/26/14 Fludrocortisone [Florinef] 0.1 mg PO BID tab 03/18/19 Metoprolol Tartrate [Lopressor] 25 mg PO BID #0 03/18/19 Allergies Allergy/AdvReac Type Severity Reaction Status Date / Time etodolac [From Lodine] Allergy Rash/Hives Verified 04/23/19 12:26 grape Allergy Rash/Hives Verified 04/23/19 12:26 Penicillins Allergy Rash/Hives Verified 04/23/19 12:26 grape flavor Allergy Rash/Hives Uncoded 04/23/19 12:26 Review of Systems ROS Other: All systems not noted in ROS Statement are negative. <Dylan Mcclelland - Last Filed: 04/23/19 18:01> ROS Other: All systems not noted in ROS Statement are negative. <Anderson Garcias - Last Filed: 04/23/19 18:10> ROS Statement: Those systems with pertinent positive or pertinent negative responses have been documented in the HPI. Past Medical History Past Medical History: COPD, CVA/TIA, Eye Disorder, GERD/Reflux, Hyperlipidemia, Hypertension, Myocardial Infarction (TN), Renal Disease, Respiratory Disorder, Rheumatoid Arthritis (RA) Additional Past Medical History / Comment(s): Rheumatoid lung disease, restrictive ventilatory impairment, lung nodules, moderate pulmonary HTN, bilateral nephrolithiasis, renal insufficiency, hiatal hernia, duodenal ulcers, macular degeneration bilaterally, tinnitis bilaterally, was told with [facility] that he had a TN at some time-undetermined date, balance affected after CVA , 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 Last Myocardial Infarction Date:: unkn History of Any Multi-Drug Resistant Organisms: None Reported Past Surgical History: AICD, Heart Catheterization With Stent, Joint Replacement Additional Past Surgical History / Comment(s): 11/05/18 AICD, 07/2014 Cardiac cath with stents x 3, R caratid endartectomy, total R knee, lithotripsy 2011, cataract removal with lens implants bilaterally, colonoscopy/EGD, melanoma removed neck. Past Anesthesia/Blood Transfusion Reactions: No Reported Reaction Date of Last Stent Placement:: jul 2014 Type of Cardiac Device: AICD Device Placement Date:: 11/05/18 Past Psychological History: No Psychological Hx Reported, Depression Smoking Status: Former smoker - Past Family History Father Family Medical History: Pulmonary Embolus Additional Family Medical History / Comment(s): Father of a PE at age 51 yrs. Mother Family Medical History: Cancer Additional Family Medical History / Comment(s): Hx. mother of esophagus cancer at age 86yrs. Son(s) Family Medical History: Cancer <Dylan Mcclelland P - Last Filed: 04/23/19 18:01> General Exam Limitations: no limitations General appearance: alert, in no apparent distress Head exam: Present: atraumatic (Do not see any hematomas or evidence of trauma on his head), normocephalic, normal inspection Eye exam: Present: normal appearance, PERRL, EOMI. Absent: scleral icterus, conjunctival injection, periorbital swelling ENT exam: Present: normal exam, normal oropharynx, mucous membranes moist, TM's normal bilaterally, normal external ear exam Neck exam: Present: normal inspection. Absent: tenderness, meningismus, lymphadenopathy Respiratory exam: Present: normal lung sounds bilaterally. Absent: respiratory distress, wheezes, rales, rhonchi, stridor Cardiovascular Exam: Present: regular rate, normal rhythm, normal heart sounds. Absent: systolic murmur, diastolic murmur, rubs, gallop, clicks GI/Abdominal exam: Present: soft, normal bowel sounds. Absent: distended, tenderness, guarding, rebound, rigid Neurological exam: Present: alert, oriented X3, CN II-XII intact Psychiatric exam: Present: normal affect, normal mood <Dylan Mcclelland - Last Filed: 04/23/19 18:01> - General Exam Comments Initial Comments: Left shoulder: Patient is able to flex and abduct her left shoulder about 30 before having pain. Radial pulses 2+. Capillary refill less than 2 seconds. No obvious deformity. Skin intact. Left hip: Patient does have full range of motion of the left hip but complains of pain with flexion. DP pulse 2+. Capillary refill less than 2 seconds. (Dylan Mcclelland) Course Vital Signs 04/23/19 04/23/19 04/23/19 11:55 13:39 15:04 Temperature 97.0 F L Pulse Rate 69 Respiratory 16 20 22 Rate Blood Pressure 163/97 160/101 166/97 O2 Sat by Pulse 97 90 L 95 Oximetry EKG Findings - EKG Comments: EKG Findings:: Sinus rhythm, ventricular rate 68, irritable to 20, QTC 427, no evidence of ST elevation <Dylan Mcclelland - Last Filed: 04/23/19 18:01> Medical Decision Making - Lab Data Result diagrams: 04/23/19 16:32 04/23/19 16:32 <Dylan Mcclelland - Last Filed: 04/23/19 18:01> - Lab Data Result diagrams: 04/23/19 16:32 04/23/19 16:32 <Anderson Garcias - Last Filed: 04/23/19 18:10> - Medical Decision Making 79-year-old male with a computed past medical history presents to the emergency department for a chief complaint of fall. This occurred just prior to arrival. States he has history of Parkinson's and has balance problems. This time his leg gave out from under him which does happen him to time. Denies weakness. No loss of consciousness. Currently in c-collar. Patient does have left shoulder pain with limited mobility as well as left sided rib pain. No abdominal tenderness. CT brain shows age-related atrophic and small vessel ischemic change without acute intracranial process seen. CT C-spine shows no evidence of fracture or subluxation. X-ray of the left shoulder shows no acute osseous abnormality. X-ray of the left hip shows no acute fracture or dislocation. X- ray of the left ribs shows nondisplaced fractures of the left anterolateral and lateral fifth and 10th ribs.Chest x-ray shows multifocal patchy and confluent airspace disease. Correlate for possible etiologies including pulmonary edema, multifocal pneumonia, interstitial pneumonitis, hypersensitivity pneumonitis. Patient does have a history of CHF and did have an NSTEMI one month ago. Denies cough or fever but does admit to shortness of breath over the past several days. BNP 106,000. CXR findings Likely related to pulmonary edema, patient started on IV Lasix. Lab work was ordered at that time. CBC unremarkable. CMP unremarkable as well. Troponin did come back at 0.040, this will be trended. Likely secondary to acute CHF exacerbation. At this time patient will be a dmitted for rib fractures, CHF exacerbation, pulmonary edema further management. (Dylan Mcclelland) Hospitalist, Dr. Raphael notify of admission. (Anderson Garcias) - Lab Data Lab Results 04/23/19 04/23/19 04/23/19 Range/Units 16:32 16:32 16:32 WBC 12.1 H (3.8-10.6) k/uL RBC 3.66 L (4.30-5.90) m/uL Hgb 11.1 L (13.0-17.5) gm/dL Hct 36.0 L (39.0-53.0) % MCV 98.4 (80.0-100.0) fL MCH 30.3 (25.0-35.0) pg MCHC 30.8 L (31.0-37.0) g/dL RDW 14.5 (11.5-15.5) % Plt Count 319 (150-450) k/uL Neutrophils % 78 % Lymphocytes % 10 % Monocytes % 6 % Eosinophils % 4 % Basophils % 0 % Neutrophils # 9.4 H (1.3-7.7) k/uL Lymphocytes # 1.2 (1.0-4.8) k/uL Monocytes # 0.7 (0-1.0) k/uL Eosinophils # 0.5 (0-0.7) k/uL Basophils # 0.0 (0-0.2) k/uL Hypochromasia Slight Sodium 139 (137-145) mmol/L Potassium 4.2 (3.5-5.1) mmol/L Chloride 102 (98-107) mmol/L Carbon Dioxide 31 H (22-30) mmol/L Anion Gap 6 mmol/L BUN 26 H (9-20) mg/dL Creatinine 1.24 (0.66-1.25) mg/dL Est GFR (CKD-EPI)AfAm 64 (>60 ml/min/1.73 sqM) Est GFR (CKD-EPI)NonAf 55 (>60 ml/min/1.73 sqM) Glucose 83 (74-99) mg/dL Plasma Lactic Acid Faisal 1.1 (0.7-2.0) mmol/L Calcium 8.9 (8.4-10.2) mg/dL Magnesium 1.9 (1.6-2.3) mg/dL Total Bilirubin 0.7 (0.2-1.3) mg/dL AST 41 (17-59) U/L ALT 29 (21-72) U/L Alkaline Phosphatase 138 H (38-126) U/L Troponin I (0.000-0.034) ng/mL NT-Pro-B Natriuret Pep pg/mL Total Protein 5.6 L (6.3-8.2) g/dL Albumin 2.8 L (3.5-5.0) g/dL 04/23/19 04/23/19 Range/Units 16:32 16:32 WBC (3.8-10.6) k/uL RBC (4.30-5.90) m/uL Hgb (13.0-17.5) gm/dL Hct (39.0-53.0) % MCV (80.0-100.0) fL MCH (25.0-35.0) pg MCHC (31.0-37.0) g/dL RDW (11.5-15.5) % Plt Count (150-450) k/uL Neutrophils % % Lymphocytes % % Monocytes % % Eosinophils % % Basophils % % Neutrophils # (1.3-7.7) k/uL Lymphocytes # (1.0-4.8) k/uL Monocytes # (0-1.0) k/uL Eosinophils # (0-0.7) k/uL Basophils # (0-0.2) k/uL Hypochromasia Sodium (137-145) mmol/L Potassium (3.5-5.1) mmol/L Chloride (98-107) mmol/L Carbon Dioxide (22-30) mmol/L Anion Gap mmol/L BUN (9-20) mg/dL Creatinine (0.66-1.25) mg/dL Est GFR (CKD-EPI)AfAm (>60 ml/min/1.73 sqM) Est GFR (CKD-EPI)NonAf (>60 ml/min/1.73 sqM) Glucose (74-99) mg/dL Plasma Lactic Acid Faisal (0.7-2.0) mmol/L Calcium (8.4-10.2) mg/dL Magnesium (1.6-2.3) mg/dL Total Bilirubin (0.2-1.3) mg/dL AST (17-59) U/L ALT (21-72) U/L Alkaline Phosphatase (38-126) U/L Troponin I 0.040 H* (0.000-0.034) ng/mL NT-Pro-B Natriuret Pep [id number] pg/mL Total Protein (6.3-8.2) g/dL Albumin (3.5-5.0) g/dL Disposition Is patient prescribed a controlled substance at d/c from ED?: No Time of Disposition: 17:58 <Dylan Mcclelland - Last Filed: 04/23/19 18:01> <Anderson Garcias - Last Filed: 04/23/19 18:10> Clinical Impression: CHF (congestive heart failure), Pulmonary edema Disposition: ADMITTED IP TO THIS HOSP Condition: Fair Referrals: Jose David Cox MD [Primary Care Provider] - 1-2 days
--- NOTE | 2019-04-23 13:45 | CT ---
EXAMINATION TYPE: CT brain jaylyn ross con DATE OF EXAM: 04/23/2019 COMPARISON: 03/15/2019 HISTORY: Fall today. CT DLP: 1441.[address] of the brain was performed. The ventricles, basal cisterns and sulci overlying the cerebral convexities demonstrate moderate enla rgement. There is no evidence for intracranial hemorrhage or sulcal effacement. There is decreased attenuatio n about the periventricular white matter and deep white matter of both cerebral hemispheres, compatib le with chronic small vessel ischemia. No mass effects are seen. If symptoms persist consider MRI. Osseous calvarium is intact. Frontal soft tissue scalp nodule continues to enlarge. IMPRESSION: 1. Age related atrophic and chronic small vessel ischemic change without acute intracranial process seen at this time. CT Cervical Spine: Unenhanced CT of the cervical spine was performed with bone and soft tissue window settings submitted . Coronal and sagittal reconstruction is obtained. There is normal alignment and prevertebral soft tissues. No evidence for acute cervical fracture . Scattered degenerative disc disease and spondylosis. Biapical scarring. IMPRESSION: 1. No evidence for acute fracture or subluxation of the cervical spine.
[2019-04-23] MEDS ORDERED: MORPHINE SULFATE 4 MG/ML SYRINGE IM STA (14:06)
--- NOTE | 2019-04-23 14:41 | XR ---
EXAMINATION TYPE: XR Hip LT and AP Pelvis DATE OF EXAM: 04/23/2019 CLINICAL HISTORY: pain TECHNIQUE: AP and frogleg views of the left hip are obtained. The pelvis is also submitted. COMPARISON: None. FINDINGS: There is no acute fracture/dislocation evident. The joint space appears within normal li mits. The overlying soft tissue appears unremarkable. Aneurysmal dilatation of the left common iliac artery. IMPRESSION: 1. There is no acute fracture or dislocation.ICD 10 NO FRACTURE, INITIAL EVALUATION
--- NOTE | 2019-04-23 14:45 | XR ---
EXAMINATION TYPE: XR chest 1V DATE OF EXAM: 04/23/2019 COMPARISON: 03/15/2019 HISTORY: 79-year-old male with pain TECHNIQUE: Single frontal view of the chest is obtained. FINDINGS: Left anterior chest wall ICD generator with right ventricular lead. Heart mildly enlarged. Multifocal patchy and confluent airspace opacities with some Briseida B lines and suspected small effusions. IMPRESSION: Multifocal patchy and confluent airspace disease. Correlate for possible etiologies including pulmona ry edema, multifocal pneumonia, interstitial pneumonitis, hypersensitivity pneumonitis, etc.
--- NOTE | 2019-04-23 14:47 | XR ---
EXAMINATION TYPE: XR ribs LT DATE OF EXAM: 04/23/2019 COMPARISON: NONE HISTORY: 79-year-old male with fall and pain TECHNIQUE: 6 views FINDINGS: Left-sided pacemaker generator obscures portions of the left-sided ribs. Nondisplaced fracture of the left lateral 10th rib. Chest discussed separately. Possible nondisplaced fracture of the left yoni lateral fifth rib. IMPRESSION: Nondisplaced fractures of the left anterolateral and lateral fifth and 10th ribs.
--- NOTE | 2019-04-23 14:49 | XR ---
EXAMINATION TYPE: XR shoulder complete LT DATE OF EXAM: 04/23/2019 COMPARISON: NONE HISTORY: 79-year-old male with pain after fall TECHNIQUE: 3 views FINDINGS: AC joint appears intact. Subacromial space is preserved. No acute fracture, subluxation, or dislocati on seen. IMPRESSION: No acute osseous abnormality seen.
[2019-04-23] MEDS ORDERED: MORPHINE SULFATE 4 MG/ML SYRINGE IVP STA (16:44)
[2019-04-23 16:47] LABS: Basophils % (A) 0 %; Eosinophils # (A) 0.5 k/uL (0-0.7); Eosinophils % (A) 4 %; HGB 11.1 gm/dL (13.0-17.5); Hypochromasia Slight; Lymphocytes # (A) 1.2 k/uL (1.0-4.8); Lymphocytes % (A) 10 %; MCH 30.3 pg (25.0-35.0); MCHC 30.8 g/dL (31.0-37.0); MCV 98.4 fL (80.0-100.0); Mean Platelet Volume 8.7; Monocytes # (A) 0.7 k/uL (0-1.0); Monocytes % (A) 6 %; Neutrophils # (A) 9.4 k/uL (1.3-7.7); Neutrophils % (A) 78 %; Platelet Count 319 k/uL (150-450); RBC 3.66 m/uL (4.30-5.90); RDW 14.5 % (11.5-15.5); WBC 12.1 k/uL (3.8-10.6)
[2019-04-23 16:53] LABS: Albumin 2.8 g/dL (3.5-5.0); Calcium 8.9 mg/dL (8.4-10.2); Magnesium 1.9 mg/dL (1.6-2.3); Potassium 4.2 mmol/L (3.5-5.1); Total Bilirubin 0.7 mg/dL (0.2-1.3); Total Protein 5.6 g/dL (6.3-8.2)
[2019-04-23] MEDS ORDERED: FUROSEMIDE 10 MG/ML 4 ML VIAL IV STA (17:18)
[2019-04-23] MEDS ORDERED: MORPHINE SULFATE 2 MG/ML SYRINGE IVP PRN ×2 (18:03→22:15)
[2019-04-23] MEDS: FUROSEMIDE 10 MG/ML 4 ML VIAL IV SCH (19:48)
[2019-04-23] MEDS ORDERED: NITROGLYCERIN SL TABS 0.4 MG TAB SUBLINGUAL PRN (22:08)
[2019-04-23] MEDS ORDERED: ALBUTEROL NEBULIZED 2.5 MG/3 ML INHALATION PRN (22:08)
--- NOTE | 2019-04-23 22:08 | P.HPIM ---
History of Present Illness H&P Date: 04/23/19 Patient is a 79-year-old male with a past medical history of parkinsonism, hypertension, hyperlipidemia, CAD with systolic ischemic cardiomyopathy status post AICD, COPD, and C daily presented to the ED from [facility] [place] where the patient was admitted for physical therapy and rehabilitation. The history was provided by the at the bedside (power of white spooler). She reports that her had been gradually improving while at the facility though attempted to walk earlier today unassisted and subsequently had a fall. The patient did report hitting his head on the left side along with his chest and hip and shoulder. EMS was subsequently called and the patient was brought to the ED. The patient had received morphine for his pain in the ED and was lethargic and unable to provide a history during the time of interview. The further reported chronic cough productive of small amounts of white phlegm with no recent changes. She is also noted that the patient did not report any chest pain or shortness of breath prior to the fall. She also denied him mentioning any fevers, chills, or abdominal pain. The patient underwent a comprehensive evaluation in the emergency room with shoulder and hip/pelvic x-ray which were unremarkable for fractures. Head/cervical spine CT revealed chronic small vessel ischemic changes and no cervical spine fractures. Chest x-ray revealed airspace disease with possible pulmonary edema. Rib x-rays revealed a left 5th and 10th nondisplaced rib fractures. Laboratory evaluation revealed troponin of 0.040 and BNP elevated at 106,000. WBC count was 12.1, hemoglobin 11.1, BUN 26, and creatinine 1.24. Review of Systems Pertinent positives and negatives as discussed in HPI, a complete review of systems was performed and all other systems are negative. Past Medical History Past Medical History: COPD, CVA/TIA, Eye Disorder, GERD/Reflux, Hyperlipidemia, Hypertension, Myocardial Infarction ([place]), Renal Disease, Respiratory Disorder, Rheumatoid Arthritis (RA) Additional Past Medical History / Comment(s): Rheumatoid lung disease, restrictive ventilatory impairment, lung nodules, moderate pulmonary HTN, bilateral nephrolithiasis, renal insufficiency, hiatal hernia, duodenal ulcers, macular degeneration bilaterally, tinnitis bilaterally, was told with [facility] that he had a ME at some time-undetermined date, balance affected after CVA , bethany franco on neck removed, possible parkinson's disease. Last Myocardial Infarction Date:: unkn History of Any Multi-Drug Resistant Organisms: None Reported Past Surgical History: AICD, Heart Catheterization With Stent, Joint Replacement Additional Past Surgical History / Comment(s): 11/05/18 AICD, 07/2014 Cardiac cath with stents x 3, R caratid endartectomy, total R knee, lithotripsy 2011, cataract removal with lens implants bilaterally, colonoscopy/EGD, melanoma removed neck. Past Anesthesia/Blood Transfusion Reactions: No Reported Reaction Date of Last Stent Placement:: jul 2014 Type of Cardiac Device: AICD Device Placement Date:: 11/05/18 Past Psychological History: No Psychological Hx Reported, Depression Smoking Status: Former smoker - Past Family History Father Family Medical History: Pulmonary Embolus Additional Family Medical History / Comment(s): Father of a PE at age 51 yrs. Mother Family Medical History: Cancer Additional Family Medical History / Comment(s): Hx. mother of esophagus c ancer at age 86yrs. Son(s) Family Medical History: Cancer Medications and Allergies Home Medications Medication Instructions Recorded Confirmed Type Nitroglycerin Sl Tabs [Nitrostat] 0.4 mg SUBLINGUAL Q5M PRN #30 tab 08/26/14 04/23/19 Rx Albuterol Nebulized [Ventolin 2.5 mg INHALATION RT-BID PRN 08/09/18 04/23/19 H istory Nebulized] Aspirin [Adult Low Dose Aspirin EC] 81 mg PO DAILY 11/03/18 04/23/19 History Vit C/E/Zn/Coppr/Lutein/Zeaxan 1 tab PO BID 01/19/19 04/23/19 History [Preservision Areds 2 Softgel] buPROPion [Wellbutrin] 75 mg PO BID 03/15/19 04/23/19 History Fludrocortisone [Florinef] 0.1 mg PO BID tab 03/18/19 04/23/19 Rx Metoprolol Tartrate [Lopressor] 25 mg PO BID #0 03/18/19 04/23/19 Rx Atorvastatin [Lipitor] 10 mg PO HS 04/23/19 04/23/19 History Furosemide [Lasix] 20 mg PO DAILY@0600 04/23/19 04/23/19 History Lactose-Reduced Food [Boost] 237 ml PO DAILY 04/23/19 04/23/19 History Latanoprost/Pf [Latanoprost 0.005% 1 drop BOTH EYES HS 04/23/19 04/23/19 History Eye Drop] Lisinopril [Zestril] 10 mg PO DAILY 04/23/19 04/23/19 History Midodrine HCl [ProAmatine] 10 mg PO TID 04/23/19 04/23/19 History Oxybutynin Xl [Ditropan Xl] 5 mg PO DAILY 04/23/19 04/23/19 History Potassium Chloride [Klor-Con 10] 10 meq PO DAILY@0600 04/23/19 04/23/19 History Z-Guard 1 applic TOPICAL BID 04/23/19 04/23/19 History Allergies Allergy/AdvReac Type Severity Reaction Status Date / Time etodolac [From [facility]] Allergy Rash/Hives Verified 04/23/19 12:26 grape Allergy Rash/Hives Verified 04/23/19 12:26 Penicillins Allergy Rash/Hives Verified 04/23/19 12:26 grape flavor Allergy Rash/Hives Uncoded 04/23/19 12:26 Physical Exam Vitals: Vital Signs Temp Pulse Resp BP Pulse Ox 04/23/19 20:49 98.8 F 62 18 158/82 97 04/23/19 18:37 68 22 166/97 90 L 04/23/19 15:04 22 166/97 95 04/23/19 13:39 20 160/101 90 L 04/23/19 11:55 97.0 F L 69 16 163/97 97 Intake and Output 04/23/19 04/23/19 04/23/19 06:59 14:59 22:59 Other: # Voids 2 Weight 71.214 kg General: non toxic, no distress, appears at stated age, normal weight Derm: no unusual rashes/lesions no unusual ecchymoses, warm, dry Head: atraumatic, normocephalic, symmetric Eyes: EOMI, no lid lag, anicteric sclera, pupils equal round reactive to light ENT: Nose and ears atraumatic, no thrush, no pharyngeal erythema Neck: No thyromegaly, no cervical lymphadenopathy, trachea midline, supple Mouth: no lip lesion, mucus membranes moist Cardiovascular: S1S2 reg, no murmur, positive posterior tibial pulse bilateral, 2+ bilateral lower extremity pitting edema, capillary refill less than 2 seconds Lungs: Bilateral basilar rales, no coarse breath sounds appreciated, no accessory muscle use Abdominal: soft, nontender to palpation, no guarding, no appreciable organomegaly, normal bowel sounds Ext: no gross muscle atrophy, moving all extremities , no contractures Neuro: patient is lethargic and not following all commands, unable to the fully perform neurological evaluation, cogwheel rigidity noted throughout Psych: Lethargic, oriented only to self Results CBC & Chem 7: 04/23/19 16:32 04/23/19 16:32 Labs: Abnormal Lab Results - Last 24 Hours (Table) 04/23/19 04/23/19 04/23/19 Range/Units 16:32 16:32 16:32 WBC 12.1 H (3.8-10.6) k/uL RBC 3.66 L (4.30-5.90) m/uL Hgb 11.1 L (13.0-17.5) gm/dL Hct 36.0 L (39.0-53.0) % MCHC 30.8 L (31.0-37.0) g/dL Neutrophils # 9.4 H (1.3-7.7) k/uL Carbon Dioxide 31 H (22-30) mmol/L BUN 26 H (9-20) mg/dL Alkaline Phosphatase 138 H (38-126) U/L Troponin I 0.040 H* (0.000-0.034) ng/mL Total Protein 5.6 L (6.3-8.2) g/dL Albumin 2.8 L (3.5-5.0) g/dL Assessment and Plan Plan: Fall, subsequent rib fractures, in setting of Parkinsonism -Continue with pain control -Fall precautions -PT consult - reports that the patient follows regularly with his neurologist and has had a progressive course of Parkinson's. She reports that patient is not on Sinemet is being managed on Fludrocortisone and Midodrine. -Incentive spirometer Mild systolic CHF exacerbation -Continue with Lasix IV push -Monitor I's and O's -Daily weights -Fluid restriction -Monitor BMP and replace electrolytes as needed Troponin elevation -Likely secondary to CHF exacerbation -Trend and monitor CKD -Monitor BMP DVT prophylaxis -Heparin The patient is admitted with an anticipated greater than 2 midnight stay for evaluation of fall. CODE STATUS:Full code Discussed with: Anticipated discharge date: 04/25/[address]: Rehab facility ([facility]) A total of 45 minutes was spent on the care of this complex patient more than 50% of the time was spent in counseling and care coordination. Time with Patient: Greater than 30
[2019-04-23] MEDS: HEPARIN SODIUM,PORCINE 5,000 UNIT/ML 1 ML VIAL SQ SCH (23:54)
[2019-04-24] MEDS: FUROSEMIDE 10 MG/ML 4 ML VIAL IV SCH ×3 (02:09→17:56)
[2019-04-24] MEDS: POTASSIUM CHLORIDE ER 10 MEQ TAB.ER.PRT PO SCH (05:44)
[2019-04-24 07:01] LABS: HCT 37.2 % (39.0-53.0); HGB 11.4 gm/dL (13.0-17.5); Hypochromasia Moderate; MCH 30.8 pg (25.0-35.0); MCHC 30.6 g/dL (31.0-37.0); MCV 100.6 fL (80.0-100.0); Macrocytosis Slight; Mean Platelet Volume 8.8; Platelet Count 269 k/uL (150-450); RDW 14.4 % (11.5-15.5)
[2019-04-24 07:12] LABS: Calcium 8.8 mg/dL (8.4-10.2); Magnesium 1.9 mg/dL (1.6-2.3); Potassium 4.1 mmol/L (3.5-5.1)
[2019-04-24] MEDS: ASPIRIN 81 MG PO SCH (08:54)
[2019-04-24] MEDS: HEPARIN SODIUM,PORCINE 5,000 UNIT/ML 1 ML VIAL SQ SCH ×2 (08:54→22:10)
[2019-04-24] MEDS: MIDODRINE 5 MG TAB PO SCH ×2 (08:54→15:27)
[2019-04-24] MEDS: METOPROLOL TARTRATE 25 MG TAB PO SCH (08:54)
[2019-04-24] MEDS: LISINOPRIL 10 MG TAB PO SCH (08:54)
[2019-04-24] MEDS: OXYBUTYNIN XL 5 MG TAB.ER.24 PO SCH (08:54)
[2019-04-24] MEDS: buPROPion 75 MG TAB PO SCH (08:54)
[2019-04-24] MEDS ORDERED: FLUDROCORTISONE 0.1 MG TAB PO SCH (09:00)
--- NOTE | 2019-04-24 12:03 | P.PN ---
Subjective Progress Note Date: 04/24/19 Principal diagnosis: Patient is a 79-year-old male with a past medical history of parkinsonism, hypertension, hyperlipidemia, CAD with systolic ischemic cardiomyopathy status post AICD, COPD, and C daily presented to the ED from [facility] where the patient was admitted for physical therapy and rehabilitation. The history was provided by the at the bedside (power of criminal attorney). She reports that her had been gradually improving while at the facility though attempted to walk earlier today unassisted and subsequently had a fall Patient seen and examined at bedside, sleeping pretty somnolent but arousable, at bedside reports that this is patient's baseline given his worsening progressive Parkinson's disease. Objective - Vital Signs Vital signs: Vital Signs Temp 98.1 F 04/24/19 04:00 Pulse 76 04/24/19 08:54 Resp 18 04/24/19 08:54 BP 142/84 04/24/19 08:54 Pulse Ox 95 04/24/19 08:54 Intake & Output 04/23/19 04/24/19 04/24/19 18:59 06:59 18:59 Intake Total 80 Output Total 1500 100 Balance -1420 -100 Weight 71.214 kg 66.5 kg Intake: Oral 80 Output: Urine 1500 100 Uretheral (Marte) 100 100 Other: Voiding Method Indwelling Catheter Indwelling Catheter # Voids 2 - Exam General: non toxic, no distress, appears at stated age, normal weight Derm: no unusual rashes/lesions no unusual ecchymoses, warm, dry Head: atraumatic, normocephalic, symmetric Eyes: EOMI, no lid lag, anicteric sclera, pupils equal round reactive to light ENT: Nose and ears atraumatic, no thrush, no pharyngeal erythema Neck: No thyromegaly, no cervical lymphadenopathy, trachea midline, supple Mouth: no lip lesion, mucus membranes moist Cardiovascular: S1S2 reg, no murmur, positive posterior tibial pulse bilateral, 2+ bilateral lower extremity pitting edema, capillary refill less than 2 seconds Lungs: Bilateral basilar rales, no coarse breath sounds appreciated, no accessory muscle use Abdominal: soft, nontender to palpation, no guarding, no appreciable organomegaly, normal bowel sounds Ext: no gross muscle atrophy, moving all extremities , no contractures Neuro: patient is lethargic and not following all commands, unable to the fully perform neurological evaluation, cogwheel rigidity noted throughout Psych: Lethargic, oriented only to self - Labs CBC & Chem 7: 04/24/19 06:19 04/24/19 06:19 Labs: Abnormal Lab Results - Last 24 Hours (Table) 04/23/19 04/23/19 04/23/19 Range/Units 16:32 16:32 16:32 WBC 12.1 H (3.8-10.6) k/uL RBC 3.66 L (4.30-5.90) m/uL Hgb 11.1 L (13.0-17.5) gm/dL Hct 36.0 L (39.0-53.0) % MCV (80.0-100.0) fL MCHC 30.8 L (31.0-37.0) g/dL Neutrophils # 9.4 H (1.3-7.7) k/uL Carbon Dioxide 31 H (22-30) mmol/L BUN 26 H (9-20) mg/dL Creatinine (0.66-1.25) mg/dL Alkaline Phosphatase 138 H (38-126) U/L Troponin I 0.040 H* (0.000-0.034) ng/mL Total Protein 5.6 L (6.3-8.2) g/dL Albumin 2.8 L (3.5-5.0) g/dL 04/23/19 04/24/19 04/24/19 Range/Units 23:21 06:19 06:19 WBC 11.0 H (3.8-10.6) k/uL RBC 3.70 L (4.30-5.90) m/uL Hgb 11.4 L (13.0-17.5) gm/dL Hct 37.2 L (39.0-53.0) % MCV 100.6 H (80.0-100.0) fL MCHC 30.6 L (31.0-37.0) g/dL Neutrophils # (1.3-7.7) k/uL Carbon Dioxide (22-30) mmol/L BUN (9-20) mg/dL Creatinine (0.66-1.25) mg/dL Alkaline Phosphatase (38-126) U/L Troponin I 0.048 H* 0.056 H* (0.000-0.034) ng/mL Total Protein (6.3-8.2) g/dL Albumin (3.5-5.0) g/dL 04/24/19 Range/Units 06:19 WBC (3.8-10.6) k/uL RBC (4.30-5.90) m/uL Hgb (13.0-17.5) gm/dL Hct (39.0-53.0) % MCV (80.0-100.0) fL MCHC (31.0-37.0) g/dL Neutrophils # (1.3-7.7) k/uL Carbon Dioxide 38 H (22-30) mmol/L BUN 24 H (9-20) mg/dL Creatinine 1.42 H (0.66-1.25) mg/dL Alkaline Phosphatase (38-126) U/L Troponin I (0.000-0.034) ng/mL Total Protein (6.3-8.2) g/dL Albumin (3.5-5.0) g/dL Assessment and Plan Plan: Fall, subsequent rib fractures, in setting of Parkinsonism -Continue with pain control -Fall precautions -PT consult - reports that the patient follows regularly with his neurologist and has had a progressive course of Parkinson's. She reports that patient is not on Sinemet is being managed on Fludrocortisone and Midodrine. -Incentive spirometer Mild systolic CHF exacerbation -Continue with Lasix IV push -Monitor I's and O's -Daily weights -Fluid restriction -Monitor BMP and replace electrolytes as needed Troponin elevation -Likely secondary to CHF exacerbation -Trend and monitor CKD -Monitor BMP DVT prophylaxis -Heparin
[2019-04-24] MEDS ORDERED: HYDROcodone/APAP 5-325MG 1 EACH TAB PO PRN (12:10)
--- NOTE | 2019-04-24 13:25 | P.CRDCN ---
History of Present Illness Consult date: 04/24/19 Reason for Consult (text): CHF/Pulmonary edema Chief complaint: CHF/pulmonary edema History of present illness: HISTORY OF PRESENT ILLNESS AND PLAN: This is a [79]-year-old [male] with history of COPD, CVA, TIA, GERD, HTN, hyperlipidemia, [place], CAD, rheumatoid arthritis and recent hospital admission for non-STEMI/CHF one month ago. Patient well-known to Dr. JUVENTINO Velazquez and follows closely in office for Parkinson's/balance problems/ischemic cardiomyopathy/orthostatic hypotension/autonomic dysfunction. Patient presents in the emergency department with complaints of [falling just prior to arrival with associated left shoulder, left hip, left rib pain. Patient did hit his head but had no loss of consciousness. Patient currently in no acute distress but very confused, not easily aroused. remains at bedside. states patient remains confused, currently unable to eat or drink due to confusion. Patient currently sinus rhythm sinus tach on monitor, vital signs stable, WNL O2 on 2 L nasal cannula. Afebrile. states patient only complains about rib pain/left shoulder pain. Patient remains symptomatic with orthostatics at home and balance problems. states patient is not currently eating or drinking. Patient has Marte catheter]. SIGNIFICANT PAST MEDICAL HISTORY: [COPD, CVA, TIA, GERD, HTN, hyperlipidemia, [place], CAD, rheumatoid arthritis and recent hospital admission for non-STEMI/CHF one month ago. Patient well-known to Dr. JUVENTINO Velazquez N follows closely in office for Parkinson's/balance problems/ischemic cardiomyopathy/orthostatic hypotension/autonomic dysfunction.] PAST SURGICAL HISTORY: See list. EKG shows [SR], heart rate [65] bpm. Troponins positive x [3]. SIGNIFICANT LABORATORY VALUES: [WBC 11.0. , Hgb 11.4 HCT 37.2. CO2 38 high. BUN 24, CR 1.42. Troponin 0.040, 0.048, 0.056. BNP 106,000.]. Chest x-ray [Multifocal patchy airspace disease. Pulmonary edema and multi- focal pneumonia]. Most recent echo dated 03/16/2019 = indicates [EF 20-25%, LA dilated. Mild AR. Mild MR. Mild TR. ]. REVIEW OF SYSTEMS: CONSTITUTIONAL: [Denies fever. Denies chills. Unable to answer questions at this time] EYES: Denies blurred vision. [Denies blurred vision or vision changes. Denies eye pain.] EARS, NOSE, MOUTH & THROAT: [Denies headache. Denies sore throat. Denies ear pain Denies hemoptysis.] CARDIOVASCULAR: [Denies chest pain. Denies shortness of breath. Denies orthopnea. Denies PND. Denies palpitations.] RESPIRATORY: [Complains of cough. Denies shortness of breath. ] GASTROINTESTINAL: [Denies abdominal pain or distention. Denies diarrhea. Denies constipation. Denies nausea. Denies vomiting.] MUSCULOSKELETAL: [Complains of myalgias.] INTEGUMENTARY: [Denies pruitis. Denies rash.] ENDOCRINE: [Denies fatigue. Denies weight change. Denies polydipsia. Denies polyurina Denies heat/cold intolerance.] GENITOURINARY:[ Denies burning, hematuria or urgency with micturation.] HEMATOLOGIC: [Denies history of anemia. Denies bleeding.] NEUROLOGIC: [Denies numbness. Denies tingling. Denies weakness.] PSYCHIATRIC: [Denies anxiety. Denies depression.] PHYSICAL EXAM: VITAL SIGNS: WNL. GENERAL: Well developed, in no acute distress. Patient confused and unable to answer questions HEENT: Head is atraumatic, normocephalic. Pupils are equal, round. Extra ocular movements intact. Mucous membranes moist. Neck supple. No JVD. No carotid bruit. No thyromegaly. LUNGS: Auscultation reveals wheezes and rhonchi. No chest wall tenderness on palpation or with deep breathing. HEART: Regular rate and rhythm, no rubs or gallops. S1 and S2 heard. No murmur. ABDOMEN: Abdominal exam, WNL. Bowel sounds x4 quads. Soft, non-tender, without masses, organomegaly, or abdominal aorta enlargement. EXTREMITIES/VASCULAR: Extremities have easily palpable radial, femoral, dorsalis pedis and posterior tibial pulses. No cyanosis, calf tenderness. No BLE edema. NEUROLOGIC: Patient is awake, alert and oriented x3. No focal neurologic abnormalities. FINAL IMPRESSION: 1. [Acute on chronic systolic HF, ]. 2. [CAD status post PCI with troponin elevation]. 3. [Orthostatic hypotension]. 4. [Pneumonia]. 5. [Parkinson's with Fall and rib fracture]. PLAN: [Stop Florinef. Keep IV Lasix 40 mg IV every 8 hours and continue diuresing. Heparin 5000units Q 12 hours. Continue same all medical medication regime. Will follow along. Thank you kindly for this consult.] Nurse Practitioner note has been reviewed by the Physician. Signing provider agrees with the documented findings, assessment and plan of care. Past Medical History Past Medical History: COPD, CVA/TIA, Eye Disorder, GERD/Reflux, Hyperlipidemia, Hypertension, Myocardial Infarction (WI), Renal Disease, Respiratory Disorder, Rheumatoid Arthritis (RA) Additional Past Medical History / Comment(s): Rheumatoid lung disease, restrictive ventilatory impairment, lung nodules, moderate pulmonary HTN, bilateral nephrolithiasis, renal insufficiency, hiatal hernia, duodenal ulcers, macular degeneration bilaterally, tinnitis bilaterally, was told with [facility] that he had a WI at some time-undetermined date, balance affected after CVA , 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 Last Myocardial Infarction Date:: unkn History of Any Multi-Drug Resistant Organisms: None Reported Past Surgical History: AICD, Heart Catheterization With Stent, Joint Replacement Additional Past Surgical History / Comment(s): 11/05/18 AICD, 07/2014 Cardiac cath with stents x 3, R caratid endartectomy, total R knee, lithotripsy 2011, cataract removal with lens implants bilaterally, colonoscopy/EGD, melanoma removed neck. Past Anesthesia/Blood Transfusion Reactions: No Reported Reaction Date of Last Stent Placement:: jul 2014 Type of Cardiac Device: AICD Device Placement Date:: 11/05/18 Past Psychological History: No Psychological Hx Reported, Depression Smoking Status: Former smoker - Past Family History Father History Unknown: Yes Family Medical History: Pulmonary Embolus Additional Family Medical History / Comment(s): Father of a PE at age 51 yrs. Mother Family Medical History: Cancer Additional Family Medical History / Comment(s): Hx. mother of esophagus cancer at age 86yrs. Son(s) Family Medical History: Cancer Medications and Allergies Home Medications Medication Instructions Recorded Confirmed Type Nitroglycerin Sl Tabs [Nitrostat] 0.4 mg SUBLINGUAL Q5M PRN #30 tab 08/26/14 04/23/19 Rx Albuterol Nebulized [Ventolin 2.5 mg INHALATION RT-BID PRN 08/09/18 04/23/19 History Nebulized] Aspirin [Adult Low Dose Aspirin EC] 81 mg PO DAILY 11/03/18 04/23/19 History Vit C/E/Zn/Coppr/Lutein/Zeaxan 1 tab PO BID 01/19/19 04/23/19 History [Preservision Areds 2 Softgel] buPROPion [Wellbutrin] 75 mg PO BID 03/15/19 04/23/19 History Fludrocortisone [Florinef] 0.1 mg PO BID tab 03/18/19 04/23/19 Rx Metoprolol Tartrate [Lopressor] 25 mg PO BID #0 03/18/19 04/23/19 Rx Atorvastatin [Lipitor] 10 mg PO HS 04/23/19 04/23/19 History Furosemide [Lasix] 20 mg PO DAILY@59904/23/19 04/23/19 History Lactose-Reduced Food [Boost] 237 ml PO DAILY 04/23/19 04/23/19 History Latanoprost/Pf [Latanoprost 0.005% 1 drop BOTH EYES HS 04/23/19 04/23/19 History Eye Drop] Lisinopril [Zestril] 10 mg PO DAILY 04/23/19 04/23/19 History Midodrine HCl [ProAmatine] 10 mg PO TID 04/23/19 04/23/19 History Oxybutynin Xl [Ditropan Xl] 5 mg PO DAILY 04/23/19 04/23/19 History Potassium Chloride [Klor-Con 10] 10 meq PO DAILY@59904/23/19 04/23/19 History Z-Guard 1 applic TOPICAL BID 04/23/19 04/23/19 History Allergies Allergy/AdvReac Type Severity Reaction Status Date / Time etodolac [From Lodine] Allergy Rash/Hives Verified 04/23/19 12:26 grape Allergy Rash/Hives Verified 04/23/19 12:26 Penicillins Allergy Rash/Hives Verified 04/23/19 12:26 grape flavor Allergy Rash/Hives Uncoded 04/23/19 12:26 Physical Exam Vitals: Vital Signs Temp Pulse Pulse Resp BP BP Pulse Ox 04/24/19 12:00 97.9 F 65 18 135/81 95 04/24/19 08:54 76 18 142/84 95 04/24/19 04:00 98.1 F 71 16 127/72 94 L 04/24/19 03:35 16 04/24/19 00:00 74 16 04/23/19 23:52 97.8 F 74 16 151/88 97 04/23/19 21:55 98.3 F 71 18 138/85 94 L 04/23/19 20:49 98.8 F 62 18 158/82 97 04/23/19 18:37 68 22 166/97 90 L 04/23/19 15:04 22 166/97 95 04/23/19 13:39 20 160/101 90 L Intake and Output 04/23/19 04/24/19 04/24/19 22:59 06:59 14:59 Intake Total 80 Output Total 1500 100 Balance -1420 -100 Intake: Oral 80 Output: Urine 1500 100 Uretheral (Marte) 100 100 Other: Voiding Method Indwelling Catheter Indwelling Catheter # Voids 2 2 Weight 66.5 kg Results 04/24/19 06:19 04/24/19 06:19 Cardiac Enzymes 04/23/19 04/23/19 04/23/19 Range/Units 16:32 16:32 23:21 AST 41 (17-59) U/L Troponin I 0.040 H* 0.048 H* (0.000-0.034) ng/mL 04/24/19 Range/Units 06:19 AST (17-59) U/L Troponin I 0.056 H* (0.000-0.034) ng/mL CBC 04/23/19 04/24/19 Range/Units 16:32 06:19 WBC 12.1 H 11.0 H (3.8-10.6) k/uL RBC 3.66 L 3.70 L (4.30-5.90) m/uL Hgb 11.1 L 11.4 L (13.0-17.5) gm/dL Hct 36.0 L 37.2 L (39.0-53.0) % Plt Count 319 269 (150-450) k/uL Comprehensive Metabolic Panel 04/23/19 04/24/19 Range/Units 16:32 06:19 Sodium 139 141 (137-145) mmol/L Potassium 4.2 4.1 (3.5-5.1) mmol/L Chloride 102 98 (98-107) mmol/L Carbon Dioxide 31 H 38 H (22-30) mmol/L BUN 26 H 24 H (9-20) mg/dL Creatinine 1.24 1.42 H (0.66-1.25) mg/dL Glucose 83 78 (74-99) mg/dL Calcium 8.9 8.8 (8.4-10.2) mg/dL AST 41 (17-59) U/L ALT 29 (21-72) U/L Alkaline Phosphatase 138 H (38-126) U/L Total Protein 5.6 L (6.3-8.2) g/dL Albumin 2.8 L (3.5-5.0) g/dL Current Medications Generic Name Dose Route Start Last Admin Trade Name Freq PRN Reason Stop Dose Admin Hydrocodone Bitart/Acetaminophen 1 each 04/24/19 12:10 [place] 5-325 PO Q6HR PRN Pain Albuterol/Ipratropium 3 ml 04/24/19 12:00 Duoneb 0.5 Mg-3 Mg/3 Ml Soln INHALATION RT-Q4H [facility] Aspirin 81 mg 04/24/19 09:00 04/24/19 08:54 Aspirin PO 81 mg DAILY ESTEBAN Administration Atorvastatin Calcium 10 mg 04/24/19 21:00 Lipitor PO HS [facility] Bupropion HCl 75 mg 04/24/19 09:00 04/24/19 08:54 Wellbutrin PO 75 mg BID ESTEBAN Administration Fludrocortisone Acetate 0.1 mg 04/24/19 09:00 04/24/19 08:54 Florinef PO 0.1 mg BID ESTEBAN Administration Furosemide 40 mg 04/23/19 18:00 04/24/19 08:54 Lasix IV 40 mg Q8H [facility] Administration Heparin Sodium (Porcine) 5,000 unit 04/24/19 00:00 04/24/19 08:54 Heparin SQ 5,000 unit Q8HR ESTEBAN Administration Latanoprost 1 drops 04/24/19 21:00 Xalatan 0.005% BOTH EYES HS [facility] Lisinopril 10 mg 04/24/19 09:00 04/24/19 08:54 Zestril PO 10 mg DAILY ESTEBAN Administration Metoprolol Tartrate 25 mg 04/24/19 09:00 04/24/19 08:54 Lopressor PO 25 mg BID ESTEBAN Administration Midodrine 10 mg 04/24/19 09:00 04/24/19 08:54 Proamatine PO Not Given TID [facility] Nitroglycerin 0.4 mg 04/23/19 22:08 Nitrostat SUBLINGUAL Q5M PRN Chest Pain Oxybutynin Chloride 5 mg 04/24/19 09:00 04/24/19 08:54 Ditropan Xl PO Not Given DAILY [facility] Potassium Chloride 10 meq 04/24/19 06:00 04/24/19 05:44 K-Dur 10 PO 10 meq DAILY@0600 ESTEBAN Administration Intake and Output 04/23/19 04/24/19 04/24/19 22:59 06:59 14:59 Intake Total 80 Output Total 1500 100 Balance -1420 -100 Intake: Oral 80 Output: Urine 1500 100 Uretheral (Marte) 100 100 Other: Voiding Method Indwelling Catheter Indwelling Catheter # Voids 2 2 Weight 66.5 kg 04/24/19 06:19 04/24/19 06:19
--- NOTE | 2019-04-24 13:53 | XR ---
EXAMINATION TYPE: XR chest 2V DATE OF EXAM: 04/24/2019 HISTORY: pulmonary edema vs pna. REFERENCE: Previous study dated 03/15/2019. FINDINGS: There is a unipolar pacemaker place on the left. The heart is enlarged. There is mild vascular congestion and subtle interstitial change. I suspect a left effusion. There is left basilar airspace disease. There is colonic interposition in place on the right. IMPRESSION: 1. CARDIOMEGALY. 2. LEFT BASILAR AIRSPACE DISEASE. 3. LEFT-SIDED EFFUSION. 4. I CANNOT EXCLUDE A DEGREE OF CONGESTIVE HEART FAILURE.
[2019-04-24] MEDS: IPRATROPIUM-ALBUTEROL 3 ML NEB INHALATION SCH ×4 (14:01→23:51)
[2019-04-24] MEDS ORDERED: LORazepam 2 MG/ML INJ IM STA (21:35)
[2019-04-24] MEDS ORDERED: LORazepam 2 MG/ML INJ IV STA (21:36)
[2019-04-24] MEDS: LEVOFLOXACIN 750MG-D5W PMX 750 MG in DEXTROSE/WATER 1 150ML.BAG IVPB SCH (21:56)
[2019-04-24] MEDS: LATANOPROST 0.005% OPHTH DROPS 2.5 ML BTL BOTH EYES SCH (22:11)
[2019-04-25] MEDS: METOPROLOL TARTRATE 25 MG TAB PO SCH ×3 (00:36→20:04)
[2019-04-25] MEDS: ATORVASTATIN 10 MG TAB PO SCH ×2 (00:36→20:04)
[2019-04-25] MEDS: buPROPion 75 MG TAB PO SCH ×3 (00:36→20:04)
[2019-04-25] MEDS: MIDODRINE 5 MG TAB PO SCH ×4 (00:37→20:03)
[2019-04-25] MEDS: FUROSEMIDE 10 MG/ML 4 ML VIAL IV SCH (02:07)
[2019-04-25] MEDS: IPRATROPIUM-ALBUTEROL 3 ML NEB INHALATION SCH ×5 (03:30→21:14)
[2019-04-25] MEDS: POTASSIUM CHLORIDE ER 10 MEQ TAB.ER.PRT PO SCH (06:07)
[2019-04-25 06:51] LABS: Basophils % (A) 0 %; Eosinophils # (A) 0.2 k/uL (0-0.7); Eosinophils % (A) 2 %; HCT 38.4 % (39.0-53.0); Hypochromasia Slight; Lymphocytes # (A) 0.9 k/uL (1.0-4.8); Lymphocytes % (A) 9 %; MCH 30.7 pg (25.0-35.0); MCHC 31.3 g/dL (31.0-37.0); MCV 98.1 fL (80.0-100.0); Mean Platelet Volume 8.5; Monocytes # (A) 0.7 k/uL (0-1.0); Monocytes % (A) 7 %; Neutrophils # (A) 8.1 k/uL (1.3-7.7); Neutrophils % (A) 79 %; Platelet Count 246 k/uL (150-450); RBC 3.91 m/uL (4.30-5.90); RDW 14.4 % (11.5-15.5); WBC 10.2 k/uL (3.8-10.6)
[2019-04-25] MEDS: OXYBUTYNIN XL 5 MG TAB.ER.24 PO SCH (08:26)
[2019-04-25] MEDS: LISINOPRIL 10 MG TAB PO SCH (08:26)
[2019-04-25] MEDS: HEPARIN SODIUM,PORCINE 5,000 UNIT/ML 1 ML VIAL SQ SCH ×2 (08:27→20:03)
[2019-04-25] MEDS: ASPIRIN 81 MG PO SCH (08:27)
--- NOTE | 2019-04-25 09:35 | P.PN ---
Subjective Progress Note Date: 04/25/19 Principal diagnosis: Patient is a 79-year-old male with a past medical history of parkinsonism, hypertension, hyperlipidemia, CAD with systolic ischemic cardiomyopathy status post AICD, COPD, and C daily presented to the ED from [facility] where the patient was admitted for physical therapy and rehabilitation. The history was provided by the at the bedside (power of associate attorney). She reports that her had been gradually improving while at the facility though attempted to walk earlier today unassisted and subsequently had a fall Patient seen and examined, patient sitting up but somnolent but arousable. Apparently had some episodes of agitation and aggression last night likely sundowners. Appetite continues to be poor. is not present today. L eukocytosis has resolved that creatinine up to 1.42 today with serum bicarbonate 38 and patient is currently on Lasix, afebrile overnight Objective - Vital Signs Vital signs: Vital Signs Temp 97.7 F 04/25/19 08:15 Pulse 83 04/25/19 08:15 Resp 20 04/25/19 08:15 BP 110/79 04/25/19 08:15 Pulse Ox 93 L 04/25/19 08:15 Intake & Output 04/24/19 04/25/19 04/25/19 18:59 06:59 18:59 Intake Total 240 Output Total 1400 1400 Balance -1160 -1400 Weight 66.5 kg 61 kg Intake: Oral 240 Output: Urine 1400 1400 Uretheral (Marte) 1400 Other: Voiding Method Indwelling Catheter Indwelling Catheter Indwelling Catheter - Exam General: non toxic, no distress, appears at stated age, normal weight Derm: no unusual rashes/lesions no unusual ecchymoses, warm, dry Head: atraumatic, normocephalic, symmetric Eyes: EOMI, no lid lag, anicteric sclera, pupils equal round reactive to light ENT: Nose and ears atraumatic, no thrush, no pharyngeal erythema Neck: No thyromegaly, no cervical lymphadenopathy, trachea midline, supple Mouth: no lip lesion, mucus membranes moist Cardiovascular: S1S2 reg, no murmur, positive posterior tibial pulse bilateral, 1+ bilateral lower extremity pitting edema, capillary refill less than 2 seconds Lungs: Bilateral basilar rales, no coarse breath sounds appreciated, no accessory muscle use Abdominal: soft, nontender to palpation, no guarding, no appreciable organomegaly, normal bowel sounds Ext: no gross muscle atrophy, moving all extremities , no contractures Neuro: patient is lethargic and not following all commands, unable to the fully perform neurological evaluation, cogwheel rigidity noted throughout Psych: Lethargic, oriented only to self - Labs CBC & Chem 7: 04/25/19 06:02 04/24/19 06:19 Labs: Abnormal Lab Results - Last 24 Hours (Table) 04/25/19 Range/Units 06:02 RBC 3.91 L (4.30-5.90) m/uL Hgb 12.0 L (13.0-17.5) gm/dL Hct 38.4 L (39.0-53.0) % Neutrophils # 8.1 H (1.3-7.7) k/uL Lymphocytes # 0.9 L (1.0-4.8) k/uL Assessment and Plan Plan: Fall, subsequent rib fractures, in setting of Parkinsonism -Continue with pain control -Fall precautions -PT consult - reports that the patient follows regularly with his neurologist and has had a progressive course of Parkinson's. She reports that patient is not on Sinemet is being managed on Midodrine. -Incentive spirometer Left basilar Pneumonia * Initiated on empiric therapy with Levaquin day #2 * Patient afebrile leukocytosis resolved having decent saturations on 2 L via nasal cannula * Continue breathing treatments scheduled Mild systolic CHF exacerbation -IV Lasix discontinued patient's creatinine is elevated along with the serum bicarb transitioned to oral Lasix 40 mg by mouth daily -Monitor I's and O's -Daily weights -Fluid restriction -Monitor BMP and replace electrolytes as needed Acute delirium on underlying dementia * owners superimposed on infection due to pneumonia * Avoid Ativan we'll use half a milligram of Haldol when necessary agitation Troponin elevation -Likely secondary to CHF exacerbation -Trend and monitor CKD -Monitor BMP Deep vein thrombosis prophylaxis -Heparin Disposition * Anticipated discharge 1-2 days
--- NOTE | 2019-04-25 14:07 | P.PN ---
Subjective Progress Note Date: 04/25/19 Principal diagnosis: Falls/Acute on chronic CHF This is a [79]-year-old [male] with history of COPD, CVA, TIA, GERD, HTN, hyperlipidemia, [place], CAD, rheumatoid arthritis and recent hospital admission for non-STEMI/CHF one month ago. Patient well-known to Dr. JUVENTINO Velazquez and follows yenni karo in office for Parkinson's/balance problems/ischemic cardiomyopathy/orthostatic hypotension/autonomic dysfunction. Patient presents in the emergency department with complaints of [falling just prior to arrival with associated left shoulder, left hip, left rib pain. Patient did hit his head but had no loss of consciousness. Patient currently in no acute distress but very confused, not easily aroused. remains at bedside. states patient remains confused, currently unable to eat or drink due to confusion. Patient currently sinus rhythm sinus tach on monitor, vital signs stable, WNL O2 on 2 L nasal cannula. Afebrile. states patient only complains about rib pain/left shoulder pain. Patient remains symptomatic with orthostatics at home and balance problems. states patient is not currently eating or drinking. Patient has Marte catheter]. Progress note 04/25/2019 Patient currently alert and awake in no acute distress, calm and cooperative. Sitting in bed watching TV no current complaints of chest pain, chest pressure, shortness of breath or palpitations. SR on monitors, HR 60's. No edema. No complaints of pain. is not currently at bedside. Vital signs stable. Currently on 40 mg by mouth Lasix. Physical exam WNL. Continue same medical/medication regime. Family currently discussing hospice care. PHYSICAL EXAM: VITAL SIGNS: GENERAL: Well developed, in no acute distress. Confused at baseline HEENT: Head is atraumatic, normocephalic. Pupils are equal, round. Extra ocular movements intact. Mucous membranes moist. Neck supple. No JVD. No carotid bruit. No thyromegaly. LUNGS: Clear to auscultation no wheezes, rales or rhonchi. Diminished bases bilaterally. No chest wall tenderness on palpation or with deep breathing. HEART: Regular rate and rhythm, no rubs or gallops. S1 and S2 heard. No murmur. ABDOMEN: Abdominal exam, WNL. Bowel sounds x4 quads. Soft, non-tender, without masses, organomegaly, or abdominal aorta enlargement. EXTREMITIES/VASCULAR: Extremities have easily palpable radial, femoral, dorsalis pedis and posterior tibial pulses. No cyanosis, calf tenderness. No BLE edema. NEUROLOGIC: Patient is awake, alert and oriented x1. No focal neurologic abnormalities. FINAL IMPRESSION: 1. [Acute on chronic systolic HF, ]. 2. [CAD status post PCI with mild troponin elevation]. 3. [Orthostatic hypotension]. 4. [Pneumonia]. 5. [Parkinson's with Fall and rib fracture]. . Objective - Vital Signs Vital signs: Vital Signs Temp 97.7 F 04/25/19 08:15 Pulse 72 04/25/19 09:50 Resp 20 04/25/19 08:15 BP 110/79 04/25/19 08:15 Pulse Ox 93 L 04/25/19 08:15 Intake & Output 04/24/19 04/25/19 04/25/19 18:59 06:59 18:59 Intake Total 240 Output Total 1400 1400 Balance -1160 -1400 Weight 66.5 kg 61 kg Intake: Oral 240 Output: Urine 1400 1400 Uretheral (Marte) 1400 Other: Voiding Method Indwelling Catheter Indwelling Catheter Indwelling Catheter - Labs CBC & Chem 7: 04/25/19 06:02 04/24/19 06:19 Labs: Abnormal Lab Results - Last 24 Hours (Table) 04/25/19 Range/Units 06:02 RBC 3.91 L (4.30-5.90) m/uL Hgb 12.0 L (13.0-17.5) gm/dL Hct 38.4 L (39.0-53.0) % Neutrophils # 8.1 H (1.3-7.7) k/uL Lymphocytes # 0.9 L (1.0-4.8) k/uL
[2019-04-25] MEDS ORDERED: LEVOFLOXACIN 750 MG TAB PO SCH (20:00)
[2019-04-25] MEDS: LATANOPROST 0.005% OPHTH DROPS 2.5 ML BTL BOTH EYES SCH (20:03)
[2019-04-25] MEDS ORDERED: FUROSEMIDE 10 MG/ML 4 ML VIAL IV SCH (21:00)
[2019-04-25] MEDS: LEVOFLOXACIN 750MG-D5W PMX 750 MG in DEXTROSE/WATER 1 150ML.BAG IVPB SCH (21:22)
[2019-04-26] MEDS: IPRATROPIUM-ALBUTEROL 3 ML NEB INHALATION SCH ×7 (00:12→23:26)
[2019-04-26] MEDS: HALOPERIDOL LACTATE 5 MG/ML 1 ML VIAL IVP PRN ×2 (05:05→18:59)
[2019-04-26] MEDS ORDERED: FUROSEMIDE 20 MG TAB PO SCH (06:00)
[2019-04-26] MEDS: FUROSEMIDE 40 MG TAB PO SCH ×2 (06:23→08:48)
[2019-04-26] MEDS: POTASSIUM CHLORIDE ER 10 MEQ TAB.ER.PRT PO SCH (06:23)
[2019-04-26] MEDS ORDERED: LORazepam 2 MG/ML INJ IV STA (06:36)
[2019-04-26] MEDS ORDERED: LORazepam 2 MG/ML INJ IV PRN (06:37)
[2019-04-26 08:09] LABS: Basophils % (A) 0 %; Eosinophils # (A) 0.3 k/uL (0-0.7); Eosinophils % (A) 3 %; HCT 40.5 % (39.0-53.0); HGB 12.2 gm/dL (13.0-17.5); Hypochromasia Slight; Lymphocytes # (A) 0.9 k/uL (1.0-4.8); Lymphocytes % (A) 9 %; MCH 29.8 pg (25.0-35.0); MCHC 30.2 g/dL (31.0-37.0); MCV 98.7 fL (80.0-100.0); Mean Platelet Volume 8.7; Monocytes # (A) 0.6 k/uL (0-1.0); Monocytes % (A) 6 %; Neutrophils # (A) 7.6 k/uL (1.3-7.7); Neutrophils % (A) 78 %; Platelet Count 257 k/uL (150-450); RDW 14.3 % (11.5-15.5); WBC 9.8 k/uL (3.8-10.6)
[2019-04-26 08:15] LABS: Calcium 9.1 mg/dL (8.4-10.2)
[2019-04-26] MEDS: HEPARIN SODIUM,PORCINE 5,000 UNIT/ML 1 ML VIAL SQ SCH ×2 (08:47→20:20)
[2019-04-26] MEDS: METOPROLOL TARTRATE 25 MG TAB PO SCH ×2 (08:48→20:20)
[2019-04-26] MEDS: ASPIRIN 81 MG PO SCH (08:48)
[2019-04-26] MEDS: MIDODRINE 5 MG TAB PO SCH ×3 (08:48→20:20)
[2019-04-26] MEDS: buPROPion 75 MG TAB PO SCH ×2 (08:50→20:20)
[2019-04-26] MEDS: OXYBUTYNIN XL 5 MG TAB.ER.24 PO SCH (08:55)
--- NOTE | 2019-04-26 12:25 | P.PN ---
Subjective Progress Note Date: 04/26/19 Principal diagnosis: Rib fracture, CHF exacerbation Patient was seen and examined. No acute events overnight. is at bedside. Patient mumbling, difficult to understand. Her sitter, patient required Ativan for agitation overnight. Has been sleeping most of this morning. Objective - Vital Signs Vital signs: Vital Signs Temp 97 F L 04/26/19 11:56 Pulse 72 04/26/19 11:56 Resp 16 04/26/19 11:56 BP 127/74 04/26/19 11:56 Pulse Ox 96 04/26/19 11:56 Intake & Output 04/25/19 04/26/19 04/26/19 18:59 06:59 18:59 Intake Total 200 100 Output Total 1200 400 100 Balance -1200 -200 0 Intake: Oral 200 100 Output: Urine 1200 400 100 Other: Voiding Method Indwelling Catheter Indwelling Catheter Indwelling Catheter - Exam General: [non toxic], [no distress], [appears at stated age] Derm: [warm], [dry] Head: [atraumatic], [normocephalic], [symmetric] Eyes: [EOMI], [no lid lag], [anicteric sclera] Mouth: [no lip lesion], [mucus membranes moist] Cardiovascular: [S1S2 reg], [no murmur], [positive DP pulse bilateral] Lungs: [CTA bilateral], [no rhonchi, no rales] , [no accessory muscle use] Abdominal: [soft], [ nontender to palpation], [no guarding], [no appreciable organomegaly] Ext: [no gross muscle atrophy], [lower extremity edema], [no contractures] Neuro: [Unable to follow commands, rigidity noted] Psych: [Sleeping, unable to answer questions effectively] - Labs CBC & Chem 7: 04/26/19 07:34 04/26/19 07:34 Labs: Abnormal Lab Results - Last 24 Hours (Table) 04/26/19 04/26/19 Range/Units 07:34 07:34 RBC 4.10 L (4.30-5.90) m/uL Hgb 12.2 L (13.0-17.5) gm/dL MCHC 30.2 L (31.0-37.0) g/dL Lymphocytes # 0.9 L (1.0-4.8) k/uL Chloride 96 L (98-107) mmol/L Carbon Dioxide 38 H (22-30) mmol/L BUN 32 H (9-20) mg/dL Creatinine 1.27 H (0.66-1.25) mg/dL Glucose 101 H (74-99) mg/dL Assessment and Plan Assessment: Assessment and Plan Fall with rib fractures secondary to Parkinson's Left basilar pneumonia Systolic CHF exacerbation Acute delirium with underlying dementia Troponin elevation Elevated creatinine As seen on chest x-ray. Plans: Pain management with [place] as needed. Fall precautions. Patient would like more information on hospice care, to discuss with Dr. Velazquez. Follow PT and OT recommendations. Follow social work consult for rehab placement. As seen on chest x-ray along with symptoms for cough. Patient afebrile with a leukocytosis. Plans: Continue levofloxacin by mouth. Follow swallow eval. Note per NC to maintain O2 saturation greater than 92%. DuoNeb as needed for shortness of breath or wheezing. BNP 106,000, with chest x-ray showing concerns of CHF. February 2019 echocardiogram shows EF 20-25% with global hypokinesis. Plans: As per cardiology, transitioning from Lasix IV to by mouth. Continue lisinopril. Continue metoprolol. Strict intake and output. Daily weights. Keep Mg > 2 and K > 4. Follow Cardiology recommendations. Plans: Ativan as needed for agitation. Follow cardiology needed for psychosis. Frequent redirection. Continue sitter. Window side bed. Troponin 0.04, 0.048, 0.056, EKG was sinus rhythm and first-degree AV block. Likely secondary to troponin leak. Plans acute coronary syndrome ruled out. Follow cardiology recommendations. Creatinine 1.27. Likely secondary to diuresis and dehydration with use of Lasix. Plans: Daily BMP. Avoid nephrotoxins. Patient admitted for fall, found to have rib fractures along with pneumonia and to be in systolic CHF exacerbation. Will follow cardiology recommendations. Plans on DC back to [facility] where hospice will see them for evaluation.
[2019-04-26] MEDS: LISINOPRIL 10 MG TAB PO SCH (16:17)
--- NOTE | 2019-04-26 18:44 | P.PN ---
Subjective Progress Note Date: 04/26/19 Principal diagnosis: Falls/Acute on chronic CHF This is a [79]-year-old [male] with history of COPD, CVA, TIA, GERD, HTN, hyperlipidemia, [place], CAD, rheumatoid arthritis and recent hospital admission for non-STEMI/CHF one month ago. Patient well-known to Dr. JUVENTINO Velazquez and follows yenni huddleston in office for Parkinson's/balance problems/ischemic cardiomyopathy/orthostatic hypotension/autonomic dysfunction. Patient presents in the emergency department with complaints of [falling just prior to arrival with associated left shoulder, left hip, left rib pain. Patient did hit his head but had no loss of consciousness. Patient currently in no acute distress but very confused, not easily aroused. remains at bedside. states patient remains confused, currently unable to eat or drink due to confusion. Patient currently sinus rhythm sinus tach on monitor, vital signs stable, WNL O2 on 2 L nasal cannula. Afebrile. states patient only complains about rib pain/left shoulder pain. Patient remains symptomatic with orthostatics at home and balance problems. states patient is not currently eating or drinking. Patient has Marte catheter]. Progress note 04/25/2019 Patient currently alert and awake in no acute distress, calm and cooperative. Sitting in bed watching TV no current complaints of chest pain, chest pressure, shortness of breath or palpitations. SR on monitors, HR 60's. No edema. No complaints of pain. is not currently at bedside. Vital signs stable. Currently on 40 mg by mouth Lasix. Physical exam WNL. Continue same medical/medication regime. Family currently discussing hospice care. Progress note 04/2019 Patient currently alert and awake in no acute distress, calm and cooperative. Sitting in bed watching TV no current complaints of chest pain, chest pressure, shortness of breath or palpitations. SR on monitors, HR 60's. No edema. No complaints of pain. at bedside discussing HOSPICE with social work. Vital signs stable. Currently on 40 mg by mouth Lasix. Physical exam WNL. Continue same medical/medication regime. Will follow. PHYSICAL EXAM: VITAL SIGNS: GENERAL: Well developed, in no acute distress. Confused at baseline HEENT: Head is atraumatic, normocephalic. Pupils are equal, round. Extra ocular movements intact. Mucous membranes moist. Neck supple. No JVD. No carotid bruit. No thyromegaly. LUNGS: Clear to auscultation no wheezes, rales or rhonchi. Diminished bases bilaterally. No chest wall tenderness on palpation or with deep breathing. HEART: Regular rate and rhythm, no rubs or gallops. S1 and S2 heard. No murmur. ABDOMEN: Abdominal exam, WNL. Bowel sounds x4 quads. Soft, non-tender, without masses, organomegaly, or abdominal aorta enlargement. EXTREMITIES/VASCULAR: Extremities have easily palpable radial, femoral, dorsalis pedis and posterior tibial pulses. No cyanosis, calf tenderness. No BLE edema. NEUROLOGIC: Patient is awake, alert and oriented x1. No focal neurologic abnormalities. FINAL IMPRESSION: 1. [Acute on chronic systolic HF, ]. 2. [CAD status post PCI with mild troponin elevation]. 3. [Orthostatic hypotension]. 4. [Pneumonia]. 5. [Parkinson's with Fall and rib fracture]. . Objective - Vital Signs Vital signs: Vital Signs Temp 97 F L 04/26/19 11:56 Pulse 76 04/26/19 15:03 Resp 16 04/26/19 11:56 BP 127/74 04/26/19 11:56 Pulse Ox 96 04/26/19 11:56 Intake & Output 04/25/19 04/26/19 04/26/19 18:59 06:59 18:59 Intake Total 200 180 Output Total 1200 400 500 Balance -1200 -200 -320 Intake: Oral 200 180 Output: Urine 1200 400 500 Other: Voiding Method Indwelling Catheter Indwelling Catheter Indwelling Catheter - Labs CBC & Chem 7: 04/26/19 07:34 04/26/19 07:34 Labs: Abnormal Lab Results - Last 24 Hours (Table) 04/26/19 04/26/19 Range/Units 07:34 07:34 RBC 4.10 L (4.30-5.90) m/uL Hgb 12.2 L (13.0-17.5) gm/dL MCHC 30.2 L (31.0-37.0) g/dL Lymphocytes # 0.9 L (1.0-4.8) k/uL Chloride 96 L (98-107) mmol/L Carbon Dioxide 38 H (22-30) mmol/L BUN 32 H (9-20) mg/dL Creatinine 1.27 H (0.66-1.25) mg/dL Glucose 101 H (74-99) mg/dL
[2019-04-26] MEDS: LATANOPROST 0.005% OPHTH DROPS 2.5 ML BTL BOTH EYES SCH (20:19)
[2019-04-26] MEDS: ATORVASTATIN 10 MG TAB PO SCH (20:19)
[2019-04-27] MEDS: IPRATROPIUM-ALBUTEROL 3 ML NEB INHALATION SCH ×4 (03:43→15:31)
[2019-04-27] MEDS: POTASSIUM CHLORIDE ER 10 MEQ TAB.ER.PRT PO SCH (05:18)
[2019-04-27 08:48] VITALS: RESP 20
[2019-04-27 09:03] LABS: Basophils % (A) 0 %; Eosinophils # (A) 0.3 k/uL (0-0.7); Eosinophils % (A) 3 %; HCT 40.8 % (39.0-53.0); HGB 12.6 gm/dL (13.0-17.5); Hypochromasia Slight; Lymphocytes # (A) 1.1 k/uL (1.0-4.8); Lymphocytes % (A) 11 %; MCH 30.4 pg (25.0-35.0); MCHC 30.9 g/dL (31.0-37.0); MCV 98.4 fL (80.0-100.0); Mean Platelet Volume 8.3; Monocytes # (A) 0.6 k/uL (0-1.0); Monocytes % (A) 6 %; Neutrophils # (A) 7.8 k/uL (1.3-7.7); Neutrophils % (A) 77 %; Platelet Count 325 k/uL (150-450); RBC 4.15 m/uL (4.30-5.90); RDW 14.3 % (11.5-15.5); WBC 10.1 k/uL (3.8-10.6)
[2019-04-27] MEDS: MIDODRINE 5 MG TAB PO SCH ×2 (09:22→15:17)
[2019-04-27] MEDS: ASPIRIN 81 MG PO SCH (09:22)
[2019-04-27] MEDS: buPROPion 75 MG TAB PO SCH (09:22)
[2019-04-27] MEDS: FUROSEMIDE 40 MG TAB PO SCH (09:23)
[2019-04-27] MEDS: HEPARIN SODIUM,PORCINE 5,000 UNIT/ML 1 ML VIAL SQ SCH (09:23)
[2019-04-27] MEDS: METOPROLOL TARTRATE 25 MG TAB PO SCH (09:23)
[2019-04-27] MEDS: OXYBUTYNIN XL 5 MG TAB.ER.24 PO SCH (09:23)
[2019-04-27 09:28] LABS: Calcium 9.4 mg/dL (8.4-10.2); Potassium 3.9 mmol/L (3.5-5.1)
--- NOTE | 2019-04-27 11:01 | P.DS ---
Providers Date of admission: 04/26/19 06:13 Expected date of discharge: 04/27/19 Attending physician: Estiven Del Cid MD Consults: 04/23/19 17:59 Consult Physician Routine Consulting Provider: [facility] Consult Reason/Comments: CHF, pulmonary edema Do you want consulting provider notified?: Yes Primary care physician: [facility] Course: 79-year-old male with a past medical history of parkinsonism, hypertension, hyperlipidemia, CAD with systolic ischemic cardiomyopathy status post AICD, COPD presented to the ED from [facility] [place] the [place] where the patient was admitted for physical therapy and rehabilitation. The history was provided by the at the bedside (power of personal injury attorney). She reports that her had been gradually improving while at the facility though attempted to walk earlier today unassisted and subsequently had a fall. The patient did report hitting his head on the left side along with his chest and hip and shoulder. EMS was subsequently called and the patient was brought to the ED. The patient had received morphine for his pain in the ED and was lethargic and unable to provide a history during the time of interview. The further reported chronic cough productive of small amounts of white phlegm with no recent changes. She is also noted that the patient did not report any chest pain or shortness of breath prior to the fall. She also denied him mentioning any fevers, chills, or abdominal pain. The patient underwent a comprehensive evaluation in the emergency room with shoulder and hip/pelvic x-ray which were unremarkable for fractures. Head/cervical spine CT revealed chronic small vessel ischemic changes and no cervical spine fractures. Chest x-ray revealed airspace disease with possible pulmonary edema. Rib x-rays revealed a left 5th and 10th nondisplaced rib fractures. Laboratory evaluation revealed troponin of 0.040 and BNP elevated at 106,000. WBC count was 12.1, hemoglobin 11.1, BUN 26, and creatinine 1.24. Patient was noted to have a possible left basilar pneumonia on chest x-ray. He was afebrile with no leukocytosis. Patient did have symptoms of productive cough. Started on levofloxacin by mouth to complete a total of 7 days. Swallow evaluation was ordered, patient was placed on NDD3. Patient was noted to have a BNP of 106,000 with chest x-ray showing concerns of CHF. Echocardiogram in 2019 shows EF 20-25% with global hypokinesis. Patient was initially diuresed with Lasix IV and transitioned to oral. Cardiology was consulted and followed the patient on his clinical course. He was resumed on lisinopril and metoprolol. He was noted to have an elevated troponin of 0.04, 0.048, 0.056 with EKG showing sinus rhythm and first-degree AV block which is thought to be secondary to troponin leak from CHF. Patient was seen and examined. No acute events overnight. is at bedside. Patient mumbling, difficult to understand. General: [non toxic], [no distress], [appears at stated age] Derm: [warm], [dry] Head: [atraumatic], [normocephalic], [symmetric] Eyes: [EOMI], [no lid lag], [anicteric sclera] Mouth: [no lip lesion], [mucus membranes moist] Cardiovascular: [S1S2 reg], [no murmur], [positive DP pulse bilateral] Lungs: [CTA bilateral], [no rhonchi, no rales] , [no accessory muscle use] Abdominal: [soft], [ nontender to palpation], [no guarding], [no appreciable organomegaly] Ext: [no gross muscle atrophy], [lower extremity edema], [no contractures] Neuro: [Unable to follow commands, rigidity noted] Psych: [Sleeping, unable to answer questions effectively] Assessment and Plan Fall with rib fractures secondary to Parkinson's Left basilar pneumonia Systolic CHF exacerbation Acute delirium with underlying dementia Troponin elevation Elevated creatinine with metabolic alkalosis As seen on chest x-ray. Plans: Pain management with [place] as needed. Fall precautions. Patient would like more information on hospice care, to discuss with Dr. eVlazquez. Follow PT and OT recommendations. Follow social work consult for rehab placement. As seen on chest x-ray along with symptoms for cough. Patient afebrile with a leukocytosis. Plans: Continue levofloxacin by mouth. Follow swallow eval. Note per [place] to maintain O2 saturation greater than 92%. DuoNeb as needed for shortness of breath or wheezing. BNP 106,000, with chest x-ray showing concerns of CHF. February 2019 echocardiogram shows EF 20-25% with global hypokinesis. Plans: As per cardiology, transitioning from Lasix IV to by mouth. Continue lisinopril. Continue metoprolol. Strict intake and output. Daily weights. Keep Mg > 2 and K > 4. Follow Cardiology recommendations. Plans: Ativan as needed for agitation. Follow cardiology needed for psychosis. Frequent redirection. Continue sitter. Window side bed. Troponin 0.04, 0.048, 0.056, EKG was sinus rhythm and first-degree AV block. Likely secondary to troponin leak. Plans acute coronary syndrome ruled out. Follow cardiology recommendations. Creatinine 1.27-1.31, HCO3 of 38. Likely secondary to diuresis and dehydration with use of Lasix. Plans: Daily BMP. Avoid nephrotoxins. Patient admitted for fall, found to have rib fractures along with pneumonia and to be in systolic CHF exacerbation. Discussed with Dr. Velazquez, plans for DC today on Lasix 40 mg by mouth in the morning and 20 mg by mouth at night. Plans on DC back to [facility] where hospice will see them for evaluation. Patient is pending chest x-ray this morning. Bedside swallow evaluation performed, plans for video swallow either today or tomorrow. Pertinent Studies: CT head, CT C-spine, shoulder/hip/chest/rib x-ray. Patient Condition at Discharge: Fair Plan - Discharge Summary New Discharge Prescriptions: New Furosemide [Lasix] 20 mg PO AC-SUPPER #30 tab Furosemide [Lasix] 40 mg PO QAM #30 tablet Levofloxacin [Levaquin] 750 mg PO Q48H #6 tab Continue Nitroglycerin Sl Tabs [Nitrostat] 0.4 mg SUBLINGUAL Q5M PRN #30 tab PRN Reason: Chest Pain Albuterol Nebulized [Ventolin Nebulized] 2.5 mg INHALATION RT-BID PRN PRN Reason: Shortness Of Breath Aspirin [Adult Low Dose Aspirin EC] 81 mg PO DAILY buPROPion [Wellbutrin] 75 mg PO BID Fludrocortisone [Florinef] 0.1 mg PO BID tab Metoprolol Tartrate [Lopressor] 25 mg PO BID #0 Midodrine HCl [ProAmatine] 10 mg PO TID Latanoprost/Pf [Latanoprost 0.005% Eye Drop] 1 drop BOTH EYES HS Lisinopril [Zestril] 10 mg PO DAILY Potassium Chloride [Klor-Con 10] 10 meq PO DAILY@0600 Oxybutynin Xl [Ditropan XL] 5 mg PO DAILY Lactose-Reduced Food [Boost] 237 ml PO DAILY Atorvastatin [Lipitor] 10 mg PO HS Discontinued Vit C/E/Zn/Coppr/Lutein/Zeaxan [Preservision Areds 2 Softgel] 1 tab PO BID Furosemide [Lasix] 20 mg PO DAILY@0600 Z-Guard 1 applic TOPICAL BID Discharge Medication List Nitroglycerin Sl Tabs [Nitrostat] 0.4 mg SUBLINGUAL Q5M PRN #30 tab 08/26/14 [Rx] Albuterol Nebulized [Ventolin Nebulized] 2.5 mg INHALATION RT-BID PRN 08/09/18 [History] Aspirin [Adult Low Dose Aspirin EC] 81 mg PO DAILY 11/03/18 [History] buPROPion [Wellbutrin] 75 mg PO BID 03/15/19 [History] Fludrocortisone [Florinef] 0.1 mg PO BID tab 03/18/19 [Rx] Metoprolol Tartrate [Lopressor] 25 mg PO BID #0 03/18/19 [Rx] Atorvastatin [Lipitor] 10 mg PO HS 04/23/19 [History] Lactose-Reduced Food [Boost] 237 ml PO DAILY 04/23/19 [History] Latanoprost/Pf [Latanoprost 0.005% Eye Drop] 1 drop BOTH EYES HS 04/23/19 [History] Lisinopril [Zestril] 10 mg PO DAILY 04/23/19 [History] Midodrine HCl [ProAmatine] 10 mg PO TID 04/23/19 [History] Oxybutynin Xl [Ditropan XL] 5 mg PO DAILY 04/23/19 [History] Potassium Chloride [Klor-Con 10] 10 meq PO DAILY@0600 04/23/19 [History] Furosemide [Lasix] 20 mg PO AC-SUPPER #30 tab 04/27/19 [Rx] Furosemide [Lasix] 40 mg PO QAM #30 tablet 04/27/19 [Rx] Levofloxacin [Levaquin] 750 mg PO Q48H #6 tab 04/27/19 [Rx] Follow up Appointment(s)/Referral(s): [facility] [Provider Group] - 1 Week Jose David Cox MD [Primary Care Provider] - 1-2 days Ambulatory/Diagnostic Orders: Basic Metabolic Panel [LAB.AMB] Time Frame: 3 Days, Location: None Selected Patient Instructions/Handouts: Heart Failure (DC), Rib Fracture (DC), Fall Prevention (DC) Discharge Disposition: TRANSFER TO SNF/ECF
[2019-04-27 13:47] VITALS: BMI 18.4
--- NOTE | 2019-04-27 14:13 | XR ---
EXAMINATION TYPE: XR chest 2V DATE OF EXAM: 04/27/2019 COMPARISON: 04/24/2019 TECHNIQUE: PA and lateral views submitted. HISTORY: Shortness of breath FINDINGS: Persistent bilateral infiltrate and small effusion. Heart is enlarged and there is a cardiac device. Diffuse osteopenia and atherosclerotic change aorta. No pneumothorax. A number of air-fluid levels are seen and there is elevation of the hemidiaphragms with dilated bowel noted involving both upper quadrants. IMPRESSION: 1. Bilateral infiltrate and small effusion. 2. There are dilated bowel loops in both upper quadrants which are similar relative to the prior exam . Bowel obstruction or ileus in the differential diagnosis. Recommend CT of the abdomen and pelvis.
--- NOTE | 2019-04-27 14:16 | FL ---
COMPARISON: NONE DATE OF EXAM: 04/27/2019 HISTORY: Dysphasia A limited number of thin and thick substances were ingested under the care of the department of speec h pathology secondary to the patient's difficulty with cooperating. There is no evidence of aspirati on or penetration. There is no evidence of obstruction. Less than 1 minute of fluoroscopy and 0 mone ges submitted. IMPRESSION: 1. No evidence of aspiration or penetration.
[2019-04-27 15:17] VITALS: BP 148/90; TEMP 98.1
[2019-04-27] MEDS: LISINOPRIL 10 MG TAB PO SCH (15:18)
[2019-04-27 15:45] VITALS: PULSE 60
--- NOTE | 2019-04-27 16:21 | PN ---
PROGRESS NOTE DATE OF SERVICE: Mr. Rosas is doing better today. Blood pressure control is optimal. Breathing is easier. He is resting comfortably. Vitals are stable. No JVD. S1, S2 heard normally. Short systolic murmur noted. Lungs reveal improved air entry. Abdomen and lower extremity exam unchanged. Plan is to increase activity and send him back to [facility] if he is stable on current medications. The patient and his understand that overall prognosis is quite poor for this patient. MMODL / IJN: [id number] /
[2019-04-27] MEDS ORDERED: LEVOFLOXACIN 750 MG TAB PO SCH (20:00)
== END 2019-04-27 16:47 | DRG 183 ==
LOC: EC 11:45 → INTOOBSV 18:10 → 3SCARD 18:10 → OBSVTOIN 04-26 06:13
PROVIDERS: ADMIT Family Medicine; ATTEND Family Medicine
DX: S22.42XA Multiple fractures of ribs, left side, initial encounter for closed fracture (principal); I50.23 Acute on chronic systolic (congestive) heart failure; J18.9 Pneumonia, unspecified organism; E87.3 Alkalosis; J44.0 Chronic obstructive pulmonary disease with (acute) lower respiratory infection; I13.0 Hypertensive heart and chronic kidney disease with heart failure and stage 1 through stage 4 chronic kidney disease, or unspecified chronic kidney disease; E78.5 Hyperlipidemia, unspecified; E86.0 Dehydration; G20 Parkinson's disease; G90.9 Disorder of the autonomic nervous system, unspecified; H35.30 Unspecified macular degeneration; I25.10 Atherosclerotic heart disease of native coronary artery without angina pectoris; I25.2 Old myocardial infarction; I25.5 Ischemic cardiomyopathy; I27.20 Pulmonary hypertension, unspecified; I44.0 Atrioventricular block, first degree; I95.1 Orthostatic hypotension; K21.9 Gastro-esophageal reflux disease without esophagitis; M06.9 Rheumatoid arthritis, unspecified; N18.9 Chronic kidney disease, unspecified; T50.2X5A Adverse effect of carbonic-anhydrase inhibitors, benzothiadiazides and other diuretics, initial encounter; W19.XXXA Unspecified fall, initial encounter; Z79.82 Long term (current) use of aspirin; Z79.899 Other long term (current) drug therapy; Z80.0 Family history of malignant neoplasm of digestive organs; Z85.820 Personal history of malignant melanoma of skin; I69.398 Other sequelae of cerebral infarction; Z87.11 Personal history of peptic ulcer disease; Z87.442 Personal history of urinary calculi; Z87.891 Personal history of nicotine dependence; Z95.810 Presence of automatic (implantable) cardiac defibrillator; Z98.42 Cataract extraction status, left eye; Z98.41 Cataract extraction status, right eye; Z96.1 Presence of intraocular lens; Z98.61 Coronary angioplasty status; R74.8 Abnormal levels of other serum enzymes; Z83.2 Family history of diseases of the blood and blood-forming organs and certain disorders involving the immune mechanism; R91.1 Solitary pulmonary nodule; R41.0 Disorientation, unspecified
CPT/HCPCS: 36415; 70450; 71045; 71046; 72125; 73502; 74230; 80048; 80053; 83605; 83735; 83880; 84484; 85025; 85027; 93005; 94640; 94760; 96372; 96374; 96375; 99285

== ENCOUNTER 2019-05-03 02:04 | Inpatient (IN) | payer MEDICARE ==
[2019-05-03] MEDS ORDERED: SODIUM CHLORIDE 0.9% 1,000 ML IV STA (02:29)
[2019-05-03 02:43] LABS: Basophils % (A) 0 %; Eosinophils # (A) 0.2 k/uL (0-0.7); Eosinophils % (A) 2 %; HCT 36.7 % (39.0-53.0); HGB 11.8 gm/dL (13.0-17.5); Lymphocytes # (A) 0.8 k/uL (1.0-4.8); Lymphocytes % (A) 7 %; MCH 30.3 pg (25.0-35.0); MCHC 32.1 g/dL (31.0-37.0); MCV 94.3 fL (80.0-100.0); Mean Platelet Volume 9.9; Monocytes # (A) 0.7 k/uL (0-1.0); Monocytes % (A) 6 %; Neutrophils # (A) 10.3 k/uL (1.3-7.7); Neutrophils % (A) 84 %; Platelet Count 209 k/uL (150-450); RBC 3.89 m/uL (4.30-5.90); WBC 12.3 k/uL (3.8-10.6)
[2019-05-03 02:48] LABS: Albumin 2.6 g/dL (3.5-5.0); Calcium 9.2 mg/dL (8.4-10.2); INR 1.1 (<1.2); Magnesium 2.2 mg/dL (1.6-2.3); Partial Thromboplastin Time 26.9 sec (22.0-30.0); Potassium 3.9 mmol/L (3.5-5.1); Prothrombin Time 11.2 sec (9.0-12.0); Total Bilirubin 0.5 mg/dL (0.2-1.3); Total Protein 5.2 g/dL (6.3-8.2)
--- NOTE | 2019-05-03 03:18 | XR ---
EXAM: XR Chest, 2 Views CLINICAL HISTORY: : Weakness TECHNIQUE: Frontal and lateral views of the chest. COMPARISON: 04/27/19 FINDINGS: Lungs: There is again noted blunting of left costophrenic angle this appears to be slightly improved from prior study. There is persistent consolidation in the left lower lobe. Pleural space: Unremarkable. No pneumothorax. Heart: Unremarkable. No cardiomegaly. Mediastinum: Unremarkable. Bones/joints: Unremarkable. IMPRESSION: Persistent left lower lobe consolidation and blunting left costophrenic angle
--- NOTE | 2019-05-03 03:27 | XR ---
EXAM: XR Left Shoulder Complete, 2 or More Views CLINICAL HISTORY: Pain TECHNIQUE: Two or more views of the left shoulder. COMPARISON: No relevant prior studies available. FINDINGS: Bones/joints: Acute fracture of the inferior margin of the left scapula. Fracture of the multiple lower ribs along the mid scapular line this appears to be the eighth and ninth ribs these are not well-demonstrated on the chest x-ray films. Irregular contour of the inferior margin of the glenoid this is most likely chronic in nature Soft tissues: Unremarkable. IMPRESSION: Acute fracture of the inferior margin of the left scapula Fracture left ribs which appear to be eighth and ninth ribs however these are incompletely visualized. These are not well-demonstrated on the chest x-ray
--- NOTE | 2019-05-03 03:55 | CT ---
EXAM: CT Head Without Intravenous Contrast CLINICAL HISTORY: Pain TECHNIQUE: Axial computed tomography images of the head/brain without intravenous contrast. CTDI is 45.2 mGy and DLP is 1160 mGy-cm. This CT exam was performed using one or more of the following dose reduction techniques: automated exposure control, adjustment of the mA and/or kV according to patient size, and/or use of iterative reconstruction technique. COMPARISON: No relevant prior studies available. FINDINGS: No intracranial hemorrhage, abnormal intra- or extra-axial collections or parenchymal lesions are seen. There are involutional changes with prominence of the sulci, basal cisterns and ventricles. Scattered white matter hypoattenuations are present, likely from small vessel disease. The cooley-white differentiation is preserved. No evidence of mass effect, midline shift, or edema. The osseous structures are unremarkable. The visualized portions of the paranasal sinuses are clear. IMPRESSION: 1. No acute intracranial process. 2. Involutional changes with small vessel disease. EXAM: CT Cervical Spine Without Intravenous Contrast CLINICAL HISTORY: Pain TECHNIQUE: Axial computed tomography images of the cervical spine without intravenous contrast. CTDI is 10.7 mGy and DLP is 338.5 mGy-cm. This CT exam was performed using one or more of the following dose reduction techniques: automated exposure control, adjustment of the mA and/or kV according to patient size, and/or use of iterative reconstruction technique. Coronal and sagittal reformatted images were created and reviewed. COMPARISON: No relevant prior studies available. FINDINGS: No evidence for fracture the cervical spine. Mild degenerative changes noted of the cervical spine.. No spinal canal stenosis. Fracture of the inferior margin of the left scapula. This is incompletely visualized IMPRESSION: Degenerative changes cervical spine evidence for fracture cervical spine. Incompletely visualized fracture the inferior margin of the left scapula
--- NOTE | 2019-05-03 03:58 | ED ---
Fall HPI - General Source: EMS Mode of arrival: EMS <Lois Wall - Last Filed: 05/03/19 04:26> <Claudine Giraldo - Last Filed: 05/03/19 05:31> - General Chief Complaint: Fall Stated Complaint: Fall Time Seen by Provider: 05/03/19 02:23 - History of Present Illness Initial Comments: 79-year-old male patient with past medical history significant for COPD, CVA, Parkinson's, [place], and rheumatoid arthritis presented to the emergency department today from a [facility] for evaluation after experiencing an unwitnessed fall. Patient was found lying on the floor of his room. Staff from the nursing facility reports it is becoming progressively more weak over the last 2 days. Patient denies any current pain or injuries. He does have history of dementia and is a poor historian. Upon evaluation patient is resting comfortably in bed and has no complaints. (Lois Wall) - Related Data Home Medications Medication Instructions Recorded Confirmed Albuterol Nebulized [Ventolin 2.5 mg INHALATION RT-BID PRN 08/09/18 04/23/19 Nebulized] Aspirin [Adult Low Dose Aspirin EC] 81 mg PO DAILY 11/03/18 04/23/19 buPROPion [Wellbutrin] 75 mg PO BID 03/15/19 04/23/19 Atorvastatin [Lipitor] 10 mg PO HS 04/23/19 04/23/19 Lactose-Reduced Food [Boost] 237 ml PO DAILY 04/23/19 04/23/19 Latanoprost/Pf [Latanoprost 0.005% 1 drop BOTH EYES HS 04/23/19 04/23/19 Eye Drop] Lisinopril [Zestril] 10 mg PO DAILY 04/23/19 04/23/19 Midodrine HCl [ProAmatine] 10 mg PO TID 04/23/19 04/23/19 Oxybutynin Xl [Ditropan XL] 5 mg PO DAILY 04/23/19 04/23/19 Potassium Chloride [Klor-Con 10] 10 meq PO DAILY@0600 04/23/19 04/23/19 Previous Rx's Medication Instructions Recorded Nitroglycerin Sl Tabs [Nitrostat] 0.4 mg SUBLINGUAL Q5M PRN #30 tab 08/26/14 Fludrocortisone [Florinef] 0.1 mg PO BID tab 03/18/19 Metoprolol Tartrate [Lopressor] 25 mg PO BID #0 03/18/19 Furosemide [Lasix] 20 mg PO AC-SUPPER #30 tab 04/27/19 Furosemide [Lasix] 40 mg PO QAM #30 tablet 04/27/19 Levofloxacin [Levaquin] 750 mg PO Q48H #6 tab 04/27/19 Allergies Allergy/AdvReac Type Severity Reaction Status Date / Time etodolac [From [place]] Allergy Rash/Hives Verified 04/23/19 12:26 grape Allergy Rash/Hives Verified 04/23/19 12:26 Penicillins Allergy Rash/Hives Verified 04/23/19 12:26 grape flavor Allergy Rash/Hives Uncoded 04/23/19 12:26 Review of Systems ROS Other: All systems not noted in ROS Statement are negative. <Lois Wall - Last Filed: 05/03/19 04:26> ROS Other: All systems not noted in ROS Statement are negative. <Claudine Giraldo - Last Filed: 05/03/19 05:31> ROS Statement: Those systems with pertinent positive or pertinent negative responses have been documented in the HPI. Past Medical History Past Medical History: COPD, CVA/TIA, Eye Disorder, GERD/Reflux, Hyperlipidemia, Hypertension, Myocardial Infarction ([place]), Renal Disease, Respiratory Disorder, Rheumatoid Arthritis (RA) Additional Past Medical History / Comment(s): Rheumatoid lung disease, restrictive ventilatory impairment, lung nodules, moderate pulmonary HTN, bilateral nephrolithiasis, renal insufficiency, hiatal hernia, duodenal ulcers, macular degeneration bilaterally, tinnitis bilaterally, was told with [facility] that he had a [place] at some time-undetermined date, balance affected after CVA , 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 Last Myocardial Infarction Date:: unkn History of Any Multi-Drug Resistant Organisms: None Reported Past Surgical History: AICD, Heart Catheterization With Stent, Joint Replacement Additional Past Surgical History / Comment(s): 11/05/18 AICD, 07/2014 Cardiac cath with stents x 3, R caratid endartectomy, total R knee, lithotripsy 2011, cataract removal with lens implants bilaterally, colonoscopy/EGD, melanoma removed neck. Past Anesthesia/Blood Transfusion Reactions: No Reported Reaction Date of Last Stent Placement:: jul 2014 Type of Cardiac Device: AICD Device Placement Date:: 11/05/18 Past Psychological History: No Psychological Hx Reported, Depression Smoking Status: Former smoker - Past Family History Father History Unknown: Yes Family Medical History: Pulmonary Embolus Additional Family Medical History / Comment(s): Father of a PE at age 51 yrs. Mother Family Medical History: Cancer Additional Family Medical History / Comment(s): Hx. mother of esophagus cancer at age 86yrs. Son(s) Family Medical History: Cancer <Lois Wall M - Last Filed: 05/03/19 04:26> General Exam General appearance: alert, in no apparent distress, other (This is a well- developed, thin appearing elderly male patient in no acute distress. Vital signs upon presentation are temperature 97.6F, pulse 59, respirations 18, blood pressure 104/63, pulse ox 92% on room air.) Eye exam: Present: normal appearance, PERRL, EOMI. Absent: scleral icterus, conjunctival injection, periorbital swelling ENT exam: Present: normal exam, normal oropharynx. Absent: mucous membranes moist (Dry mucous membranes) Neck exam: Present: normal inspection, full ROM, other (Nontender, no step-off, no deformity to firm midline palpation of the posterior cervical spine. Full range of motion without pain or limitation.). Absent: tenderness, meningismus, lymphadenopathy Respiratory exam: Present: normal lung sounds bilaterally. Absent: respiratory distress, wheezes, rales, rhonchi, stridor Cardiovascular Exam: Present: regular rate, normal rhythm, normal heart sounds. Absent: systolic murmur, diastolic murmur, rubs, gallop, clicks GI/Abdominal exam: Present: soft, normal bowel sounds. Absent: distended, tenderness, guarding, rebound, rigid Extremities exam: Present: full ROM, normal capillary refill, other (Ecchymosis over the left anterior shoulder. Tenderness over the left anterior shoulder. Skin to the left upper Extremities pink, warm, dry. Cap refills less than 3 seconds. Radial pulses 2+ and equal bilaterally.). Absent: normal inspection, tenderness, pedal edema, joint swelling, calf tenderness Back exam: Present: normal inspection Neurological exam: Present: alert, CN II-XII intact. Absent: oriented X3 (Oriented 1) Psychiatric exam: Present: normal affect, normal mood Skin exam: Present: warm, dry, intact, normal color. Absent: rash <Lois Wall - Last Filed: 05/03/19 04:26> Course Vital Signs 05/03/19 05/03/19 05/03/19 02:07 03:39 05:00 Temperature 97.6 F Pulse Rate 59 L 57 L 64 Respiratory 18 16 18 Rate Blood Pressure 104/63 126/77 154/84 O2 Sat by Pulse 92 L 97 97 Oximetry Medical Decision Making - Lab Data Result diagrams: 05/03/19 02:15 05/03/19 02:15 - EKG Data -: EKG Interpreted by Ne - Radiology Data Radiology results: report reviewed, image reviewed <Lois Wall - Last Filed: 05/03/19 04:26> - Lab Data Result diagrams: 05/03/19 02:15 05/03/19 02:15 <Claudine Giraldo - Last Filed: 05/03/19 05:31> - Medical Decision Making 79-year-old male patient presents the emergency department today for evaluation after experiencing an unwitnessed fall his senior care facility. Patient did have some ecchymosis noted to the left shoulder. No other abnormalities. Labs reviewed and did reveal elevated white blood cell count at 12.3. BUN 103, creatinine 2.37. Patient's kidney function is significantly worse from prior. Patient will be given a fluid bolus of 1 L over the course of 4 hours given history of CHF. He'll be started on IV fluids. X-ray of the left shoulder did reveal evidence of acute scapular fracture. CT brain and C-spine were negative. Patient does have recurrent rib fractures on the left side from a fall a few days ago. Patient be admitted to the hospital for further evaluation. (Lois Wall) I personally saw and evaluated the patient, this is a chronically ill elderly gentleman with recurrent falls. Today he has apparent dehydration with acute kidney injury. This time I feel he would benefit from admission to the medicine service with trauma on consult for Fracture. (Claudine Giraldo) - Lab Data Lab Results 05/03/19 05/03/19 05/03/19 Range/Units 02:15 02:15 02:15 WBC 12.3 H (3.8-10.6) k/uL RBC 3.89 L (4.30-5.90) m/uL Hgb 11.8 L (13.0-17.5) gm/dL Hct 36.7 L (39.0-53.0) % MCV 94.3 (80.0-100.0) fL MCH 30.3 (25.0-35.0) pg MCHC 32.1 (31.0-37.0) g/dL RDW 15.0 (11.5-15.5) % Plt Count 209 (150-450) k/uL Neutrophils % 84 % Lymphocytes % 7 % Monocytes % 6 % Eosinophils % 2 % Basophils % 0 % Neutrophils # 10.3 H (1.3-7.7) k/uL Lymphocytes # 0.8 L (1.0-4.8) k/uL Monocytes # 0.7 (0-1.0) k/uL Eosinophils # 0.2 (0-0.7) k/uL Basophils # 0.0 (0-0.2) k/uL PT (9.0-12.0) sec INR (<1.2) APTT (22.0-30.0) sec Sodium 138 (137-145) mmol/L Potassium 3.9 (3.5-5.1) mmol/L Chloride 97 L (98-107) mmol/L Carbon Dioxide 32 H (22-30) mmol/L Anion Gap 9 mmol/L BUN 103 H* (9-20) mg/dL Creatinine 2.37 H (0.66-1.25) mg/dL Est GFR (CKD-EPI)AfAm 29 (>60 ml/min/1.73 sqM) Est GFR (CKD-EPI)NonAf 25 (>60 ml/min/1.73 sqM) Glucose 92 (74-99) mg/dL Plasma Lactic Acid Faisal 1.5 (0.7-2.0) mmol/L Calcium 9.2 (8.4-10.2) mg/dL Magnesium 2.2 (1.6-2.3) mg/dL Total Bilirubin 0.5 (0.2-1.3) mg/dL AST 51 (17-59) U/L ALT 31 (21-72) U/L Alkaline Phosphatase 118 (38-126) U/L Troponin I (0.000-0.034) ng/mL Total Protein 5.2 L (6.3-8.2) g/dL Albumin 2.6 L (3.5-5.0) g/dL Urine Color Urine Appearance (Clear) Urine pH (5.0-8.0) Ur Specific [place] (1.001-1.035) Urine Protein (Negative) Urine Glucose (UA) (Negative) Urine Ketones (Negative) Urine Blood (Negative) Urine Nitrite (Negative) Urine Bilirubin (Negative) Urine Urobilinogen (<2.0) mg/dL Ur Leukocyte Esterase (Negative) Urine RBC (0-5) /hpf Urine WBC (0-5) /hpf Urine Bacteria (None) /hpf Hyaline Casts (0-2) /lpf Urine Mucus (None) /hpf 05/03/19 05/03/19 05/03/19 Range/Units 02:15 02:15 04:00 WBC (3.8-10.6) k/uL RBC (4.30-5.90) m/uL Hgb (13.0-17.5) gm/dL Hct (39.0-53.0) % MCV (80.0-100.0) fL MCH (25.0-35.0) pg MCHC (31.0-37.0) g/dL RDW (11.5-15.5) % Plt Count (150-450) k/uL Neutrophils % % Lymphocytes % % Monocytes % % Eosinophils % % Basophils % % Neutrophils # (1.3-7.7) k/uL Lymphocytes # (1.0-4.8) k/uL Monocytes # (0-1.0) k/uL Eosinophils # (0-0.7) k/uL Basophils # (0-0.2) k/uL PT 11.2 (9.0-12.0) sec INR 1.1 (<1.2) APTT 26.9 (22.0-30.0) sec Sodium (137-145) mmol/L Potassium (3.5-5.1) mmol/L Chloride (98-107) mmol/L Carbon Dioxide (22-30) mmol/L Anion Gap mmol/L BUN (9-20) mg/dL Creatinine (0.66-1.25) mg/dL Est GFR (CKD-EPI)AfAm (>60 ml/min/1.73 sqM) Est GFR (CKD-EPI)NonAf (>60 ml/min/1.73 sqM) Glucose (74-99) mg/dL Plasma Lactic Acid Faisal (0.7-2.0) mmol/L Calcium (8.4-10.2) mg/dL Magnesium (1.6-2.3) mg/dL Total Bilirubin (0.2-1.3) mg/dL AST (17-59) U/L ALT (21-72) U/L Alkaline Phosphatase (38-126) U/L Troponin I 0.054 H* (0.000-0.034) ng/mL Total Protein (6.3-8.2) g/dL Albumin (3.5-5.0) g/dL Urine Color Yellow Urine Appearance Clear (Clear) Urine pH 5.0 (5.0-8.0) Ur Specific [place] 1.013 (1.001-1.035) Urine Protein Negative (Negative) Urine Glucose (UA) Negative (Negative) Urine Ketones Negative (Negative) Urine Blood Trace H (Negative) Urine Nitrite Negative (Negative) Urine Bilirubin Negative (Negative) Urine Urobilinogen <2.0 (<2.0) mg/dL Ur Leukocyte Esterase Negative (Negative) Urine RBC 8 H (0-5) /hpf Urine WBC 1 (0-5) /hpf Urine Bacteria Rare H (None) /hpf Hyaline Casts 77 H (0-2) /lpf Urine Mucus Rare H (None) /hpf - EKG Data EKG Comments: EKG obtained at 0208 shows sinus bradycardia with a first-degree AV block. Ventricular rate is 58, UT interval 218, QRS duration 108, QT 462, QTc 453. No evidence of ST elevation or depression. (Lois Wall) - Radiology Data CT brain without contrast was obtained. Report was reviewed in its entirety. Impression by Dr. Alonzo shows no acute intracranial process. Involutional changes with small vessel disease. CT without contrast of the cervical spine was obtained and showed degenerative changes. No evidence for cervical spinal fracture. Incompletely visualized fracture of the inferior margin of the left scapula. Two-view x-ray of the chest is obtained. Report was reviewed in its entirety. Impression by Dr. Alonzo shows persistent left lower lobe consolidation blunting of the left costophrenic angle. (Lois Wall) Disposition Decision to Admit Reason: Admit from EC Decision Date: 05/03/19 Decision Time: 04:11 <Lois Wall - Last Filed: 05/03/19 04:26> <Claudine Giraldo - Last Filed: 05/03/19 05:31> Clinical Impression: Acute on chronic renal failure, Left scapula fracture Disposition: ADMITTED IP TO THIS HOSP Condition: Serious
[2019-05-03 04:19] LABS: Appearance,Urine Clear (Clear); Bacteria,Urine Rare /hpf; Bilirubin,Urine Negative (Negative); Blood,Urine Trace (Negative); Color,Urine Yellow; Glucose,Urine (UA) Negative (Negative); Hyaline Casts,Urine 77 /lpf (0-2); Ketones,Urine Negative (Negative); Leukocyte Esterase,Urine Negative (Negative); Mucus,Urine Rare /hpf; Nitrite,Urine Negative (Negative); Protein,Urine Negative (Negative); RBC,Urine 8 /hpf (0-5); Specific Gravity,Urine 1.013 (1.001-1.035); Urobilinogen,Urine <2.0 mg/dL (<2.0); WBC,Urine 1 /hpf (0-5)
[2019-05-03] MEDS ORDERED: NALOXONE 0.4 MG/ML 1 ML VIAL IV PRN (04:23)
--- NOTE | 2019-05-03 06:45 | P.HPIM ---
History of Present Illness H&P Date: 05/03/19 Chief Complaint: Fall 79-year-old male with history of CHF systolic status post ICD, CVA, Parkinson. Was recently discharged from our hospital a week ago after sustaining a left Rib fracture after a fall. Patient staying at [facility] where he has been progressively weak over the past couple days eventually he was found by nursing staff down on the floor after sustaining an unwitnessed fall he was complaining of left shoulder pain was sent in here for evaluation. Patient has dementia and very poor historian. history obtained by talking to the at bed side . Patient was found to have left acute scapular fracture with swelling and ecchymosis of the left shoulder. Computed tomography scan of the head and neck was unremarkable. Blood work indicated possible dehydration with acute kidney injury on CK D. Chronically elevated troponin at his baseline. Patient was admitted for rehydration and management of his acute kidney injury and evaluation by orthopedics. He also reports bottom discomfort when he passes bowel movemetn, which is described as frequent and pasty , he has recently finished a course of ABx denies any fever, chills, abd pain , nausea or vomting , denies any SOB Review of Systems Pertinent positives as noted in HPI. All other systems were reviewed and are negative Past Medical History Past Medical History: COPD, CVA/TIA, Eye Disorder, GERD/Reflux, Hyperlipidemia, Hypertension, Myocardial Infarction ([place]), Renal Disease, Respiratory Disorder, Rheumatoid Arthritis (RA) Additional Past Medical History / Comment(s): Rheumatoid lung disease, restrictive ventilatory impairment, lung nodules, moderate pulmonary HTN, bilateral nephrolithiasis, renal insufficiency, hiatal hernia, duodenal ulcers, macular degeneration bilaterally, tinnitis bilaterally, was told with [facility] that he had a [place] at some time-undetermined date, balance affected after CVA , 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 Last Myocardial Infarction Date:: unkn History of Any Multi-Drug Resistant Organisms: None Reported Past Surgical History: AICD, Heart Catheterization With Stent, Joint Replacement Additional Past Surgical History / Comment(s): 11/05/18 AICD, 07/2014 Cardiac cath with stents x 3, R caratid endartectomy, total R knee, lithotripsy 2011, cataract removal with lens implants bilaterally, colonoscopy/EGD, melanoma removed neck. Past Anesthesia/Blood Transfusion Reactions: No Reported Reaction Date of Last Stent Placement:: jul 2014 Type of Cardiac Device: AICD Device Placement Date:: 11/05/18 Past Psychological History: No Psychological Hx Reported, Depression Smoking Status: Former smoker - Past Family History Father History Unknown: Yes Family Medical History: Pulmonary Embolus Additional Family Medical History / Comment(s): Father of a PE at age 51 yrs. Mother Family Medical History: Cancer Additional Family Medical History / Comment(s): Hx. mother of esophagus cancer at age 86yrs. Son(s) Family Medical History: Cancer Medications and Allergies Home Medications Medication Instructions Recorded Confirmed Type Nitroglycerin Sl Tabs [Nitrostat] 0.4 mg SUBLINGUAL Q5M PRN #30 tab 08/26/14 05/03/19 Rx Albuterol Nebulized [Ventolin 2.5 mg INHALATION RT-BID PRN 08/09/18 05/03/19 History Nebulized] Aspirin [Adult Low Dose Aspirin EC] 81 mg PO DAILY@0900 11/03/18 05/03/19 History buPROPion [Wellbutrin] 75 mg PO BID@0900,209903/15/19 05/03/19 History Fludrocortisone [Florinef] 0.1 mg PO BID tab 03/18/19 05/03/19 Rx Metoprolol Tartrate [Lopressor] 25 mg PO BID #0 03/18/19 05/03/19 Rx Atorvastatin [Lipitor] 10 mg PO HS@209904/23/19 05/03/19 History Lactose-Reduced Food [Boost] 237 ml PO DAILY@1200 04/23/19 05/03/19 History Latanoprost/Pf [Latanoprost 0.005% 1 drop BOTH EYES HS@209904/23/19 05/03/19 History Eye Drop] Lisinopril [Zestril] 10 mg PO DAILY@89904/23/19 05/03/19 History Midodrine HCl [ProAmatine] 10 mg PO TID@0900,1300,209904/23/19 05/03/19 History Oxybutynin Xl [Ditropan XL] 5 mg PO DAILY@0900 04/23/19 05/03/19 History Potassium Chloride [Klor-Con 10] 10 meq PO DAILY@0604/23/19 05/03/19 History Levofloxacin [Levaquin] 750 mg PO Q48H #6 tab 04/27/19 05/03/19 Rx Acetaminophen Tab [Tylenol Tab] 650 mg PO Q4H PRN 05/03/19 05/03/19 History Docusate [Colace] 100 mg PO DAILY@2100 05/03/19 05/03/19 History Furosemide [Lasix] 20 mg PO DAILY@1300 05/03/19 05/03/19 History Furosemide [Lasix] 40 mg PO DAILY@0600 05/03/19 05/03/19 History Ibuprofen [Motrin] 600 mg PO TID PRN 05/03/19 05/03/19 History Allergies Allergy/AdvReac Type Severity Reaction Status Date / Time etodolac [From [facility]] Allergy Rash/Hives Verified 05/03/19 07:16 grape Allergy Rash/Hives Verified 05/03/19 07:16 Penicillins Allergy Rash/Hives Verified 05/03/19 07:16 morphine AdvReac Confusion Verified 05/03/19 12:52 grape flavor Allergy Rash/Hives Uncoded 04/23/19 12:26 Physical Exam Vitals: Vital Signs Temp Pulse Resp BP Pulse Ox 05/03/19 05:00 98.6 F 60 12 154/84 96 05/03/19 04:00 98 F 61 31 H 126/77 91 L 05/03/19 03:39 57 L 16 126/77 97 05/03/19 03:00 98.4 F 64 16 114/68 96 05/03/19 02:07 97.6 F 59 L 14 104/63 93 L Intake and Output 05/02/19 05/02/19 05/03/19 14:59 22:59 06:59 Other: Weight 72.575 kg Constitutional: No acute distress, conversant, pleasant Eyes: Anicteric sclerae, moist conjunctiva, Pupils equal round reactive to light ENMT: NC/AT Oropharynx clear, no erythema, exudates Neck: Supple, FROM, no masses, or JVD No carotid bruits No thyromegaly Lungs: Clear to auscultation Clear to percussion Normal respiratory effort, no accessory muscle use Cardiovascular: Heart regular in rate and rhythm, No murmurs, gallops, or rubs + 1 peripheral edema bilateral legs Abdominal: Soft Nontender, no guarding, rebound or rigidity Abdomen moving with respiration Normoactive bowel sounds No hepatomegaly, No splenomegaly No palpable mass No abdominal wall hernia noted maceration of skin around anus as erported by nursing staff Skin: Ecchymosis and minimal swelling over the left shoulder tender to palpation Normal temperature, tone, texture, turgor No induration No subcutaneous nodules No rash, lesions No ulcers Extremities: No digital cyanosis No clubbing Pedal pulses intact and symmetrical Radial pulses intact and symmetrical No calf tenderness Psychiatric: Alert and oriented to person, only Flat affect Poor judgment Neuro Muscles Strength -4/5 in all 4 extremities limited exam over the left upper extremity due to pain over the left shoulder Sensation to light touch grossly present throughout Cranial nerves II-XII grossly intact No focal sensory deficits Lymphatics: no palpable cervical or supraclavicular , or inguinal lymph nodes Results CBC & Chem 7: 05/03/19 02:15 05/03/19 02:15 Labs: Abnormal Lab Results - Last 24 Hours (Table) 05/03/19 05/03/19 05/03/19 Range/Units 02:15 02:15 02:15 WBC 12.3 H (3.8-10.6) k/uL RBC 3.89 L (4.30-5.90) m/uL Hgb 11.8 L (13.0-17.5) gm/dL Hct 36.7 L (39.0-53.0) % Neutrophils # 10.3 H (1.3-7.7) k/uL Lymphocytes # 0.8 L (1.0-4.8) k/uL Chloride 97 L (98-107) mmol/L Carbon Dioxide 32 H (22-30) mmol/L BUN 103 H* (9-20) mg/dL Creatinine 2.37 H (0.66-1.25) mg/dL Troponin I 0.054 H* (0.000-0.034) ng/mL Total Protein 5.2 L (6.3-8.2) g/dL Albumin 2.6 L (3.5-5.0) g/dL Urine Blood (Negative) Urine RBC (0-5) /hpf Urine Bacteria (None) /hpf Hyaline Casts (0-2) /lpf Urine Mucus (None) /hpf 07/08/19 Range/Units 04:00 WBC (3.8-10.6) k/uL RBC (4.30-5.90) m/uL Hgb (13.0-17.5) gm/dL Hct (39.0-53.0) % Neutrophils # (1.3-7.7) k/uL Lymphocytes # (1.0-4.8) k/uL Chloride (98-107) mmol/L Carbon Dioxide (22-30) mmol/L BUN (9-20) mg/dL Creatinine (0.66-1.25) mg/dL Troponin I (0.000-0.034) ng/mL Total Protein (6.3-8.2) g/dL Albumin (3.5-5.0) g/dL Urine Blood Trace H (Negative) Urine RBC 8 H (0-5) /hpf Urine Bacteria Rare H (None) /hpf Hyaline Casts 77 H (0-2) /lpf Urine Mucus Rare H (None) /hpf Assessment and Plan Assessment: 79 year old male with histoory of CHF, copd, cva , parkinson admitted as inpatient with anticipated length of stay more than 48 hours for acute kidney injury due to dehydration frequent falls at correction progressive weakness patient found to have acute fracture of left scapula Plan: Recurrent falls with progressive weakness, negative CT of the head and CT of the spine Acute left scapular fracture Acute kidney injury on CK D Chronically elevated troponin Plan ortho evaluation Gentle IV fluid hydration due to CHF Avoid nephrotoxic meds Hold lisinopril and diuretics PT/OT evaluation Pain control Chronic conditions Dementia Parkinson disease History of CVA History of CT Rheumatoid arthritis Chronic systolic CHF currently compensated last EF 20-25% status post ICD pasty frequent bowel movemetn , check C diff, recent use of ABx maceration around his anus , local care with barrier cream Preformed a thorough record review from recent hospitalization discharged 1 week ago after sustaining a fall and having left rib fracture Surrogate decision-maker: power of state attorney CODE STATUS: Full code DVT prophylaxis: *Heparin subcu Discussed with: Patient, ER, Anticipated discharge: 48-[address]: custodial A total of 60 minutes was spent on the care of this complex patient more than 5 0% of the time was spent in counseling and care coordination.
[2019-05-03] MEDS ORDERED: NON-FORMULARY DRUG (Lactose-Reduced Food [Boost] 237 ML) PO SCH (09:00)
[2019-05-03] MEDS ORDERED: MORPHINE SULFATE 2 MG/ML SYRINGE IVP PRN (09:31)
[2019-05-03] MEDS: HEPARIN SODIUM,PORCINE 5,000 UNIT/ML 1 ML VIAL SQ SCH ×3 (09:58→23:07)
[2019-05-03] MEDS: METOPROLOL TARTRATE 25 MG TAB PO SCH ×2 (09:59→21:42)
[2019-05-03] MEDS: ASPIRIN 81 MG PO SCH (09:59)
[2019-05-03] MEDS: HYDROcodone/APAP 5-325MG 1 EACH TAB PO PRN ×2 (09:59→21:41)
[2019-05-03] MEDS: SODIUM CHLORIDE 0.9% 1,000 ML IV SCH ×2 (10:01→23:07)
[2019-05-03] MEDS: FLUDROCORTISONE 0.1 MG TAB PO SCH ×2 (10:04→21:41)
[2019-05-03] MEDS: MIDODRINE 5 MG TAB PO SCH ×3 (10:04→20:23)
[2019-05-03] MEDS: OXYBUTYNIN XL 5 MG TAB.ER.24 PO SCH (10:04)
[2019-05-03] MEDS: buPROPion 75 MG TAB PO SCH (10:05)
[2019-05-03 13:29] VITALS: RESP 18
[2019-05-03 13:58] VITALS: BMI 22.9
--- NOTE | 2019-05-03 16:13 | P.PN ---
Progress Note - Text Progress Note Date: 05/03/19 Advanced Care Planning: Diagnoses: Parkinson's disease Dementia Systolic CHF Background : Multiple readmissions, Multiple falls, failure to thrive Discussion: Person(s) present and participating in discussion: and daughter Summary: and daughter present. They would like to sign-on with season processes return to [facility] on the esposito. However they would like to keep going with his rheumatoid arthritis once monthly infusion. I explained that this likely will not be possible on hospice. We can up the plan to discharge back to [facility] tomorrow, with the order for do not return to hospital, start comfort care orders with agitation and pain medications, as well as pleasure feedings, and DNR status. His next infusion is and all arrangements have been made per the for this infusion. He could then sign on with hospice on Friday. I will discus with social work and [facility] in AM. A total of 17 minutes of face to face time was spent discussing advanced care planning.
[2019-05-03] MEDS: LIDOCAINE 4% CREAM 5 GM TUBE TOPICAL SCH ×2 (17:22→21:42)
--- NOTE | 2019-05-03 19:55 | P.CNPUL ---
History of Present Illness Consult date: 05/03/19 Chief complaint: Recurrent multiple falls with rib and scapular fracture History of present illness: 79-year-old male patient with past medical history significant for COPD, CVA, Parkinson's, NJ, and rheumatoid arthritis presented to the emergency department from a [facility] on the [place] for evaluation after experiencing an unwitnessed fall. Patient was found lying on the floor of his room. Staff from the nursing facility reports it is becoming progressively more weak over the last 2 days. Patient denies any current pain or injuries. He does have history of dementia and is a poor historian. A sitter is present with him on [facility] patient was found to be having acute renal failure with the urine of 103 creatinine of 2.53 elevated white seal count initially she was hypotensive requiring fluid boluses the CT of the brain and C-spine were negative however x-ray of the left shoulder revealed acute scapular fracture on the left side, x-ray showed blunting of left costophrenic angle with consolidation on the left lower lobe possibly pneumonia, patient is just made him DO NOT RESUSCITATE it appears that he is going for hospice no aggressive intervention is being planned on the for supportive care Review of Systems All systems: negative Past Medical History Past Medical History: Coronary Artery Disease (CAD), Cancer, Heart Failure, COPD, CVA/TIA, Eye Disorder, GERD/Reflux, Hyperlipidemia, Hypertension, Myocardial Infarction (NJ), Renal Disease, Respiratory Disorder, Rheumatoid Arthritis (RA), Syncope Additional Past Medical History / Comment(s): Pt recently admitted to [facility] on 04/26/19 with L 5th/10th rib fractures, L sided pneumonia, systolic CHF exacerbation, acute delirium/dementia. 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 Last Myocardial Infarction Date:: ? 02/2019 History of Any Multi-Drug Resistant Organisms: None Reported Past Surgical History: AICD, Heart Catheterization With Stent, Joint Replacement Additional Past Surgical History / Comment(s): 11/05/18 AICD, 07/2014 Cardiac cath with stents x 3, R caratid endartectomy, total R knee, lithotripsy 2011, cataract removal with lens implants bilaterally, colonoscopy/EGD, melanoma removed neck. Past Anesthesia/Blood Transfusion Reactions: No Reported Reaction Date of Last Stent Placement:: jul 2014 Type of Cardiac Device: AICD Device Placement Date:: 11/05/18 Smoking Status: Former smoker - Past Family History Father History Unknown: Yes Family Medical History: Pulmonary Embolus Additional Family Medical History / Comment(s): Father of a PE at age 51 yrs. Mother Family Medical History: Cancer Additional Family Medical History / Comment(s): Hx. mother of esophagus cancer at age 86yrs. Son(s) Family Medical History: Cancer Medications and Allergies Home Medications Medication Instructions Recorded Confirmed Type Nitroglycerin Sl Tabs [Nitrostat] 0.4 mg SUBLINGUAL Q5M PRN #30 tab 08/26/14 05/03/19 Rx Albuterol Nebulized [Ventolin 2.5 mg INHALATION RT-BID PRN 08/09/18 05/03/19 History Nebulized] Aspirin [Adult Low Dose Aspirin EC] 81 mg PO DAILY@0900 11/03/18 05/03/19 History buPROPion [Wellbutrin] 75 mg PO BID@0900,2100 03/15/19 05/03/19 History Fludrocortisone [Florinef] 0.1 mg PO BID tab 03/18/19 05/03/19 Rx Metoprolol Tartrate [Lopressor] 25 mg PO BID #0 03/18/19 05/03/19 Rx Atorvastatin [Lipitor] 10 mg PO HS@209904/23/19 05/03/19 History Lactose-Reduced Food [Boost] 237 ml PO DAILY@1200 04/23/19 05/03/19 History Latanoprost/Pf [Latanoprost 0.005% 1 drop BOTH EYES HS@209904/23/19 05/03/19 History Eye Drop] Lisinopril [Zestril] 10 mg PO DAILY@0904/23/19 05/03/19 History Midodrine HCl [ProAmatine] 10 mg PO TID@0900,1300,2100 04/23/19 05/03/19 History Oxybutynin Xl [Ditropan XL] 5 mg PO DAILY@0900 04/23/19 05/03/19 History Potassium Chloride [Klor-Con 10] 10 meq PO DAILY@0600 04/23/19 05/03/19 History Levofloxacin [Levaquin] 750 mg PO Q48H #6 tab 04/27/19 05/03/19 Rx Acetaminophen Tab [Tylenol Tab] 650 mg PO Q4H PRN 05/03/19 05/03/19 History Docusate [Colace] 100 mg PO DAILY@2100 05/03/19 05/03/19 History Furosemide [Lasix] 20 mg PO DAILY@1300 05/03/19 05/03/19 History Furosemide [Lasix] 40 mg PO DAILY@0600 05/03/19 05/03/19 History Ibuprofen [Motrin] 600 mg PO TID PRN 05/03/19 05/03/19 History Allergies Allergy/AdvReac Type Severity Reaction Status Date / Time etodolac [From [facility]] Allergy Rash/Hives Verified 05/03/19 07:16 grape Allergy Rash/Hives Verified 05/03/19 07:16 Penicillins Allergy Rash/Hives Verified 05/03/19 07:16 morphine AdvReac Confusion Verified 05/03/19 12:52 grape flavor Allergy Rash/Hives Uncoded 04/23/19 12:26 Physical Exam Vitals: Vital Signs Temp Pulse Pulse Resp BP BP Pulse Ox 05/03/19 13:28 96.9 F L 67 18 144/70 96 05/03/19 11:00 57 L 17 118/67 91 L 05/03/19 10:00 65 21 154/84 05/03/19 09:00 68 16 154/84 98 05/03/19 07:00 16 154/84 97 05/03/19 06:00 65 18 154/84 92 L 05/03/19 05:00 98.6 F 60 12 154/84 96 05/03/19 04:00 98 F 61 31 H 126/77 91 L 05/03/19 03:39 57 L 16 126/77 97 05/03/19 03:00 98.4 F 64 16 114/68 96 05/03/19 02:07 97.6 F 59 L 14 104/63 93 L Intake and Output 05/03/19 05/03/19 05/03/19 06:59 14:59 22:59 Intake Total 240 Balance 240 Intake: Oral 240 Other: Voiding Method Diaper Incontinent # Voids 2 # Bowel Movements 2 5 Weight 72.575 kg 72.575 kg - Constitutional General appearance: average body habitus, cooperative, disheveled, no acute distress - EENT Eyes: EOMI, PERRLA, normal appearance Ears: bilateral: normal - Neck Carotids: bilateral: upstroke normal Thyroid: bilateral: normal size - Respiratory Respiratory: left: diminished, rales, negative: dullness, rhonchi, wheezing - Cardiovascular Rhythm: regular Heart sounds: normal: S1, S2 - Gastrointestinal General gastrointestinal: normal bowel sounds, splenomegaly - Integumentary Integumentary: decreased turgor - Neurologic Neurologic: CNII-XII intact - Musculoskeletal Musculoskeletal: generalized weakness Results - Laboratory Findings CBC and BMP: 05/03/19 02:15 05/03/19 02:15 PT/INR, D-dimer PT 11.2 sec (9.0-12.0) 05/03/19 02:15 INR 1.1 (<1.2) 05/03/19 02:15 Abnormal lab findings: Abnormal Labs 05/03/19 05/03/19 05/03/19 02:15 02:15 02:15 WBC 12.3 H RBC 3.89 L Hgb 11.8 L Hct 36.7 L Neutrophils # 10.3 H Lymphocytes # 0.8 L Chloride 97 L Carbon Dioxide 32 H BUN 103 H* Creatinine 2.37 H Troponin I 0.054 H* Total Protein 5.2 L Albumin 2.6 L Urine Blood Urine RBC Urine Bacteria Hyaline Casts Urine Mucus 05/03/19 04:00 WBC RBC Hgb Hct Neutrophils # Lymphocytes # Chloride Carbon Dioxide BUN Creatinine Troponin I Total Protein Albumin Urine Blood Trace H Urine RBC 8 H Urine Bacteria Rare H Hyaline Casts 77 H Urine Mucus Rare H - Diagnostic Findings Chest x-ray: report reviewed, image reviewed Assessment and Plan Assessment: Left lower lobe pneumonia Left-sided pleural effusion Recurrent falls Rib fractures and left sided scapular fracture Hypertension and hypertensive cardiovascular disease Rheumatoid lung disease Advanced Parkinson's disease Dementia and Alzheimer's disease Plan: Supportive care Pain management Recommend antibiotics for comfort and intent hour will defer to primary service Continue home medications Given that patient is going for hospice we'll follow him on as needed basis will sign off from now on Time with Patient: Greater than 30
[2019-05-03] MEDS ORDERED: LATANOPROST 0.005% OPHTH DROPS 2.5 ML BTL BOTH EYES SCH (21:00)
[2019-05-03] MEDS ORDERED: ATORVASTATIN 10 MG TAB PO SCH (21:00)
[2019-05-03] MEDS ORDERED: QUEtiapine 25 MG TAB PO SCH (21:45)
[2019-05-04 05:36] VITALS: PULSE 63; TEMP 97.7
--- NOTE | 2019-05-04 07:55 | CDI ---
Documentation Clarification Form Date: 05/04/2019 7:48:09 AM From: Gabi JorgePATRIA majano, CCDS Admit Date: 05/03/2019 4:42:00 AM Patient Name: Chemo Rosas Visit Number: [id number] Discharge Date: ATTENTION: The Clinical Documentation Specialists (CDI) and [facility] Coding Staff appreciate your assistance in clarifying documentation. Please respond to the clarification below the line at the bottom and electronically sign. The CDI & [facility] Coding staff will review the response and follow-up if needed. Please note: Queries are made part of the Legal Health Record. If you have any questions, please contact the author of this message via ITS. Dr. Alecia Conde: Patient was admitted with dehydration & acute renal failure. Per the History & Physical: YANET on CKD. History/Risk Factors: CHF, Hypertension, COPD, CVA, Parkinson's, frequent falls. Clinical Indicators: Presented from senior care after found on floor by staff, found to have left scapular fracture, dehydration & acute renal failure. LAB: BUN 103^^; Creatinine 2.37^, GFR 25 Patients Baseline BUN/CR/GFR: Unknown or not documented. Treatment: IV fluid bolus, IV Morphine. Admit to medical/oncology floor. In order to capture the severity of condition, please clarify if the condition signifies: CKD Stage 1 (GFR > 90) CKD Stage 2 (GFR 60-89) CKD Stage 3 (GFR 30-59) CKD Stage 4 (GFR 15-29) CKD Stage 5 (GFR <15) Other, please specify Unable to determine (Last Revision: January 2018) CKD 3 MTDD
[2019-05-04] MEDS: METOPROLOL TARTRATE 25 MG TAB PO SCH ×2 (07:58→08:41)
[2019-05-04] MEDS: MIDODRINE 5 MG TAB PO SCH ×3 (07:59→13:01)
[2019-05-04] MEDS: FLUDROCORTISONE 0.1 MG TAB PO SCH ×2 (07:59→08:41)
[2019-05-04] MEDS: ASPIRIN 81 MG PO SCH ×2 (08:00→08:41)
[2019-05-04] MEDS: buPROPion 75 MG TAB PO SCH ×2 (08:00→08:41)
[2019-05-04] MEDS: OXYBUTYNIN XL 5 MG TAB.ER.24 PO SCH ×2 (08:00→08:42)
[2019-05-04] MEDS: LIDOCAINE 4% CREAM 5 GM TUBE TOPICAL SCH (08:01)
[2019-05-04] MEDS: HEPARIN SODIUM,PORCINE 5,000 UNIT/ML 1 ML VIAL SQ SCH (08:06)
[2019-05-04] MEDS: SODIUM CHLORIDE 0.9% 1,000 ML IV SCH (08:31)
[2019-05-04 11:05] LABS: Basophils % (A) 0 %; Eosinophils # (A) 0.2 k/uL (0-0.7); Eosinophils % (A) 2 %; HCT 39.1 % (39.0-53.0); Hypochromasia Moderate; Lymphocytes # (A) 0.8 k/uL (1.0-4.8); Lymphocytes % (A) 9 %; MCH 30.3 pg (25.0-35.0); MCHC 30.8 g/dL (31.0-37.0); MCV 98.4 fL (80.0-100.0); Mean Platelet Volume 9.1; Monocytes # (A) 0.5 k/uL (0-1.0); Monocytes % (A) 6 %; Neutrophils # (A) 7.8 k/uL (1.3-7.7); Neutrophils % (A) 82 %; Platelet Count 150 k/uL (150-450); RBC 3.97 m/uL (4.30-5.90); RDW 14.1 % (11.5-15.5); WBC 9.6 k/uL (3.8-10.6)
[2019-05-04 11:20] LABS: Albumin 2.4 g/dL (3.5-5.0); Calcium 8.9 mg/dL (8.4-10.2); Potassium 3.3 mmol/L (3.5-5.1); Total Bilirubin 0.4 mg/dL (0.2-1.3); Total Protein 5.1 g/dL (6.3-8.2)
[2019-05-04 12:13] VITALS: BP 120/70
--- NOTE | 2019-05-04 12:48 | P.DS ---
Providers Date of admission: 05/03/19 04:42 Expected date of discharge: 05/04/19 Attending physician: Gianfranco Roberto MD Primary care physician: Jose David Cox Hospital Course: Discharge Diagnosis: Frequent falls, acute fracture of the left scapula Left rib fractures YANET on CKD III Dementia with parkinsons disease Chronically elevated troponin Hx CVA CAD Rheumatoid arthritis Compensated systolic CHF with EF 20-25% Hospital Course: Patient is 79-year-old male with past medical history of Parkinson's disease, dementia, rheumatoid arthritis, lung nodules, COPD, stroke, hypertension, dyslipidemia, and prior myocardial infarction who presented with a fall. The ER he underwent an extensive evaluation. Blood work is found to be significantly dehydrated with acute kidney injury and his chronic kidney disease. He is also found to have a left scapular fracture as well as left rib fractures. He was started on IV fluids and admitted for further monitoring. He been having frequent bowel movements cover the forms so C. diff was not able to be checked. His met with hospice on the morning of admission. They decided to sign-on with hospice and subsequently discharged back to [facility]. He did have an adverse reaction to morphine. This has been noted for [facility] staff. He'll have a trial of [place]. He also has been complaining of significant rectal pain which responded well to lidocaine. He will be discharged back to [facility] and sign on with hospice. Patient seen and examined at bedside. Denies pain, feeling tired. Vital signs reviewed and stable. General: non toxic, no distress, appears at stated age Derm: warm, dry Head: atraumatic, normocephalic, symmetric Eyes: EOMI, no lid lag, anicteric sclera Mouth: no lip lesion, mucus membranes moist Cardiovascular: S1S2 reg, no murmur, positive posterior tibial pulse bilateral, Lungs: decreased be bilateral, no rhonchi, no rales , no accessory muscle use Abdominal: soft, nontender to palpation, no guarding, no appreciable organomegaly Ext: no gross muscle atrophy, no edema, [no contractures] Neuro: [ CN II-XI grossly intact], moving all 4 extremities independently. Psych:Awake talking A total of [35] minutes of time were spent preparing this complex discharge summary . Pertinent Studies: Shoulder x-ray-left scapular fracture, left ribs [address] head and cervical spine: No acute intracranial process, degenerative changes cervical spine with no evidence of fracture Chest x-ray: Persistent left lower lobe consolidation Patient Condition at Discharge: Serious Plan - Discharge Summary Discharge Rx Participant: No New Discharge Prescriptions: New RX: Lidocaine 4% Cream [Lmx 4] 1 applic TOPICAL Q8HR applic RX: HYDROcodone/APAP 5-325MG [[place] 5-325] 1 each PO Q6HR PRN #12 tab PRN Reason: Pain RX: QUEtiapine [SEROquel] 25 mg PO HS tab Continue RX: Nitroglycerin Sl Tabs [Nitrostat] 0.4 mg SUBLINGUAL Q5M PRN #30 tab PRN Reason: Chest Pain RX: Albuterol Nebulized [Ventolin Nebulized] 2.5 mg INHALATION RT-BID PRN PRN Reason: Shortness Of Breath RX: buPROPion [Wellbutrin] 75 mg PO BID@0900,2100 RX: Fludrocortisone [Florinef] 0.1 mg PO BID tab RX: Metoprolol Tartrate [Lopressor] 25 mg PO BID #0 RX: Midodrine HCl [ProAmatine] 10 mg PO TID@0900,1300,2100 RX: Latanoprost/Pf [Latanoprost 0.005% Eye Drop] 1 drop BOTH EYES HS@2100 RX: Oxybutynin Xl [Ditropan XL] 5 mg PO DAILY@0900 RX: Lactose-Reduced Food [Boost] 237 ml PO DAILY@1200 RX: Acetaminophen Tab [Tylenol] 650 mg PO Q4H PRN PRN Reason: Pain Discontinued RX: Aspirin [Adult Low Dose Aspirin EC] 81 mg PO DAILY@0900 RX: Lisinopril [Zestril] 10 mg PO DAILY@0900 RX: Potassium Chloride [Klor-Con 10] 10 meq PO DAILY@0600 RX: Atorvastatin [Lipitor] 10 mg PO HS@2100 RX: Levofloxacin [Levaquin] 750 mg PO Q48H #6 tab Ibuprofen [Motrin] 600 mg PO TID PRN PRN Reason: Pain Docusate [Colace] 100 mg PO DAILY@2100 Furosemide [Lasix] 40 mg PO DAILY@0600 Furosemide [Lasix] 20 mg PO DAILY@1300 Discharge Medication List RX: Nitroglycerin Sl Tabs [Nitrostat] 0.4 mg SUBLINGUAL Q5M PRN #30 tab 08/26/14 [Rx] RX: Albuterol Nebulized [Ventolin Nebulized] 2.5 mg INHALATION RT-BID PRN 08/09/18 [History] RX: buPROPion [Wellbutrin] 75 mg PO BID@0900,2100 03/15/19 [History] RX: Fludrocortisone [Florinef] 0.1 mg PO BID tab 03/18/19 [Rx] RX: Metoprolol Tartrate [Lopressor] 25 mg PO BID #0 03/18/19 [Rx] RX: Lactose-Reduced Food [Boost] 237 ml PO DAILY@1200 04/23/19 [History] RX: Latanoprost/Pf [Latanoprost 0.005% Eye Drop] 1 drop BOTH EYES HS@209904/23/19 [History] RX: Midodrine HCl [ProAmatine] 10 mg PO TID@0900,1300,209904/23/19 [History] RX: Oxybutynin Xl [Ditropan XL] 5 mg PO DAILY@0900 04/23/19 [History] RX: Acetaminophen Tab [Tylenol] 650 mg PO Q4H PRN 05/03/19 [History] RX: HYDROcodone/APAP 5-325MG [[place] 5-325] 1 each PO Q6HR PRN #12 tab 05/04/19 [Rx] RX: Lidocaine 4% Cream [Lmx 4] 1 applic TOPICAL Q8HR applic 05/04/19 [Rx] RX: QUEtiapine [SEROquel] 25 mg PO HS tab 05/04/19 [Rx] Follow up Appointment(s)/Referral(s): Jose David Cox MD [Primary Care Provider] - 1-2 days Activity/Diet/Wound Care/Special Instructions: Dysphagia level 3 diet: pleasure feeding activity as tolerated Plan to enroll at [facility] on arrival. Discharge Disposition: TRANSFER TO SNF/ECF
[2019-05-04] MEDS: HYDROcodone/APAP 5-325MG 1 EACH TAB PO PRN (13:17)
--- NOTE | 2019-05-06 02:33 | CDI ---
Documentation Clarification Form Date: 05/06/19 From: Filippo Velazquez Phone: call to [phone] Admit Date: 05/03/2019 4:42:00 AM Patient Name: Chemo Rosas Visit Number: [id number] Discharge Date: 05/04/2019 3:06:00 PM ATTENTION: The Clinical Documentation Specialists (CDI) and [facility] Coding Staff appreciate your assistance in clarifying documentation. Please respond to the clarification below the line at the bottom and electronically sign. The CDI & [facility] Coding staff will review the response and follow-up if needed. Please note: Queries are made part of the Legal Health Record. If you have any questions, please contact the author of this message via ITS. Dr. Alecia Conde, Pneumonia was documented in 05/03 consult note by Caden Gonzalez. In that consult note documented "Recommend antibiotics for comfort and intent hour will defer to primary service ". Per D/C summary given under pertinent studies as "Chest X- ray: Left lower lobe consolidation" and for patient not given any antibiotics. History/Risk Factors: Pneumonia. Clinical Indicators: WBC/Left shift: 12.3 X-ray: left lower lobe consolidation. Antibiotics : not given In order to capture the severity of condition, please clarify if the condition signifies and you are treating for: Pneumonia(ruled in or Ruled out) Other, please specify Unable to determine other: atelectasis MTDD
== END 2019-05-04 15:06 | DRG 683 ==
LOC: EC 02:04 → 4SSUR 04:42 → 3NMEDONC 11:55
PROVIDERS: ADMIT Internal Medicine; ATTEND Internal Medicine
DX: N17.9 Acute kidney failure, unspecified (principal); I13.0 Hypertensive heart and chronic kidney disease with heart failure and stage 1 through stage 4 chronic kidney disease, or unspecified chronic kidney disease; I50.22 Chronic systolic (congestive) heart failure; J44.0 Chronic obstructive pulmonary disease with (acute) lower respiratory infection; J98.11 Atelectasis; S42.102A Fracture of unspecified part of scapula, left shoulder, initial encounter for closed fracture; E86.0 Dehydration; W18.30XA Fall on same level, unspecified, initial encounter; R29.6 Repeated falls; R62.7 Adult failure to thrive; N18.3 Chronic kidney disease, stage 3 (moderate); M05.10 Rheumatoid lung disease with rheumatoid arthritis of unspecified site; Z66 Do not resuscitate; I27.20 Pulmonary hypertension, unspecified; I25.10 Atherosclerotic heart disease of native coronary artery without angina pectoris; I25.5 Ischemic cardiomyopathy; K21.9 Gastro-esophageal reflux disease without esophagitis; K62.89 Other specified diseases of anus and rectum; T40.2X5A Adverse effect of other opioids, initial encounter; Z51.5 Encounter for palliative care; E78.5 Hyperlipidemia, unspecified; H35.30 Unspecified macular degeneration; F02.80 Dementia in other diseases classified elsewhere, unspecified severity, without behavioral disturbance, psychotic disturbance, mood disturbance, and anxiety; Z96.1 Presence of intraocular lens; Z96.651 Presence of right artificial knee joint; G30.9 Alzheimer's disease, unspecified; G20 Parkinson's disease; I25.2 Old myocardial infarction; Z98.42 Cataract extraction status, left eye; Z98.41 Cataract extraction status, right eye; Z91.81 History of falling; Y92.129 Unspecified place in nursing home as the place of occurrence of the external cause; S22.32XD Fracture of one rib, left side, subsequent encounter for fracture with routine healing; Z95.810 Presence of automatic (implantable) cardiac defibrillator; Z79.899 Other long term (current) drug therapy; Z79.51 Long term (current) use of inhaled steroids; Z79.82 Long term (current) use of aspirin; Z86.73 Personal history of transient ischemic attack (TIA), and cerebral infarction without residual deficits; Z87.442 Personal history of urinary calculi; Z87.11 Personal history of peptic ulcer disease; Z85.820 Personal history of malignant melanoma of skin; Z87.891 Personal history of nicotine dependence; Z87.01 Personal history of pneumonia (recurrent); Z80.0 Family history of malignant neoplasm of digestive organs; Z88.0 Allergy status to penicillin; Z88.8 Allergy status to other drugs, medicaments and biological substances; Z91.02 Food additives allergy status
CPT/HCPCS: 36415; 70450; 71046; 72125; 80053; 81001; 83605; 83735; 84484; 85025; 85610; 85730; 93005; 96360; 96372; 99285